=== PATIENT | male | born 1985 | race Caucasian/White ===

== ENCOUNTER 2020-02-27 20:14 | Inpatient (IN) | payer MEDICAID, SELFPAY ==
--- NOTE | 2020-02-27 20:30 | ED_ITS ---
HPI - Psych General Chief Complaint: Psychiatric Symptoms Stated Complaint: crisis Time Seen by Provider: 02/27/20 20:29 Source: patient Mode of arrival: ambulatory History of Present Illness HPI Narrative: 34-year-old male states he has been sleeping for the past several days so today felt like he wanted to kill himself. States he had a plan to overdose on medications. However he did not take any. States he had these thoughts before and has been here for the same period denies recent illness, denies fevers chills nausea vomiting abdominal pain or chest pain MD complaint: suicidal ideation Onset (ago): day(s) ( 1 day) Related Data Allergies Allergy/AdvReac Type Severity Reaction Status Date / Time haloperidol [From HALDOL] Allergy Intermediate N/V/D Unverified 02/10/20 19:34 acetaminophen [From TYLENOL] Allergy Mild GI UPSET Unverified 02/10/20 19:34 SEAFOOD Allergy Severe ANAPHYLAXIS Uncoded 02/10/20 19:34 Review of Systems Review of Systems: Constitutional : No Weight loss, No Fever, No Chills, No Night Sweats, No Fatigue, No Malaise ENT/Mouth : No Hearing loss, No Ear Pain, No Nasal Congestion, No Sinus Pain, No Hoarseness, No sore throat, No Rhinorrhea, No Swallowing Difficulty Eyes: No Eye Pain, No Swelling, No Redness, No Foreign Body, No Discharge, No Vision Changes Cardiovascular : No Chest Pain, No SOB, No Dyspnea on Exertion, No Orthopnea, No Edema, No Palpitations Respiratory : No Cough, No Sputum, No Wheezing, No Smoke Exposure, No Dyspnea Gastrointestinal : No Nausea, No Vomiting, No Diarrhea, No Constipation, No abdominal Pain, No Hematochezia, No Melena Genitourinary : no irregular bleeding, No Dysuria, No Urinary Frequency, No Hematuria, No Urinary Incontinence, No Urgency, No Flank Pain, No Urinary Flow Changes, No Hesitancy Musculoskeletal : No joint pain, No Myalgias, No Joint Swelling Skin : No Skin Lesions, No rash Neuro : No Weakness, No Numbness, No Paresthesias, No Loss of Consciousness, No Dizziness, No Headache Psych : No Anxiety/Panic, No Depression, No SI/HI/AH/VH, No Social Issues, Heme/Lymph: No Bruising, No Bleeding,No Lymphadenopathy Endocrine : No Polyuria, No Polydipsia, No Temperature Intolerance [facility] Past Medical History Medical History (Updated 02/27/20 @ 20:33 by Endy Medel DO) Patient denies medical problems Family History Family History (Updated 02/27/20 @ 20:33 by Endy Medel DO) Other Patient denies medical problems Social History Social History (Updated 02/27/20 @ 20:33 by Endy Medel DO) Household Members: Friend(s) Physical Exam Const: Other: Appearance: Alert. Oriented X3. No acute distress. Eyes: Pupils equal, round and reactive to light. ENT: Pharynx normal. Neck: Normal inspection. Neck supple. CVS: Normal heart rate and rhythm. Pulses normal. Respiratory: No respiratory distress. Breath sounds normal. Abdomen: Soft and nontender. Skin: Skin warm and dry. Normal skin color. Normal skin turgor. Extremities: No lower extremity edema. No lower extremity edema. Neuro: Oriented X 3. No motor deficit. No sensory deficit. Course Reevaluation(s) Reevaluation #1: security bedside Time: 20:34 MDM - Psych Restraints Face to Face Assessment: Face to Face Assessment: Current Situation: After assessment of the patient, a review of the pertinent medical record and a discussion with nursing staff, I feel the patient requires a restrain intervention. Reaction To: [] Medical Condition: [] Behavioral State: [] Continued Need: []
[2020-02-27 20:33] VITALS: BP 113/76; PULSE 87; RESP 18; TEMP 36.8; O2SAT 97; BMI 25.9
--- NOTE | 2020-02-27 21:57 | PC.NURSE ---
faxed and called [facility]. yves confirmed fax. aleksey 1;1 at this time. sleeping airway patent. patient reports plan to od on heroin. patient reports having a lot of mental health problems and feeling overwhelmed . Pt denies other complaints at this time.
[2020-02-27 22:01] VITALS: RESP 18
--- NOTE | 2020-02-27 22:41 | PC.NURSE ---
Addendum entered by Gloria Valverde 02/27/20 23:31: pt continues to refuse labs/ua at time of orginal note. Original Note: pt now on section 12. books from backpack brought to bedside. full charge bookkeeper aware
--- NOTE | 2020-02-27 23:32 | PC.NURSE ---
UA collected and sent. patient refuses lab work. brought to 4. bedside report given to heber rowland.
[2020-02-27 23:56] LABS: Basophils Percent Auto 0.6 % (0-2); Eosinophils Absolute Auto 0.2 X10*3/uL (0.0-0.4); Eosinophils Percent Auto 2.5 % (0-4); Hematocrit 41.2 % (42-52); Hemoglobin 13.6 g/dl (14.0-18.0); Imm Gran Abs Auto 0.01 X10*3/uL (0.00-0.03); Imm Gran Pct Auto 0.1 % (0.0-0.4); Lymphocytes Absolute Auto 2.9 X10*3/uL (1.2-4.9); MANUAL DIFF FLAG SCAN; Mean Corpuscular Hemoglobin 29.1 pg (27.0-33.0); Mean Corpuscular Volume 88.2 fL (80-98); Mean Platelet Volume 8.3 fL (9.4-12.4); Monocytes Absolute Auto 0.8 X10*3/uL (0.1-1.2); Monocytes Percent Auto 11.7 % (2-11); Neutrophils Absolute Auto 2.8 X10*3/uL (2.0-8.3); Neutrophils Percent Auto 42.1 % (45-73); Platelet Count 194 X10*3/uL (160-400); Red Blood Count 4.67 X10*6/uL (4.60-5.80); Red Cell Distribution Width 14.1 % (11.0-16.0); SCAN SMEAR FLAG 1; White Blood Count 6.7 X10*3/uL (4.8-10.8)
[2020-02-27 23:56] LABS: Amphetamine Screen Urine Not Detected (Not Detect); Barbiturates, Urine Not Detected (Not Detect); Benzodiazepines Screen Urine Not Detected (Not Detect); Cannabinoid Screen Urine Not Detected (Not Detect); Cocaine Screen Urine POSITIVE (Not Detect); Opiate Screen Urine POSITIVE (Not Detect); Phencyclidine Screen Urine Not Detected (Not Detect)
--- NOTE | 2020-02-27 23:56 | PC.NURSE ---
PATIENT'S PAPERWORK FAXED TO [facility] AND PER [facility] THEY WILL BE IN PER THEIR REPORT IN THE MORNING FOR EVALUATION. PATIENT WAS REFUSING BLOOD DRAW AND URINALYSIS. AWAITING RESULTS. PATIENT CALM AND COOPERATIVE. CURRENTLY EATING.
[2020-02-28] VITALS (12 sets, daily range): BP systolic 95–114; BP diastolic 57–71; PULSE 62–68; RESP 15–20; TEMP 36.7–37; O2SAT 95–99
--- NOTE | 2020-02-28 | MR_ITS ---
EXAMINATION: MR ABDOMEN WITHOUT CONTRAST CLINICAL INFORMATION: 34-year-old with history elevated LFTs. Ultrasound shows mild enlargement CBD. No visible gallstone or choledocholithiasis. COMPARISON: Ultrasound abdomen 02/28/2020 TECHNIQUE: MR abdomen is performed without gadolinium contrast. Coronal and axial imaging is performed. Additional MRCP sequence also included. FINDINGS: LUNG BASES: The visualized lung bases are unremarkable. LIVER, GALLBLADDER, AND BILIARY TREE: The liver is within normal size and smooth in contour. The parenchyma areas homogeneous. There is no focal hepatic parenchymal lesion or intrahepatic ductal dilatation. The gallbladder appears contracted. There is no visible gallstone. The common duct ranges from 5 to 7 mm in caliber with no visible intraductal filling defect or wall thickening. No extrinsic compression or displacement or stricture. PANCREAS: Unremarkable. SPLEEN: Unremarkable. ADRENAL GLANDS: Unremarkable. KIDNEYS AND URETERS: The kidneys are normal in size and shape. No hydronephrosis. No perinephric stranding. GASTROINTESTINAL TRACT: No bowel obstruction. No ascites or fluid collection. ABDOMINAL WALL: No significant hernia is appreciated. LYMPH NODES: No lymphadenopathy. VASCULAR: Unremarkable. OSSEOUS STRUCTURES: Marrow signal normal. IMPRESSION: 1. Gallbladder appears contracted. No visible gallstone. 2. No intrahepatic ductal dilatation. Common duct 5 days 7 mm. No visible ductal calculus or stricture. 3. Pancreatic duct normal.
--- NOTE | 2020-02-28 | US_ITS ---
EXAMINATION: ABDOMINAL ULTRASOUND LIMITED CLINICAL INFORMATION: Elevated LFTs. COMPARISON: None. TECHNIQUE: Real-time imaging of the right upper quadrant abdominal viscera. FINDINGS: PANCREAS: The visualized pancreatic head and body are normal in appearance. The remainder of the pancreas is obscured from visualization by the overlying bowel gas. LIVER: The liver is of normal size and echogenicity without focal lesions nor intrahepatic biliary ductal dilation. GALLBLADDER: Normal. The gallbladder is physiologically distended without evidence of stones, sludge, polyps, wall thickening or pericholecystic fluid. COMMON BILE DUCT: The common duct is slightly enlarged measuring 7 mm without demonstrable choledocholithiasis. RIGHT KIDNEY: Normal. No hydronephrosis. No renal calculi or focal parenchymal lesions. The kidney measures 11.3 cm in maximum dimension. FREE FLUID: None. IMPRESSION: Mild enlargement to the common duct without demonstrable choledocholithiasis. No cholelithiasis.
[2020-02-28 00:27] LABS: SLIDE REVIEW VERIFIED
[2020-02-28 00:32] LABS: Ethanol < 10 mg/dL
[2020-02-28 00:38] LABS: Alanine Aminotransferase 1112 U/L (0-40); Albumin Level 4.1 g/dL (3.5-5.0); Alkaline Phosphatase 178 U/L (39-117); Anion Gap 11 (12-20); Aspartate Amino Transferase 873 U/L (5-37); Bilirubin Total 4.5 mg/dL (0.0-1.0); Blood Urea Nitrogen 14 mg/dL (9-16); Calcium 9.2 mg/dL (8.4-10.2); Carbon Dioxide 30 mmol/L (22-29); Chloride 102 mmol/L (96-108); Creatinine Clr Calc Pharmacy 81.6; Estimated Glomerular Filt Rate > 60; Glucose Random 102 mg/dL (60-115); Potassium 4.4 mmol/l (3.3-5.1); Sodium 139 mmol/L (135-145); Total Protein 6.9 g/dL (6.5-8.0)
--- NOTE | 2020-02-28 00:51 | PC.NURSE ---
PATIENT CURRENTLY RESTING IN HIS ROOM AFTER EATING CRACKERS AND BEING GIVEN WARM BLANKETS. PATIENT HAS BEEN CALM AND COOPERATIVE.
--- NOTE | 2020-02-28 01:21 | PC.NURSE ---
PATIENT'S LIVER ENZYMES ARE ELEVATED AND MD MADE AWARE. MD BACK TO SPEAK WITH PATIENT. PER PATIENT'S REPORT HE WAS RECENTLY DIAGNOSED WITH HEPATITIS THIS SUMMER AND PER HIS REPORT HE HAS NOT HAD TREATMENT FOR IT. MD ADDED LABRATORY TEST AND LAB CALLED. MD WAS GOING TO ORDER AN ULTRASOUND. PLAN IS TO SEND PATIENT WITH STAFF/SECURITY OFF UNIT FOR ULTRASOUND
[2020-02-28 01:23] LABS: Acetaminophen LAB < 1 mcg/mL (<30)
[2020-02-28 01:48] LABS: Salicylate < 5.0 mg/dL (15-30)
--- NOTE | 2020-02-28 01:58 | PC.NURSE ---
PATIENT NEEDS TO BE MEDICALLY CLEARED AGAIN PER N AND THEN THIS DIRECTOR OF GRADUATE ADMISSIONS NEEDS TO CALL [facility] AND LET THEM KNOW THAT PATIENT IS CLEARED SO THAT THEY CAN COME BACK AND ASSESS PATIENT. PATIENT OFF UNIT TO GO TO ULTRASOUND WITH SITTER/GLAZIER STRUCTURAL GLASS.
[2020-02-28 02:06] LABS: INTERNATIONAL NORM RATIO 1.4 (0.9-1.1); Prothrombin Time 16.1 SEC (10.8-13.0)
[2020-02-28 02:07] LABS: Lipase 13 U/L (8-78)
[2020-02-28 02:08] LABS: Partial Thromboplastin Time 36.6 SEC (24.1-38.0)
--- NOTE | 2020-02-28 03:12 | PC.NURSE ---
ONCE PATIENT IS MEDICALLY CLEARED THEN PATIENT WILL BE SEEN BY [facility] IN THE MORNING
--- NOTE | 2020-02-28 03:22 | PC.NURSE ---
AT BEDSIDE FOR EVALUATION. PLAN IS FOR ADMISSION TO MEDICAL FLOOR WITH CONSULT TOMORROW WITH DR. COLLADO GASTRO
--- NOTE | 2020-02-28 03:48 | PC.NURSE ---
HOSPITALIST AT BEDSIDE FOR EVALUATION OF PATIENT. AWAITING RESULTS OF LAB TESTS.
--- NOTE | 2020-02-28 04:04 | PM.IMHP ---
History of Present Illness Date of Service: 02/28/20 Chief Complaint: Abdominal pain 34 y/o male who presented from home due to suicidal ideation. Patient has a significant hx of IVDA. Reports that has been using heroin and cocaine on and off. Has a hx of Hep C which was never treated in the past. Now presents because for the past several days has been having ideas of commiting suicide. Patient denies having any plan at present or any attempt. Does reports that for the past week has been having a diffuse abdominal pain which has been sharp in nature but denies any nausea, vomiting, diarrhea or constipation. On presentation to the ED patient was initially placed for admission under [facility] but given an incidental finding of elevated liver function test GI was consulted for further management. AST 873, ALT of 1112, alk phosh 178, INR of 1.4. Utox positive for opiates and cocaine. US abdomen shows mild enlargement to the common duct without demonstrable cholelithiasis or choledocholithiasis. Per ED, findings were discussed with GI Dr Hines who recommends for patient to be admitted at present under medicine for LFT's trending and possible MRCP in the am if recommended. Patient seen and evaluated at the bedside, ROS positive for abdominal pain. Physical exam unable to be obtained at present as patient is upset and wants to be left alone . PMHx: Hep C, IV drug abuse PSx: unknown Toxic habits: Cocaine abuse, Heroin abuse, no hx of alcohol abuse or smoking Review of Systems Gastrointestinal: Gastrointestinal: Reports abdominal pain Psychiatric: Psychiatric: Reports homicidal ideation [facility] Medical History Patient denies medical problems Functional capacity: independent ambulation Family History Other Patient denies medical problems Family history: reviewed and not pertinent Social History Household Members: Friend(s) Alcohol intake: current Alcohol intake frequency: 0-2 drinks per day Alcohol type: hard liquor Smoking Status: Current every day smoker Smoked in Last 30 Days: Yes Use of substances other than those prescribed or required for medical reasons: Yes Substance Use Type: Heroin and Marijuana Substance Use Frequency: Daily Last Used Substance: Unknown Any prior treatment program specific to substance use: No Advance Directives: No Meds Allergies Allergy/AdvReac Type Severity Reaction Status Date / Time haloperidol [From HALDOL] Allergy Intermediate N/V/D Verified 02/28/20 03:46 acetaminophen [From TYLENOL] Allergy Mild GI UPSET Verified 02/28/20 03:46 SEAFOOD Allergy Severe ANAPHYLAXIS Uncoded 02/10/20 19:34 Home Medications Medication Instructions Recorded Confirmed Type No Known Home Meds 02/27/20 02/27/20 History Physical Exam Vital Signs and Narrative: Vital Signs: Last Vital Signs Temp 98.2 F 02/27/20 20:33 Pulse 87 02/27/20 20:33 Resp 18 02/28/20 04:00 BP 113/76 02/27/20 20:33 Pulse Ox 97 02/27/20 20:33 Body Mass Index 25.9 Const: General: comfortable, no acute distress and other (rest of the physical exam unable to be performed ) Results Labs Labs: Laboratory Tests 02/27/20 02/27/20 02/27/20 23:25 23:49 23:49 WBC 6.7 RBC 4.67 Hgb 13.6 L Hct 41.2 L MCV 88.2 MCH 29.1 MCHC 33.0 RDW 14.1 Plt Count 194 MPV 8.3 L Immature Gran % (Auto) 0.1 Neut % (Auto) 42.1 L Lymph % (Auto) 43.0 H [place] % (Auto) 11.7 H Eos % (Auto) 2.5 Baso % (Auto) 0.6 Neut # (Auto) 2.8 Lymph # (Auto) 2.9 [place] # (Auto) 0.8 Eos # (Auto) 0.2 Baso # (Auto) 0.0 Abs Immat Gran (auto) 0.01 Absolute Nucleated RBC 0.000 Nucleated RBC % (auto) 0.0 Smear Tech's Comments VERIFIED PT INR APTT Sodium 139 Potassium 4.4 Chloride 102 Carbon Dioxide 30 H Anion Gap 11 L BUN 14 Creatinine 1.14 Estim Creat Clear Calc 81.6 Estimated GFR > 60 Random Glucose 102 Calcium 9.2 Total Bilirubin 4.5 H AST 873 H ALT 1112 H Alkaline Phosphatase 178 H Total Protein 6.9 Albumin 4.1 Lipase 13 Salicylates < 5.0 L Urine Opiates Screen POSITIVE H Acetaminophen < 1 Ur Barbiturates Screen Not Detected Ur Phencyclidine Scrn Not Detected Ur Amphetamines Screen Not Detected U Benzodiazepines Scrn Not Detected Urine Cocaine Screen POSITIVE H U Marijuana (THC) Screen Not Detected Ethyl Alcohol 02/27/20 02/28/20 23:49 01:45 WBC RBC Hgb Hct MCV MCH MCHC RDW Plt Count MPV Immature Gran % (Auto) Neut % (Auto) Lymph % (Auto) [place] % (Auto) Eos % (Auto) Baso % (Auto) Neut # (Auto) Lymph # (Auto) [place] # (Auto) Eos # (Auto) Baso # (Auto) Abs Immat Gran (auto) Absolute Nucleated RBC Nucleated RBC % (auto) Smear Tech's Comments PT 16.1 H INR 1.4 H APTT 36.6 Sodium Potassium Chloride Carbon Dioxide Anion Gap BUN Creatinine Estim Creat Clear Calc Estimated GFR Random Glucose Calcium Total Bilirubin AST ALT Alkaline Phosphatase Total Protein Albumin Lipase Salicylates Urine Opiates Screen Acetaminophen Ur Barbiturates Screen Ur Phencyclidine Scrn Ur Amphetamines Screen U Benzodiazepines Scrn Urine Cocaine Screen U Marijuana (THC) Screen Ethyl Alcohol < 10 Assessment and Plan (1) Suicidal ideation: Status: Acute 1:1 for safety / elopement risk [facility] aware and will follow up in am When medically cleared follow up with psych for psych admission (2) Acute hepatitis: Status: Acute Elevated LFT's and alk phosph. INR of 1.4 Follow up repeat CMP in the am and trend LFT's as of now per recommendations from GI Possible MRCP if GI agreeable
--- NOTE | 2020-02-28 04:58 | PC.NURSE ---
CALL TO FLOOR TO GIVE REPORT. RN UNABLE TO TAKE REPORT AT THE MOMENT BUT WILL CALL SOON POSSIBLE
[2020-02-28 06:19] LABS: Basophils Absolute Auto 0.1 X10*3/uL (0.0-0.2); Basophils Percent Auto 0.7 % (0-2); Eosinophils Absolute Auto 0.2 X10*3/uL (0.0-0.4); Eosinophils Percent Auto 2.3 % (0-4); Hematocrit 38.9 % (42-52); Hemoglobin 13.2 g/dl (14.0-18.0); Imm Gran Abs Auto 0.02 X10*3/uL (0.00-0.03); Imm Gran Pct Auto 0.3 % (0.0-0.4); Lymphocytes Absolute Auto 3.1 X10*3/uL (1.2-4.9); Lymphocytes Percent Auto 44.4 % (20-40); MANUAL DIFF FLAG SCAN; Mean Corpuscular HGB Conc 33.9 g/dl (31.0-36.0); Mean Corpuscular Hemoglobin 29.5 pg (27.0-33.0); Mean Platelet Volume 8.8 fL (9.4-12.4); Monocytes Absolute Auto 0.9 X10*3/uL (0.1-1.2); Monocytes Percent Auto 13.3 % (2-11); Neutrophils Absolute Auto 2.7 X10*3/uL (2.0-8.3); Platelet Count 189 X10*3/uL (160-400); Red Blood Count 4.47 X10*6/uL (4.60-5.80); Red Cell Distribution Width 13.9 % (11.0-16.0); SCAN SMEAR FLAG 1
[2020-02-28 06:50] LABS: Alanine Aminotransferase 987 U/L (0-40); Albumin Level 3.7 g/dL (3.5-5.0); Alkaline Phosphatase 168 U/L (39-117); Anion Gap 11 (12-20); Aspartate Amino Transferase 748 U/L (5-37); Bilirubin Total 4.6 mg/dL (0.0-1.0); Blood Urea Nitrogen 13 mg/dL (9-16); Calcium 8.8 mg/dL (8.4-10.2); Carbon Dioxide 28 mmol/L (22-29); Chloride 103 mmol/L (96-108); Creatinine Clr Calc Pharmacy 101.1; Estimated Glomerular Filt Rate > 60; Glucose Random 84 mg/dL (60-115); Potassium 4.1 mmol/l (3.3-5.1); Sodium 138 mmol/L (135-145); Total Protein 6.3 g/dL (6.5-8.0)
[2020-02-28 08:10] LABS: HBS Num1 76.38 mIU/mL (0-7.99); ~HepC Num1 12.94 S/CO (0.00-0.79); ~Hepatitis B Surface Antibody REACTIVE (Nonreactive); ~Hepatitis C Antibody Reactive (Nonreactive)
[2020-02-28 08:12] LABS: Hepatitis B Core Antibody Nonreactive (Nonreactive); Hepatitis B Surface Antigen Negative (Negative)
[2020-02-28] MEDS: 0.9 % Sodium Chloride Flush 3 ML SYRINGE 2 ML IVFLUSH ×3 (09:11→23:53)
--- NOTE | 2020-02-28 09:16 | P.CNGI_ITS ---
History of Present Illness Data of Consult Service Date: 02/28/20 Requesting physician: Terrie Oreilly Primary Care Provider: None Physician HPI Reason for consult: Elevated LFTs 34 year old male with polysubstance dependence patient's drug of choice is alcohol benzodiazepines and heroin. Patient has a long history of substance use and comorbid depression and seen at [facility] last night with suicidal ideation. Labs showed elevated LFTs (of note LFTs were normal a month ago). Abdominal US showed a mildly dilated CBD of 7 mm without CBD or gallstones. Patient is a poor historian and answers I do not know to multiple questions. He complains of diffuse abdominal sharp and stabbing abdominal pain since last Friday. He denies any nausea, vomiting, or a change in bowel habits. Patient reports being diagnosed with hepatitis-C at [facility] this summer. Patient has not been treated since additional testing was advised and patient did not follow through. Patient has a significant hx of IVDA. Reports that has been using heroin and cocaine almost daily - last used yesterday. He denies sharing needles or recent exposure to someone with known Hepatitis C infection. On presentation to the ED patient was initially placed for admission under [facility]. Since he had elevated LFTS (TB of 4.5, AST 873, ALT of 1112, alk phos 178, INR of 1.4) patient was admitted to the Medical Service. Utox positive for opiates and cocaine. US abdomen shows mild enlargement to the common duct without demonstrable cholelithiasis or choledocholithiasis. Repeat LFTs today show a decrease in AST, ALT and AP and stable TB. Review of Systems Constitutional: Constitutional: Denies fever(s) and Reports poor appetite Eyes: Eyes: Denies eye discharge and Denies irritation Cardiovascular: Cardiovascular: Denies chest pain, Denies diaphoresis and Denies dyspnea Respiratory: Respiratory: Denies cough, Denies dyspnea and Denies wheezing Gastrointestinal: Gastrointestinal: Reports abdominal pain and Denies change in bowel habits Genitourinary: Genitourinary: Denies hematuria and Denies difficulty urinating Musculoskeletal: Musculoskeletal: Denies arthralgias and Denies joint swelling Psychiatric: Psychiatric: Reports anxiety, Reports change in appetite, Reports depression and Reports suicidal ideation Hematologic/Lymphatic: Hematologic/Lymphatic: Denies easy bleeding and Denies easy bruising Allergic/Immunologic: Allergic/Immunologic: Denies wheezing PMFSH Past Medical History Medical History Elevated LFTs Hepatitis C infection Intravenous drug abuse, continuous Patient denies medical problems Scoliosis Functional capacity: independent ambulation Family History Family History Other Patient denies medical problems Family history: reviewed and not pertinent Social History Social History Household Members: Unknown / Unable to assess Housing: Unknown / Unable to assess Alcohol intake: current Alcohol intake frequency: 0-2 drinks per day Alcohol type: hard liquor Smoking Status: Current every day smoker Substance Use Type: Heroin and Marijuana service: No Current occupational status: unemployed Meds Allergies Allergy/AdvReac Type Severity Reaction Status Date / Time haloperidol [From HALDOL] Allergy Intermediate N/V/D Verified 03/02/20 14:13 acetaminophen [From TYLENOL] Allergy Mild GI UPSET Verified 03/02/20 14:13 SEAFOOD Allergy Severe ANAPHYLAXIS Uncoded 02/10/20 19:34 Physical Exam Vital Signs and I&O and Narrative: Vital Signs and I&O: Vital Signs Temp 98.6 F 02/28/20 07:44 Pulse 68 02/28/20 07:44 Resp 16 02/28/20 07:44 BP 113/65 02/28/20 07:44 Pulse Ox 95 02/28/20 07:44 Intake & Output 02/27/20 02/28/20 02/28/20 18:59 06:59 18:59 Intake Total 0 / 0 Balance 0 / 0 Weight 160 lb 11.834 oz Intake: Intake, Oral [place] unt 0 / 0 Body Mass Index 25.9 Const: General: anxious and tired appearing Nutritional Appearance: average body habitus Orientation/consciousness: patient oriented x3 Limitations: no limitations HENMT: Head: Yes normal to inspection Ears: hearing grossly normal bilaterally Eyes: General: appearance normal, both eyes and all related structures Neck: Neck: Yes normal visual inspection Chest: Chest palpation & inspection: normal inspection of the chest Resp: Effort & Inspection: normal respiratory effort Auscultation: clear to auscultation bilaterally Cardio: Palpation: normal PMI Rate: regular rate Rhythm: regular rhythm Heart sounds: S1 normal heart sound present, S2 normal heart sound present and no murmurs GI: Inspection: Yes normal to inspection Palpation (GI): Tenderness to palpation present (GI) in the epigastrum and in the RUQ Auscultation: normal bowel sounds Rectal Exam - Male: Yes deferred Skin: General skin exam: no rashes or lesions noted Neuro: General: patient oriented x3 Extrem: General: Yes no clubbing, cyanosis or edema Psych: Attitude: Avoids eye contact (attititude/behavior) and Refuses to answer (attititude/behavior) (answers I dont know to multiple questions) Results Labs CBC & Chem 7: 03/02/20 09:48 03/02/20 09:48 Labs: Short CBC 02/27/20 02/28/20 Range/Units 23:49 05:41 WBC 6.7 7.0 (4.8-10.8) X10*3/uL Hgb 13.6 L 13.2 L (14.0-18.0) g/dl Hct 41.2 L 38.9 L (42-52) % Plt Count 194 189 (160-400) X10*3/uL BMP 02/27/20 02/28/20 23:49 05:41 Sodium 139 138 Potassium 4.4 4.1 Chloride 102 103 Carbon Dioxide 30 H 28 BUN 14 13 Creatinine 1.14 0.92 Calcium 9.2 8.8 Liver Function 02/27/20 02/28/20 Range/Units 23:49 05:41 Total Bilirubin 4.5 H 4.6 H (0.0-1.0) mg/dL AST 873 H 748 H (5-37) U/L ALT 1112 H 987 H (0-40) U/L Alkaline Phosphatase 178 H 168 H (39-117) U/L Albumin 4.1 3.7 (3.5-5.0) g/dL Assessment and Plan (1) Elevated LFTs: (2) Hepatitis C infection: (3) Intravenous drug abuse, continuous: Status: Resolved 34 year old male with polysubstance dependence (patient's drug of choice is alcohol, benzodiazepines and heroin). Patient has a long history of substance use and comorbid depression and presented to [facility] last night with suicidal ideation. Labs showed elevated LFTs (of note LFTs were normal a month ago). Abdominal US showed a mildly dilated CBD of 7 mm without CBD or gallstones. Hepatitis serologies showed positive hepatitis C antibody and positive hepatitis B surface antibody. Pt reports being diagnosed with Hepatitis C at this summer and denies being treated. Elevated LFTs are likely due to acute viral hepatitis (Hep A ab Ig M is still pending), biliary obstruction or liver toxicity related to IV Cocaine use. There is increased risk of cocaine liver toxicity in patients with concomitant ETOH abuse. RECOMMENDATIONS: 1. Agree with the obtaining an MRCP today to rule out biliary obstruction. 2. Hepatitis C viral load (I have requested past labs/records from ) 3. Follow LFTs and INR daily. He can be transferred to Psyche unit if LFTs show continued improvement. 4. He will need to FU in GI clinic after treatment of his Psyche issues. Hepatitis C treatment can be initiated once he stops using drugs and enrolls in a treatment program. EFFECTS OF COCAINE ON GI SYSTEM AND LIVER (From [place]): Gastrointestinal system ? Cocaine use by any route of administration reduces salivary secretions (xerostomia)and causes bruxism. Cocaine reduces gastric motility and delays gastric emptying. Cocaine-induced vasoconstriction and ischemia may result in gastrointestinal ulceration, infarction, perforation, and ischemic colitis. Cocaine-associated ulcers are distributed primarily in the greater curvature and prepyloric region of the stomach, pyloric canal, but, sim ilar to peptic ulcers, also occur in the first portion of the duodenum. Liver ? Cocaine users may have mild, transient elevation in transaminases, but there is no direct evidence that cocaine is hepatotoxic in humans. As an example, a prospective cohort study of 573 patients coinfected with HIV and hepatitis C virus, who were followed from 2002 to 2013 and lacked significant baseline liver fibrosis, found no association between progression to significant fibrosis and lifetime cocaine use (hazard ratio 0.96, 95% CI 0.58-1.57) or immzd-hyt-vehbi cocaine use (hazard ratio 0.88, 95% CI 0.63-1.25), after adjustment for age, sex, duration of hepatitis C infection, and alcohol and other drug use. Cocaine does cause liver damage in rodents; however, the responsible hepatotoxins are oxidative metabolites such as norcocaine, which are very minor metabolites in humans. Liver abnormalities in cocaine users can almost always be accounted for by viral hepatitis from injection drug use, alcoholic liver disease, concurrent rhabdomyolysis, use of other hepatotoxic drugs (such as MDMA [?ecstasy?]), or other consequences of a drug-using lifestyle. Concurrent alcohol intake may sensitize hepatocytes to damage by cocaine, as well as generating the hepatotoxic metabolite cocaethylene.
--- NOTE | 2020-02-28 12:19 | PM.GICN ---
History of Present Illness Data of Consult Primary Care Provider: None Physician [facility] Past Medical History Medical History Patient denies medical problems Functional capacity: independent ambulation Family History Family History Other Patient denies medical problems Family history: reviewed and not pertinent Social History Social History Household Members: Unknown / Unable to assess Housing: Unknown / Unable to assess Alcohol intake: current Alcohol intake frequency: 0-2 drinks per day Alcohol type: hard liquor Smoking Status: Current every day smoker Smoked in Last 30 Days: Yes Use of substances other than those prescribed or required for medical reasons: Refusing to respond Substance Use Type: Heroin and Marijuana Substance Use Frequency: Daily Last Used Substance: Unknown Any prior treatment program specific to substance use: No Advance Directives: No Recently lost weight without trying: Unsure Meds Allergies Allergy/AdvReac Type Severity Reaction Status Date / Time haloperidol [From HALDOL] Allergy Intermediate N/V/D Verified 02/28/20 03:46 acetaminophen [From TYLENOL] Allergy Mild GI UPSET Verified 02/28/20 03:46 SEAFOOD Allergy Severe ANAPHYLAXIS Uncoded 02/10/20 19:34 Home Medications Medication Instructions Recorded Confirmed Type No Known Home Meds 02/27/20 02/27/20 History Physical Exam Vital Signs and I&O and Narrative: Vital Signs and I&O: Vital Signs Temp 98.2 F 02/28/20 11:05 Pulse 62 02/28/20 11:05 Resp 18 02/28/20 11:05 BP 113/71 02/28/20 11:05 Pulse Ox 99 02/28/20 11:05 Intake & Output 02/27/20 02/28/20 02/28/20 18:59 06:59 18:59 Intake Total 0 / 0 480 / 480 Balance 0 / 0 480 / 480 Weight 160 lb 11.834 oz Intake: Intake, Oral Torey unt 0 / 0 480 / 480 Other: Breakfast % Eate n 100% Body Mass Index 25.9 Const: Other: Appearance: Alert. Oriented X3. No acute distress. Eyes: Pupils equal, round and reactive to light. ENT: Pharynx normal. Neck: Normal inspection. Neck supple. CVS: Normal heart rate and rhythm. Pulses normal. Respiratory: No respiratory distress. Breath sounds normal. Abdomen: Soft and nontender. Skin: Skin warm and dry. Normal skin color. Normal skin turgor. Extremities: No lower extremity edema. No lower extremity edema. Neuro: Oriented X 3. No motor deficit. No sensory deficit. General: comfortable, no acute distress and other (rest of the physical exam unable to be performed ) Results Labs CBC & Chem 7: 02/28/20 05:41 02/28/20 05:41 Labs: Short CBC 02/27/20 02/28/20 Range/Units 23:49 05:41 WBC 6.7 7.0 (4.8-10.8) X10*3/uL Hgb 13.6 L 13.2 L (14.0-18.0) g/dl Hct 41.2 L 38.9 L (42-52) % Plt Count 194 189 (160-400) X10*3/uL BMP 02/27/20 02/28/20 23:49 05:41 Sodium 139 138 Potassium 4.4 4.1 Chloride 102 103 Carbon Dioxide 30 H 28 BUN 14 13 Creatinine 1.14 0.92 Calcium 9.2 8.8 Liver Function 02/27/20 02/28/20 Range/Units 23:49 05:41 Total Bilirubin 4.5 H 4.6 H (0.0-1.0) mg/dL AST 873 H 748 H (5-37) U/L ALT 1112 H 987 H (0-40) U/L Alkaline Phosphatase 178 H 168 H (39-117) U/L Albumin 4.1 3.7 (3.5-5.0) g/dL Assessment and Plan (1) Acute hepatitis: Status: Acute Elevated LFT's and alk phosph. INR of 1.4 Follow up repeat CMP in the am and trend LFT's as of now per recommendations from GI Possible MRCP if GI agreeable (2) Suicidal ideation: Status: Acute 1:1 for safety / elopement risk BHN aware and will follow up in am When medically cleared follow up with psych for psych admission
[2020-02-28] MEDS: Morphine Sulfate 2 MG/ML CARTRIDGE IVPUSH ×3 (14:44→23:48)
--- NOTE | 2020-02-28 15:55 | MHC.CM.PN ---
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 Pt does not use DME and has no services. Pt does not have a HCP and declines to complete one. Pt reports he does not have a PCP but knows that based on his insurance company's protocol, he must contact them first to list a new PCP before he can make an appointment. DC plan TBD pending SOURAV morgan .
[2020-02-28] MEDS: LORazepam 2 MG/ML VIAL 0.25 MG IVPUSH (21:19)
[2020-02-29] VITALS (12 sets, daily range): BP systolic 106–122; BP diastolic 58–76; PULSE 68–80; RESP 16–20; TEMP 36.6–37; O2SAT 95–99
[2020-02-29] MEDS: Morphine Sulfate 2 MG/ML CARTRIDGE IVPUSH ×2 (05:46→10:07)
[2020-02-29 06:54] LABS: Basophils Percent Auto 0.6 % (0-2); Eosinophils Absolute Auto 0.2 X10*3/uL (0.0-0.4); Eosinophils Percent Auto 2.7 % (0-4); Hemoglobin 14.1 g/dl (14.0-18.0); Imm Gran Abs Auto 0.01 X10*3/uL (0.00-0.03); Imm Gran Pct Auto 0.2 % (0.0-0.4); Lymphocytes Absolute Auto 3.2 X10*3/uL (1.2-4.9); Lymphocytes Percent Auto 49.7 % (20-40); MANUAL DIFF FLAG SCAN; Mean Corpuscular HGB Conc 34.4 g/dl (31.0-36.0); Mean Corpuscular Hemoglobin 30.3 pg (27.0-33.0); Monocytes Absolute Auto 0.8 X10*3/uL (0.1-1.2); Neutrophils Absolute Auto 2.2 X10*3/uL (2.0-8.3); Neutrophils Percent Auto 34.8 % (45-73); Platelet Count 220 X10*3/uL (160-400); Red Blood Count 4.66 X10*6/uL (4.60-5.80); Red Cell Distribution Width 14.2 % (11.0-16.0); SCAN SMEAR FLAG 1; White Blood Count 6.3 X10*3/uL (4.8-10.8)
[2020-02-29 07:24] LABS: SLIDE REVIEW VERIFIED
[2020-02-29 07:38] LABS: Alanine Aminotransferase 915 U/L (0-40); Albumin Level 3.6 g/dL (3.5-5.0); Alkaline Phosphatase 162 U/L (39-117); Anion Gap 11 (12-20); Aspartate Amino Transferase 606 U/L (5-37); Bilirubin Direct 4.5 mg/dL (0.0-0.5); Bilirubin Total 5.2 mg/dL (0.0-1.0); Blood Urea Nitrogen 11 mg/dL (9-16); Calcium 8.7 mg/dL (8.4-10.2); Carbon Dioxide 26 mmol/L (22-29); Chloride 106 mmol/L (96-108); Creatinine Clr Calc Pharmacy 106.9; Estimated Glomerular Filt Rate > 60; Glucose Fasting 88 mg/dL (60-99); Sodium 139 mmol/L (135-145); Total Protein 6.5 g/dL (6.5-8.0)
[2020-02-29] MEDS: 0.9 % Sodium Chloride Flush 3 ML SYRINGE 2 ML IVFLUSH ×3 (09:02→23:17)
--- NOTE | 2020-02-29 16:15 | MHC.CARE ---
CARE team met with this patient in [facility] [place] 482[place]1 at staff request. Per [facility] staff, patient has been medically cleared. Patient had previously been agitated and was asking to leave. CARE team met with patient who appears very physically uncomfortable and in pain. Is aware that medications have been ordered and will be administered shortly. Patient asked to speak later on (rather than now) as he is not feeling well. Was apologetic but visibly agitated. Patient reports he lives with a friend and housing is stable. Patient verbally denies SI/HI however appears to have high frustration and low tolerance for physical discomfort. Due to circumstances of patient's arrival at [facility], patient is still considered at-risk and a sitter will remain with patient until [facility] eval. CARE team contacted [facility] to confirm that they plan to see patient today. Though patient is wanting to leave, he verbalizes understanding of plan for assessment to determine whether he is able to safely discharge. Patient is encouraged to rest/read until [facility] eval.
[2020-02-29] MEDS: hydrOXYzine HCL 25 MG TABLET PO (16:18)
[2020-02-29] MEDS: Morphine Sulfate 2 MG/ML CARTRIDGE 4 MG IVPUSH ×2 (16:24→23:17)
[2020-02-29] MEDS: cloNIDine HCL 0.1 MG TABLET PO (16:57)
[2020-02-29] MEDS: PHENobarbitaL sodium 130 MG/ML VIAL 384 MG IM (16:57)
--- NOTE | 2020-02-29 17:52 | HO.PM.IMPN ---
Subjective Subjective Date of Service: 02/29/20 Interval History: seen and evaluated this morning and in the afternoon Anxious, stressed out, security was called in for behavior Denies any fever or chills but reported abdominal pain and sweating No other overnight events Review of Systems Review of Systems: Yes all other systems are reviewed and are negative Constitutional Constitutional: Reports fatigue and Reports lethargy Gastrointestinal Gastrointestinal: Reports abdominal pain and Reports nausea Musculoskeletal Musculoskeletal: Reports muscle cramps Endocrine Endocrine: Reports fatigue Physical Exam Vital Signs and I&O and Narrative: Vital Signs and I&O: Vital Signs Temp 98.4 F 02/29/20 16:00 Pulse 68 02/29/20 16:57 Resp 20 02/29/20 16:00 BP 118/73 02/29/20 16:57 Pulse Ox 97 02/29/20 12:00 Intake & Output 02/28/20 02/29/20 02/29/20 18:59 06:59 18:59 Intake Total 480 / 540 60 / 540 340 / 340 Output Total 700 / 1300 600 / 1300 Balance -220 / -760 -540 / -760 340 / 340 Urine Output (Aver age ml/kg/hr) 0.80 0.69 0.69 Intake: Intake, Oral Torey unt 480 / 540 60 / 540 340 / 340 Output: Output, Urine Am ount 700 / 1300 600 / 1300 Other: Meal Refused Yes: Refused lunch Breakfast % Eate n 100% Lunch % Eaten 0% Urine Urinal Urine Color Concentrated Body Mass Index 25.9 Const: General: cooperative and anxious Orientation/consciousness: oriented to person and oriented to place Neck: Neck: Yes normal visual inspection and Yes full ROM Resp: Effort & Inspection: normal respiratory effort Auscultation: clear to auscultation bilaterally Cardio: Jugular venous distension: no JVD Heart sounds: S1 normal heart sound present and S2 normal heart sound present GI: Inspection: Yes normal to inspection Palpation (GI): Soft to palpation Percussion: Yes normal to percussion Auscultation: normal bowel sounds Neuro: General: oriented to person and oriented to place Objective Data Current Medications Generic Name Dose Route Start Last Admin Trade Name Freq PRN Reason Stop Dose Admin Clonidine HCl 0.1 mg 02/29/20 16:04 02/29/20 16:57 Clonidine Hcl 0.1 Mg Tablet PO 0.1 mg TID PRN Administration Withdrawal Protocol Enoxaparin Sodium 40 mg 02/28/20 08:00 02/29/20 09:03 Enoxaparin Sodium 40 Mg/0.4 Ml Syringe SUBCUT Not Given Q24H [facility] Hydroxyzine HCl 25 mg 02/29/20 16:04 02/29/20 16:18 Hydroxyzine Hcl 25 Mg Tablet PO 25 mg Q6H PRN Administration restlessness Medication 1 each 03/01/20 09:00 No Benzodiazepines MISCELLANE DAILY [facility] Morphine Sulfate 4 mg 02/29/20 16:06 02/29/20 16:24 Morphine Sulfate 2 Mg/Ml Cartridge IVPUSH 4 mg Q3H PRN Administration pain Pharmacy Consult 1 each 02/29/20 16:15 Consult Rx Etoh Phenob Dosing MISCELLANE ONCE [facility] Protocol Phenobarbital 45 mg 03/01/20 09:00 Phenobarbital 15 Mg Tablet PO 03/02/20 21:01 BID [facility] Phenobarbital 30 mg 03/03/20 09:00 Phenobarbital 30 Mg Tablet PO 03/04/20 21:01 BID [facility] Phenobarbital 15 mg 03/05/20 09:00 Phenobarbital 15 Mg Tablet PO 03/06/20 09:01 DAILY [facility] Phenobarbital Sodium 288 mg 02/29/20 20:00 Phenobarbital Sodium 130 Mg/Ml Vial IM 02/29/20 23:01 2000,2300 [facility] Sodium Chloride 2 ml 02/28/20 08:00 02/29/20 16:58 0.9 % Sodium Chloride Flush 3 Ml Syringe IVFLUSH 2 ml QSHIFT [facility] Administration Labs CBC & Chem 7: 02/29/20 05:32 02/29/20 05:32 Labs: Laboratory Results - last 24 hr 02/29/20 02/29/20 05:32 05:32 MCV 88.0 MCH 30.3 MCHC 34.4 RDW 14.2 Plt Count 220 MPV 9.0 L Immature Gran % (Auto) 0.2 Neut % (Auto) 34.8 L Lymph % (Auto) 49.7 H [place] % (Auto) 12.0 H Eos % (Auto) 2.7 Baso % (Auto) 0.6 Neut # (Auto) 2.2 Lymph # (Auto) 3.2 [place] # (Auto) 0.8 Eos # (Auto) 0.2 Baso # (Auto) 0.0 Abs Immat Gran (auto) 0.01 Absolute Nucleated RBC 0.000 Nucleated RBC % (auto) 0.0 Smear Tech's Comments VERIFIED Anion Gap 11 L Estim Creat Clear Calc 106.9 Estimated GFR > 60 Fasting Glucose 88 Calcium 8.7 Total Bilirubin 5.2 H Direct Bilirubin 4.5 H AST 606 H ALT 915 H Alkaline Phosphatase 162 H Total Protein 6.5 Albumin 3.6 Assessment and Plan (1) Intravenous drug abuse, continuous: Status: Acute (2) Suicidal ideation: Status: Acute (3) Acute hepatitis: Status: Acute (4) Alcohol withdrawal: Status: Acute (5) Opioid withdrawal: Status: Acute (6) Elevated LFTs: Status: Acute (7) Hepatitis C infection: Status: Acute Assessment and Plan: A 34 years old male with PMH of cocaine, heroin and alcohol abuse who presents to the hospital with suicidal ideation. Found to acute liver injury Alcohol withdrawal Reports 2 pints of whiskey daily Start protocolOf phenobarbital Avoid benzos Acute liver injury Transaminitis likely a result of alcohol and opioid abuse Improving next Lyme continue to monitor GI input appreciated Opioid withdrawal Opioid abuse Started Atarax and clonidine as needed Advised to quit To be followed by behavioral health Could be interested on methadone Suicidal ideation Behavioral health network following the patient To be admitted to the psych unit DVT PPx Lovenox
--- NOTE | 2020-02-29 18:27 | PC.NURSE ---
Around 16:30 patient started exhibiting escalating behaviors, pacing in room, threatening to leave AMA, trowing a water pitcher and was verbally abusive toward this RN. Patient stating that we have not been doing anything for his stomach pain. Patient has been requesting and receiving 2 mg IV morphine q3-4h. During pain assessments patient has been sleeping and appeared comfortable. Patient has been educated several times regarding the plan of care including waiting for BHN consult d/t being medically cleared as of today and medication management throughout today. Code assist was called for escalating and aggressive behavior. notified and at bedside to evaluate patient. Patient has history of IVDA and ETOH abuse. Orders placed and administered: 4 mg iv morphine, 0.1 mg po clonidine, 25 mg po hydroxyzine, and patient was started on phenobarbital protocol. Patient now sleeping and appears to be relaxed and comfortable. BHN at bedside for evaluation but unable to complete due to patients sleepiness. BHN to re-evalulate tomorrow. Safety measures remain in place including, 1:1 sitter, telesitter camera and bed alarm. Patient re-educated on the new plan of care and medications. Call rubi within reach. Will cont to monitor for.
[2020-02-29] MEDS: PHENobarbitaL sodium 130 MG/ML VIAL 288 MG IM (23:16)
[2020-03-01] VITALS (8 sets, daily range): BP systolic 98–123; BP diastolic 59–81; PULSE 61–72; RESP 16–18; TEMP 36.5–37.3; O2SAT 98–100
[2020-03-01 06:37] LABS: MANUAL DIFF FLAG NO
[2020-03-01 06:53] LABS: Basophils Percent Auto 0.5 % (0-2); Eosinophils Absolute Auto 0.1 X10*3/uL (0.0-0.4); Eosinophils Percent Auto 1.9 % (0-4); Hematocrit 41.3 % (42-52); Hemoglobin 13.9 g/dl (14.0-18.0); Imm Gran Abs Auto 0.01 X10*3/uL (0.00-0.03); Imm Gran Pct Auto 0.1 % (0.0-0.4); Lymphocytes Absolute Auto 3.4 X10*3/uL (1.2-4.9); Mean Corpuscular HGB Conc 33.7 g/dl (31.0-36.0); Mean Corpuscular Hemoglobin 29.4 pg (27.0-33.0); Mean Corpuscular Volume 87.3 fL (80-98); Mean Platelet Volume 9.3 fL (9.4-12.4); Monocytes Absolute Auto 0.8 X10*3/uL (0.1-1.2); Monocytes Percent Auto 10.9 % (2-11); Neutrophils Percent Auto 40.6 % (45-73); Platelet Count 243 X10*3/uL (160-400); Red Blood Count 4.73 X10*6/uL (4.60-5.80); Red Cell Distribution Width 14.3 % (11.0-16.0); White Blood Count 7.4 X10*3/uL (4.8-10.8)
[2020-03-01 07:21] LABS: Alanine Aminotransferase 737 U/L (0-40); Albumin Level 3.5 g/dL (3.5-5.0); Alkaline Phosphatase 153 U/L (39-117); Anion Gap 11 (12-20); Aspartate Amino Transferase 360 U/L (5-37); Bilirubin Direct 3.8 mg/dL (0.0-0.5); Bilirubin Total 4.4 mg/dL (0.0-1.0); Blood Urea Nitrogen 12 mg/dL (9-16); Calcium 8.5 mg/dL (8.4-10.2); Carbon Dioxide 25 mmol/L (22-29); Chloride 107 mmol/L (96-108); Creatinine Clr Calc Pharmacy 101.1; Estimated Glomerular Filt Rate > 60; Glucose Random 100 mg/dL (60-115); Potassium 3.9 mmol/l (3.3-5.1); Sodium 139 mmol/L (135-145); Total Protein 6.4 g/dL (6.5-8.0)
[2020-03-01] MEDS: Enoxaparin Sodium 40 MG/0.4 ML SYRINGE SUBCUT (08:52)
[2020-03-01] MEDS: PHENobarbitaL 15 MG TABLET 45 MG PO ×2 (08:52→21:01)
[2020-03-01 08:53] LABS: HBc Num1 0.13 S/CO (0.00-0.79); HBsAGNum1 0.19 S/CO (0.00-0.99); Hepatitis A Antibody IgM 0.24 Index (0-0.79); ~Hepatitis A Antibody IgM Nonreactive (Nonreactive)
[2020-03-01] MEDS: 0.9 % Sodium Chloride Flush 3 ML SYRINGE 2 ML IVFLUSH ×3 (08:53→23:53)
[2020-03-01] MEDS: Morphine Sulfate 2 MG/ML CARTRIDGE 4 MG IVPUSH ×3 (08:58→21:00)
--- NOTE | 2020-03-01 11:50 | MHC.CM.PN ---
Patient's is waiting for N eval to talk about possible psych placement. CM will continue to follow for discharge needs.
--- NOTE | 2020-03-01 14:21 | HO.PM.IMPN ---
Subjective Subjective Date of Service: 03/01/20 Interval History: Seen and evaluated in the morning Feels much more comfortable, pain under better control Denies fevers, chills but still reporting abdominal pain Agitation and restlessness under control No other overnight events Review of Systems Review of Systems: Yes all other systems are reviewed and are negative Respiratory Respiratory: Reports no additional respiratory complaints Gastrointestinal Gastrointestinal: Reports no additional gastrointestinal complaints Physical Exam Vital Signs and I&O and Narrative: Vital Signs and I&O: Vital Signs Temp 97.7 F 03/01/20 12:46 Pulse 66 03/01/20 12:46 Resp 18 03/01/20 12:46 BP 100/59 L 03/01/20 12:46 Pulse Ox 99 03/01/20 12:46 Intake & Output 02/29/20 03/01/20 03/01/20 18:59 06:59 18:59 Intake Total 340 / 580 240 / 580 680 / 680 Balance 340 / 580 240 / 580 680 / 680 Intake: Intake, Oral Torey unt 340 / 580 240 / 580 680 / 680 Other: Meal Refused No Breakfast % Eate n 75% Body Mass Index 25.9 Const: General: cooperative and comfortable Orientation/consciousness: oriented to person and oriented to place Neck: Neck: Yes normal visual inspection and Yes full ROM Resp: Effort & Inspection: normal respiratory effort Auscultation: clear to auscultation bilaterally Cardio: Jugular venous distension: no JVD Heart sounds: S1 normal heart sound present and S2 normal heart sound present GI: Inspection: Yes normal to inspection Percussion: Yes normal to percussion Skin: Lesions: no lesions Rashes: no rashes Neuro: General: oriented to person and oriented to place Extrem: General: Yes normal to inspection and Yes full ROM Objective Data Current Medications Generic Name Dose Route Start Last Admin Trade Name Freq PRN Reason Stop Dose Admin Clonidine HCl 0.1 mg 02/29/20 16:04 02/29/20 16:57 Clonidine Hcl 0.1 Mg Tablet PO 0.1 mg TID PRN Administration Withdrawal Protocol Enoxaparin Sodium 40 mg 02/28/20 08:00 03/01/20 08:52 Enoxaparin Sodium 40 Mg/0.4 Ml Syringe SUBCUT 40 mg Q24H [facility] Administration Hydroxyzine HCl 25 mg 02/29/20 16:04 02/29/20 16:18 Hydroxyzine Hcl 25 Mg Tablet PO 25 mg Q6H PRN Administration restlessness Medication 1 each 03/01/20 09:00 No Benzodiazepines MISCELLANE DAILY [facility] Morphine Sulfate 4 mg 02/29/20 16:06 03/01/20 08:58 Morphine Sulfate 2 Mg/Ml Cartridge IVPUSH 4 mg Q3H PRN Administration pain Pharmacy Consult 1 each 02/29/20 16:15 Consult Rx Etoh Phenob Dosing MISCELLANE ONCE [facility] Protocol Phenobarbital 45 mg 03/01/20 09:00 03/01/20 08:52 Phenobarbital 15 Mg Tablet PO 03/02/20 21:01 45 mg BID [facility] Administration Phenobarbital 30 mg 03/03/20 09:00 Phenobarbital 30 Mg Tablet PO 03/04/20 21:01 BID [facility] Phenobarbital 15 mg 03/05/20 09:00 Phenobarbital 15 Mg Tablet PO 03/06/20 09:01 DAILY [facility] Sodium Chloride 2 ml 02/28/20 08:00 03/01/20 08:53 0.9 % Sodium Chloride Flush 3 Ml Syringe IVFLUSH 2 ml QSHIFT [facility] Administration Labs CBC & Chem 7: 03/01/20 05:32 03/01/20 05:32 Labs: Laboratory Results - last 24 hr 02/27/20 03/01/20 03/01/20 23:49 05:32 05:32 MCV 87.3 MCH 29.4 MCHC 33.7 RDW 14.3 Plt Count 243 MPV 9.3 L Immature Gran % (Auto) 0.1 Neut % (Auto) 40.6 L Lymph % (Auto) 46.0 H [place] % (Auto) 10.9 Eos % (Auto) 1.9 Baso % (Auto) 0.5 Neut # (Auto) 3.0 Lymph # (Auto) 3.4 [place] # (Auto) 0.8 Eos # (Auto) 0.1 Baso # (Auto) 0.0 Abs Immat Gran (auto) 0.01 Absolute Nucleated RBC 0.000 Nucleated RBC % (auto) 0.0 Anion Gap 11 L Estim Creat Clear Calc 101.1 Estimated GFR > 60 Random Glucose 100 Calcium 8.5 Total Bilirubin 4.4 H Direct Bilirubin 3.8 H AST 360 H ALT 737 H Alkaline Phosphatase 153 H Total Protein 6.4 L Albumin 3.5 Hepatitis A IgM Ab Nonreactive Assessment and Plan (1) Opioid withdrawal: Status: Acute (2) Elevated LFTs: Status: Acute (3) Alcohol withdrawal: Status: Acute (4) Hepatitis C infection: Status: Acute (5) Intravenous drug abuse, continuous: Status: Acute (6) Suicidal ideation: Status: Acute (7) Acute hepatitis: Status: Acute Assessment and Plan: A 34 years old male with PMH of cocaine, heroin and alcohol abuse who presents to the hospital with suicidal ideation. Found to acute liver injury Alcohol withdrawal better controlled Reports 2 pints of whiskey daily Continue protocolOf phenobarbital Avoid benzos Acute liver injury Transaminitis Improving likely a result of alcohol and opioid abuse continue to monitor GI input appreciated Opioid withdrawal Opioid abuse Continue Atarax and clonidine as needed Advised to quit To be followed by behavioral health Could be interested on methadone Suicidal ideation Patient denies suicidal intentions Behavioral health network following the patient To be evaluated later today or tomorrow DVT PPx Lovenox
[2020-03-01] MEDS: cloNIDine HCL 0.1 MG TABLET PO (19:46)
[2020-03-02 03:34] VITALS: BP 105/64; PULSE 53; RESP 16; TEMP 36.5; O2SAT 99
[2020-03-02] MEDS: Morphine Sulfate 2 MG/ML CARTRIDGE 4 MG IVPUSH ×3 (05:15→09:38)
--- NOTE | 2020-03-02 06:05 | PC.NURSE ---
PT REFUSED MORNING LABS STATING HE HAS BEEN MEDICALLY CLEARED
[2020-03-02 07:10] VITALS: BP 121/74; PULSE 54; RESP 20; TEMP 36.8; O2SAT 98
[2020-03-02] MEDS: 0.9 % Sodium Chloride Flush 3 ML SYRINGE 2 ML IVFLUSH (07:53)
[2020-03-02] MEDS: PHENobarbitaL 15 MG TABLET 45 MG PO (09:37)
[2020-03-02 10:06] LABS: MANUAL DIFF FLAG NO
[2020-03-02 10:13] LABS: Basophils Absolute Auto 0.1 X10*3/uL (0.0-0.2); Eosinophils Absolute Auto 0.1 X10*3/uL (0.0-0.4); Eosinophils Percent Auto 1.3 % (0-4); Hematocrit 40.9 % (42-52); Hemoglobin 13.9 g/dl (14.0-18.0); Imm Gran Abs Auto 0.02 X10*3/uL (0.00-0.03); Imm Gran Pct Auto 0.3 % (0.0-0.4); Lymphocytes Absolute Auto 2.7 X10*3/uL (1.2-4.9); Lymphocytes Percent Auto 44.4 % (20-40); Mean Corpuscular Hemoglobin 29.8 pg (27.0-33.0); Mean Corpuscular Volume 87.8 fL (80-98); Mean Platelet Volume 8.8 fL (9.4-12.4); Monocytes Absolute Auto 0.4 X10*3/uL (0.1-1.2); Monocytes Percent Auto 7.3 % (2-11); Neutrophils Absolute Auto 2.8 X10*3/uL (2.0-8.3); Neutrophils Percent Auto 45.7 % (45-73); Platelet Count 263 X10*3/uL (160-400); Red Blood Count 4.66 X10*6/uL (4.60-5.80); Red Cell Distribution Width 14.5 % (11.0-16.0)
[2020-03-02 10:58] LABS: Alanine Aminotransferase 537 U/L (0-40); Albumin Level 3.7 g/dL (3.5-5.0); Alkaline Phosphatase 146 U/L (39-117); Anion Gap 13 (12-20); Aspartate Amino Transferase 186 U/L (5-37); Bilirubin Direct 2.1 mg/dL (0.0-0.5); Bilirubin Total 2.8 mg/dL (0.0-1.0); Blood Urea Nitrogen 10 mg/dL (9-16); Calcium 8.9 mg/dL (8.4-10.2); Carbon Dioxide 26 mmol/L (22-29); Chloride 108 mmol/L (96-108); Creatinine Clr Calc Pharmacy 89.4; Estimated Glomerular Filt Rate > 60; Glucose Random 104 mg/dL (60-115); Potassium 3.7 mmol/l (3.3-5.1); Sodium 143 mmol/L (135-145); Total Protein 6.7 g/dL (6.5-8.0)
[2020-03-02 11:01] VITALS: BP 132/70; PULSE 65; RESP 18; TEMP 36.8; O2SAT 98
--- NOTE | 2020-03-02 11:23 | P.EN_ITS ---
Event Note Event Note: Addiction consult placed for this patient. Patient seen by [facility] RN to determine patient's desire for MAT Pt reportedly agreed to Buprenorphine and will be presenting to the [facility] immediately following discharge to be seen by this fiction and nonfiction writer prose for intake, evaluation and treatment. No follow up needed at this time. Will enter take home narcan order
--- NOTE | 2020-03-02 11:43 | MHC.CM.PN ---
Patient is being discharged home today no services. Friend will provide transportation.
[2020-03-02] MEDS: Naloxone HCl Nasal TAKE HOME 4 MG SPRAY NOSTRILALT (13:18)
--- NOTE | 2020-03-02 16:46 | PM.DS ---
DS: Providers Provider Date of admission: 02/28/20 04:02 Primary care physician: None Physician Consults: 02/27/20 20:29 Consult to Crisis Stat Reason for consultation: SI Has provider been notified: No 02/28/20 05:18 Consult to Physician Routine Consulting Provider: [facility] Reason for consultation: elevated LFT's Has provider been notified: Yes 02/29/20 12:52 Consult to Crisis Routine Reason for consultation: [facility] for evaluatio and recommendations. Medically clear. Has provider been notified: No 03/01/20 17:17 Consult to Psychiatry Routine Consulting Provider: Kourtney Sifuentes Reason for consultation: Opioid use disorder interested in Methadone DS: Diagnosis Discharge Diagnosis (1) Opioid withdrawal: Status: Acute (2) Elevated LFTs: Status: Acute (3) Alcohol withdrawal: Status: Acute (4) Hepatitis C infection: Status: Acute (5) Intravenous drug abuse, continuous: Status: Acute (6) Suicidal ideation: Status: Acute (7) Acute hepatitis: Status: Acute DS: Summary Time Spent with Patient Time attestation: Admission note HPI 34 y/o male who presented from home due to suicidal ideation. Patient has a significant hx of IVDA. Reports that has been using heroin and cocaine on and off. Has a hx of Hep C which was never treated in the past. Now presents because for the past several days has been having ideas of commiting suicide. Patient denies having any plan at present or any attempt. Does reports that for the past week has been having a diffuse abdominal pain which has been sharp in nature but denies any nausea, vomiting, diarrhea or constipation. On presentation to the ED patient was initially placed for admission under [facility] but given an incidental finding of elevated liver function test GI was consulted for further management. AST 873, ALT of 1112, alk phosh 178, INR of 1.4. Utox positive for opiates and cocaine. US abdomen shows mild enlargement to the common duct without demonstrable cholelithiasis or choledocholithiasis. Per ED, findings were discussed with GI Dr Hinse who recommends for patient to be admitted at present under medicine for LFT's trending and possible MRCP in the am if recommended. Patient seen and evaluated at the bedside, ROS positive for abdominal pain. Physical exam unable to be obtained at present as patient is upset and wants to be left alone . ------ Hospital stay Patient was admitted to the hospital with suicidal ideation. Found to acute liver injury. Evaluation of hepatitis profile showed active hepatitis C infection and possible new hepatitis B infection. Rest of blood work still pending and to be followed by Dr. Wylie in the office. The patient and office visit in place. his liver enzymes trended down during his hospital stay. Likely result alcohol intake, possible cocaine abuse hepatitis B infection which is still investigation. He was treated for alcohol withdrawal with phenobarbital protocol with good response. He was treated for opioid withdrawal with Atarax, clonidine and using of morphine IV. He was evaluated by behavioral health network Who cleared him to be discharged home as he has no more suicidal ideation. He was also followed by the Suboxone clinic with the 1st prescription sent out today. He will follow-up with Kourtney Sifuentes in the office. Physical Exam Vital Signs and I&O and Narrative: Vital Signs and I&O: Vital Signs Temp 98.2 F 03/02/20 11:01 Pulse 65 03/02/20 11:01 Resp 18 03/02/20 11:01 BP 132/70 03/02/20 11:01 Pulse Ox 98 03/02/20 11:01 Intake & Output 03/01/20 03/02/20 03/02/20 18:59 06:59 18:59 Intake Total 680 / 1400 720 / 1400 Output Total 600 / 600 Balance 680 / 1400 720 / 1400 -600 / -600 Urine Output (Aver age ml/kg/hr) 0.69 Intake: Intake, Oral Mccormick unt 680 / 1400 720 / 1400 Output: Output, Urine Am ount 600 / 600 Other: Meal Refused No Breakfast % Eate n 75% 100% Lunch % Eaten 100% Number of Unmeas ured Voids 2 Number of Bowel Movements 1 Urine Bathroom Body Mass Index 25.9 Constitutional : Alert, oriented, not in distress Neck : Normal inspection, Supple Cardiovascular : RRR, S1 S2, no lower extremity edema Respiratory : Good bilateral air entry, no crackles, wheezes or rhonchi Gastrointestinal: soft, lax, Normal bowel sounds, Non tender Skin : Warm/Dry, No rash Neurological : Alert & oriented x3, No focal deficit DS: Data Data Completed and Pending Labs on day of discharge: Labs from last 24 hours 03/02/20 03/02/20 02/28/20 09:48 09:48 12:03 WBC 6.0 RBC 4.66 Hgb 13.9 L Hct 40.9 L MCV 87.8 MCH 29.8 MCHC 34.0 RDW 14.5 Plt Count 263 MPV 8.8 L Immature Gran % (Auto) 0.3 Neut % (Auto) 45.7 Lymph % (Auto) 44.4 H [place] % (Auto) 7.3 Eos % (Auto) 1.3 Baso % (Auto) 1.0 Lymph # (Auto) 2.7 [place] # (Auto) 0.4 Eos # (Auto) 0.1 Baso # (Auto) 0.1 Abs Immat Gran (auto) 0.02 Absolute Neuts (auto) 2.8 Absolute Nucleated RBC 0.000 Nucleated RBC % (auto) 0.0 Sodium 143 Potassium 3.7 Chloride 108 Carbon Dioxide 26 Anion Gap 13 BUN 10 Creatinine 1.04 Estim Creat Clear Calc 89.4 Estimated GFR > 60 Random Glucose 104 Calcium 8.9 Total Bilirubin 2.8 H Direct Bilirubin 2.1 H AST 186 H ALT 537 H Alkaline Phosphatase 146 H Total Protein 6.7 Albumin 3.7 Hep B Viral Load Log 5.85 H Hep C Viral Load 359380 H Discharge Plan Discharge Patient Disposition: Home, Self-Care Referrals: Physician,None [Primary Care Provider] - Discharge Medications: New hydroxyzine HCl 25 mg Tablet 25 mg PO Q3-4H PRN (Reason: restlessness) Qty: 20 RF: 0 No Action buprenorphine-naloxone [Suboxone] 8-2 mg film 1 film sublingual BID Qty: 15 RF: 0 Discharge Orders: Discharge Order (Routine); Ordered 03/02/20 Ordered By: Delano Coronado Diet: advance to your usual diet Activity on Discharge: As tolerated Discharge Date/Time: 03/02/20 13:40 Visit Report Forms: Patient Portal Discharge page Care Plan Goals: read below Health Concerns: read below Plan of Treatment: read below you were admitted to the hospital suicidal ideation and elevated liver enzymes. You were treated for alcohol and opioid withdrawal fair response. you were evaluated by automatic grinding machine operator for positive result of hepatitis C and possible hepatitis-B infection. You were evaluated by behavioral team. Plan to start you on Suboxone after discharge from the hospital. Use Atarax as needed for withdrawal symptoms To follow-up with Kourtney Sifuentes from behavioral health after discharge for Suboxone To follow-up with Dr. Wylie from GI for further evaluation treatment hepatitis-C We advise you to quit alcohol avoid using any IV drugs
== END 2020-03-02 13:40 | disposition home or self-care (01) ==
LOC: HO.ED 02-28 03:48 → HO.IMC 02-28 04:41
PROVIDERS: Internal Medicine; Internal Medicine Gastroenterology; Student in an Organized Health Care Education/Training Program; Admitting Provider Internal Medicine; Emergency Provider Emergency Medicine; Visit Provider Student in an Organized Health Care Education/Training Program
DX: B17.10 Acute hepatitis C without hepatic coma (principal); R45.851 Suicidal ideations; F13.20 Sedative, hypnotic or anxiolytic dependence, uncomplicated; B19.10 Unspecified viral hepatitis B without hepatic coma; F10.239 Alcohol dependence with withdrawal, unspecified; F11.23 Opioid dependence with withdrawal; Z88.6 Allergy status to analgesic agent
CPT/HCPCS: 36415; 74181; 76705; 80048; 80053; 80076; 80307; 80320; 82040; 82247; 83690; 84075; 84155; 84450; 84460; 85025; 85610; 85730; 86704; 86706; 86709; 86803; 87340; 87522; 99284; 99285; G0480; J1650; J2270; J2560

== ENCOUNTER → 2020-03-02 13:57 | Outpatient (BNVA) | payer MEDICAID, SELFPAY | PROVIDERS: Visit Provider Nurse Practitioner Psychiatric/Mental Health | DX: F10.20 Alcohol dependence, uncomplicated (principal); F11.20 Opioid dependence, uncomplicated | CPT/HCPCS: 99202; 99204 ==

== ENCOUNTER 2020-03-09 12:54 | Outpatient (REF) | payer MEDICAID, SELFPAY ==
[2020-03-09 15:24] LABS: Alanine Aminotransferase 80 U/L (0-40); Albumin Level 4.2 g/dL (3.5-5.0); Alkaline Phosphatase 99 U/L (39-117); Aspartate Amino Transferase 20 U/L (5-37); Bilirubin Direct 0.8 mg/dL (0.0-0.5); Total Protein 7.4 g/dL (6.5-8.0)
== END 2020-03-09 12:55 | disposition home or self-care (01) ==
LOC: HO.LAB 12:54
PROVIDERS: Visit Provider Nurse Practitioner Psychiatric/Mental Health
DX: F11.99 Opioid use, unspecified with unspecified opioid-induced disorder (principal); F10.20 Alcohol dependence, uncomplicated; R79.89 Other specified abnormal findings of blood chemistry
CPT/HCPCS: 80076; 99214

== ENCOUNTER 2020-03-13 00:38 | Emergency (ER) | payer MEDICAID, SELFPAY ==
[2020-03-13 00:47] VITALS: BP 119/75; PULSE 97; RESP 16; TEMP 36.2; O2SAT 98; BMI 25.8
--- NOTE | 2020-03-13 01:04 | ED_ITS ---
HPI - Abdominal Pain General Chief Complaint: Abdominal Pain Stated Complaint: Abd pain Time Seen by Provider: 03/13/20 01:04 History of Present Illness HPI narrative: This is a 34-year-old male who presents with worsening abdominal discomfort and states he was seen here 2 weeks ago and at that time diagnosed with hepatitis-B/C and has had some difficulty and obtaining access to follow-up appointments with gastroenterology. He states that his last bowel movement was yesterday and denies any associated fevers, chills, nausea, vomiting with his abdominal discomfort. in addition, he denies any urinary pain/burning / frequency. He has an IVDA and last used this morning, 2 bags. Related Data Previous Rx's Medication Instructions Recorded hydroxyzine HCl 25 mg PO Q3-4H PRN #20 tab 03/02/20 buprenorphine 8 mg-naloxone 2 mg 1 film SUBLINGUAL BID #15 ea 03/09/20 sublingual film Allergies Allergy/AdvReac Type Severity Reaction Status Date / Time haloperidol [From HALDOL] Allergy Intermediate N/V/D Verified 03/02/20 14:13 acetaminophen [From TYLENOL] Allergy Mild GI UPSET Verified 03/02/20 14:13 SEAFOOD Allergy Severe ANAPHYLAXIS Uncoded 02/10/20 19:34 Review of Systems Review of Systems Pertinent positives and negatives as stated in HPI 10 point review systems otherwise negative. Physical Exam Vital Signs: Vital Signs: Vital Signs Temp Pulse Resp BP Pulse Ox 03/13/20 00:47 97.1 F 97 16 119/75 98 Body Mass Index 25.8 VITAL SIGNS: Reviewed. GENERAL: Well developed, well nourished, in no acute distress. HEAD: Normocephalic/atraumatic, EYES: PERRLA, EOMI intact without pain, no nystagmus/pallor/icterus noted EARS: Ext canals without abnormality, TMs non-bulging and non-erythematous NOSE: Nares patent bilateral OROPHARYNX: no oral lesions noted, posterior pharynx clear and non-erythematous without noted tonsillar enlargement/erythema/exudates NECK: Supple, no adenopathy LUNGS: Normal breath sounds. No adventitious sounds or accessory muscle use. SpO2<98%> CARDIOVASCULAR: Regular rate and rhythm without noted murmurs, no JVD or lower extremity edema. ABDOMEN: Soft, Diffuse discomfort without rebound, non-distended with bowel sounds. No rigidity. No guarding. No palpable masses or hernias noted MUSCULOSKELETAL: No tenderness, deformities, or effusions noted on gross inspection. EXTREMITIES: No cyanosis, clubbing or edema. SKIN: Inspection of the skin reveals no rashes, ulcerations, jaundice, pallor, or petechiae. NEUROLOGIC: Alert and oriented x 4. Strength and sensation to light touch were grossly intact x 4. Course Course Course Narrative: This is a 34-year-old male with history and clinical presentation most suggestive of possible UTI but doubt any acute emergent findings due to the relaxed demeanor of the patient on initial examination. He does appear calm and was reading a book and then fell asleep. On review of all laboratory investigations there are no acute findings when compared to previous. Patient is declining to provide a urine sample and additionally on review of CT scan it is negative for any intra-abdominal abnormalities. All results and findings were discussed with the patient at bedside and he was discharged home in stable condition. MDM - Abdominal Pain Lab Data Result diagrams: 03/13/20 Unknown 03/13/20 Unknown Labs: Lab Results 03/13/20 03/13/20 03/13/20 Range/Units Unknown Unknown Unknown WBC 8.8 (4.8-10.8) X10*3/uL RBC 4.12 L (4.60-5.80) X10*6/uL Hgb 12.5 L (14.0-18.0) g/dl Hct 36.6 L (42-52) % MCV 88.8 (80-98) fL MCH 30.3 (27.0-33.0) pg MCHC 34.2 (31.0-36.0) g/dl RDW 13.1 (11.0-16.0) % Plt Count 273 (160-400) X10*3/uL MPV 8.0 L (9.4-12.4) fL Immature Gran % (Auto) 0.2 (0.0-0.4) % Neut % (Auto) 54.1 (45-73) % Lymph % (Auto) 33.9 (20-40) % [place] % (Auto) 8.6 (2-11) % Eos % (Auto) 2.5 (0-4) % Baso % (Auto) 0.7 (0-2) % Lymph # (Auto) 3.0 (1.2-4.9) X10*3/uL [place] # (Auto) 0.8 (0.1-1.2) X10*3/uL Eos # (Auto) 0.2 (0.0-0.4) X10*3/uL Baso # (Auto) 0.1 (0.0-0.2) X10*3/uL Abs Immat Gran (auto) 0.02 (0.00-0.03) X10*3/uL Absolute Neuts (auto) 4.8 (2.0-8.3) X10*3/uL Absolute Nucleated RBC 0.000 (0.0-0.012) X10*3/uL Nucleated RBC % (auto) 0.0 (0.0-0.2) /100WBC Sodium 140 (135-145) mmol/L Potassium 4.2 (3.3-5.1) mmol/l Chloride 104 (96-108) mmol/L Carbon Dioxide 27 (22-29) mmol/L Anion Gap 13 (12-20) BUN 13 (9-16) mg/dL Creatinine 0.92 (0.5-1.4) mg/dL Estim Creat Clear Calc 112.0 Estimated GFR > 60 Random Glucose 88 (60-115) mg/dL Calcium 9.1 (8.4-10.2) mg/dL Total Bilirubin 0.7 (0.0-1.0) mg/dL AST 19 (5-37) U/L ALT 33 (0-40) U/L Alkaline Phosphatase 85 (39-117) U/L Total Protein 6.7 (6.5-8.0) g/dL Albumin 3.8 (3.5-5.0) g/dL Lipase 13 (8-78) U/L Ethyl Alcohol < 10 mg/dL Discharge Plan Discharge Clinical Impression: Abdominal pain in male Patient Disposition: Home, Self-Care Instructions: Abdominal Pain (ED) Additional Instructions: Please resume all home medications as prescribed. Please keep all scheduled appointments. The patient and/or family acknowledge understanding of results (as applicable), diagnosis, treatment plan, need for follow up, and symptoms that should prompt a return to the emergency room. Prescriptions: No Action hydroxyzine HCl 25 mg Tablet 25 mg PO Q3-4H PRN (Reason: restlessness) Qty: 20 RF: 0 buprenorphine-naloxone [Suboxone] 8-2 mg film 1 film sublingual BID Qty: 15 RF: 0 Referrals: Physician,None [Primary Care Provider] - 2 days (Further evaluation of abdominal pain) PMFSH Past Medical History Source: nursing notes reviewed Medical History Elevated LFTs Hepatitis C infection Intravenous drug abuse, continuous Patient denies medical problems Scoliosis Family History Family History Other Patient denies medical problems Social History Social History Household Members: Unknown / Unable to assess Housing: Unknown / Unable to assess Alcohol intake: current Alcohol intake frequency: 0-2 drinks per day Alcohol type: hard liquor Smoking Status: Current every day smoker Substance Use Type: Heroin and Marijuana Advance Directives: No service: No Current occupational status: unemployed
--- NOTE | 2020-03-13 01:06 | PC.NURSE ---
Pt found ambulating from the waiting room into room 8. Pt is CAOx4, speaking full sentences, ambulating with a loja/steady gait. Pt reporting abdominal pain, states a recent diagnosis of Hep B and C due to SA. Pt states he is still using at this time. Pt denies N/V/D, states LBM yesterday. Pt reports a decreased appetite, states he has been unable to eat. When discharged two weeks ago, pt was referred to an outpatient MD but states he missed the appt, wasn't aware it was a telephone call and showed up at the office. MD at bedside, pt aware of plan of care to obtain labwork. Continue to monitor.
--- NOTE | 2020-03-13 01:39 | PC.NURSE ---
Pt states he is unable to provide a urine sample at this time. 3 attempts at IV access unsuccessful, a different RN to attempt IV access.
--- NOTE | 2020-03-13 01:59 | PC.NURSE ---
Kirstal URIAS UTO IV access, aware.
[2020-03-13 03:14] LABS: MANUAL DIFF FLAG NO
[2020-03-13 03:19] LABS: Basophils Absolute Auto 0.1 X10*3/uL (0.0-0.2); Basophils Percent Auto 0.7 % (0-2); Eosinophils Absolute Auto 0.2 X10*3/uL (0.0-0.4); Eosinophils Percent Auto 2.5 % (0-4); Hematocrit 36.6 % (42-52); Hemoglobin 12.5 g/dl (14.0-18.0); Imm Gran Abs Auto 0.02 X10*3/uL (0.00-0.03); Imm Gran Pct Auto 0.2 % (0.0-0.4); Lymphocytes Percent Auto 33.9 % (20-40); Mean Corpuscular HGB Conc 34.2 g/dl (31.0-36.0); Mean Corpuscular Hemoglobin 30.3 pg (27.0-33.0); Mean Corpuscular Volume 88.8 fL (80-98); Monocytes Absolute Auto 0.8 X10*3/uL (0.1-1.2); Monocytes Percent Auto 8.6 % (2-11); Neutrophils Absolute Auto 4.8 X10*3/uL (2.0-8.3); Neutrophils Percent Auto 54.1 % (45-73); Platelet Count 273 X10*3/uL (160-400); Red Blood Count 4.12 X10*6/uL (4.60-5.80); Red Cell Distribution Width 13.1 % (11.0-16.0); White Blood Count 8.8 X10*3/uL (4.8-10.8)
[2020-03-13 03:42] LABS: Ethanol < 10 mg/dL
[2020-03-13 03:45] LABS: Alanine Aminotransferase 33 U/L (0-40); Albumin Level 3.8 g/dL (3.5-5.0); Alkaline Phosphatase 85 U/L (39-117); Anion Gap 13 (12-20); Aspartate Amino Transferase 19 U/L (5-37); Bilirubin Total 0.7 mg/dL (0.0-1.0); Blood Urea Nitrogen 13 mg/dL (9-16); Calcium 9.1 mg/dL (8.4-10.2); Carbon Dioxide 27 mmol/L (22-29); Chloride 104 mmol/L (96-108); Estimated Glomerular Filt Rate > 60; Glucose Random 88 mg/dL (60-115); Lipase 13 U/L (8-78); Potassium 4.2 mmol/l (3.3-5.1); Sodium 140 mmol/L (135-145); Total Protein 6.7 g/dL (6.5-8.0)
--- NOTE | 2020-03-13 03:52 | CT_ITS ---
EXAMINATION: CT ABDOMEN AND PELVIS WITHOUT CONTRAST CLINICAL INFORMATION: Abdominal pain COMPARISON: 02/28/2020 TECHNIQUE: Multidetector volumetric imaging was performed from the superior aspect of the liver through the pubic symphysis. Sagittal and coronal reformatted images were obtained on the technologist's workstation. This CT examination was performed using dose optimization techniques as appropriate, variously including the following: *Automated exposure control *Adjustment of mA and/or kV according to patient size (this includes techniques or standardized protocols for targeted exams where dose is matched to indication/reason for exam; i.e. extremities or head) *Use of iterative reconstruction technique DLP: 496 mGy-cm FINDINGS: LUNG BASES: Dependent bibasilar atelectasis. LIVER, GALLBLADDER, AND BILIARY TREE: The liver is normal in size, shape, and attenuation. No focal hepatic lesion or biliary ductal dilatation is present. The gallbladder is unremarkable with no evidence of radiopaque gallstones, gallbladder wall thickening, or obvious pericholecystic inflammatory changes. PANCREAS: Unremarkable. SPLEEN: Unremarkable. ADRENAL GLANDS: Unremarkable. KIDNEYS AND URETERS: The kidneys are normal in size, shape, and attenuation. No hydronephrosis, hydroureter, or calculi seen. No perinephric stranding. BLADDER: Unremarkable. GASTROINTESTINAL TRACT: The small and large bowel are unremarkable. The appendix is unremarkable. No free fluid or free air is seen. ABDOMINAL WALL: No significant hernia is appreciated. LYMPH NODES: No lymphadenopathy is seen, though assessment is limited in the absence of intravenous contrast. VASCULAR: Unremarkable. PELVIC VISCERA: Unremarkable. OSSEOUS STRUCTURES: Unremarkable. IMPRESSION: No acute findings identified in the abdomen/pelvis.
== END 2020-03-13 06:09 | disposition home or self-care (01) ==
PROVIDERS: Emergency Provider Student in an Organized Health Care Education/Training Program
DX: R10.9 Unspecified abdominal pain (principal); Z79.899 Other long term (current) drug therapy; F17.200 Nicotine dependence, unspecified, uncomplicated; Z71.6 Tobacco abuse counseling
CPT/HCPCS: 36415; 74176; 80053; 80320; 83690; 85025; 96360; 99283; 99284

== ENCOUNTER 2020-03-29 15:16 | Inpatient (IN) | payer MEDICAID, OTHER, SELFPAY ==
[2020-03-29 15:22] VITALS: BP 119/76; PULSE 88; RESP 16; TEMP 37; O2SAT 98; BMI 26.6
[2020-03-29] MEDS: Ibuprofen 600 MG TABLET PO (16:08)
--- NOTE | 2020-03-29 16:11 | PC.NURSE ---
Pt cooperative with change agent. Reports SI with intent to OD on heroine. PT reports using 1 1/2 bundles daily for the past several months, along with several nips and beers daily. Last drank yesterday around 2330.
[2020-03-29 16:15] VITALS: PULSE 88
--- NOTE | 2020-03-29 16:41 | ED_ITS ---
HPI - Psych General Chief Complaint: Psychiatric Symptoms Stated Complaint: Crisis Time Seen by Provider: 03/29/20 16:34 Source: patient Mode of arrival: ambulatory Limitations: no limitations History of Present Illness HPI Narrative: 34-year-old male with a past medical history of IV drug abuse, scoliosis, hepatitis-C, elevated LFTS, alcohol abuse here with suicidal thoughts, plan to overdose on heroin. No HI. No hallucinations. He tells me he uses 1.5 bundles of IV heroin daily. His last use was 13:00 today. He also drinks several nips of alcohol every day and his last use was today. No physical complaints. MD complaint: suicidal ideation, feels depressed and substance abuse Onset (ago): day(s) Duration: constant History of same: Yes Relieving factors: none Exacerbating factors: none Context: recent alcohol abuse and recent drug abuse Associated psychiatric symptoms: depression and suicidal ideation Associated symptoms: denies other symptoms Treatments prior to arrival: none If self harm: admits thoughts of self harm and has plan Related Data Previous Rx's Medication Instructions Recorded hydroxyzine HCl 25 mg PO Q3-4H PRN #20 tab 03/02/20 buprenorphine 8 mg-naloxone 2 mg 1 film SUBLINGUAL BID #15 ea 03/09/20 sublingual film Allergies Allergy/AdvReac Type Severity Reaction Status Date / Time haloperidol [From HALDOL] Allergy Intermediate N/V/D Verified 03/02/20 14:13 acetaminophen [From TYLENOL] Allergy Mild GI UPSET Verified 03/02/20 14:13 SEAFOOD Allergy Severe ANAPHYLAXIS Uncoded 02/10/20 19:34 Review of Systems Review of Systems: Yes all other systems are reviewed and are negative Constitutional: Constitutional: Reports no additional constitutional complaints, Denies body ache(s), Denies chills, Denies fever(s), Denies heada jennifer(s) and Denies weakness Eyes: Eyes: Reports no additional eye complaints and Denies change in vision ENT: Reports system reviewed and no additional complaints, except as documented, Denies dizziness, Denies headache(s), Denies nasal congestion, Denies nasal discharge and Denies neck pain Cardiovascular: Cardiovascular: Reports no additional cardiovascular complaints, Denies chest pain, Denies leg edema and Denies dyspnea Respiratory: Respiratory: Reports no additional respiratory complaints, Denies cough and Denies dyspnea Gastrointestinal: Gastrointestinal: Reports no additional gastrointestinal complaints, Denies abdominal pain, Denies diarrhea, Denies nausea and Denies vomiting Genitourinary: Genitourinary: Denies urinary incontinence Musculoskeletal: Musculoskeletal: Reports no additional musculoskeletal complaints, Denies back pain, Denies arthralgias, Denies joint swelling, Denies neck pain, Denies numbness and Denies tingling Integumentary/Breasts: Skin/Breast: Reports system reviewed and no additional complaints, except as docu and Denies rash Neurologic: Reports system reviewed and no additional complaints, except as documented, Denies Abnormal speech present, Denies dizziness, Denies headac he(s), Denies numbness, Denies tingling and Denies weakness Psychiatric: Psychiatric: Reports anxiety, Reports depression, Denies visual hallucinations, Denies hallucinations, Denies tactile hallucinations, Denies homicidal ideation and Reports suicidal ideation PMF Past Medical History Attestation statement: The following information was validated with the patient. Source: old records reviewed, obtained from family and nursing notes reviewed Medical History Elevated LFTs Hepatitis C infection Intravenous drug abuse, continuous Patient denies medical problems Scoliosis Family History Family History Other Patient denies medical problems Social History Social History Household Members: Unknown / Unable to assess Housing: Unknown / Unable to assess Alcohol intake: current Alcohol intake frequency: 3 or more drinks per day Alcohol type: beer and hard liquor Smoking Status: Unknown if ever smoked Use of substances other than those prescribed or required for medical reasons: Yes Substance Use Type: Heroin Substance Use Frequency: Daily Last Used Substance: Hours (ago) Any prior treatment program specific to substance use: Yes Advance Directives: No Advance Directives Information Provided: Yes service: No Current occupational status: unemployed Physical Exam Vital Signs: Vital Signs: Vital Signs Temp Pulse Resp BP Pulse Ox 03/29/20 19:06 98 F 97 20 128/94 H 99 03/29/20 17:08 18 03/29/20 15:22 98.6 F 88 16 119/76 98 Body Mass Index 26.6 Const: General: cooperative, healthy appearing, comfortable and no acute distress Orientation/consciousness: patient oriented x3 Limitations: no limitations HENMT: Head: Yes normal to inspection Ears: hearing grossly normal bilaterally General nose exam: Normal external nose present Face and sinus: Yes normal facial exam Mouth: Normal oral and palatal mucosa present Throat: Yes posterior oropharynx normal Eyes: General: appearance normal, both eyes and all related structures Pupils: Equal, round and reactive pupils present Neck: Neck: Yes normal visual inspection Chest: Chest palpation & inspection: normal inspection of the chest Resp: Effort & Inspection: normal respiratory effort Auscultation: clear to auscultation bilaterally Cardio: Rate: regular rate Rhythm: regular rhythm Peripheral pulses: Peripheral pulses 2+ throughout GI: Inspection: Yes normal to inspection Palpation (GI): Soft to palpation and nontender Auscultation: normal bowel sounds Back/Spine/Pelvis: Thoracic/Lumbar Spine: thoracic and lumbar spine normal to inspection Skin: General skin exam: no rashes or lesions noted Neuro: General: patient oriented x3, no focal motor deficits and normal sensation to monofilament Cranial nerves: Yes Equal, round and reactive pupils present Cognition (Neuro): normal cognition Speech: No Abnormal speech present Gait exam (Neuro): Normal gait present Motor exam (neuro): 5/5 motor strength present throughout Extrem: General: Yes normal to inspection Course Course Course Narrative: Patient here with SI, polysubstance abuse. Will need labs, drug screen, BHN evaluation. No physical complaints. No concern for acute ingestion or trauma. MDM - Psych Restraints Face to Face Assessment: Face to Face Assessment: Current Situation: After assessment of the patient, a review of the pertinent medical record and a discussion with nursing staff, I feel the patient requires a restrain intervention. Reaction To: [] Medical Condition: [] Behavioral State: [] Continued Need: [] Medical Records Attestation: I reviewed the patient's medical records. Lab Data Result diagrams: 03/29/20 19:27 03/29/20 19:27 Labs: Lab Results 03/29/20 03/29/20 03/29/20 Range/Units 19:27 19:27 19:27 WBC 8.1 (4.8-10.8) X10*3/uL RBC 4.68 (4.60-5.80) X10*6/uL Hgb 14.1 (14.0-18.0) g/dl Hct 41.6 L (42-52) % MCV 88.9 (80-98) fL MCH 30.1 (27.0-33.0) pg MCHC 33.9 (31.0-36.0) g/dl RDW 13.2 (11.0-16.0) % Plt Count 206 (160-400) X10*3/uL MPV 8.2 L (9.4-12.4) fL Immature Gran % (Auto) 0.1 (0.0-0.4) % Neut % (Auto) 26.7 L (45-73) % Lymph % (Auto) 61.0 H (20-40) % [place] % (Auto) 7.4 (2-11) % Eos % (Auto) 4.2 H (0-4) % Baso % (Auto) 0.6 (0-2) % Lymph # (Auto) 4.9 (1.2-4.9) X10*3/uL [place] # (Auto) 0.6 (0.1-1.2) X10*3/uL Eos # (Auto) 0.3 (0.0-0.4) X10*3/uL Baso # (Auto) 0.1 (0.0-0.2) X10*3/uL Abs Immat Gran (auto) 0.01 (0.00-0.03) X10*3/uL Absolute Neuts (auto) 2.1 (2.0-8.3) X10*3/uL Absolute Nucleated RBC 0.000 (0.0-0.012) X10*3/uL Nucleated RBC % (auto) 0.0 (0.0-0.2) /100WBC Sodium 140 (135-145) mmol/L Potassium 4.4 (3.3-5.1) mmol/l Chloride 105 (96-108) mmol/L Carbon Dioxide 26 (22-29) mmol/L Anion Gap 13 (12-20) BUN 14 (9-16) mg/dL Creatinine 0.99 (0.5-1.4) mg/dL Estim Creat Clear Calc 104.1 Estimated GFR > 60 Random Glucose 60 (60-115) mg/dL Calcium 9.1 (8.4-10.2) mg/dL Total Bilirubin 0.7 (0.0-1.0) mg/dL Direct Bilirubin 0.3 (0.0-0.5) mg/dL AST 36 D (5-37) U/L ALT 165 H (0-40) U/L Alkaline Phosphatase 114 D (39-117) U/L Total Protein 7.1 (6.5-8.0) g/dL Albumin 4.1 (3.5-5.0) g/dL Salicylates < 5.0 L (15-30) mg/dL Urine Opiates Screen (Not Detect) Acetaminophen < 1 (<30) mcg/mL Ur Barbiturates Screen (Not Detect) Ur Phencyclidine Scrn (Not Detect) Ur Amphetamines Screen (Not Detect) U Benzodiazepines Scrn (Not Detect) Urine Cocaine Screen (Not Detect) U Marijuana (THC) Screen (Not Detect) Ethyl Alcohol < 10 mg/dL 03/29/20 Range/Units 19:30 WBC (4.8-10.8) X10*3/uL RBC (4.60-5.80) X10*6/uL Hgb (14.0-18.0) g/dl Hct (42-52) % MCV (80-98) fL MCH (27.0-33.0) pg MCHC (31.0-36.0) g/dl RDW (11.0-16.0) % Plt Count (160-400) X10*3/uL MPV (9.4-12.4) fL Immature Gran % (Auto) (0.0-0.4) % Neut % (Auto) (45-73) % Lymph % (Auto) (20-40) % [place] % (Auto) (2-11) % Eos % (Auto) (0-4) % Baso % (Auto) (0-2) % Lymph # (Auto) (1.2-4.9) X10*3/uL [place] # (Auto) (0.1-1.2) X10*3/uL Eos # (Auto) (0.0-0.4) X10*3/uL Baso # (Auto) (0.0-0.2) X10*3/uL Abs Immat Gran (auto) (0.00-0.03) X10*3/uL Absolute Neuts (auto) (2.0-8.3) X10*3/uL Absolute Nucleated RBC (0.0-0.012) X10*3/uL Nucleated RBC % (auto) (0.0-0.2) /100WBC Sodium (135-145) mmol/L Potassium (3.3-5.1) mmol/l Chloride (96-108) mmol/L Carbon Dioxide (22-29) mmol/L Anion Gap (12-20) BUN (9-16) mg/dL Creatinine (0.5-1.4) mg/dL Estim Creat Clear Calc Estimated GFR Random Glucose (60-115) mg/dL Calcium (8.4-10.2) mg/dL Total Bilirubin (0.0-1.0) mg/dL Direct Bilirubin (0.0-0.5) mg/dL AST (5-37) U/L ALT (0-40) U/L Alkaline Phosphatase (39-117) U/L Total Protein (6.5-8.0) g/dL Albumin (3.5-5.0) g/dL Salicylates (15-30) mg/dL Urine Opiates Screen POSITIVE H (Not Detect) Acetaminophen (<30) mcg/mL Ur Barbiturates Screen POSITIVE H (Not Detect) Ur Phencyclidine Scrn Not Detected (Not Detect) Ur Amphetamines Screen Not Detected (Not Detect) U Benzodiazepines Scrn Not Detected (Not Detect) Urine Cocaine Screen POSITIVE H (Not Detect) U Marijuana (THC) Screen Not Detected (Not Detect) Ethyl Alcohol mg/dL Discharge Plan Discharge Clinical Impression: Suicidal ideation, Polysubstance (including opioids) dependence, daily use Prescriptions: No Action hydroxyzine HCl 25 mg Tablet 25 mg PO Q3-4H PRN (Reason: restlessness) Qty: 20 RF: 0 buprenorphine-naloxone [Suboxone] 8-2 mg film 1 film sublingual BID Qty: 15 RF: 0
--- NOTE | 2020-03-29 17:07 | PC.NURSE ---
declining blood work at this time, has poor IV access, requested to have labs drawn after he eats dinner and hydrates. still unable to provide a urine sample.
[2020-03-29 17:08] VITALS: RESP 18
[2020-03-29 19:06] VITALS: BP 128/94; PULSE 97; RESP 20; TEMP 36.6; O2SAT 99
--- NOTE | 2020-03-29 19:08 | PC.NURSE ---
Report received. PT is in his room, complaining about excessive sweating at this time. Vitals were all in normal range. Labs being drawn by A. Waiting to be seen by N.
[2020-03-29 19:34] LABS: Imm Gran Abs Auto 0.01 X10*3/uL (0.00-0.03); Imm Gran Pct Auto 0.1 % (0.0-0.4); Mean Corpuscular Hemoglobin 30.1 pg (27.0-33.0); Red Cell Distribution Width 13.2 % (11.0-16.0); SCAN SMEAR FLAG 1
[2020-03-29 19:35] LABS: MANUAL DIFF FLAG NO
[2020-03-29 19:42] LABS: Basophils Absolute Auto 0.1 X10*3/uL (0.0-0.2); Basophils Percent Auto 0.6 % (0-2); Eosinophils Absolute Auto 0.3 X10*3/uL (0.0-0.4); Eosinophils Percent Auto 4.2 % (0-4); Hematocrit 41.6 % (42-52); Hemoglobin 14.1 g/dl (14.0-18.0); Lymphocytes Absolute Auto 4.9 X10*3/uL (1.2-4.9); Mean Corpuscular HGB Conc 33.9 g/dl (31.0-36.0); Mean Corpuscular Volume 88.9 fL (80-98); Mean Platelet Volume 8.2 fL (9.4-12.4); Monocytes Absolute Auto 0.6 X10*3/uL (0.1-1.2); Monocytes Percent Auto 7.4 % (2-11); Neutrophils Absolute Auto 2.1 X10*3/uL (2.0-8.3); Neutrophils Percent Auto 26.7 % (45-73); Platelet Count 206 X10*3/uL (160-400); Red Blood Count 4.68 X10*6/uL (4.60-5.80); White Blood Count 8.1 X10*3/uL (4.8-10.8)
[2020-03-29 19:49] LABS: Ethanol < 10 mg/dL
[2020-03-29 20:01] LABS: Amphetamine Screen Urine Not Detected (Not Detect); Barbiturates, Urine POSITIVE (Not Detect); Benzodiazepines Screen Urine Not Detected (Not Detect); Cannabinoid Screen Urine Not Detected (Not Detect); Cocaine Screen Urine POSITIVE (Not Detect); Opiate Screen Urine POSITIVE (Not Detect); Phencyclidine Screen Urine Not Detected (Not Detect)
[2020-03-29 20:07] LABS: Acetaminophen LAB < 1 mcg/mL (<30); Alanine Aminotransferase 165 U/L (0-40); Albumin Level 4.1 g/dL (3.5-5.0); Alkaline Phosphatase 114 U/L (39-117); Anion Gap 13 (12-20); Aspartate Amino Transferase 36 U/L (5-37); Bilirubin Direct 0.3 mg/dL (0.0-0.5); Bilirubin Total 0.7 mg/dL (0.0-1.0); Blood Urea Nitrogen 14 mg/dL (9-16); Calcium 9.1 mg/dL (8.4-10.2); Carbon Dioxide 26 mmol/L (22-29); Chloride 105 mmol/L (96-108); Creatinine Clr Calc Pharmacy 104.1; Estimated Glomerular Filt Rate > 60; Glucose Random 60 mg/dL (60-115); Potassium 4.4 mmol/l (3.3-5.1); Salicylate < 5.0 mg/dL (15-30); Sodium 140 mmol/L (135-145); Total Protein 7.1 g/dL (6.5-8.0)
--- NOTE | 2020-03-29 20:17 | PC.NURSE ---
Called N to confirm they have received fax on PT. N stated they were not sure if someone would be out tonight for consult.
--- NOTE | 2020-03-29 22:10 | PC.NURSE ---
Care Team at PT bed side.
[2020-03-29 22:12] VITALS: RESP 16; TEMP 37.1
--- NOTE | 2020-03-29 22:37 | ECG_ITS ---
Test Reason : SUICIDAL, SUBSTANCE ABUSE Blood Pressure : / mmHG Vent. Rate : 072 BPM Atrial Rate : 072 BPM P-R Int : 166 ms QRS Dur : 088 ms QT Int : 446 ms P-R-T Axes : 060 044 033 degrees QTc Int : 488 ms Normal sinus rhythm RSR' or QR pattern in V1 suggests right ventricular conduction delay Nonspecific ST and T wave abnormality Prolonged QT Abnormal ECG When compared with ECG of 10-JUN-2019 10:31, No significant change was found Referred By: Kathrin Padilla Electronically Signed By:SHADY HUDSON MD
[2020-03-29] MEDS: LORazepam 1 MG TABLET 2 MG PO (22:50)
--- NOTE | 2020-03-29 23:16 | PC.NURSE ---
PT refusing EKG at this time. PT stated that he does not feel good right now and just wants to get some rest. PT exhibiting profuse sweating, tremors, and chills.
[2020-03-29 23:53] VITALS: RESP 18
[2020-03-30 02:19] LABS: SARS COV2 PCR INHOUSE NEGATIVE (Negative)
[2020-03-30 03:00] VITALS: BP 132/86; PULSE 93; RESP 16; TEMP 36.6
--- NOTE | 2020-03-30 05:00 | PC.ADMIT ---
Addendum entered by Srinath Barnhart 03/30/20 05:29: Pt denied current SI/plan; denied AH/VH/HI. Reports will seek staff if experiencing thoughts or feelings associated with HI/SI. Original Note: Patient arrived on M5 at approximately 02:50, presenting with diagnoses of MDD, AUD, OUD. Pt self-presented to ED after reporting suicide attempt via intentional OD with heroin. Pt reports previous [facility] for psych and last substance abuse treatment at [facility] one week ago. Per CARE team assessment pt has family hx of suicide. Pharmacy could not confirm reported Suboxone use. Pt reports relapsing on heroin for one week. He refused to participate in assessment due to withdrawal and presents as an inaccurate historian. Per assessment pt is hopeless, depressed, and anxious. Per medical record PMH of scoliosis, elevated LFT's, and hepatitis C. Pt placed on 15 minute safety checks and orders received from on-call provider.
[2020-03-30 08:00] VITALS: BP 113/65; PULSE 73; TEMP 36.8
--- NOTE | 2020-03-30 09:24 | P.HPPS_ITS ---
HPI Chief Complaint: Crisis/SUICIDAL IDEATION Sources of Information: patient interviewed, chart reviewed and crisis/core team assessment reviewed HPI Narrative: 34 year old man who was referred for admission by the CARE team after he presented with SI and having OD on iv heroin. This is his first admission to this unit. Sam was not willing to talk to this typewriter assembler so much of the history is from records. Individual has been increasingly depressed and hopeless. He was asked to leave his GF house and he has been homeless. He has had escalating substance abuse and on arrival was in acute WD. Past Psychiatric History: Last on M5 in May 2019 Multiple EATS and IP programs Medical Evaluation Reviewed: Yes Medically cleared in ER. No acute issues [facility] Medical History Elevated LFTs Hepatitis C infection Intravenous drug abuse, continuous Patient denies medical problems Scoliosis Family History: Depression Social History: Homeless Substance History: 1.5 bundles heroin daily. Also drinks several nips daily Trauma History: Unknown Diagnostics Vital Signs (24Hr): Vital Signs - 24 hr 03/29/20 15:22 03/29/20 17:08 03/29/20 19:06 Temperature 98.6 F 98 F Pulse Rate 88 97 Respiratory Rate 16 18 20 Blood Pressure 119/76 128/94 H Pulse Oximetry 98 99 03/29/20 22:12 03/29/20 23:53 03/30/20 03:00 Temperature 98.7 F 97.8 F Pulse Rate 93 Respiratory Rate 16 18 16 Blood Pressure 132/86 Pulse Oximetry 03/30/20 08:00 Temperature 98.3 F Pulse Rate 73 Respiratory Rate Blood Pressure 113/65 Pulse Oximetry Body Mass Index 26.6 Labs Results: 03/29/20 19:27 03/29/20 19:27 Labs: Laboratory Results - last 48 hr 03/29/20 03/29/20 03/29/20 19:27 19:27 19:27 WBC 8.1 RBC 4.68 Hgb 14.1 Hct 41.6 L MCV 88.9 MCH 30.1 MCHC 33.9 RDW 13.2 Plt Count 206 MPV 8.2 L Immature Gran % (Auto) 0.1 Neut % (Auto) 26.7 L Lymph % (Auto) 61.0 H Hooker % (Auto) 7.4 Eos % (Auto) 4.2 H Baso % (Auto) 0.6 Lymph # (Auto) 4.9 Hooker # (Auto) 0.6 Eos # (Auto) 0.3 Baso # (Auto) 0.1 Abs Immat Gran (auto) 0.01 Absolute Neuts (auto) 2.1 Absolute Nucleated RBC 0.000 Nucleated RBC % (auto) 0.0 Sodium 140 Potassium 4.4 Chloride 105 Carbon Dioxide 26 Anion Gap 13 BUN 14 Creatinine 0.99 Estim Creat Clear Calc 104.1 Estimated GFR > 60 Random Glucose 60 Calcium 9.1 Total Bilirubin 0.7 Direct Bilirubin 0.3 AST 36 D ALT 165 H Alkaline Phosphatase 114 D Total Protein 7.1 Albumin 4.1 Salicylates < 5.0 L Urine Opiates Screen Acetaminophen < 1 Ur Barbiturates Screen Ur Phencyclidine Scrn Ur Amphetamines Screen U Benzodiazepines Scrn Urine Cocaine Screen U Marijuana (THC) Screen Ethyl Alcohol < 10 Coronavirus (PCR) 03/29/20 03/30/20 19:30 01:16 WBC RBC Hgb Hct MCV MCH MCHC RDW Plt Count MPV Immature Gran % (Auto) Neut % (Auto) Lymph % (Auto) Hooker % (Auto) Eos % (Auto) Baso % (Auto) Lymph # (Auto) Hooker # (Auto) Eos # (Auto) Baso # (Auto) Abs Immat Gran (auto) Absolute Neuts (auto) Absolute Nucleated RBC Nucleated RBC % (auto) Sodium Potassium Chloride Carbon Dioxide Anion Gap BUN Creatinine Estim Creat Clear Calc Estimated GFR Random Glucose Calcium Total Bilirubin Direct Bilirubin AST ALT Alkaline Phosphatase Total Protein Albumin Salicylates Urine Opiates Screen POSITIVE H Acetaminophen Ur Barbiturates Screen POSITIVE H Ur Phencyclidine Scrn Not Detected Ur Amphetamines Screen Not Detected U Benzodiazepines Scrn Not Detected Urine Cocaine Screen POSITIVE H U Marijuana (THC) Screen Not Detected Ethyl Alcohol Coronavirus (PCR) NEGATIVE Meds/Allergies Meds Home Medications Medication Instructions Recorded Confirmed Type No Known Home Meds 03/30/20 03/30/20 History Allergies Allergies Allergy/AdvReac Type Severity Reaction Status Date / Time haloperidol [From HALDOL] Allergy Intermediate N/V/D Verified 03/02/20 14:13 acetaminophen [From TYLENOL] Allergy Mild GI UPSET Verified 03/02/20 14:13 SEAFOOD Allergy Severe ANAPHYLAXIS Uncoded 02/10/20 19:34 Mental Status Exam Mental Status Exam Patient Appearance: Fatigued and Disheveled Patient Orientation: Person, Place and Time Level of Consciousness: Awake Patient Behavior: Guarded, Restless and Poor Eye Contact Behavior Comments: Uncooperative with assessment and focused on not having clothes Mood Description: Hostile and Angry Affect Description: Hostile and Angry Patient Cognition Impaired: No Ability to Follow Directions: Good Speech Pattern: Clear Memory Description: Intact Hallucinations: None Delusions: Not Present Thought Content: positive for Intact, positive for Circumstantial and positive for Slowed Thinking Depressive Symptoms: Increased Anxiety, Insomnia, Increased Irritability, Feelings of Worthlessness, Feelings of Guilt, Unhappiness and Thoughts of Zahraa th/Suicide Judgement: Poor Assessment & Plan Assessment & Plan (1) Opioid use disorder: Status: Acute Code(s): F11.99 - Opioid use, unspecified with unspecified opioid-induced disorder (2) Alcohol use disorder, severe, dependence: Status: Acute Code(s): F10.20 - Alcohol dependence, uncomplicated (3) Suicidal ideation: Status: Acute Code(s): R45.851 - Suicidal ideations Assessment and Plan: Suboxone for WD COllect more history Consider CSS Patient educated on: diagnosis and medication risk/benefits Reason for continued inpatient stay Substantial Risk for: harm to self, inability to function and rapid decompensation
[2020-03-30] MEDS: Buprenorphine/Naloxone 4/1 mg FILM 1 FILM SUBLINGUAL ×2 (14:02→15:30)
[2020-03-30 19:04] VITALS: BP 125/69; PULSE 77; TEMP 37
[2020-03-31] MEDS: Buprenorphine/Naloxone 8/2 mg TAB.SUBL 1 TAB SUBLINGUAL ×2 (08:17→16:31)
--- NOTE | 2020-03-31 09:18 | HO.PSYCHPN ---
Subjective Subjective Date of Service: 03/31/20 Reason For Visit: Crisis/SUICIDAL IDEATION Subjective Notes: Conditional Voluntary Interim History: Sam was substantially more engaged. He reports feeling better since he was started back on suboxone. He has no alcohol WD. His main concern is to get to a [facility] and then transition to a [facility]. He does not feel depressed or anxious when he is sober. Medication Compliance: Yes Side effects from medications: No Attending Groups: Intermittent Review of Systems Acute medical concerns: No LFTs are normalizing after a recent bout with hepatitis Medical Review of Systems: unchanged Review of Systems Constitutional: Denies headache(s) and Denies weakness Denies dizziness and Denies headache(s) Musculoskeletal: Denies numbness and Denies tingling Reports system reviewed and no additional complaints, except as documented, Denies Abnormal speech present, Denies dizziness, Denies headache(s), Denies numbness, Denies tingling and Denies weakness Mental Status Exam Mental Status Exam Patient Appearance: Fatigued Patient Orientation: Person, Place and Time Level of Consciousness: Awake Patient Behavior: Appropriate and Good Eye Contact Behavior Comments: Uncooperative with assessment and focused on not having clothes Mood Description: Calm and Appropriate Affect Description: Calm Patient Cognition Impaired: No Ability to Follow Directions: Good Speech Pattern: Clear Memory Description: Intact Hallucinations: None Delusions: Not Present Thought Content: positive for Intact, negative for Suicidal Ideation and negative for Homicidal Ideation Depressive Symptoms: Increased Anxiety Judgement: Poor Diagnostics Vital Signs (24Hr): Vital Signs - 24 hr 03/30/20 19:04 Temperature 98.6 F Pulse Rate 77 Blood Pressure 125/69 Body Mass Index 26.6 Labs Results: 03/29/20 19:27 03/29/20 19:27 Labs: Laboratory Results - last 48 hr 03/29/20 03/29/20 03/29/20 19:27 19:27 19:27 WBC 8.1 RBC 4.68 Hgb 14.1 Hct 41.6 L MCV 88.9 MCH 30.1 MCHC 33.9 RDW 13.2 Plt Count 206 MPV 8.2 L Immature Gran % (Auto) 0.1 Neut % (Auto) 26.7 L Lymph % (Auto) 61.0 H Merrick % (Auto) 7.4 Eos % (Auto) 4.2 H Baso % (Auto) 0.6 Lymph # (Auto) 4.9 Merrick # (Auto) 0.6 Eos # (Auto) 0.3 Baso # (Auto) 0.1 Abs Immat Gran (auto) 0.01 Absolute Neuts (auto) 2.1 Absolute Nucleated RBC 0.000 Nucleated RBC % (auto) 0.0 Sodium 140 Potassium 4.4 Chloride 105 Carbon Dioxide 26 Anion Gap 13 BUN 14 Creatinine 0.99 Estim Creat Clear Calc 104.1 Estimated GFR > 60 Random Glucose 60 Calcium 9.1 Total Bilirubin 0.7 Direct Bilirubin 0.3 AST 36 D ALT 165 H Alkaline Phosphatase 114 D Total Protein 7.1 Albumin 4.1 Salicylates < 5.0 L Urine Opiates Screen Acetaminophen < 1 Ur Barbiturates Screen Ur Phencyclidine Scrn Ur Amphetamines Screen U Benzodiazepines Scrn Urine Cocaine Screen U Marijuana (THC) Screen Ethyl Alcohol < 10 Coronavirus (PCR) 03/29/20 03/30/20 19:30 01:16 WBC RBC Hgb Hct MCV MCH MCHC RDW Plt Count MPV Immature Gran % (Auto) Neut % (Auto) Lymph % (Auto) Merrick % (Auto) Eos % (Auto) Baso % (Auto) Lymph # (Auto) Merrick # (Auto) Eos # (Auto) Baso # (Auto) Abs Immat Gran (auto) Absolute Neuts (auto) Absolute Nucleated RBC Nucleated RBC % (auto) Sodium Potassium Chloride Carbon Dioxide Anion Gap BUN Creatinine Estim Creat Clear Calc Estimated GFR Random Glucose Calcium Total Bilirubin Direct Bilirubin AST ALT Alkaline Phosphatase Total Protein Albumin Salicylates Urine Opiates Screen POSITIVE H Acetaminophen Ur Barbiturates Screen POSITIVE H Ur Phencyclidine Scrn Not Detected Ur Amphetamines Screen Not Detected U Benzodiazepines Scrn Not Detected Urine Cocaine Screen POSITIVE H U Marijuana (THC) Screen Not Detected Ethyl Alcohol Coronavirus (PCR) NEGATIVE Medications Medications Current Medications Generic Name Dose Route Start Last Admin Trade Name Freq PRN Reason Stop Dose Admin Acetaminophen 650 mg 03/30/20 04:41 Acetaminophen 325 Mg Tablet PO Q6H PRN Headache/Pain Mild Scale (1-3) Al Hydroxide/Mg Hydroxide 30 ml 03/30/20 04:41 Magnesium Hydrox/Alum Hydrox 30 Ml Oral.Susp PO Q6H PRN Heartburn/Nausea Buprenorphine/Naloxone 1 tab 03/31/20 07:00 03/31/20 08:17 Buprenorphine/Naloxone 8/2 Mg Tab.Subl SUBLINGUAL 1 tab DAILY DARNELL Administration Hydroxyzine HCl 25 mg 03/30/20 04:41 Hydroxyzine Hcl 25 Mg Tablet PO BEDTIME PRN Anxiety Lorazepam 1 mg 03/30/20 03:35 Lorazepam 1 Mg Tablet PO 04/03/20 03:34 Q4H PRN Breakthrough alcohol withdrawa Magnesium Hydroxide 30 ml 03/30/20 04:41 Milk Of Magnesia 30 Ml Oral.Susp PO DAILY PRN Constipation Trazodone HCl 50 mg 03/30/20 04:41 Trazodone Hcl 50 Mg Tablet PO BEDTIME PRN Insomnia Allergies Allergies Allergy/AdvReac Type Severity Reaction Status Date / Time haloperidol [From HALDOL] Allergy Intermediate N/V/D Verified 03/02/20 14:13 acetaminophen [From TYLENOL] Allergy Mild GI UPSET Verified 03/02/20 14:13 SEAFOOD Allergy Severe ANAPHYLAXIS Uncoded 02/10/20 19:34 Assessment & Plan Assessment & Plan (1) Opioid use disorder: Status: Acute Code(s): F11.99 - Opioid use, unspecified with unspecified opioid-induced disorder (2) Alcohol use disorder, severe, dependence: Status: Acute Code(s): F10.20 - Alcohol dependence, uncomplicated Assessment and Plan: CT suboxone Refer to CSS Greater than 50% of the session was spent on counseling and/or coordination of care Patient educated on: diagnosis, medication risk/benefits and substance abuse Informed Consent: further education needed Reason for contiued inpatient stay Substantial Risk for: rapid decompensation
[2020-03-31 20:00] VITALS: BP 126/67; PULSE 67; TEMP 36.8
[2020-03-31] MEDS: hydrOXYzine HCL 25 MG TABLET PO (20:50)
[2020-03-31] MEDS: traZODone HCL 50 MG TABLET PO (20:50)
[2020-04-01] MEDS: Buprenorphine/Naloxone 8/2 mg TAB.SUBL 1 TAB SUBLINGUAL ×2 (09:25→16:42)
[2020-04-01 11:05] VITALS: BP 139/78; PULSE 72; TEMP 37.1; O2SAT 99
[2020-04-01 14:00] VITALS: BP 121/75; PULSE 68
[2020-04-01 16:00] VITALS: BP 122/77; PULSE 79; TEMP 36.7
--- NOTE | 2020-04-01 20:55 | P.PNPSI_ITS ---
Subjective Subjective Date of Service: 04/01/20 Reason For Visit: Crisis/SUICIDAL IDEATION Subjective Notes: Conditional Voluntary Interim History: Sam was substantially more engaged. He reports feeling better since he was started back on suboxone. He has no alcohol WD. His main concern is to get to a [facility] and then transition to a [facility]. He has no immediate concerns for today. He has been keeping to himself since the unit is quite chaotic He does not feel depressed or anxious when he is sober. Medication Compliance: Yes Side effects from medications: No Attending Groups: Intermittent Review of Systems Acute medical concerns: No LFTs are normalizing after a recent bout with hepatitis Medical Review of Systems: unchanged Review of Systems Constitutional: Denies headache(s) and Denies weakness Denies dizziness and Denies headache(s) Musculoskeletal: Denies numbness and Denies tingling Reports system reviewed and no additional complaints, except as documented, Denies Abnormal speech present, Denies dizziness, Denies headache(s), Denies numbness, Denies tingling and Denies weakness Mental Status Exam Mental Status Exam Patient Appearance: Fatigued Patient Orientation: Person, Place and Time Level of Consciousness: Awake Patient Behavior: Appropriate and Good Eye Contact Behavior Comments: Uncooperative with assessment and focused on not having clothes Mood Description: Calm and Appropriate Affect Description: Calm Patient Cognition Impaired: No Ability to Follow Directions: Good Speech Pattern: Clear Memory Description: Intact Hallucinations: None Delusions: Not Present Thought Content: positive for Intact, negative for Suicidal Ideation and negative for Homicidal Ideation Depressive Symptoms: Increased Anxiety Judgement: Poor Diagnostics Vital Signs (24Hr): Vital Signs - 24 hr 04/01/20 11:05 04/01/20 14:00 04/01/20 16:00 Temperature 98.7 F 98.1 F Pulse Rate 72 68 79 Blood Pressure 139/78 121/75 122/77 Pulse Oximetry 99 Body Mass Index 26.6 Labs Results: 03/29/20 19:27 03/29/20 19:27 Medications Medications Current Medications Generic Name Dose Route Start Last Admin Trade Name Freq PRN Reason Stop Dose Admin Acetaminophen 650 mg 03/30/20 04:41 Acetaminophen 325 Mg Tablet PO Q6H PRN Headache/Pain Mild Scale (1-3) Al Hydroxide/Mg Hydroxide 30 ml 03/30/20 04:41 Magnesium Hydrox/Alum Hydrox 30 Ml Oral.Susp PO Q6H PRN Heartburn/Nausea Buprenorphine/Naloxone 1 tab 03/31/20 17:30 04/01/20 16:42 Buprenorphine/Naloxone 8/2 Mg Tab.Subl SUBLINGUAL 1 tab BIDPC DARNELL Administration Hydroxyzine HCl 25 mg 03/30/20 04:41 03/31/20 20:50 Hydroxyzine Hcl 25 Mg Tablet PO 25 mg BEDTIME PRN Administration Anxiety Lorazepam 1 mg 03/30/20 03:35 Lorazepam 1 Mg Tablet PO 04/03/20 03:34 Q4H PRN Breakthrough alcohol withdrawa Magnesium Hydroxide 30 ml 03/30/20 04:41 Milk Of Magnesia 30 Ml Oral.Susp PO DAILY PRN Constipation Trazodone HCl 50 mg 03/30/20 04:41 03/31/20 20:50 Trazodone Hcl 50 Mg Tablet PO 50 mg BEDTIME PRN Administration Insomnia Allergies Allergies Allergy/AdvReac Type Severity Reaction Status Date / Time haloperidol [From HALDOL] Allergy Intermediate N/V/D Verified 03/02/20 14:13 acetaminophen [From TYLENOL] Allergy Mild GI UPSET Verified 03/02/20 14:13 SEAFOOD Allergy Severe ANAPHYLAXIS Uncoded 02/10/20 19:34 Assessment & Plan Assessment & Plan (1) Opioid use disorder: Status: Acute Code(s): F11.99 - Opioid use, unspecified with unspecified opioid-induced disorder Assessment and Plan: CT suboxone CT treatment plan Greater than 50% of the session was spent on counseling and/or coordination of care Patient educated on: diagnosis, medication risk/benefits and substance abuse Informed Consent: further education needed Reason for contiued inpatient stay Substantial Risk for: rapid decompensation
[2020-04-01] MEDS: traZODone HCL 50 MG TABLET PO (21:00)
[2020-04-01] MEDS: hydrOXYzine HCL 25 MG TABLET PO (21:01)
[2020-04-01] MEDS: LORazepam 1 MG TABLET PO (21:01)
[2020-04-02 08:00] VITALS: BP 111/59; PULSE 71; RESP 16; TEMP 36.5; O2SAT 99
[2020-04-02] MEDS: LORazepam 1 MG TABLET PO ×3 (09:35→14:37)
[2020-04-02] MEDS: Buprenorphine/Naloxone 8/2 mg TAB.SUBL 1 TAB SUBLINGUAL (09:36)
[2020-04-02 12:19] VITALS: BP 117/67; PULSE 74
--- NOTE | 2020-04-02 12:31 | P.PNPSI_ITS ---
Subjective Subjective Date of Service: 04/02/20 Reason For Visit: Crisis/SUICIDAL IDEATION Subjective Notes: Conditional Voluntary Interim History: Sam was substantially more engaged. He did have an episode of anxiety which was triggered by yelling on the unit. This responded to ativan. He reports feeling better since he was started back on suboxone. He has no alcohol WD. His main concern is to get to a [facility] and then transition to a [facility]. He has no immediate concerns for today. He has been keeping to himself since the unit is quite chaotic He does not feel depressed or anxious when he is sober. Medication Compliance: Yes Side effects from medications: No Attending Groups: Yes Review of Systems Acute medical concerns: No Medical Review of Systems: unchanged Review of Systems Constitutional: Denies headache(s) and Denies weakness Denies dizziness and Denies headache(s) Musculoskeletal: Denies numbness and Denies tingling Reports system reviewed and no additional complaints, except as documented, Denies Abnormal speech present, Denies dizziness, Denies headache(s), Denies numbness, Denies tingling and Denies weakness Mental Status Exam Mental Status Exam Patient Appearance: Well Grooomed and Fatigued Patient Orientation: Person, Place and Time Level of Consciousness: Awake Patient Behavior: Appropriate and Good Eye Contact Mood Description: Calm and Appropriate Affect Description: Calm Patient Cognition Impaired: No Ability to Follow Directions: Good Speech Pattern: Clear Memory Description: Intact Hallucinations: None Delusions: Not Present Thought Process: Intact Thought Content: negative for Suicidal Ideation and negative for Homicidal Ideation Depressive Symptoms: Increased Anxiety and Low Self Esteem Judgement: Fair Diagnostics Vital Signs (24Hr): Vital Signs - 24 hr 04/01/20 14:00 04/01/20 16:00 04/02/20 08:00 Temperature 98.1 F 97.7 F Pulse Rate 68 79 71 Respiratory Rate 16 Blood Pressure 121/75 122/77 111/59 L Pulse Oximetry 99 04/02/20 12:19 Temperature Pulse Rate 74 Respiratory Rate Blood Pressure 117/67 Pulse Oximetry Body Mass Index 26.6 Labs Results: 03/29/20 19:27 03/29/20 19:27 Medications Medications Current Medications Generic Name Dose Route Start Last Admin Trade Name Freq PRN Reason Stop Dose Admin Acetaminophen 650 mg 03/30/20 04:41 Acetaminophen 325 Mg Tablet PO Q6H PRN Headache/Pain Mild Scale (1-3) Al Hydroxide/Mg Hydroxide 30 ml 03/30/20 04:41 Magnesium Hydrox/Alum Hydrox 30 Ml Oral.Susp PO Q6H PRN Heartburn/Nausea Buprenorphine/Naloxone 1 tab 03/31/20 17:30 04/02/20 09:36 Buprenorphine/Naloxone 8/2 Mg Tab.Subl SUBLINGUAL 1 tab BIDPC DARNELL Administration Hydroxyzine HCl 25 mg 03/30/20 04:41 04/01/20 21:01 Hydroxyzine Hcl 25 Mg Tablet PO 25 mg BEDTIME PRN Administration Anxiety Lorazepam 1 mg 03/30/20 03:35 04/02/20 09:35 Lorazepam 1 Mg Tablet PO 04/03/20 03:34 1 mg Q4H PRN Administration Breakthrough alcohol withdrawa Magnesium Hydroxide 30 ml 03/30/20 04:41 Milk Of Magnesia 30 Ml Oral.Susp PO DAILY PRN Constipation Trazodone HCl 50 mg 03/30/20 04:41 04/01/20 21:00 Trazodone Hcl 50 Mg Tablet PO 50 mg BEDTIME PRN Administration Insomnia Allergies Allergies Allergy/AdvReac Type Severity Reaction Status Date / Time haloperidol [From HALDOL] Allergy Intermediate N/V/D Verified 03/02/20 14:13 acetaminophen [From TYLENOL] Allergy Mild GI UPSET Verified 03/02/20 14:13 SEAFOOD Allergy Severe ANAPHYLAXIS Uncoded 02/10/20 19:34 Assessment & Plan Assessment & Plan (1) Opioid use disorder: Status: Acute Code(s): F11.99 - Opioid use, unspecified with unspecified opioid-induced disorder Assessment and Plan: CT suboxone CT treatment plan Greater than 50% of the session was spent on counseling and/or coordination of care Patient educated on: diagnosis, medication risk/benefits and substance abuse Informed Consent: further education needed Reason for contiued inpatient stay Substantial Risk for: rapid decompensation
--- NOTE | 2020-04-02 15:01 | PM.PSYDC ---
DS: Providers Provider Date of admission: 03/30/20 03:30 Date of discharge: 04/02/20 Primary care physician: Unknown Physician Attending physician on admission: Josselin Cedillo Attending physician on discharge: Josselin Cedillo DS: Diagnosis Discharge Diagnosis (1) Opioid use disorder: Status: Acute Discharge Plan Discharge Patient Disposition: Home, Self-Care Referrals: Physician,Unknown [Primary Care Provider] - Discharge Medications: New buprenorphine-naloxone 8-2 mg Tablet, Sublingual 1 tab sublingual BIDPC Qty: 14 RF: 0 No Action No Known Home Meds RF: 0 Discharge Orders: Discharge Order (Routine); Ordered 04/02/20 Ordered By: Josselin Cedillo Diet: advance to your usual diet Activity on Discharge: As tolerated Visit Report Forms: Patient Portal Discharge page Care Plan Goals: Stay sober Health Concerns: Opioid abuse Plan of Treatment: You are being DC to your father's home Continue to call CSS Come to in am for suboxone Rx and/or appointment at [facility] Mental Status Exam Mental Status Exam Patient Appearance: Well Grooomed and Fatigued Patient Orientation: Person, Place and Time Level of Consciousness: Awake Patient Behavior: Appropriate and Good Eye Contact Mood Description: Calm and Appropriate Affect Description: Calm Patient Cognition Impaired: No Ability to Follow Directions: Good Speech Pattern: Clear Memory Description: Intact Hallucinations: None Delusions: Not Present Thought Process: Intact Thought Content: negative for Suicidal Ideation and negative for Homicidal Ideation Depressive Symptoms: Increased Anxiety and Low Self Esteem Judgement: Fair Data Data Completed and Pending Completed studies during hospitalization [Text1]: 03/29/20 03/29/20 03/29/20 19:27 19:27 19:27 WBC 8.1 RBC 4.68 Hgb 14.1 Hct 41.6 L MCV 88.9 MCH 30.1 MCHC 33.9 RDW 13.2 Plt Count 206 MPV 8.2 L Immature Gran % (Auto) 0.1 Neut % (Auto) 26.7 L Lymph % (Auto) 61.0 H [place] % (Auto) 7.4 Eos % (Auto) 4.2 H Baso % (Auto) 0.6 Lymph # (Auto) 4.9 [place] # (Auto) 0.6 Eos # (Auto) 0.3 Baso # (Auto) 0.1 Abs Immat Gran (auto) 0.01 Absolute Neuts (auto) 2.1 Absolute Nucleated RBC 0.000 Nucleated RBC % (auto) 0.0 Sodium 140 Potassium 4.4 Chloride 105 Carbon Dioxide 26 Anion Gap 13 BUN 14 Creatinine 0.99 Estim Creat Clear Calc 104.1 Estimated GFR > 60 Random Glucose 60 Calcium 9.1 Total Bilirubin 0.7 Direct Bilirubin 0.3 AST 36 D ALT 165 H Alkaline Phosphatase 114 D Total Protein 7.1 Albumin 4.1 Salicylates < 5.0 L Urine Opiates Screen Acetaminophen < 1 Ur Barbiturates Screen Ur Phencyclidine Scrn Ur Amphetamines Screen U Benzodiazepines Scrn Urine Cocaine Screen U Marijuana (THC) Screen Ethyl Alcohol < 10 Coronavirus (PCR) 03/29/20 03/30/20 19:30 01:16 WBC RBC Hgb Hct MCV MCH MCHC RDW Plt Count MPV Immature Gran % (Auto) Neut % (Auto) Lymph % (Auto) [place] % (Auto) Eos % (Auto) Baso % (Auto) Lymph # (Auto) [place] # (Auto) Eos # (Auto) Baso # (Auto) Abs Immat Gran (auto) Absolute Neuts (auto) Absolute Nucleated RBC Nucleated RBC % (auto) Sodium Potassium Chloride Carbon Dioxide Anion Gap BUN Creatinine Estim Creat Clear Calc Estimated GFR Random Glucose Calcium Total Bilirubin Direct Bilirubin AST ALT Alkaline Phosphatase Total Protein Albumin Salicylates Urine Opiates Screen POSITIVE H Acetaminophen Ur Barbiturates Screen POSITIVE H Ur Phencyclidine Scrn Not Detected Ur Amphetamines Screen Not Detected U Benzodiazepines Scrn Not Detected Urine Cocaine Screen POSITIVE H U Marijuana (THC) Screen Not Detected Ethyl Alcohol Coronavirus (PCR) NEGATIVE DS: Summary Hospital Course Hospital Course: 34 year old man who was referred for admission by the CARE team after he presented with SI and having OD on iv heroin. This is his first admission to this unit. Sam was not willing to talk to this machine sign writer so much of the history is from records. Individual has been increasingly depressed and hopeless. He was asked to leave his GF house and he has been homeless. He has had escalating substance abuse and on arrival was in acute WD. Past Psychiatric History: Last on M5 in May 2019 Multiple EATS and IP programs Hospital Course The patient was admitted. He signed a CV. He was stabilized on suboxone which he has been on in the past. He was pleasant and cooperative throughout his stay. He was interested in a CSS and referrals were made. On the day of DC another patient who is quite psychotic started to target him. He was accusing the patient of doing things that he was not. The unit was very active with a number of very ill patients and a lot of noise. Sam reported that he did not feel safe on the unit. He asked to leave. He denied SI. He was not agitated. He stated that he wanted to leave. He would call for CSS from his father's home. It was his father who suggested that he should leave and come and stay with him pending CSS. Sam's family is suupertive. He agreed to return to the hospital tomorrow morning to geet a suboxone Rx and/or an appointment at [facility] [place]. Status at Discharge Functional status at discharge: independent ambulation Overall status at discharge: patient is progressing back to baseline Time Spent with Patient Time attestation: Total time spent providing and/or coordinating discharge services:
[2020-04-02] MEDS: Naloxone HCl Nasal TAKE HOME 4 MG SPRAY NOSTRILALT (15:18)
--- NOTE | 2020-04-02 16:03 | PC.NURSE ---
PT ANXIOUS THIS AM DUE TO AGITATION LEVEL OF A FEMALE PT IN [facility]. RECEIVED PRN ATIVAN 1 MG PO AT 0935, AN ADDITIONAL ONE TIME DOSE OF ATIVAN 1 MG PO AT 1209. UP TO NURSES STATION AT 1435 TO RECEIVE PRN ATIVAN 1 MG WHEN AN AGITATED FEMALE PT APPROACHED SAME AREA. STAFF ATTEMPTED TO REDIRECT FEMALE PT AND THIS PT WAS ASKED TO COME TO MED ROOM DOOR. FEMALE PT FOLLOWED, DEMANDING ATTENTION. THIS DELI BAKERY CLERK ASKED TO HAVE HIS SPACE RESPECTED STERNLY. FEMALE PT'S AGITATION ESCALATED REQUIRING STAFF INTERVENTION. FEMALE PT STATED THIS DELI BAKERY CLERK TOUCHED HER, WHICH HAD NOT OCCURRED AND ANOTHER MALE PT CAME TO HER DEFENSE. OTHER MALE PT STARTED MAKING GUN MOTIONS TOWARDS THIS PT. PT APPROACHED THIS DELI BAKERY CLERK AND STATED HE DID NOT FEEL SAFE HERE OTHER PTS WERE STATING THAT HE TOUCHED FEMALE PT AND MALE PT WAS MAKING SHOOTING MOTIONS AT HIM. DR DINH NOTIFIED AND DISCHARGE PLAN MADE WITH PT.
== END 2020-04-02 16:12 | disposition home or self-care (01) | DRG 773 ==
LOC: HO.ED 03-30 03:03 → HO.PM5 03-30 03:53
PROVIDERS: Nurse Practitioner Family; Admitting Provider Psychiatry & Neurology Psychiatry; Emergency Provider Emergency Medicine; Visit Provider Psychiatry & Neurology Psychiatry
DX: F11.23 Opioid dependence with withdrawal (principal); R45.851 Suicidal ideations; F10.20 Alcohol dependence, uncomplicated; Z20.828 Contact with and (suspected) exposure to other viral communicable diseases; Z88.6 Allergy status to analgesic agent; Z59.0 Homelessness
CPT/HCPCS: 36415; 80048; 80076; 80307; 80320; 85025; 93005; 99285; G0480; J0573; J0574; U0003

== ENCOUNTER → 2020-04-03 10:51 | Outpatient (BNVA) | payer OTHER, SELFPAY | PROVIDERS: Visit Provider Nurse Practitioner Psychiatric/Mental Health | DX: F11.99 Opioid use, unspecified with unspecified opioid-induced disorder (principal) | CPT/HCPCS: 99211 ==

== ENCOUNTER 2020-04-17 09:46 | Emergency (ER) | payer MEDICAID, SELFPAY ==
--- NOTE | 2020-04-17 10:16 | ED.PSYCH ---
HPI - Psych General Chief Complaint: Psychiatric Symptoms Stated Complaint: Crisis Time Seen by Provider: 04/17/20 10:05 Source: patient Mode of arrival: ambulatory Limitations: no limitations History of Present Illness HPI Narrative: 34-year-old male with a past medical history of hepatitis-C, IV drug abuse, alcohol abuse, scoliosis here with suicidal thoughts. patient tells me that he plans to overdose on heroin that he has at home. The patient tells me that was here March 29 for suicidal thoughts and substance abuse related issues. He was admitted and was discharged with Suboxone. He told me he took this for few weeks but then stop taking and has been using 2-3 bundles daily of IV heroin. His last use was this morning around 07:00. He denies cocaine use or additional substance use. He does drink daily and his last drink was 2 days ago. He drinks a sleeve of minutes and 224 oz beers daily. He is also complaining of some generalized abdominal pain and tells me he has history of hepatitis C. He knows his liver enzymes have been elevated. He was referred to Dr Wylie for initiation of treatment but did not follow through. No vomiting or diarrhea. No fevers or chills or cough or shortness of breath. MD complaint: suicidal ideation, feels depressed and substance abuse Related Data Previous Rx's Medication Instructions Recorded buprenorphine-naloxone 1 tab SUBLINGUAL BIDPC #14 tab 04/02/20 buprenorphine 8 mg-naloxone 2 mg 2 film SUBLINGUAL DAILY #22 ea 04/03/20 sublingual film Allergies Allergy/AdvReac Type Severity Reaction Status Date / Time haloperidol [From HALDOL] Allergy Intermediate N/V/D Verified 03/02/20 14:13 acetaminophen [From TYLENOL] Allergy Mild GI UPSET Verified 03/02/20 14:13 SEAFOOD Allergy Severe ANAPHYLAXIS Uncoded 02/10/20 19:34 Review of Systems Review of Systems: Yes all other systems are reviewed and are negative Constitutional: Constitutional: Reports no additional constitutional complaints, Denies body ache(s), Denies chills, Denies fever(s), Denies headache(s) and Denies weakness Eyes: Eyes: Reports no additional eye complaints and Denies change in vision ENT: Reports system reviewed and no additional complaints, except as documented, Denies dizziness, Denies headache(s), Denies nasal congestion, Denies nasal discharge and Denies neck pain Cardiovascular: Cardiovascular: Reports no additional cardiovascular complaints, Denies chest pain, Denies leg edema and Denies dyspnea Respiratory: Respiratory: Reports no additional respiratory complaints, Denies cough and Denies dyspnea Gastrointestinal: Gastrointestinal: Reports no additional gastrointestinal complaints, Reports abdominal pain, Denies diarrhea, Denies nausea and Denies vomiting Genitourinary: Genitourinary: Denies urinary incontinence Musculoskeletal: Musculoskeletal: Reports no additional musculoskeletal complaints, Denies back pain, Denies arthralgias, Denies joint swelling, Denies neck pain, Denies numbness and Denies tingling Integumentary/Breasts: Skin/Breast: Reports system reviewed and no additional complaints, except as docu and Denies rash Neurologic: Reports system reviewed and no additional complaints, except as documented, Denies Abnormal speech present, Denies dizziness, Denies headache(s), Denies numbness, Denies tingling and Denies weakness Psychiatric: Psychiatric: Denies anxiety, Reports depression and Reports suicidal ideation PMFSH Past Medical History Attestation statement: The following information was validated with the patient. Source: obtained from family and nursing notes reviewed Medical History Elevated LFTs Hepatitis C infection Intravenous drug abuse, continuous Scoliosis Family History Family History Other Patient denies medical problems Social History Social History Household Members: None Housing: Homeless Alcohol intake: current Alcohol intake frequency: 3 or more drinks per day Alcohol type: beer and hard liquor Smoking Status: Unknown if ever smoked Smoked in Last 30 Days: Yes Second Hand Smoke Exposure: No Use of substances other than those prescribed or required for medical reasons: Yes Substance Use Type: Former Substance User, IV Drugs and Opiates Advance Directives: No Advance Directives Information Provided: No service: No Current occupational status: unemployed Sexual orientation: Straight/Heterosexual Physical Exam Vital Signs: Vital Signs: Last Vital Signs Temp 97.5 F 04/17/20 12:27 Pulse 82 04/17/20 14:11 Resp 18 04/17/20 16:14 BP 116/74 04/17/20 14:11 Pulse Ox 97 04/17/20 14:11 Body Mass Index 25.8 Const: General: cooperative, healthy appearing, comfortable and no acute distress Orientation/consciousness: patient oriented x3 Limitations: no limitations HENMT: Head: Yes normal to inspection Ears: hearing grossly normal bilaterally General nose exam: Normal external nose present Face and sinus: Yes normal facial exam Mouth: Normal oral and palatal mucosa present Throat: Yes posterior oropharynx normal Eyes: General: appearance normal, both eyes and all related structures Pupils: Equal, round and reactive pupils present Neck: Neck: Yes normal visual inspection Chest: Chest palpation & inspection: normal inspection of the chest Resp: Effort & Inspection: normal respiratory effort Auscultation: clear to auscultation bilaterally Cardio: Rate: regular rate Rhythm: regular rhythm Peripheral pulses: Peripheral pulses 2+ throughout GI: Other: mild diffuse tenderness. No focal tenderness or rebound or guarding Inspection: Yes normal to inspection Palpation (GI): Soft to palpation and Tenderness to palpation present (GI) Auscultation: normal bowel sounds Back/Spine/Pelvis: Thoracic/Lumbar Spine: thoracic and lumbar spine normal to inspection Skin: General skin exam: no rashes or lesions noted Neuro: General: patient oriented x3, no focal motor deficits and normal sensation to monofilament Cranial nerves: Yes Equal, round and reactive pupils present Cognition (Neuro): normal cognition Speech: No Abnormal speech present Gait exam (Neuro): Normal gait present Motor exam (neuro): 5/5 motor strength present throughout Extrem: General: Yes normal to inspection Course Course Course Narrative: 34-year-old male here with depression, suicidal thoughts with plan to overdose on home heroin. Also complaining of some generalized abdominal pain with no other symptoms. Patient will need labs, drug screen, UA, COVID test, crisis evaluation once medically cleared. No concern for acute ingestion or trauma. 1445- labs unremarkable. LFTs are actually much improved from baseline. 1600-Unfortunately the patient became hostile and physically aggressive with staff. Attempted verbal de-escalation with success. MDM - Psych Restraints Face to Face Assessment: Face to Face Assessment: Current Situation: After assessment of the patient, a review of the pertinent medical record and a discussion with nursing staff, I feel the patient requires a restrain intervention. Reaction To: [] Medical Condition: [] Behavioral State: [] Continued Need: [] Medical Records Attestation: I reviewed the patient's medical records. Lab Data Attestation: I reviewed the patient's lab results. Result diagrams: 04/17/20 10:41 04/17/20 10:41 Labs: Lab Results 04/17/20 04/17/20 04/17/20 Range/Units 10:41 10:41 10:41 WBC 8.2 (4.8-10.8) X10*3/uL RBC 4.45 L (4.60-5.80) X10*6/uL Hgb 13.2 L (14.0-18.0) g/dl Hct 38.7 L (42-52) % MCV 87.0 (80-98) fL MCH 29.7 (27.0-33.0) pg MCHC 34.1 (31.0-36.0) g/dl RDW 12.6 (11.0-16.0) % Plt Count 228 (160-400) X10*3/uL MPV 8.0 L (9.4-12.4) fL Immature Gran % (Auto) 0.2 (0.0-0.4) % Neut % (Auto) 61.6 (45-73) % Lymph % (Auto) 27.6 (20-40) % [place] % (Auto) 6.0 (2-11) % Eos % (Auto) 4.0 (0-4) % Baso % (Auto) 0.6 (0-2) % Lymph # (Auto) 2.3 (1.2-4.9) X10*3/uL [place] # (Auto) 0.5 (0.1-1.2) X10*3/uL Eos # (Auto) 0.3 (0.0-0.4) X10*3/uL Baso # (Auto) 0.1 (0.0-0.2) X10*3/uL Abs Immat Gran (auto) 0.02 (0.00-0.03) X10*3/uL Absolute Neuts (auto) 5.0 (2.0-8.3) X10*3/uL Absolute Nucleated RBC 0.000 (0.0-0.012) X10*3/uL Nucleated RBC % (auto) 0.0 (0.0-0.2) /100WBC PT 11.7 D (10.8-13.0) SEC INR 1.0 (0.9-1.1) Sodium 138 (135-145) mmol/L Potassium 3.9 (3.3-5.1) mmol/l Chloride 101 (96-108) mmol/L Carbon Dioxide 29 (22-29) mmol/L Anion Gap 12 (12-20) BUN 14 (9-16) mg/dL Creatinine 0.94 (0.5-1.4) mg/dL Estim Creat Clear Calc 109.6 Estimated GFR > 60 Random Glucose 124 H D (60-115) mg/dL Calcium 9.3 (8.4-10.2) mg/dL Magnesium 1.9 (1.6-2.6) mg/dL Total Bilirubin 0.5 (0.0-1.0) mg/dL Direct Bilirubin 0.3 (0.0-0.5) mg/dL AST 23 (5-37) U/L ALT 18 (0-40) U/L Alkaline Phosphatase 75 D (39-117) U/L Total Protein 6.8 (6.5-8.0) g/dL Albumin 4.2 (3.5-5.0) g/dL Lipase 18 (8-78) U/L Salicylates < 5.0 L (15-30) mg/dL Acetaminophen < 1 (<30) mcg/mL Ethyl Alcohol mg/dL COVID-19 (JACQUELIN) (Negative) COVID-19 Clin Com 04/17/20 04/17/20 Range/Units 10:41 10:41 WBC (4.8-10.8) X10*3/uL RBC (4.60-5.80) X10*6/uL Hgb (14.0-18.0) g/dl Hct (42-52) % MCV (80-98) fL MCH (27.0-33.0) pg MCHC (31.0-36.0) g/dl RDW (11.0-16.0) % Plt Count (160-400) X10*3/uL MPV (9.4-12.4) fL Immature Gran % (Auto) (0.0-0.4) % Neut % (Auto) (45-73) % Lymph % (Auto) (20-40) % [place] % (Auto) (2-11) % Eos % (Auto) (0-4) % Baso % (Auto) (0-2) % Lymph # (Auto) (1.2-4.9) X10*3/uL [place] # (Auto) (0.1-1.2) X10*3/uL Eos # (Auto) (0.0-0.4) X10*3/uL Baso # (Auto) (0.0-0.2) X10*3/uL Abs Immat Gran (auto) (0.00-0.03) X10*3/uL Absolute Neuts (auto) (2.0-8.3) X10*3/uL Absolute Nucleated RBC (0.0-0.012) X10*3/uL Nucleated RBC % (auto) (0.0-0.2) /100WBC PT (10.8-13.0) SEC INR (0.9-1.1) Sodium (135-145) mmol/L Potassium (3.3-5.1) mmol/l Chloride (96-108) mmol/L Carbon Dioxide (22-29) mmol/L Anion Gap (12-20) BUN (9-16) mg/dL Creatinine (0.5-1.4) mg/dL Estim Creat Clear Calc Estimated GFR Random Glucose (60-115) mg/dL Calcium (8.4-10.2) mg/dL Magnesium (1.6-2.6) mg/dL Total Bilirubin (0.0-1.0) mg/dL Direct Bilirubin (0.0-0.5) mg/dL AST (5-37) U/L ALT (0-40) U/L Alkaline Phosphatase (39-117) U/L Total Protein (6.5-8.0) g/dL Albumin (3.5-5.0) g/dL Lipase (8-78) U/L Salicylates (15-30) mg/dL Acetaminophen (<30) mcg/mL Ethyl Alcohol < 10 mg/dL COVID-19 (JACQUELIN) Negative (Negative) COVID-19 Clin Com See Note Discharge Plan Discharge Clinical Impression: Alcohol use disorder, severe, dependence, Opioid use disorder, Suicidal ideation Prescriptions: No Action buprenorphine-naloxone [Suboxone] 8-2 mg film 2 film sublingual DAILY Qty: 22 RF: 0 buprenorphine-naloxone 8-2 mg Tablet, Sublingual 1 tab sublingual BIDPC Qty: 14 RF: 0
[2020-04-17 10:25] VITALS: PULSE 88; RESP 20; TEMP 36.5; O2SAT 96; BMI 25.8
[2020-04-17] MEDS: LORazepam 1 MG TABLET 2 MG PO ×2 (10:31→20:34)
[2020-04-17 10:54] LABS: MANUAL DIFF FLAG NO
[2020-04-17 11:02] LABS: Basophils Absolute Auto 0.1 X10*3/uL (0.0-0.2); Basophils Percent Auto 0.6 % (0-2); Eosinophils Absolute Auto 0.3 X10*3/uL (0.0-0.4); Hematocrit 38.7 % (42-52); Hemoglobin 13.2 g/dl (14.0-18.0); Imm Gran Abs Auto 0.02 X10*3/uL (0.00-0.03); Imm Gran Pct Auto 0.2 % (0.0-0.4); Lymphocytes Absolute Auto 2.3 X10*3/uL (1.2-4.9); Lymphocytes Percent Auto 27.6 % (20-40); Mean Corpuscular HGB Conc 34.1 g/dl (31.0-36.0); Mean Corpuscular Hemoglobin 29.7 pg (27.0-33.0); Monocytes Absolute Auto 0.5 X10*3/uL (0.1-1.2); Neutrophils Percent Auto 61.6 % (45-73); Platelet Count 228 X10*3/uL (160-400); Red Blood Count 4.45 X10*6/uL (4.60-5.80); Red Cell Distribution Width 12.6 % (11.0-16.0); White Blood Count 8.2 X10*3/uL (4.8-10.8)
[2020-04-17 11:03] LABS: Prothrombin Time 11.7 SEC (10.8-13.0)
[2020-04-17 11:16] LABS: COVID-19 Test Negative (Negative)
[2020-04-17 11:21] LABS: Ethanol < 10 mg/dL
[2020-04-17 11:28] LABS: Alanine Aminotransferase 18 U/L (0-40); Albumin Level 4.2 g/dL (3.5-5.0); Alkaline Phosphatase 75 U/L (39-117); Anion Gap 12 (12-20); Aspartate Amino Transferase 23 U/L (5-37); Bilirubin Direct 0.3 mg/dL (0.0-0.5); Bilirubin Total 0.5 mg/dL (0.0-1.0); Blood Urea Nitrogen 14 mg/dL (9-16); Calcium 9.3 mg/dL (8.4-10.2); Carbon Dioxide 29 mmol/L (22-29); Chloride 101 mmol/L (96-108); Creatinine Clr Calc Pharmacy 109.6; Estimated Glomerular Filt Rate > 60; Glucose Random 124 mg/dL (60-115); Lipase 18 U/L (8-78); Magnesium 1.9 mg/dL (1.6-2.6); Potassium 3.9 mmol/l (3.3-5.1); Salicylate < 5.0 mg/dL (15-30); Sodium 138 mmol/L (135-145); Total Protein 6.8 g/dL (6.5-8.0)
[2020-04-17 11:30] LABS: Acetaminophen LAB < 1 mcg/mL (<30)
[2020-04-17 12:27] VITALS: BP 111/70; PULSE 76; RESP 16; TEMP 36.4
--- NOTE | 2020-04-17 12:51 | PC.NURSE ---
Pt changed into hospital attire upon recipient of pt, belongings secured in [facility]
--- NOTE | 2020-04-17 13:12 | PC.NURSE ---
faxed and called to n. Pt resting, sleeping on and off, calm and cooperative.
[2020-04-17 14:11] VITALS: BP 116/74; PULSE 82; RESP 16; O2SAT 97
--- NOTE | 2020-04-17 14:13 | PC.NURSE ---
Pt awoke for lunch, ate 100%, pt nodding off while eating, easily arousable.
--- NOTE | 2020-04-17 15:15 | PC.NURSE ---
Pt transferred over from the main ED, accompanied by security. Changed over. Became agitated when he found out he would not have a bed, and would have to sit in one of the recliners while waiting for N to speak with him. Yelling, pacing. blueprint developer spoke with patient. Pt currently standing at counter by RN station, head down, quiet.
--- NOTE | 2020-04-17 16:01 | PC.NURSE ---
Refusing to get out of rolling chair. Security called to assist
[2020-04-17 16:14] VITALS: RESP 18
--- NOTE | 2020-04-17 17:08 | PC.NURSE ---
Pt was assisted out of chair by security. Became combative. Calmed once he was moved into [facility]. CARE team attempted to meet with pt, c/o RAIN. Provider notified, jose offered. Pt asleep at this time, no signs of distress, respirations even and non-labored.
--- NOTE | 2020-04-17 17:52 | MHC.CARE ---
CARE Team attempts to meet with patient two times so far this evening. Pt is laying with his eyes closed. He wakes when prompted, but is not able to keep his eyes open. Pt reports that he is seeking help and plans to overdose intentionally in order to end his life if he is discharged. Currently, pt is an inpatient bedsearch with plan for follow up when pt is more alert and able to engage. Full assessment to follow.
--- NOTE | 2020-04-17 19:08 | PC.NURSE ---
Report received. PT is sleeping in bed. Breathing is even and unlabored. PT needs to see CARE team when he wakes up.
--- NOTE | 2020-04-17 19:49 | PC.NURSE ---
Addendum entered by Srinath Banda 04/17/20 19:54: PT woke up and requested Ativan to help with withdrawal symptoms. PT is displaying slight tremors and complains of chills. Provider notified and plan of care was discussed. Nurse to give 2 mg of Ativan and perform CIWA Q4h. PT also provided urine sample when he woke up. Original Note: PT woke up and requested Ativan to help with withdrawal symptoms. PT is displaying slight tremors and complains of chills. Provider notified and plan of care was discussed. Nurse to give 2 mg of Ativan and perform CIWA Q2h. PT also provided urine sample when he woke up.
[2020-04-17 19:53] LABS: Glucose Urine UA NEG (NEG); Leukocyte Esterase Urine 1+ (NEG); Nitrite Urine NEG (NEG); Specific Gravity - Urine 1.025 (1.005-1.025); Urine Blood NEG (NEG); Urine Ketones NEG (NEG); Urine Protein NEG (NEG-TRACE)
[2020-04-17 19:54] LABS: Appearance Urine HAZY; Color Urine YELLOW
[2020-04-17 20:00] LABS: Bacteria Urine TRACE /LPF; Mucus Urine 1+ /LPF; Squamous Epithelial Cell Urine TRACE /LPF
[2020-04-17 20:15] LABS: Amphetamine Screen Urine Not Detected (Not Detect); Barbiturates, Urine Not Detected (Not Detect); Benzodiazepines Screen Urine Not Detected (Not Detect); Cannabinoid Screen Urine Not Detected (Not Detect); Cocaine Screen Urine POSITIVE (Not Detect); Opiate Screen Urine POSITIVE (Not Detect); Phencyclidine Screen Urine Not Detected (Not Detect)
[2020-04-17 20:20] VITALS: BP 127/77; PULSE 90; RESP 20; TEMP 37.1; O2SAT 96
--- NOTE | 2020-04-17 22:26 | MHC.CARE ---
CARE Team conducts dual diagnosis bedsearch. Pt has been accepted to [facility] in [place] for 10 AM admission. Address is [address] [place] [address]. No nurse to nurse required.
--- NOTE | 2020-04-17 23:44 | MHC.CARE ---
[facility] Prior Authorization for IPLOC: Provided by: Krzysztof Ryder 04/18/20- 04/27/20 10 days Auth #: [id number] CARE Team reaches out to [facility] and provides this authorization. CARE Team informs pt of plan to go to [facility] in the morning. Pt agreeable with plan. Dr. Varghese is the admitting provider.
--- NOTE | 2020-04-18 07:00 | PC.NURSE ---
Report recieved, pt currently sleeping, respirations even and unlabored, in no apparent distress. Pt to be transferred to [facility] this morning.
[2020-04-18 07:03] VITALS: BP 118/64; PULSE 83; RESP 18; TEMP 37; O2SAT 97
== END 2020-04-18 07:56 ==
PROVIDERS: Nurse Practitioner Family; Emergency Provider Emergency Medicine Emergency Medical Services
DX: F33.1 Major depressive disorder, recurrent, moderate (principal); R45.851 Suicidal ideations; F11.10 Opioid abuse, uncomplicated; Z20.828 Contact with and (suspected) exposure to other viral communicable diseases
CPT/HCPCS: 36415; 80048; 80076; 80307; 80320; 81001; 83690; 83735; 85025; 85610; 87086; 87635; 99285; G0480

== ENCOUNTER → 2020-04-27 11:03 | Outpatient (BNVA) | payer MEDICAID, SELFPAY | PROVIDERS: Visit Provider Nurse Practitioner Psychiatric/Mental Health | DX: F11.99 Opioid use, unspecified with unspecified opioid-induced disorder (principal) | CPT/HCPCS: 80305; 99212 ==

== ENCOUNTER → 2020-05-04 10:08 | Outpatient (BNVA) | payer MEDICAID, SELFPAY | PROVIDERS: Visit Provider Nurse Practitioner Psychiatric/Mental Health | DX: F10.20 Alcohol dependence, uncomplicated (principal); F11.99 Opioid use, unspecified with unspecified opioid-induced disorder | CPT/HCPCS: 80305; 99212 ==

== ENCOUNTER 2020-05-06 05:43 | Emergency (ER) | payer MEDICAID, SELFPAY ==
[2020-05-06 05:46] VITALS: BP 145/86; PULSE 76; RESP 16; TEMP 36.5; O2SAT 96; BMI 25.1
--- NOTE | 2020-05-06 06:05 | PC.NURSE ---
at bedside for evaluation. Patient admits to using heroine today and also has reported using cocaine and benzos in past 3 days. Patient also reports drinking approximately 5 days agol
--- NOTE | 2020-05-06 06:16 | ED.ABDPAIN ---
HPI - Abdominal Pain General Chief Complaint: Abdominal Pain Stated Complaint: insomnia Time Seen by Provider: 05/06/20 05:57 Source: patient Mode of arrival: ambulatory Limitations: no limitations History of Present Illness HPI narrative: This is a 35-year-old male with significant past medical history of polysubstance abuse, hepatitis-C and states that he used both alcohol and cocaine approximately 4-5 days ago and since that time has been having difficulties with lower mid abdominal discomfort that is sharp and nonradiating in nature and not associated with fevers, chills, nausea, vomiting. In addition, patient states that he is not having urinary pain/burning/frequency and has been having regular bowel movements. Patient endorses that he used heroin prior to arrival. Related Data Previous Rx's Medication Instructions Recorded buprenorphine 8 mg-naloxone 2 mg 2 film SUBLINGUAL DAILY #20 ea 05/04/20 sublingual film Allergies Allergy/AdvReac Type Severity Reaction Status Date / Time haloperidol [From HALDOL] Allergy Intermediate N/V/D Verified 03/02/20 14:13 acetaminophen [From TYLENOL] Allergy Mild GI UPSET Verified 03/02/20 14:13 SEAFOOD Allergy Severe ANAPHYLAXIS Uncoded 02/10/20 19:34 Review of Systems Review of Systems Pertinent positives and negatives as stated in HPI 10 point review of systems otherwise negative. Physical Exam Vital Signs: Vital Signs: Last Vital Signs Temp 97.7 F 05/06/20 05:46 Pulse 76 05/06/20 05:46 Resp 16 05/06/20 05:46 BP 145/86 H 05/06/20 05:46 Pulse Ox 96 05/06/20 05:46 Body Mass Index 25.1 VITAL SIGNS: Reviewed. GENERAL: Well developed, well nourished, in no acute distress. HEAD: Normocephalic/atraumatic, EYES: PERRLA, EOMI intact without pain, no nystagmus/pallor/icterus noted EARS: Ext canals without abnormality, TMs non-bulging and non-erythematous NOSE: Nares patent bilateral OROPHARYNX: no oral lesions noted, posterior pharynx clear and non-erythematous without noted tonsillar enlargement/erythema/exudates NECK: Supple, no adenopathy LUNGS: Normal breath sounds. No adventitious sounds or accessory muscle use. SpO2<96> CARDIOVASCULAR: Regular rate and rhythm without noted murmurs, no JVD or lower extremity edema. ABDOMEN: Soft, mid lower abdominal discomfort without rebound, non-distended with bowel sounds. No rigidity. No guarding. No palpable masses or hernias noted MUSCULOSKELETAL: No tenderness, deformities, or effusions noted on gross inspection. EXTREMITIES: No cyanosis, clubbing or edema. SKIN: Inspection of the skin reveals +rashe to lower abd appears contact dermatitis, ulcerations, jaundice, pallor, or petechiae. NEUROLOGIC: Alert and oriented x 4. Strength and sensation to light touch were grossly intact x 4. Course Course Course Narrative: This is a 35-year-old male with history and clinical presentation consistent with possible pancreatitis, diverticulitis, constipation, UTI, but less likely renal colic or gastritis. Labs, 1 L IV fluids. Patient signed out to Dr Devine: f/u UA and CT scan. MDM - Abdominal Pain Lab Data Result diagrams: 05/06/20 06:15 05/06/20 06:15 Labs: Lab Results 05/06/20 05/06/20 05/06/20 Range/Units 06:15 06:15 06:15 WBC 9.3 (4.8-10.8) X10*3/uL RBC 4.64 (4.60-5.80) X10*6/uL Hgb 13.8 L (14.0-18.0) g/dl Hct 40.8 L (42-52) % MCV 87.9 (80-98) fL MCH 29.7 (27.0-33.0) pg MCHC 33.8 (31.0-36.0) g/dl RDW 12.6 (11.0-16.0) % Plt Count 246 (160-400) X10*3/uL MPV 8.1 L (9.4-12.4) fL Immature Gran % (Auto) 0.3 (0.0-0.4) % Neut % (Auto) 35.8 L (45-73) % Lymph % (Auto) 51.5 H (20-40) % [place] % (Auto) 8.2 (2-11) % Eos % (Auto) 3.2 (0-4) % Baso % (Auto) 1.0 (0-2) % Lymph # (Auto) 4.8 (1.2-4.9) X10*3/uL [place] # (Auto) 0.8 (0.1-1.2) X10*3/uL Eos # (Auto) 0.3 (0.0-0.4) X10*3/uL Baso # (Auto) 0.1 (0.0-0.2) X10*3/uL Abs Immat Gran (auto) 0.03 (0.00-0.03) X10*3/uL Absolute Neuts (auto) 3.3 (2.0-8.3) X10*3/uL Absolute Nucleated RBC 0.000 (0.0-0.012) X10*3/uL Nucleated RBC % (auto) 0.0 (0.0-0.2) /100WBC Sodium 140 (135-145) mmol/L Potassium 4.3 (3.3-5.1) mmol/l Chloride 100 (96-108) mmol/L Carbon Dioxide 32 H (22-29) mmol/L Anion Gap 12 (12-20) BUN 17 H (9-16) mg/dL Creatinine 1.10 (0.5-1.4) mg/dL Estim Creat Clear Calc 92.8 Estimated GFR > 60 Random Glucose 91 (60-115) mg/dL Calcium 9.5 (8.4-10.2) mg/dL Total Bilirubin 0.6 (0.0-1.0) mg/dL AST 23 (5-37) U/L ALT 23 (0-40) U/L Alkaline Phosphatase 82 (39-117) U/L Total Protein 7.6 (6.5-8.0) g/dL Albumin 4.5 (3.5-5.0) g/dL Lipase 10 (8-78) U/L Ethyl Alcohol < 10 mg/dL Discharge Plan Discharge Prescriptions: No Action buprenorphine-naloxone [Suboxone] 8-2 mg film 2 film sublingual DAILY Qty: 20 RF: 0 PMFSH Past Medical History Source: nursing notes reviewed Medical History Elevated LFTs Hepatitis C infection Intravenous drug abuse, continuous Scoliosis Family History Family History Other Patient denies medical problems Social History Social History Household Members: None Housing: Homeless Alcohol intake: current Alcohol intake frequency: 3 or more drinks per day Alcohol type: beer and hard liquor Smoking Status: Current some day smoker Second Hand Smoke Exposure: No Use of substances other than those prescribed or required for medical reasons: Yes Substance Use Type: Crack/Cocaine and Opiates Substance Use Frequency: Chronic Longstanding Last Used Substance: Days (ago) Any prior treatment program specific to substance use: No Advance Directives: No Advance Directives Information Provided: No service: No Current occupational status: unemployed Sexual orientation: Straight/Heterosexual
[2020-05-06 06:20] LABS: MANUAL DIFF FLAG NO
[2020-05-06 06:22] LABS: Basophils Absolute Auto 0.1 X10*3/uL (0.0-0.2); Eosinophils Absolute Auto 0.3 X10*3/uL (0.0-0.4); Eosinophils Percent Auto 3.2 % (0-4); Hematocrit 40.8 % (42-52); Hemoglobin 13.8 g/dl (14.0-18.0); Imm Gran Abs Auto 0.03 X10*3/uL (0.00-0.03); Imm Gran Pct Auto 0.3 % (0.0-0.4); Lymphocytes Absolute Auto 4.8 X10*3/uL (1.2-4.9); Lymphocytes Percent Auto 51.5 % (20-40); Mean Corpuscular HGB Conc 33.8 g/dl (31.0-36.0); Mean Corpuscular Hemoglobin 29.7 pg (27.0-33.0); Mean Corpuscular Volume 87.9 fL (80-98); Mean Platelet Volume 8.1 fL (9.4-12.4); Monocytes Absolute Auto 0.8 X10*3/uL (0.1-1.2); Monocytes Percent Auto 8.2 % (2-11); Neutrophils Absolute Auto 3.3 X10*3/uL (2.0-8.3); Neutrophils Percent Auto 35.8 % (45-73); Platelet Count 246 X10*3/uL (160-400); Red Blood Count 4.64 X10*6/uL (4.60-5.80); Red Cell Distribution Width 12.6 % (11.0-16.0); White Blood Count 9.3 X10*3/uL (4.8-10.8)
[2020-05-06] MEDS: 0.9 % Sodium Chloride 1,000 ML 999 ML IV (06:33)
[2020-05-06 06:44] LABS: Ethanol < 10 mg/dL
[2020-05-06 06:49] LABS: Alanine Aminotransferase 23 U/L (0-40); Albumin Level 4.5 g/dL (3.5-5.0); Alkaline Phosphatase 82 U/L (39-117); Anion Gap 12 (12-20); Aspartate Amino Transferase 23 U/L (5-37); Bilirubin Total 0.6 mg/dL (0.0-1.0); Blood Urea Nitrogen 17 mg/dL (9-16); Calcium 9.5 mg/dL (8.4-10.2); Carbon Dioxide 32 mmol/L (22-29); Chloride 100 mmol/L (96-108); Creatinine Clr Calc Pharmacy 92.8; Estimated Glomerular Filt Rate > 60; Glucose Random 91 mg/dL (60-115); Lipase 10 U/L (8-78); Potassium 4.3 mmol/l (3.3-5.1); Sodium 140 mmol/L (135-145); Total Protein 7.6 g/dL (6.5-8.0)
--- NOTE | 2020-05-06 06:59 | CT_ITS ---
EXAMINATION: CT ABDOMEN AND PELVIS WITH CONTRAST CLINICAL INFORMATION: Lower abdominal pain. COMPARISON: CT abdomen and pelvis 03/13/2020. MRCP 02/28/2020. US abdomen 02/28/2020. TECHNIQUE: Multidetector volumetric images were obtained from the superior aspect of the liver through the pubic symphysis following administration 85 mL of Omnipaque 350 intravenous contrast. Sagittal and coronal reformatted images were obtained on the technologist's workstation. Oral contrast: No This CT examination was performed using dose optimization techniques as appropriate, variously including the following: *Automated exposure control *Adjustment of mA and/or kV according to patient size (this includes techniques or standardized protocols for targeted exams where dose is matched to indication/reason for exam; i.e. extremities or head) *Use of iterative reconstruction technique DLP: 522 mGy-cm FINDINGS: LUNG BASES: The visualized lung bases are unremarkable. LIVER, GALLBLADDER, AND BILIARY TREE: The liver is normal in size, shape, and attenuation. There are no focal hepatic lesions. There is mild prominence of the intrahepatic bile ducts. Alternatively, this could be related to mild periportal edema. The common bile duct measures approximately 7 mm which is borderline to mildly enlarged, as noted on the previous MRI and ultrasound. The gallbladder is contracted. PANCREAS: Unremarkable. SPLEEN: Unremarkable. ADRENAL GLANDS: Unremarkable. KIDNEYS AND URETERS: The kidneys are normal in size, shape, and attenuation. No hydronephrosis, hydroureter, or calculi seen. No perinephric stranding. BLADDER: Unremarkable. GASTROINTESTINAL TRACT: The small and large bowel are unremarkable. The appendix is unremarkable. ABDOMINAL WALL: No significant hernia is appreciated. LYMPH NODES: Normal. VASCULAR: An incidental retroaortic left renal vein is again noted. Otherwise unremarkable. PELVIC VISCERA: Unremarkable. OSSEOUS STRUCTURES: Unremarkable. CT/CT abdomen pelvis w con IMPRESSION: 1. Mild prominence of the biliary tree is again noted but unchanged when compared to the prior MRI and ultrasound from 02/28/2020. This may represent normal variation. Correlate clinically and with liver function tests. 2. Otherwise, no acute abnormalities in the abdomen or pelvis.
[2020-05-06 08:21] VITALS: BP 117/76; PULSE 66; RESP 17; TEMP 36.6; O2SAT 98
[2020-05-06] MEDS: iohexoL 350 MG/ML 100 ML INFUS..BTL IV (08:29)
[2020-05-06 09:33] LABS: Glucose Urine UA NEG (NEG); Leukocyte Esterase Urine NEG (NEG); Nitrite Urine NEG (NEG); Urine Blood NEG (NEG); Urine Ketones NEG (NEG); Urine Protein NEG (NEG-TRACE)
[2020-05-06 09:35] LABS: Appearance Urine CLEAR; Color Urine YELLOW
[2020-05-06 10:12] VITALS: BP 108/63; PULSE 89; RESP 17; O2SAT 99
== END 2020-05-06 10:28 | disposition home or self-care (01) ==
PROVIDERS: Emergency Provider Student in an Organized Health Care Education/Training Program
DX: R10.30 Lower abdominal pain, unspecified (principal); F11.10 Opioid abuse, uncomplicated; F10.20 Alcohol dependence, uncomplicated
CPT/HCPCS: 36415; 74177; 80053; 80320; 81003; 83690; 85025; 96360; 99284; Q9967

== ENCOUNTER 2020-05-30 01:13 | Inpatient (IN) | payer OTHER, SELFPAY ==
--- NOTE | 2020-05-30 | ECG_ITS ---
Test Reason : TRANSFER TO Blood Pressure : / mmHG Vent. Rate : 078 BPM Atrial Rate : 078 BPM P-R Int : 162 ms QRS Dur : 094 ms QT Int : 420 ms P-R-T Axes : 061 042 032 degrees QTc Int : 478 ms Normal sinus rhythm Early repolarization Normal ECG When compared with ECG of 30-MAR-2020 01:02, No significant change was found Referred By: Whit Dumont Electronically Signed By:Edenilson Robbins
[2020-05-30 02:21] VITALS: BP 144/95; PULSE 93; RESP 20; TEMP 36.8; O2SAT 98
--- NOTE | 2020-05-30 03:14 | ED.PSYCH ---
HPI - Psych General Chief Complaint: Psychiatric Symptoms Stated Complaint: Crisis Time Seen by Provider: 05/30/20 03:14 Source: patient Mode of arrival: ambulatory History of Present Illness HPI Narrative: Is a 35-year-old male who is known to this emergency department presents with suicidal ideation due to his girlfriend dying secondary to an overdose. Patient states that his plan was to overdose on pills, however denies taking any medications at all. Otherwise, he denies any auditory or visual hallucinations. He states he is on a benzo taper that he was placed on at [facility] and has not taken his Suboxone in 2 weeks. Related Data Previous Rx's Medication Instructions Recorded buprenorphine 8 mg-naloxone 2 mg 2 film SUBLINGUAL DAILY #20 ea 05/04/20 sublingual film Allergies Allergy/AdvReac Type Severity Reaction Status Date / Time haloperidol [From HALDOL] Allergy Intermediate N/V/D Verified 03/02/20 14:13 acetaminophen [From TYLENOL] Allergy Mild GI UPSET Verified 03/02/20 14:13 SEAFOOD Allergy Severe ANAPHYLAXIS Uncoded 02/10/20 19:34 Review of Systems Review of Systems: Pertinent positives and negatives as stated in HPI 10 point review of systems otherwise negative. PMFSH Past Medical History Source: nursing notes reviewed Medical History Elevated LFTs Hepatitis C infection Intravenous drug abuse, continuous Scoliosis Family History Family History Other Patient denies medical problems Social History Social History Household Members: None Housing: Homeless Alcohol intake: former Smoking Status: Current every day smoker Smoked in Last 30 Days: Yes Second Hand Smoke Exposure: No Use of substances other than those prescribed or required for medical reasons: Yes Substance Use Type: Heroin and Prescription Drugs Substance Use Type Other:: Xanax Substance Use Frequency: Monthly Last Used Substance: Just Prior to Admission Any prior treatment program specific to substance use: Yes Advance Directives: No service: No Current occupational status: unemployed Sexual orientation: Straight/Heterosexual Physical Exam Vital Signs: Vital Signs: Last Vital Signs Temp 97.7 F 05/30/20 06:00 Pulse 74 05/30/20 06:00 Resp 18 05/30/20 06:00 BP 122/65 05/30/20 06:00 Pulse Ox 96 05/30/20 06:00 Body Mass Index 25.8 VITAL SIGNS: Reviewed. GENERAL: Well developed, well nourished, in no acute distress. LUNGS: Normal breath sounds. No adventitious sounds or accessory muscle use. SpO2<96> CARDIOVASCULAR: Regular rate and rhythm without noted murmurs ABDOMEN: Soft, non-tender, non-distended with bowel sounds. No rigidity. No guarding. No palpable masses or hernias noted NEUROLOGIC: Alert and oriented x 4. PSYCH: Normal affect, calm, logical thought process Course Course Course Narrative: This is a 35-year-old male with history and clinical presentation consistent depression and suicidal ideation likely secondary to situational events with girlfriend having secondary to overdose. On review of all investigations patient is otherwise medically cleared for further evaluation by the behavioral team. Signed out to NANNETTE Sorto [facility] - Psych Restraints Face to Face Assessment: Face to Face Assessment: Current Situation: After assessment of the patient, a review of the pertinent medical record and a discussion with nursing staff, I feel the patient requires a restrain intervention. Reaction To: [] Medical Condition: [] Behavioral State: [] Continued Need: [] Lab Data Result diagrams: 05/30/20 04:49 05/30/20 04:49 Labs: Lab Results 05/30/20 05/30/20 05/30/20 Range/Units 03:20 04:49 04:49 WBC 9.8 (4.8-10.8) X10*3/uL RBC 4.23 L (4.60-5.80) X10*6/uL Hgb 12.6 L (14.0-18.0) g/dl Hct 36.3 L (42-52) % MCV 85.8 (80-98) fL MCH 29.8 (27.0-33.0) pg MCHC 34.7 (31.0-36.0) g/dl RDW 12.4 (11.0-16.0) % Plt Count 208 (160-400) X10*3/uL MPV 7.9 L (9.4-12.4) fL Immature Gran % (Auto) 0.2 (0.0-0.4) % Neut % (Auto) 38.6 L (45-73) % Lymph % (Auto) 48.9 H (20-40) % [place] % (Auto) 8.3 (2-11) % Eos % (Auto) 3.4 (0-4) % Baso % (Auto) 0.6 (0-2) % Lymph # (Auto) 4.8 (1.2-4.9) X10*3/uL [place] # (Auto) 0.8 (0.1-1.2) X10*3/uL Eos # (Auto) 0.3 (0.0-0.4) X10*3/uL Baso # (Auto) 0.1 (0.0-0.2) X10*3/uL Abs Immat Gran (auto) 0.02 (0.00-0.03) X10*3/uL Absolute Neuts (auto) 3.8 (2.0-8.3) X10*3/uL Absolute Nucleated RBC 0.000 (0.0-0.012) X10*3/uL Nucleated RBC % (auto) 0.0 (0.0-0.2) /100WBC Sodium 143 (135-145) mmol/L Potassium 3.3 D (3.3-5.1) mmol/l Chloride 103 (96-108) mmol/L Carbon Dioxide 32 H (22-29) mmol/L Anion Gap 11 L (12-20) BUN 15 (9-16) mg/dL Creatinine 1.10 (0.5-1.4) mg/dL Estim Creat Clear Calc 92.8 Estimated GFR > 60 Random Glucose 65 (60-115) mg/dL Calcium 8.9 D (8.4-10.2) mg/dL Salicylates < 5.0 L (15-30) mg/dL Urine Opiates Screen POSITIVE H (Not Detect) Acetaminophen < 1 (<30) mcg/mL Ur Barbiturates Screen Not Detected (Not Detect) Ur Phencyclidine Scrn Not Detected (Not Detect) Ur Amphetamines Screen Not Detected (Not Detect) U Benzodiazepines Scrn Not Detected (Not Detect) Urine Cocaine Screen POSITIVE H (Not Detect) U Marijuana (THC) Screen Not Detected (Not Detect) Ethyl Alcohol mg/dL 05/30/20 Range/Units 04:49 WBC (4.8-10.8) X10*3/uL RBC (4.60-5.80) X10*6/uL Hgb (14.0-18.0) g/dl Hct (42-52) % MCV (80-98) fL MCH (27.0-33.0) pg MCHC (31.0-36.0) g/dl RDW (11.0-16.0) % Plt Count (160-400) X10*3/uL MPV (9.4-12.4) fL Immature Gran % (Auto) (0.0-0.4) % Neut % (Auto) (45-73) % Lymph % (Auto) (20-40) % [place] % (Auto) (2-11) % Eos % (Auto) (0-4) % Baso % (Auto) (0-2) % Lymph # (Auto) (1.2-4.9) X10*3/uL [place] # (Auto) (0.1-1.2) X10*3/uL Eos # (Auto) (0.0-0.4) X10*3/uL Baso # (Auto) (0.0-0.2) X10*3/uL Abs Immat Gran (auto) (0.00-0.03) X10*3/uL Absolute Neuts (auto) (2.0-8.3) X10*3/uL Absolute Nucleated RBC (0.0-0.012) X10*3/uL Nucleated RBC % (auto) (0.0-0.2) /100WBC Sodium (135-145) mmol/L Potassium (3.3-5.1) mmol/l Chloride (96-108) mmol/L Carbon Dioxide (22-29) mmol/L Anion Gap (12-20) BUN (9-16) mg/dL Creatinine (0.5-1.4) mg/dL Estim Creat Clear Calc Estimated GFR Random Glucose (60-115) mg/dL Calcium (8.4-10.2) mg/dL Salicylates (15-30) mg/dL Urine Opiates Screen (Not Detect) Acetaminophen (<30) mcg/mL Ur Barbiturates Screen (Not Detect) Ur Phencyclidine Scrn (Not Detect) Ur Amphetamines Screen (Not Detect) U Benzodiazepines Scrn (Not Detect) Urine Cocaine Screen (Not Detect) U Marijuana (THC) Screen (Not Detect) Ethyl Alcohol < 10 mg/dL Discharge Plan Discharge Prescriptions: No Action buprenorphine-naloxone [Suboxone] 8-2 mg film 2 film sublingual DAILY Qty: 20 RF: 0
[2020-05-30 03:18] VITALS: BMI 25.8
[2020-05-30 03:42] LABS: Amphetamine Screen Urine Not Detected (Not Detect); Barbiturates, Urine Not Detected (Not Detect); Benzodiazepines Screen Urine Not Detected (Not Detect); Cannabinoid Screen Urine Not Detected (Not Detect); Cocaine Screen Urine POSITIVE (Not Detect); Opiate Screen Urine POSITIVE (Not Detect); Phencyclidine Screen Urine Not Detected (Not Detect)
--- NOTE | 2020-05-30 04:33 | PC.NURSE ---
This nurse and an audiovisual aids technician tried to draw labs from the PT unsuccessfully. PT refused to have anymore attempts made at this time.
[2020-05-30 04:58] LABS: Basophils Absolute Auto 0.1 X10*3/uL (0.0-0.2); Basophils Percent Auto 0.6 % (0-2); Eosinophils Absolute Auto 0.3 X10*3/uL (0.0-0.4); Eosinophils Percent Auto 3.4 % (0-4); Hematocrit 36.3 % (42-52); Hemoglobin 12.6 g/dl (14.0-18.0); Imm Gran Abs Auto 0.02 X10*3/uL (0.00-0.03); Imm Gran Pct Auto 0.2 % (0.0-0.4); Lymphocytes Absolute Auto 4.8 X10*3/uL (1.2-4.9); Lymphocytes Percent Auto 48.9 % (20-40); MANUAL DIFF FLAG NO; Mean Corpuscular HGB Conc 34.7 g/dl (31.0-36.0); Mean Corpuscular Hemoglobin 29.8 pg (27.0-33.0); Mean Corpuscular Volume 85.8 fL (80-98); Mean Platelet Volume 7.9 fL (9.4-12.4); Monocytes Absolute Auto 0.8 X10*3/uL (0.1-1.2); Monocytes Percent Auto 8.3 % (2-11); Neutrophils Absolute Auto 3.8 X10*3/uL (2.0-8.3); Neutrophils Percent Auto 38.6 % (45-73); Platelet Count 208 X10*3/uL (160-400); Red Blood Count 4.23 X10*6/uL (4.60-5.80); Red Cell Distribution Width 12.4 % (11.0-16.0); White Blood Count 9.8 X10*3/uL (4.8-10.8)
[2020-05-30 05:31] LABS: Ethanol < 10 mg/dL
[2020-05-30 05:32] LABS: Anion Gap 11 (12-20); Blood Urea Nitrogen 15 mg/dL (9-16); Calcium 8.9 mg/dL (8.4-10.2); Carbon Dioxide 32 mmol/L (22-29); Chloride 103 mmol/L (96-108); Creatinine Clr Calc Pharmacy 92.8; Estimated Glomerular Filt Rate > 60; Glucose Random 65 mg/dL (60-115); Potassium 3.3 mmol/l (3.3-5.1); Sodium 143 mmol/L (135-145)
--- NOTE | 2020-05-30 05:32 | PC.NURSE ---
[facility] faxed and called.
[2020-05-30 06:00] VITALS: BP 122/65; PULSE 74; RESP 18; TEMP 36.5; O2SAT 96
[2020-05-30 07:03] LABS: Acetaminophen LAB < 1 mcg/mL (<30)
[2020-05-30 07:06] LABS: Salicylate < 5.0 mg/dL (15-30)
--- NOTE | 2020-05-30 07:11 | PC.NURSE ---
Report received. Pt currently resting, denies complaints at this time. PT waiting to be seen by N.
[2020-05-30 09:08] VITALS: BP 132/62; PULSE 80; RESP 16; TEMP 37.1; O2SAT 98
--- NOTE | 2020-05-30 12:53 | PC.NURSE ---
BHN at bedside for eval.
[2020-05-30 17:12] VITALS: BP 130/81; PULSE 74; RESP 18; TEMP 36.7; O2SAT 99
--- NOTE | 2020-05-30 17:44 | PC.NURSE ---
DINNER TRAY GIVEN.
[2020-05-30] MEDS: LORazepam 1 MG TABLET PO (17:49)
--- NOTE | 2020-05-30 19:29 | PC.NURSE ---
PT is sleeping in his room. Breathing is even and unlabored. PT is inpatient bed search.
[2020-05-30 23:00] VITALS: BP 132/79; PULSE 80; RESP 18; TEMP 36.7; O2SAT 97
[2020-05-31 01:18] LABS: COVID-19 Test Negative (Negative)
--- NOTE | 2020-05-31 03:13 | PC.NURSE ---
PT stated that he takes 8 mg suboxone BID, which he gets from [facility] in [place].
[2020-05-31 06:39] VITALS: BP 130/86; PULSE 74; RESP 17; TEMP 36.4; O2SAT 97
[2020-05-31 09:18] VITALS: BP 137/66; PULSE 75; RESP 16; TEMP 37.1; O2SAT 99
[2020-05-31] MEDS: LORazepam 1 MG TABLET PO (10:12)
--- NOTE | 2020-05-31 10:19 | PC.NURSE ---
Patient reported increased anxiety, medicated w/ativan as ordered. report given to RN on [facility] for admission
[2020-05-31 13:49] VITALS: BP 136/75; PULSE 82; RESP 16; TEMP 37.1; O2SAT 98
--- NOTE | 2020-05-31 14:40 | PC.ADMIT ---
35 year old male admitted to [facility] on a CV. Admitted from ED with complaints of depression and recent loss of a ex-girlfriend/roomate via drug overdose. Pt recently left a detox in [facility]. Had recently been on Suboxone prescribed by Kourtney Sifuentes NP.Previously admitted to [facility] in 2019.Pt was found by a friend in the bathroom with a open pill bottle. Pt reports poor sleep and appetite.Pts tox screen was positive for Cocaine,Opiates ,he reports daily use of benzos.and alcohol. Upon admit pt is quiet,soft spoken and declined to answer all interview questions. Denied suicidial ideations and contracted for safety. Cows assessment ordered and completed. VSS No S/S distress at this time.Call Emergency [employer] system reviewed and T/W enc pt to seek out staff
[2020-05-31 15:58] VITALS: BP 120/70; PULSE 103; TEMP 36.5
[2020-05-31] MEDS: Buprenorphine/Naloxone 2/0.5mg FILM 1 FILM SUBLINGUAL (17:35)
[2020-05-31] MEDS: clonazePAM 1 MG TABLET PO ×2 (18:43→20:51)
[2020-05-31 20:00] VITALS: BP 111/70; PULSE 74; TEMP 37.1
[2020-06-01 07:00] VITALS: BP 132/99; PULSE 86; TEMP 36.4; O2SAT 98; BMI 25.7
--- NOTE | 2020-06-01 07:11 | PC.NURSE ---
refused bp multiple times this evening. on rising wanted suboxone, allowed for vs, then walked away when clonidine offered.
[2020-06-01 08:33] LABS: Basophils Absolute Auto 0.1 X10*3/uL (0.0-0.2); Basophils Percent Auto 0.8 % (0-2); Eosinophils Absolute Auto 0.1 X10*3/uL (0.0-0.4); Eosinophils Percent Auto 2.1 % (0-4); Hematocrit 41.7 % (42-52); Hemoglobin 14.4 g/dl (14.0-18.0); Imm Gran Abs Auto 0.02 X10*3/uL (0.00-0.03); Imm Gran Pct Auto 0.3 % (0.0-0.4); Lymphocytes Absolute Auto 2.6 X10*3/uL (1.2-4.9); Lymphocytes Percent Auto 42.4 % (20-40); MANUAL DIFF FLAG NO; Mean Corpuscular HGB Conc 34.5 g/dl (31.0-36.0); Mean Corpuscular Hemoglobin 29.6 pg (27.0-33.0); Mean Corpuscular Volume 85.8 fL (80-98); Mean Platelet Volume 8.1 fL (9.4-12.4); Monocytes Absolute Auto 0.5 X10*3/uL (0.1-1.2); Monocytes Percent Auto 8.3 % (2-11); Neutrophils Absolute Auto 2.9 X10*3/uL (2.0-8.3); Neutrophils Percent Auto 46.1 % (45-73); Platelet Count 267 X10*3/uL (160-400); Red Blood Count 4.86 X10*6/uL (4.60-5.80); Red Cell Distribution Width 12.1 % (11.0-16.0); White Blood Count 6.2 X10*3/uL (4.8-10.8)
[2020-06-01] MEDS: clonazePAM 1 MG TABLET PO ×3 (08:33→20:01)
[2020-06-01 09:18] LABS: Alanine Aminotransferase 14 U/L (0-40); Albumin Level 4.4 g/dL (3.5-5.0); Alkaline Phosphatase 78 U/L (39-117); Aspartate Amino Transferase 17 U/L (5-37); Bilirubin Total 0.6 mg/dL (0.0-1.0); Blood Urea Nitrogen 13 mg/dL (9-16); Cholesterol 178 mg/dL; Creatinine Clr Calc Pharmacy 90.3; Estimated Glomerular Filt Rate > 60; Glucose Fasting 102 mg/dL (60-99); HDL Cholesterol 56 mg/dL; LDL Cholesterol Calculated 106 mg/dl; Magnesium 2.3 mg/dL (1.6-2.6); Total Protein 7.5 g/dL (6.5-8.0); Triglycerides 83 mg/dL
[2020-06-01 09:35] LABS: Anion Gap 14 (12-20); Calcium 9.6 mg/dL (8.4-10.2); Carbon Dioxide 28 mmol/L (22-29); Chloride 106 mmol/L (96-108); Potassium 5.1 mmol/l (3.3-5.1); Sodium 143 mmol/L (135-145)
[2020-06-01 10:09] LABS: Folate 16.2 ng/mL (> or = 4.0); Vitamin B12 913 pg/mL (200-900)
[2020-06-01 10:41] LABS: Reflex LDLD? No
[2020-06-01 12:59] VITALS: PULSE 82
[2020-06-01] MEDS: Buprenorphine/Naloxone 4/1 mg FILM 1 FILM SUBLINGUAL ×2 (13:02→21:35)
--- NOTE | 2020-06-01 13:10 | P.HPPS_ITS ---
HPI Chief Complaint: Major Depressive D/O Recurrent Alcohol Use Sources of Information: patient interviewed, chart reviewed and crisis/core team assessment reviewed HPI Narrative: she patient is referred by the crisis team in emergency room after the patient was brought to the ER after he had been talking with a friend about overdosing on prescription medication. Patient has a history of depression history of opiate dependence. Patient was recently had a detox for substance abuse discharged himself against medical advice on May 28 after hearing that his girlfriend had overdosed. He relapsed on heroin and cocaine he had been on Suboxone up until May 14. He has been on methadone in the past. Patient states he had also been using Xanax up to 8 mg a day he has previously been treated with Abilify and Wellbutrin and sertraline in in the past. In the crisis of adhesive be ready get back on medication during interview patient stated he does not think that medication and this really helped him he has not had ongoing outpatient psychiatric treatment. Past Psychiatric History: Last on M5 in May 2019 refused psychiatric care Multiple EATS and IP programs hx past suicide attempt Medical Evaluation Reviewed: Yes [facility] Medical History Elevated LFTs Hepatitis C infection Intravenous drug abuse, continuous Scoliosis Social History: Homeless may have reconnected to parents unemployed Trauma History: Unknown Diagnostics Vital Signs (24Hr): Vital Signs - 24 hr 05/31/20 13:49 05/31/20 15:58 05/31/20 20:00 Temperature 98.8 F 97.7 F 98.7 F Pulse Rate 82 103 H 74 Respiratory Rate 16 Blood Pressure 136/75 120/70 111/70 Pulse Oximetry 98 06/01/20 07:00 Temperature 97.5 F Pulse Rate 86 Respiratory Rate Blood Pressure 132/99 H Pulse Oximetry 98 Body Mass Index 25.8 Labs Results: 06/01/20 19:00 06/01/20 19:00 Labs: Laboratory Results - last 48 hr 05/31/20 06/01/20 06/01/20 00:23 07:57 07:57 WBC 6.2 RBC 4.86 Hgb 14.4 Hct 41.7 L MCV 85.8 MCH 29.6 MCHC 34.5 RDW 12.1 Plt Count 267 D MPV 8.1 L Immature Gran % (Auto) 0.3 Neut % (Auto) 46.1 Lymph % (Auto) 42.4 H [place] % (Auto) 8.3 Eos % (Auto) 2.1 Baso % (Auto) 0.8 Lymph # (Auto) 2.6 [place] # (Auto) 0.5 Eos # (Auto) 0.1 Baso # (Auto) 0.1 Abs Immat Gran (auto) 0.02 Absolute Neuts (auto) 2.9 Absolute Nucleated RBC 0.000 Nucleated RBC % (auto) 0.0 Sodium 143 Potassium 5.1 D Chloride 106 Carbon Dioxide 28 Anion Gap 14 BUN 13 Creatinine 1.13 Estim Creat Clear Calc 90.3 Estimated GFR > 60 Fasting Glucose 102 H Calcium 9.6 D Magnesium 2.3 Total Bilirubin 0.6 AST 17 ALT 14 Alkaline Phosphatase 78 Total Protein 7.5 Albumin 4.4 Triglycerides 83 Cholesterol 178 LDL Cholesterol, Calc 106 HDL Cholesterol 56 Vitamin B12 Folate COVID-19 (JACQUELIN) Negative COVID-19 Clin Com See Note 06/01/20 07:57 WBC RBC Hgb Hct MCV MCH MCHC RDW Plt Count MPV Immature Gran % (Auto) Neut % (Auto) Lymph % (Auto) [place] % (Auto) Eos % (Auto) Baso % (Auto) Lymph # (Auto) [place] # (Auto) Eos # (Auto) Baso # (Auto) Abs Immat Gran (auto) Absolute Neuts (auto) Absolute Nucleated RBC Nucleated RBC % (auto) Sodium Potassium Chloride Carbon Dioxide Anion Gap BUN Creatinine Estim Creat Clear Calc Estimated GFR Fasting Glucose Calcium Magnesium Total Bilirubin AST ALT Alkaline Phosphatase Total Protein Albumin Triglycerides Cholesterol LDL Cholesterol, Calc HDL Cholesterol Vitamin B12 913 H Folate 16.2 COVID-19 (JACQUELIN) COVID-19 Clin Com Meds/Allergies Meds Home Medications Al Hydroxide/Mg Hydroxide (Magnesium Hydrox/Alum Hydrox 30 Ml Oral.Susp) 30 ml PO Q6H PRN PRN Reason: Heartburn/Nausea Buprenorphine/Naloxone (Buprenorphine/Naloxone 8/2 Mg Film) 1 film SUBLINGUAL DAILY DARNELL Clonazepam (Clonazepam 0.5 Mg Tablet) 0.5 mg PO TID DARNELL Last Admin: 06/01/20 21:10 Dose: 0.5 mg Documented by: Clonidine HCl (Clonidine Hcl 0.1 Mg Tablet) 0.1 mg PO Q4H PRN; Protocol PRN Reason: Opiate Withdrawal Dicyclomine HCl (Dicyclomine Hcl 10 Mg Capsule) 10 mg PO TIDAC PRN PRN Reason: stomach cramps Hydroxyzine HCl (Hydroxyzine Hcl 25 Mg Tablet) 25 mg PO BEDTIME PRN PRN Reason: Anxiety Last Admin: 06/01/20 21:11 Dose: 25 mg Documented by: Magnesium Hydroxide (Milk Of Magnesia 30 Ml Oral.Susp) 30 ml PO DAILY PRN PRN Reason: Constipation Pharmacy Consult (Consult Rx Perform Med Rec) 1 each MISCELLANE ONCE PRN PRN Reason: Consult order Trazodone HCl (Trazodone Hcl 50 Mg Tablet) 50 mg PO BEDTIME PRN PRN Reason: Insomnia Last Admin: 06/01/20 21:10 Dose: 50 mg Documented by: Allergies Allergies Allergy/AdvReac Type Severity Reaction Status Date / Time haloperidol [From HALDOL] Allergy Intermediate N/V/D Verified 03/02/20 14:13 acetaminophen [From TYLENOL] Allergy Mild GI UPSET Verified 03/02/20 14:13 SEAFOOD Allergy Severe ANAPHYLAXIS Uncoded 02/10/20 19:34 Mental Status Exam Mental Status Exam Patient Appearance: Well Grooomed and Fatigued Patient Orientation: Person, Place, Time and Situation Level of Consciousness: Awake Patient Behavior: Appropriate, Guarded and Anxious Mood Description: Calm, Depressed, Angry, Sad and Apprehensive Affect Description: Constricted, Depressed, Labile and Angry Patient Cognition Impaired: No Ability to Follow Directions: Good Speech Pattern: Clear and Monotone Memory Description: Intact Hallucinations: None Delusions: Not Present Thought Process: Intact and Rumination Thought Content: positive for Preoccupation, positive for Suicidal Ideation (passive ) and negative for Homicidal Ideation Depressive Symptoms: Increased Anxiety, Diff. Making Decisions, Hopelessness and Low Self Esteem Judgement: Fair Judgement and Insight: limited insight guarded Assessment & Plan Assessment & Plan (1) Opioid use disorder: Status: Acute Code(s): F11.99 - Opioid use, unspecified with unspecified opioid-induced disorder (2) Depression: Status: Acute Code(s): F32.9 - Major depressive disorder, single episode, unspecified (3) Major depression, recurrent: Status: Acute Code(s): F33.9 - Major depressive disorder, recurrent, unspecified Assessment and Plan: start suboxone wishes MAT monitor mood si encourage tx klonapin for benzo withdrawl Patient educated on: diagnosis, medication risk/benefits, substance abuse and therapeutic strategies Reason for continued inpatient stay Substantial Risk for: harm to self and rapid decompensation
[2020-06-01 14:37] VITALS: PULSE 79
[2020-06-01 15:08] VITALS: BP 125/74; PULSE 79; RESP 16; TEMP 37; O2SAT 97
[2020-06-01 19:15] LABS: Basophils Absolute Auto 0.1 X10*3/uL (0.0-0.2); Basophils Percent Auto 0.5 % (0-2); Eosinophils Absolute Auto 0.2 X10*3/uL (0.0-0.4); Eosinophils Percent Auto 1.7 % (0-4); Hemoglobin 14.4 g/dl (14.0-18.0); Imm Gran Abs Auto 0.02 X10*3/uL (0.00-0.03); Imm Gran Pct Auto 0.2 % (0.0-0.4); Lymphocytes Percent Auto 42.3 % (20-40); MANUAL DIFF FLAG NO; Mean Corpuscular HGB Conc 35.1 g/dl (31.0-36.0); Mean Corpuscular Hemoglobin 29.8 pg (27.0-33.0); Mean Corpuscular Volume 84.7 fL (80-98); Mean Platelet Volume 8.1 fL (9.4-12.4); Monocytes Absolute Auto 0.6 X10*3/uL (0.1-1.2); Monocytes Percent Auto 6.5 % (2-11); Neutrophils Absolute Auto 4.6 X10*3/uL (2.0-8.3); Neutrophils Percent Auto 48.8 % (45-73); Platelet Count 286 X10*3/uL (160-400); Red Blood Count 4.84 X10*6/uL (4.60-5.80); Red Cell Distribution Width 12.1 % (11.0-16.0); White Blood Count 9.5 X10*3/uL (4.8-10.8)
[2020-06-01 19:45] LABS: Alanine Aminotransferase 13 U/L (0-40); Albumin Level 4.3 g/dL (3.5-5.0); Alkaline Phosphatase 76 U/L (39-117); Anion Gap 14 (12-20); Aspartate Amino Transferase 13 U/L (5-37); Bilirubin Total 0.3 mg/dL (0.0-1.0); Blood Urea Nitrogen 12 mg/dL (9-16); Calcium 9.1 mg/dL (8.4-10.2); Carbon Dioxide 26 mmol/L (22-29); Chloride 107 mmol/L (96-108); Creatinine Clr Calc Pharmacy 105.2; Estimated Glomerular Filt Rate > 60; Glucose Random 109 mg/dL (60-115); Potassium 3.7 mmol/l (3.3-5.1); Sodium 143 mmol/L (135-145); Total Protein 7.3 g/dL (6.5-8.0)
[2020-06-01 19:57] VITALS: BP 114/56; PULSE 83; TEMP 36.9
[2020-06-01] MEDS: clonazePAM 0.5 MG TABLET PO (21:10)
[2020-06-01] MEDS: traZODone HCL 50 MG TABLET PO (21:10)
[2020-06-01] MEDS: hydrOXYzine HCL 25 MG TABLET PO (21:11)
[2020-06-01] MEDS: Buprenorphine/Naloxone 2/0.5mg FILM 1 FILM SUBLINGUAL (21:34)
[2020-06-02] MEDS: Buprenorphine/Naloxone 8/2 mg FILM 1 FILM SUBLINGUAL (08:30)
[2020-06-02] MEDS: clonazePAM 0.5 MG TABLET PO (08:31)
[2020-06-02 09:21] VITALS: BP 126/82; PULSE 95; RESP 16; O2SAT 98
--- NOTE | 2020-06-02 12:47 | PM.IMCN ---
History of Present Illness Data of Consult Service Date: 06/02/20 Requesting physician: Shan Brennan Primary Care Provider: None Physician HPI Reason for consult: hemoptysis, abdominal pain This is a 35-year-old male admitted to for management of depression with suicidal ideation. The hospitalists were asked to see him in consultation due to concern over hemoptysis and abdominal pain. Patient denies any hemoptysis or hematemesis. He does report intermittent abdominal pain which is chronic but is not currently experiencing any abdominal pain. He denies any nausea, vomiting, diarrhea. He is able to tolerate a regular diet. He thinks his abdominal pain may be related in part to opiate withdrawal. Cbc and basic metabolic profile obtained on date of admission are unremarkable as well as LFTs. Review of Systems Review of Systems: Yes all other systems are reviewed and are negative Constitutional: Constitutional: Denies chills and Denies fever(s) Cardiovascular: Cardiovascular: Denies chest pain Respiratory: Respiratory: Denies cough Gastrointestinal: Gastrointestinal: Denies abdominal pain [facility] Medical History Elevated LFTs Hepatitis C infection Intravenous drug abuse, continuous Scoliosis Family History Other Patient denies medical problems Social History Household Members: Friend(s) Housing: Apartment Do you presently have visiting nurse or other home services: No Alcohol intake: former Smoking Status: Current every day smoker Tobacco Type: Cigarette Packs Per Day: 0.5 Cigarettes Per Day: 10.0 Years Smoked: unknown Smoked in Last 30 Days: Yes Patient Interested in Nicotine Replacement: No Patient Given Instructions on How to Stop Smoking: Yes Date Education Initiated: 05/31/20 Second Hand Smoke Exposure: Yes Use of substances other than those prescribed or required for medical reasons: Yes Substance Use Type: Crack/Cocaine, Opiates and Tranquilizers Substance Use Type Other:: Xanax Substance Use Frequency: Chronic Longstanding Last Used Substance: Days (ago) Currently Displaying Signs/Symptoms of Drug Intoxication Withdrawal: No Any prior treatment program specific to substance use: Yes (Was on a suboxone clinic.) Advance Directives: No Advance Directives on File: No Do you have thoughts of harming others: None Do you have a plan to hurt others: No Plan Recently lost weight without trying: Unsure service: No Current occupational status: unemployed Sexual orientation: Straight/Heterosexual Meds Allergies Allergy/AdvReac Type Severity Reaction Status Date / Time haloperidol [From HALDOL] Allergy Intermediate N/V/D Verified 03/02/20 14:13 acetaminophen [From TYLENOL] Allergy Mild GI UPSET Verified 03/02/20 14:13 SEAFOOD Allergy Severe ANAPHYLAXIS Uncoded 02/10/20 19:34 Physical Exam Vital Signs and Narrative: Vital Signs: Last Vital Signs Temp 98.5 F 06/01/20 19:57 Pulse 95 06/02/20 09:21 Resp 16 06/02/20 09:21 BP 126/82 06/02/20 09:21 Pulse Ox 98 06/02/20 09:21 Body Mass Index 25.7 Const: General: well developed, alert and awake Nutritional Appearance: well nourished HENMT: Head: Yes normocephalic and Yes atraumatic Eyes: Sclerae: sclerae normal Chest: Chest palpation & inspection: normal inspection of the chest Resp: Effort & Inspection: normal respiratory effort and no respiratory distress Auscultation: clear to auscultation bilaterally Cardio: Rate: regular rate Rhythm: regular rhythm GI: Palpation (GI): Soft to palpation and nontender Skin: General skin exam: no rashes or lesions noted Neuro: Cranial nerves: Yes CN's II-XII intact bilaterally and Yes Bilaterally intact EOM present Extrem: General: Yes normal to inspection Results Labs CBC and Chem 7: 06/01/20 19:00 06/01/20 19:00 Labs: Laboratory Results - last 24 hr 06/01/20 06/01/20 19:00 19:00 MCV 84.7 MCH 29.8 MCHC 35.1 RDW 12.1 Plt Count 286 MPV 8.1 L Immature Gran % (Auto) 0.2 Neut % (Auto) 48.8 Lymph % (Auto) 42.3 H [place] % (Auto) 6.5 Eos % (Auto) 1.7 Baso % (Auto) 0.5 Lymph # (Auto) 4.0 [place] # (Auto) 0.6 Eos # (Auto) 0.2 Baso # (Auto) 0.1 Abs Immat Gran (auto) 0.02 Absolute Neuts (auto) 4.6 Absolute Nucleated RBC 0.000 Nucleated RBC % (auto) 0.0 Anion Gap 14 Estim Creat Clear Calc 105.2 Estimated GFR > 60 Random Glucose 109 D Calcium 9.1 Total Bilirubin 0.3 AST 13 ALT 13 Alkaline Phosphatase 76 Total Protein 7.3 Albumin 4.3 Assessment and Plan (1) Major depression, recurrent: Status: Acute (2) Opioid use disorder: Status: Acute This is a 35-year-old male with a history of depression, polysubstance abuse admitted M5 for management of depression with suicidal ideation Hemoptysis-patient denies & no witnessed hemoptysis or hematemesis. H/H stable Abdominal pain-chronic and not present at this time. BMP, LFTs wnl. There are no acute medical conditions at this time Thank you for allowing us to participate in the care of this patient. This case was discussed with Dr. Montana
[2020-06-02] MEDS: clonazePAM 1 MG TABLET PO (16:54)
[2020-06-02 18:00] VITALS: BP 135/77; PULSE 81; TEMP 36.8
--- NOTE | 2020-06-02 21:10 | HO.PSYCHPN ---
Subjective Subjective Date of Service: 06/02/20 Reason For Visit: Major Depressive D/O Recurrent Alcohol Use Subjective Notes: Conditional Voluntary and 3 Day Interim History: FOR THE PATIENT WAS QUITE INSISTENT UPON DISCHARGE. HE STATED THERE WAS A SERVICE IN THE [facility] FOR HIS GIRLFRIEND WHO HAD RECENTLY MOST LIKELY FROM DRUG OVERDOSE AND WANTED TO JOIN THIS. AFTER CAREFUL CONSIDERATION AND DISCUSSING WITH THE TEAM INCLUDING HIS SUBOXONE PROVIDER GIVEN HIS RECENT INSTABILITY LACK OF CONSISTENCY IT SEEM LIKE TO HIGH RISK A SITUATION FOR THE PATIENT TO BE DISCHARGED TO. PATIENT WAS QUITE ANGRY UPSET. HE HAD PREVIOUSLY BEEN SOMEWHAT CONTEMPTUOUS WITH STAFF AROUSABLE IF HIS NEEDS WERE NOT IMMEDIATELY MET. SUBOXONE HAD BEEN INCREASED TO 8 MG DAILY. PATIENT DID PUT A 3 DAY NOTICE LATER IN THE DAY [place] WARNING GIVEN STRONGLY URGED THE PATIENT RECONSIDER TREATMENT WITH ANTIDEPRESSANTS HE HAD PREVIOUSLY BEEN ON WELLBUTRIN AND RENÉ HAD ALSO BEEN ON SERTRALINE. ARTICLE REVIEWED WITH PATIENT REGARDING THE CO OCCURRING TREATMENT OF DEPRESSION WITH OPIATE DEPENDENCE Medication Compliance: Yes Side effects from medications: No Mental Status Exam Mental Status Exam Patient Appearance: Well Grooomed and Fatigued Patient Orientation: Person, Place, Time and Situation Level of Consciousness: Awake Patient Behavior: Guarded, Posturing, Belligerent and Anxious Mood Description: Constricted, Depressed, Angry, Sad and Apprehensive Affect Description: Constricted, Depressed, Labile and Angry Patient Cognition Impaired: No Ability to Follow Directions: Good Speech Pattern: Clear, Monotone and Excited Memory Description: Intact Hallucinations: None Delusions: Not Present Thought Process: Intact and Rumination Thought Content: positive for Preoccupation, positive for Suicidal Ideation (passive ) and negative for Homicidal Ideation Depressive Symptoms: Increased Anxiety, Diff. Making Decisions, Hopelessness and Low Self Esteem Judgement: Fair Judgement and Insight: limited insight guarded DENIED ACUTE THOUGHTS OF SELF-HARM HAD JUST BEEN ON SUBOXONE AND WAS ASKING TO LEAVE TO A FRIEND'S HOUSE. HE HAD PREVIOUSLY BEEN TALKING ABOUT TRANSITIONING TO [facility]TING OR LIVING WITH HIS FATHER. THE PATIENT WAS ANGRY AND UPSET WHEN HE WAS NOT RELEASED AFTER CONCERN EXPRESSED THAT HE JUST BEEN ACTIVELY SUICIDAL IN THE CONTEXT OF HIS FEELINGS REGARDING HIS GIRLFRIEND'S . HE DID STATE HE WOULD BE WITH OTHERS DURING THE CEREMONY BUT COULD NOT SEE HOW IT WOULD BE A HIGH RISK SITUATION AFTER. Diagnostics Vital Signs (24Hr): Vital Signs - 24 hr 06/02/20 09:21 06/02/20 18:00 Temperature 98.3 F Pulse Rate 95 81 Respiratory Rate 16 Blood Pressure 126/82 135/77 Pulse Oximetry 98 Body Mass Index 25.7 Labs Results: 06/01/20 19:00 06/01/20 19:00 Labs: Laboratory Results - last 48 hr 06/01/20 06/01/20 06/01/20 07:57 07:57 07:57 WBC 6.2 RBC 4.86 Hgb 14.4 Hct 41.7 L MCV 85.8 MCH 29.6 MCHC 34.5 RDW 12.1 Plt Count 267 D MPV 8.1 L Immature Gran % (Auto) 0.3 Neut % (Auto) 46.1 Lymph % (Auto) 42.4 H [place] % (Auto) 8.3 Eos % (Auto) 2.1 Baso % (Auto) 0.8 Lymph # (Auto) 2.6 [place] # (Auto) 0.5 Eos # (Auto) 0.1 Baso # (Auto) 0.1 Abs Immat Gran (auto) 0.02 Absolute Neuts (auto) 2.9 Absolute Nucleated RBC 0.000 Nucleated RBC % (auto) 0.0 Sodium 143 Potassium 5.1 D Chloride 106 Carbon Dioxide 28 Anion Gap 14 BUN 13 Creatinine 1.13 Estim Creat Clear Calc 90.3 Estimated GFR > 60 Random Glucose Fasting Glucose 102 H Calcium 9.6 D Magnesium 2.3 Total Bilirubin 0.6 AST 17 ALT 14 Alkaline Phosphatase 78 Total Protein 7.5 Albumin 4.4 Triglycerides 83 Cholesterol 178 LDL Cholesterol, Calc 106 HDL Cholesterol 56 Vitamin B12 913 H Folate 16.2 06/01/20 06/01/20 19:00 19:00 WBC 9.5 RBC 4.84 Hgb 14.4 Hct 41.0 L MCV 84.7 MCH 29.8 MCHC 35.1 RDW 12.1 Plt Count 286 MPV 8.1 L Immature Gran % (Auto) 0.2 Neut % (Auto) 48.8 Lymph % (Auto) 42.3 H [place] % (Auto) 6.5 Eos % (Auto) 1.7 Baso % (Auto) 0.5 Lymph # (Auto) 4.0 [place] # (Auto) 0.6 Eos # (Auto) 0.2 Baso # (Auto) 0.1 Abs Immat Gran (auto) 0.02 Absolute Neuts (auto) 4.6 Absolute Nucleated RBC 0.000 Nucleated RBC % (auto) 0.0 Sodium 143 Potassium 3.7 D Chloride 107 Carbon Dioxide 26 Anion Gap 14 BUN 12 Creatinine 0.97 Estim Creat Clear Calc 105.2 Estimated GFR > 60 Random Glucose 109 D Fasting Glucose Calcium 9.1 Magnesium Total Bilirubin 0.3 AST 13 ALT 13 Alkaline Phosphatase 76 Total Protein 7.3 Albumin 4.3 Triglycerides Cholesterol LDL Cholesterol, Calc HDL Cholesterol Vitamin B12 Folate Medications Medications Current Medications Generic Name Dose Route Start Last Admin Trade Name Freq PRN Reason Stop Dose Admin Al Hydroxide/Mg Hydroxide 30 ml 05/31/20 11:27 Magnesium Hydrox/Alum Hydrox 30 Ml Oral.Susp PO Q6H PRN Heartburn/Nausea Buprenorphine/Naloxone 1 film 06/02/20 09:00 06/02/20 08:30 Buprenorphine/Naloxone 8/2 Mg Film SUBLINGUAL 1 film DAILY DARNELL Administration Clonazepam 0.5 mg 06/01/20 21:29 06/02/20 08:31 Clonazepam 0.5 Mg Tablet PO 0.5 mg TID PRN Administration anxiety/restlessness Clonidine HCl 0.1 mg 05/31/20 16:16 Clonidine Hcl 0.1 Mg Tablet PO Q4H PRN Opiate Withdrawal Protocol Dicyclomine HCl 10 mg 06/01/20 21:00 Dicyclomine Hcl 10 Mg Capsule PO TIDAC PRN stomach cramps Hydroxyzine HCl 25 mg 05/31/20 11:27 06/01/20 21:11 Hydroxyzine Hcl 25 Mg Tablet PO 25 mg BEDTIME PRN Administration Anxiety Magnesium Hydroxide 30 ml 05/31/20 11:27 Milk Of Magnesia 30 Ml Oral.Susp PO DAILY PRN Constipation Pharmacy Consult 1 each 05/30/20 07:40 Consult Rx Perform Med Rec MISCELLANE ONCE PRN Consult order Trazodone HCl 50 mg 05/31/20 11:27 06/01/20 21:10 Trazodone Hcl 50 Mg Tablet PO 50 mg BEDTIME PRN Administration Insomnia Allergies Allergies Allergy/AdvReac Type Severity Reaction Status Date / Time haloperidol [From HALDOL] Allergy Intermediate N/V/D Verified 03/02/20 14:13 acetaminophen [From TYLENOL] Allergy Mild GI UPSET Verified 03/02/20 14:13 SEAFOOD Allergy Severe ANAPHYLAXIS Uncoded 02/10/20 19:34 Assessment & Plan Assessment & Plan (1) Major depression, recurrent: Status: Acute Code(s): F33.9 - Major depressive disorder, recurrent, unspecified Assessment and Plan: ENCOURAGE CONSIDERATION OF RESTARTING ANTIDEPRESSANT TRIAL PATIENT NOT AMENABLE TO CONSIDER AT THIS TIME THIS APPEARS TO BE A REPEAT OF HIS LAST HOSPITALIZATION WHEN HE WOULD NOT CONSIDER CO OCCURRING TREATMENT (2) Opioid use disorder: Status: Acute Code(s): F11.99 - Opioid use, unspecified with unspecified opioid-induced disorder Assessment and Plan: PATIENT HAS BEEN RESTARTED ON SUBOXONE ENCOURAGE CSS STEP-DOWN Greater than 50% of the session was spent on counseling and/or coordination of care
[2020-06-03] MEDS: clonazePAM 0.5 MG TABLET PO ×2 (08:30→18:19)
[2020-06-03 09:00] VITALS: BP 129/86; PULSE 97; RESP 16; TEMP 36.6; O2SAT 97
[2020-06-03] MEDS: Buprenorphine/Naloxone 8/2 mg FILM 1 FILM SUBLINGUAL (09:19)
--- NOTE | 2020-06-03 12:30 | HO.PSYCHPN ---
Subjective Subjective Date of Service: 06/04/20 Reason For Visit: Major Depressive D/O Recurrent Alcohol Use Interim History: Pt upset at not being discharged; says not suicidal and that he [facility]. Pt says being here is not therapeutic for him at all and he'd rather be in prison since he'd at least be able to make bail and go [facility]. Pt reports that despite past suicide attempts, at least half of them were due to malingering since he was homeless; the other half he says he did not really want to but needed to give out a call for help since others were not recognizing emotional struggles he was having. Concrete Bo[employer] Pump Operator asked why he was not in outpt treatment and pt said his friends are better help than therapist. Concrete Bo[employer] Pump Operator broached topic that this cycle has been repeating itself for a while and that perhaps he should consider outpt treatment. Pt did not respond. Pt upset that he has to sit here feeling anxious. Concrete Bo[employer] Pump Operator added Thorazine for anxiety since pt said if he does not get discharged we're going to see him get very dysregulated. He also says clonazepam was tappered to quickly and could he have more. Concrete Boom Pump Operator gave him one time 1mg dose. Pt denies any SI; Medication Compliance: Intermittent Mental Status Exam Mental Status Exam Patient Appearance: Appropriate Patient Orientation: Person, Place, Time and Situation Level of Consciousness: Awake and Appropriate Patient Behavior: Anxious, Resistive to Care and Good Eye Contact Mood Description: Anxious Affect Description: Anxious and Angry Ability to Follow Directions: Fair Speech Pattern: Clear and Appropriate Hallucinations: None Delusions: Not Present Thought Process: Intact, Goal Oriented and Linear Thought Content: positive for Intact Judgement: Poor Diagnostics Vital Signs (24Hr): Vital Signs - 24 hr 06/02/20 18:00 Temperature 98.3 F Pulse Rate 81 Blood Pressure 135/77 Body Mass Index 25.7 Labs Results: 06/01/20 19:00 06/01/20 19:00 Labs: Laboratory Results - last 48 hr 06/01/20 06/01/20 19:00 19:00 WBC 9.5 RBC 4.84 Hgb 14.4 Hct 41.0 L MCV 84.7 MCH 29.8 MCHC 35.1 RDW 12.1 Plt Count 286 MPV 8.1 L Immature Gran % (Auto) 0.2 Neut % (Auto) 48.8 Lymph % (Auto) 42.3 H [place] % (Auto) 6.5 Eos % (Auto) 1.7 Baso % (Auto) 0.5 Lymph # (Auto) 4.0 [place] # (Auto) 0.6 Eos # (Auto) 0.2 Baso # (Auto) 0.1 Abs Immat Gran (auto) 0.02 Absolute Neuts (auto) 4.6 Absolute Nucleated RBC 0.000 Nucleated RBC % (auto) 0.0 Sodium 143 Potassium 3.7 D Chloride 107 Carbon Dioxide 26 Anion Gap 14 BUN 12 Creatinine 0.97 Estim Creat Clear Calc 105.2 Estimated GFR > 60 Random Glucose 109 D Calcium 9.1 Total Bilirubin 0.3 AST 13 ALT 13 Alkaline Phosphatase 76 Total Protein 7.3 Albumin 4.3 Medications Medications Current Medications Generic Name Dose Route Start Last Admin Trade Name Freq PRN Reason Stop Dose Admin Al Hydroxide/Mg Hydroxide 30 ml 05/31/20 11:27 Magnesium Hydrox/Alum Hydrox 30 Ml Oral.Susp PO Q6H PRN Heartburn/Nausea Buprenorphine/Naloxone 1 film 06/02/20 09:00 06/03/20 09:19 Buprenorphine/Naloxone 8/2 Mg Film SUBLINGUAL 1 film DAILY DARNELL Administration Clonazepam 0.5 mg 06/01/20 21:29 06/03/20 08:30 Clonazepam 0.5 Mg Tablet PO 0.5 mg TID PRN Administration anxiety/restlessness Clonidine HCl 0.1 mg 05/31/20 16:16 Clonidine Hcl 0.1 Mg Tablet PO Q4H PRN Opiate Withdrawal Protocol Dicyclomine HCl 10 mg 06/01/20 21:00 Dicyclomine Hcl 10 Mg Capsule PO TIDAC PRN stomach cramps Hydroxyzine HCl 25 mg 05/31/20 11:27 06/01/20 21:11 Hydroxyzine Hcl 25 Mg Tablet PO 25 mg BEDTIME PRN Administration Anxiety Magnesium Hydroxide 30 ml 05/31/20 11:27 Milk Of Magnesia 30 Ml Oral.Susp PO DAILY PRN Constipation Pharmacy Consult 1 each 05/30/20 07:40 Consult Rx Perform Med Rec MISCELLANE ONCE PRN Consult order Trazodone HCl 50 mg 05/31/20 11:27 06/01/20 21:10 Trazodone Hcl 50 Mg Tablet PO 50 mg BEDTIME PRN Administration Insomnia Allergies Allergies Allergy/AdvReac Type Severity Reaction Status Date / Time haloperidol [From HALDOL] Allergy Intermediate N/V/D Verified 03/02/20 14:13 acetaminophen [From TYLENOL] Allergy Mild GI UPSET Verified 03/02/20 14:13 SEAFOOD Allergy Severe ANAPHYLAXIS Uncoded 02/10/20 19:34 Assessment & Plan Impression: hx of mood lability, substance abuse 'pt upset he's not being discharged; he says SI fully resolved days ago. Struggles in accepting he'll have to wait until primary team returns next week dx: adjustment disorder, with disturbance of mood and conduct hx of malingering by pt self report plan: continue with current plan 3 day submitted Greater than 50% of the session was spent on counseling and/or coordination of care
[2020-06-03] MEDS: chlorproMAZINE HCl 25 MG TABLET 50 MG PO ×2 (13:23→18:20)
[2020-06-03] MEDS: clonazePAM 1 MG TABLET PO (13:23)
[2020-06-03 18:00] VITALS: BP 117/77; PULSE 107; TEMP 36.9
[2020-06-03] MEDS: traZODone HCL 50 MG TABLET PO (23:42)
[2020-06-04 05:40] VITALS: BP 106/77; PULSE 109; RESP 17; TEMP 36.7
[2020-06-04] MEDS: clonazePAM 0.5 MG TABLET PO ×3 (05:40→21:13)
[2020-06-04] MEDS: Buprenorphine/Naloxone 8/2 mg FILM 1 FILM SUBLINGUAL (08:54)
[2020-06-04] MEDS: chlorproMAZINE HCl 25 MG TABLET 50 MG PO ×2 (15:54→21:13)
[2020-06-04 16:45] VITALS: BP 124/81; PULSE 76; TEMP 36.7
[2020-06-04] MEDS: traZODone HCL 50 MG TABLET PO (21:13)
--- NOTE | 2020-06-04 22:33 | HO.PSYCHPN ---
Subjective Subjective Date of Service: 06/04/20 Reason For Visit: Major Depressive D/O Recurrent Alcohol Use Interim History: pt says that yesterdays past, he missed the [facility] and so there's nothing to do about it now; thus he now feels more calm. Pt says he still hopes to [place] as soon as possible to help get his affairs in order Pt says awilda parents are going to be packing up the apartment and he would like to be there, to help, to collect his things and to say goodbye to roomates kids whom he's fond of. Pt denies any SI at all; he says that is fully resolved. He also says that current dose of Suboxone is adequate for now; he plans to talk to outpt provider about possibly getting on Sublicade. Mental Status Exam Mental Status Exam Patient Appearance: Appropriate Patient Orientation: Person, Place, Time and Situation Level of Consciousness: Awake and Appropriate Patient Behavior: Appropriate and Good Eye Contact Mood Description: Calm, Appropriate and Relaxed Affect Description: Calm Ability to Follow Directions: Fair Speech Pattern: Clear and Appropriate Hallucinations: None Delusions: Not Present Thought Content: positive for Intact and positive for Logical Judgement: Fair Diagnostics Vital Signs (24Hr): Vital Signs - 24 hr 06/04/20 05:40 06/04/20 16:45 Temperature 98.1 F 98.1 F Pulse Rate 109 H 76 Respiratory Rate 17 Blood Pressure 106/77 124/81 Body Mass Index 25.7 Labs Results: 06/01/20 19:00 06/01/20 19:00 Medications Medications Current Medications Generic Name Dose Route Start Last Admin Trade Name Freq PRN Reason Stop Dose Admin Al Hydroxide/Mg Hydroxide 30 ml 05/31/20 11:27 Magnesium Hydrox/Alum Hydrox 30 Ml Oral.Susp PO Q6H PRN Heartburn/Nausea Buprenorphine/Naloxone 1 film 06/02/20 09:00 06/04/20 08:54 Buprenorphine/Naloxone 8/2 Mg Film SUBLINGUAL 1 film DAILY DARNELL Administration Chlorpromazine HCl 50 mg 06/03/20 12:35 06/04/20 21:13 Chlorpromazine Hcl 25 Mg Tablet PO 50 mg TID PRN Administration agitation Clonazepam 0.5 mg 06/01/20 21:29 06/04/20 21:13 Clonazepam 0.5 Mg Tablet PO 0.5 mg TID PRN Administration anxiety/restlessness Clonidine HCl 0.1 mg 05/31/20 16:16 Clonidine Hcl 0.1 Mg Tablet PO Q4H PRN Opiate Withdrawal Protocol Dicyclomine HCl 10 mg 06/01/20 21:00 Dicyclomine Hcl 10 Mg Capsule PO TIDAC PRN stomach cramps Hydroxyzine HCl 25 mg 05/31/20 11:27 06/01/20 21:11 Hydroxyzine Hcl 25 Mg Tablet PO 25 mg BEDTIME PRN Administration Anxiety Magnesium Hydroxide 30 ml 05/31/20 11:27 Milk Of Magnesia 30 Ml Oral.Susp PO DAILY PRN Constipation Pharmacy Consult 1 each 05/30/20 07:40 Consult Rx Perform Med Rec MISCELLANE ONCE PRN Consult order Trazodone HCl 50 mg 05/31/20 11:27 06/04/20 21:13 Trazodone Hcl 50 Mg Tablet PO 50 mg BEDTIME PRN Administration Insomnia Allergies Allergies Allergy/AdvReac Type Severity Reaction Status Date / Time haloperidol [From HALDOL] Allergy Intermediate N/V/D Verified 03/02/20 14:13 acetaminophen [From TYLENOL] Allergy Mild GI UPSET Verified 03/02/20 14:13 SEAFOOD Allergy Severe ANAPHYLAXIS Uncoded 02/10/20 19:34 Assessment & Plan Impression: hx of mood lability, substance abuse 'pt calm, stable; reports SI fully resolved dx: adjustment disorder, with disturbance of mood and conduct plan: continue with current plan 3 day submitted Greater than 50% of the session was spent on counseling and/or coordination of care
[2020-06-05 05:40] VITALS: BP 127/69; PULSE 108; RESP 18; TEMP 36.7; O2SAT 100
[2020-06-05] MEDS: Buprenorphine/Naloxone 8/2 mg FILM 1 FILM SUBLINGUAL (09:20)
--- NOTE | 2020-06-05 10:19 | HO.PSYCHPN ---
Subjective Subjective Date of Service: 06/05/20 Reason For Visit: Major Depressive D/O Recurrent Alcohol Use Diagnostics Vital Signs (24Hr): Vital Signs - 24 hr 06/04/20 16:45 06/05/20 05:40 Temperature 98.1 F 98.1 F Pulse Rate 76 108 H Respiratory Rate 18 Blood Pressure 124/81 127/69 Pulse Oximetry 100 Body Mass Index 25.7 Labs Results: 06/01/20 19:00 06/01/20 19:00 Medications Medications Current Medications Generic Name Dose Route Start Last Admin Trade Name Freq PRN Reason Stop Dose Admin Al Hydroxide/Mg Hydroxide 30 ml 05/31/20 11:27 Magnesium Hydrox/Alum Hydrox 30 Ml Oral.Susp PO Q6H PRN Heartburn/Nausea Buprenorphine/Naloxone 1 film 06/02/20 09:00 06/05/20 09:20 Buprenorphine/Naloxone 8/2 Mg Film SUBLINGUAL 1 film DAILY DARNELL Administration Chlorpromazine HCl 50 mg 06/03/20 12:35 06/04/20 21:13 Chlorpromazine Hcl 25 Mg Tablet PO 50 mg TID PRN Administration agitation Clonazepam 0.5 mg 06/01/20 21:29 06/04/20 21:13 Clonazepam 0.5 Mg Tablet PO 0.5 mg TID PRN Administration anxiety/restlessness Clonidine HCl 0.1 mg 05/31/20 16:16 Clonidine Hcl 0.1 Mg Tablet PO Q4H PRN Opiate Withdrawal Protocol Dicyclomine HCl 10 mg 06/01/20 21:00 Dicyclomine Hcl 10 Mg Capsule PO TIDAC PRN stomach cramps Hydroxyzine HCl 25 mg 05/31/20 11:27 06/01/20 21:11 Hydroxyzine Hcl 25 Mg Tablet PO 25 mg BEDTIME PRN Administration Anxiety Magnesium Hydroxide 30 ml 05/31/20 11:27 Milk Of Magnesia 30 Ml Oral.Susp PO DAILY PRN Constipation Pharmacy Consult 1 each 05/30/20 07:40 Consult Rx Perform Med Rec MISCELLANE ONCE PRN Consult order Trazodone HCl 50 mg 05/31/20 11:27 06/04/20 21:13 Trazodone Hcl 50 Mg Tablet PO 50 mg BEDTIME PRN Administration Insomnia Allergies Allergies Allergy/AdvReac Type Severity Reaction Status Date / Time haloperidol [From HALDOL] Allergy Intermediate N/V/D Verified 03/02/20 14:13 acetaminophen [From TYLENOL] Allergy Mild GI UPSET Verified 03/02/20 14:13 SEAFOOD Allergy Severe ANAPHYLAXIS Uncoded 02/10/20 19:34 Assessment & Plan Greater than 50% of the session was spent on counseling and/or coordination of care
--- NOTE | 2020-06-05 14:15 | P.DS_ITS ---
DS: Providers Provider Date of Service: 06/05/20 Date of admission: 05/31/20 11:25 Primary care physician: None Physician Consults: 06/01/20 17:10 Consult to Hospitalist Routine Consulting Provider: Hospitalist Reason for consultation: c/o hemoptysis abdominal pain ? historian agitated 06/05/20 09:35 Addiction Medicine Routine Consulting Provider: Hugh Sifuentes Reason for consultation: on suboxone needs encouragement for tx ? CSS Has provider been notified: No DS: Diagnosis Discharge Diagnosis (1) Major depression, recurrent: Status: Resolved (2) Opioid use disorder: Status: Acute DS: Medications Discharge Medications Home Medications: Previous Rx's Medication Instructions Recorded buprenorphine-naloxone [Suboxone] 1 film SUBLINGUAL DAILY #3 ea 06/05/20 Discharge Plan Discharge Patient Disposition: Home, Self-Care Referrals: [facility], call to set up therapist intake [Other] Hugh Sifuentes, [employer]ARER [Nurse Practitioner] - 06/08/20 9:30 am Physician,None [Primary Care Provider] - ([facility] [address] [address] [phone] OFFICE TO CALL PT WITH APPOINTMENT DATE/TIME) Discharge Medications: Discontinued buprenorphine-naloxone [Suboxone] 8-2 mg film 2 film sublingual DAILY Qty: 20 RF: 0 No Action buprenorphine-naloxone [Suboxone] 8-2 mg film 2 film sublingual DAILY Qty: 8 RF: 0 Sublocade 300 mg/1.5 mL solution, extended rel syringe 300 mg subcut ONCE Qty: 1.5 RF: 1 Discharge Orders: Discharge Order (Routine); Ordered 06/05/20 Ordered By: Shan Brennan Diet: advance to usual diet Activity on Discharge: As tolerated Stand Alone Forms: Community Support Visit Report Forms: Patient Portal Discharge page Care Plan Goals: stable mood no self harm sobriety Health Concerns: opiate use disorder adjustment disorder with mixed emotions history of ? clinical depression with past antidepressant tx Plan of Treatment: therapy na/aa suboxone treatment with hugh sifuentes aprn you are hoping for half way house Discharge Date/Time: 06/05/20 14:35 Mental Status Exam Mental Status Exam Patient Appearance: Well Grooomed and Appropriate Level of Consciousness: Restless Patient Behavior: Appropriate and Restless Mood Description: Anxious Affect Description: Anxious and Apprehensive Hallucinations: None Delusions: Not Present Thought Content: negative for Suicidal Ideation and negative for Homicidal Ideation Depressive Symptoms: Increased Anxiety and Difficulty Sleeping Data Data Completed and Pending Completed studies during hospitalization [Text1]: 05/30/20 05/30/20 05/30/20 03:20 04:49 04:49 WBC 9.8 RBC 4.23 L Hgb 12.6 L Hct 36.3 L MCV 85.8 MCH 29.8 MCHC 34.7 RDW 12.4 Plt Count 208 MPV 7.9 L Immature Gran % (Auto) 0.2 Neut % (Auto) 38.6 L Lymph % (Auto) 48.9 H Cataño % (Auto) 8.3 Eos % (Auto) 3.4 Baso % (Auto) 0.6 Lymph # (Auto) 4.8 Cataño # (Auto) 0.8 Eos # (Auto) 0.3 Baso # (Auto) 0.1 Abs Immat Gran (auto) 0.02 Absolute Neuts (auto) 3.8 Absolute Nucleated RBC 0.000 Nucleated RBC % (auto) 0.0 Sodium 143 Potassium 3.3 D Chloride 103 Carbon Dioxide 32 H Anion Gap 11 L BUN 15 Creatinine 1.10 Estim Creat Clear Calc 92.8 Estimated GFR > 60 Random Glucose 65 Fasting Glucose Calcium 8.9 D Ionized Calcium Magnesium Total Bilirubin AST ALT Alkaline Phosphatase Total Protein Albumin Triglycerides Cholesterol LDL Cholesterol, Calc HDL Cholesterol Vitamin B12 Folate Salicylates < 5.0 L Urine Opiates Screen POSITIVE H Acetaminophen < 1 Ur Barbiturates Screen Not Detected Ur Phencyclidine Scrn Not Detected Ur Amphetamines Screen Not Detected U Benzodiazepines Scrn Not Detected Urine Cocaine Screen POSITIVE H U Marijuana (THC) Screen Not Detected Ethyl Alcohol COVID-19 (JACQUELIN) COVID-19 Clin Com 05/30/20 05/31/20 06/01/20 04:49 00:23 07:57 WBC 6.2 RBC 4.86 Hgb 14.4 Hct 41.7 L MCV 85.8 MCH 29.6 MCHC 34.5 RDW 12.1 Plt Count 267 D MPV 8.1 L Immature Gran % (Auto) 0.3 Neut % (Auto) 46.1 Lymph % (Auto) 42.4 H Cataño % (Auto) 8.3 Eos % (Auto) 2.1 Baso % (Auto) 0.8 Lymph # (Auto) 2.6 Cataño # (Auto) 0.5 Eos # (Auto) 0.1 Baso # (Auto) 0.1 Abs Immat Gran (auto) 0.02 Absolute Neuts (auto) 2.9 Absolute Nucleated RBC 0.000 Nucleated RBC % (auto) 0.0 Sodium Potassium Chloride Carbon Dioxide Anion Gap BUN Creatinine Estim Creat Clear Calc Estimated GFR Random Glucose Fasting Glucose Calcium Ionized Calcium Magnesium Total Bilirubin AST ALT Alkaline Phosphatase Total Protein Albumin Triglycerides Cholesterol LDL Cholesterol, Calc HDL Cholesterol Vitamin B12 Folate Salicylates Urine Opiates Screen Acetaminophen Ur Barbiturates Screen Ur Phencyclidine Scrn Ur Amphetamines Screen U Benzodiazepines Scrn Urine Cocaine Screen U Marijuana (THC) Screen Ethyl Alcohol < 10 COVID-19 (JACQUELIN) Negative COVID-19 Clin Com See Note 06/01/20 06/01/20 06/01/20 07:57 07:57 19:00 WBC 9.5 RBC 4.84 Hgb 14.4 Hct 41.0 L MCV 84.7 MCH 29.8 MCHC 35.1 RDW 12.1 Plt Count 286 MPV 8.1 L Immature Gran % (Auto) 0.2 Neut % (Auto) 48.8 Lymph % (Auto) 42.3 H Cataño % (Auto) 6.5 Eos % (Auto) 1.7 Baso % (Auto) 0.5 Lymph # (Auto) 4.0 Cataño # (Auto) 0.6 Eos # (Auto) 0.2 Baso # (Auto) 0.1 Abs Immat Gran (auto) 0.02 Absolute Neuts (auto) 4.6 Absolute Nucleated RBC 0.000 Nucleated RBC % (auto) 0.0 Sodium 143 Potassium 5.1 D Chloride 106 Carbon Dioxide 28 Anion Gap 14 BUN 13 Creatinine 1.13 Estim Creat Clear Calc 90.3 Estimated GFR > 60 Random Glucose Fasting Glucose 102 H Calcium 9.6 D Ionized Calcium Magnesium 2.3 Total Bilirubin 0.6 AST 17 ALT 14 Alkaline Phosphatase 78 Total Protein 7.5 Albumin 4.4 Triglycerides 83 Cholesterol 178 LDL Cholesterol, Calc 106 HDL Cholesterol 56 Vitamin B12 913 H Folate 16.2 Salicylates Urine Opiates Screen Acetaminophen Ur Barbiturates Screen Ur Phencyclidine Scrn Ur Amphetamines Screen U Benzodiazepines Scrn Urine Cocaine Screen U Marijuana (THC) Screen Ethyl Alcohol COVID-19 (JACQUELIN) COVID-19 Advise Only Com 06/01/20 06/01/20 19:00 19:00 WBC RBC Hgb Hct MCV MCH MCHC RDW Plt Count MPV Immature Gran % (Auto) Neut % (Auto) Lymph % (Auto) Cataño % (Auto) Eos % (Auto) Baso % (Auto) Lymph # (Auto) Cataño # (Auto) Eos # (Auto) Baso # (Auto) Abs Immat Gran (auto) Absolute Neuts (auto) Absolute Nucleated RBC Nucleated RBC % (auto) Sodium 143 Potassium 3.7 D Chloride 107 Carbon Dioxide 26 Anion Gap 14 BUN 12 Creatinine 0.97 Estim Creat Clear Calc 105.2 Estimated GFR > 60 Random Glucose 109 D Fasting Glucose Calcium 9.1 Ionized Calcium Pending Magnesium Total Bilirubin 0.3 AST 13 ALT 13 Alkaline Phosphatase 76 Total Protein 7.3 Albumin 4.3 Triglycerides Cholesterol LDL Cholesterol, Calc HDL Cholesterol Vitamin B12 Folate Salicylates Urine Opiates Screen Acetaminophen Ur Barbiturates Screen Ur Phencyclidine Scrn Ur Amphetamines Screen U Benzodiazepines Scrn Urine Cocaine Screen U Marijuana (THC) Screen Ethyl Alcohol COVID-19 (JACQUELIN) COVID-19 Clin Com DS: Summary Hospital Course Hospital Course: [address] [address] Psychiatry Admission Note (In)Signed Patient: Sam Martinez RMR#: [id number]: 1985Acct:[id number]/Sex: 35 / MADM Date: 05/31/20Loc: [id number] of Service:05/31/20Attending Dr: Shan Brennan MD cc: ~ HPI Chief Complaint: Major Depressive D/O Recurrent Alcohol Use Sources of Information: patient interviewed, chart reviewed and crisis/core team assessment reviewed HPI Narrative: The patient is referred by the crisis team in emergency room after the patient was brought to the ER after he had been talking with a friend about overdosing on prescription medication. Patient has a history of depression history of opiate dependence. Patient was recently had a detox for substance abuse discharged himself against medical advice on May 28 after hearing that his girlfriend had overdosed. He relapsed on heroin and cocaine he had been on Suboxone up until May 14. He has been on methadone in the past. Patient states he had also been using Xanax up to 8 mg a day he has previously been treated with Abilify and Wellbutrin and sertraline in in the past. In the crisis of adhesive be ready get back on medication during interview patient stated he does not think that medication and this really helped him he has not had ongoing outpatient psychiatric treatment. Past Psychiatric History: Last on M5 in May 2019 refused psychiatric care Multiple EATS and IP programs hx past suicide attempt Medical Evaluation Reviewed: Yes [facility] Medical History Elevated LFTs Hepatitis C infection Intravenous drug abuse, continuous Scoliosis Social History: Homeless may have reconnected to parents unemployed Trauma History: Unknown HOSPITAL COURSE: [facility] BY DR. STEFF BEDOYA. patient was noted to have recently relapsed with alcohol cocaine and opiates had been added detox setting but signed himself out after he found out that his partner had from an overdose. Initially he states he felt somewhat guilty for not being there but when seen during the hospital stay he said it was because of her addiction there was nothing he could do about it and he no longer felt that he had any responsibility. He stated that people in recovery had helped him with this. Whether or not he was being sincere with this was difficult to determine patient was often guarded and other times intrusive and irritable if things did not go his way on the psychiatric unit. The patient did ask to be discharged to what was supposed to be some form of serum 0 knee deep in the peerz with other people where there would be no cellphone availability. Patient did put in a 3 day. Patient was adamant even though he had been on psychiatric medications in the past that he did not need them that generally when he was sober he felt fine. Patient had been started back on Suboxone but it did not seem like a safe decision to discharge the patient impulsively with unclear stability and supervision as he had had impulsive thoughts to overdose just prior to admission because of his feelings about his partner's overdose. Patient did have a hard time with this did eventually accepted and he was discharged on a three-day notice with referral for psychiatric [facility] to [facility]. He had initially wanted to go to a [facility] setting but stated he needed to be there to MD the apartment his girlfriend's parents were there he felt like he had enough support. patient was going to live with his aunt Emma and this was confirmed and patient's aunt felt no safety issues regarding his discharge. Patient was anxious at time of discharge did review with him lot of feelings might be coming up in next few days or few weeks as loss of his partner with whom he lives with and her children hit him over time. Patient although anxious adamantly denied any thoughts of self-harm. Was agreeable to seeing therapist at the [facility] and has an appointment to see Hugh Sifuentes [facility] with plans to start Subutex long- acting injectable. Some of patient's comments during the hospitalization question his motivation and willingness to aim for sobriety even with medically assisted treatment. Patient did not seem like an acute danger to himself or others and was discharged. He urged him to be open possibility with depressed mood insomnia patient stated he was safe did not wish any psychiatric medication he was on Suboxone time of discharge he was given Narcan to take home in case of opiate overdose he had been on clonazepam initially for question of benzodiazepine and alcohol withdrawal but this was able to be tapered and discontinued his vital signs were stable patient was urged to call the crisis team or return to the emergency room if he were to feel unstable or have self-harming thoughts after discharge patient did verbally agree to this but stated he thought he would be ok Time Spent with Patient Time attestation: Total time spent providing and/or coordinating discharge services:
[2020-06-05] MEDS: Naloxone HCl Nasal TAKE HOME 4 MG SPRAY NOSTRILALT (14:31)
[2020-06-05 16:47] LABS: Calcium, Ionized 5.1 mg/dL (4.8-5.6)
== END 2020-06-05 14:35 | disposition home or self-care (01) | DRG 751 ==
LOC: HO.ED 05-31 11:24 → HO.PM5 05-31 11:26
PROVIDERS: Admitting Provider Psychiatry & Neurology Psychiatry; Emergency Provider Student in an Organized Health Care Education/Training Program; Visit Provider Psychiatry & Neurology Psychiatry
DX: F33.9 Major depressive disorder, recurrent, unspecified (principal); R45.851 Suicidal ideations; F11.20 Opioid dependence, uncomplicated; Z20.828 Contact with and (suspected) exposure to other viral communicable diseases
CPT/HCPCS: 36415; 80048; 80053; 80061; 80307; 80320; 82330; 82607; 82746; 83735; 85025; 87635; 90792; 93005; 99231; 99232; 99285; G0480; J0572; J0573; J0574

== ENCOUNTER → 2020-06-08 09:13 | Outpatient (BNVA) | payer MEDICAID, SELFPAY | PROVIDERS: Visit Provider Nurse Practitioner Psychiatric/Mental Health | DX: F11.99 Opioid use, unspecified with unspecified opioid-induced disorder (principal) | CPT/HCPCS: 80305; 99212 ==

== ENCOUNTER → 2020-06-15 09:24 | Outpatient (BNVA) | payer MEDICAID, SELFPAY | PROVIDERS: Visit Provider Nurse Practitioner Psychiatric/Mental Health | DX: F11.99 Opioid use, unspecified with unspecified opioid-induced disorder (principal) | CPT/HCPCS: 99212 ==

== ENCOUNTER 2020-06-26 04:47 | Emergency (ER) | payer MEDICAID, SELFPAY ==
[2020-06-26 05:06] VITALS: BP 127/78; PULSE 98; RESP 18; TEMP 36.3; O2SAT 95; BMI 25.8
--- NOTE | 2020-06-26 05:46 | PC.NURSE ---
Patient compliant with knife changer process, belongings inventoried, unable to provide urine sample for GALEAS, [facility] faxed/called/spoke with Emilie/confirmed receipt of referral, will continue to monitor.
[2020-06-26 06:00] VITALS: BP 115/64; PULSE 82; RESP 18; TEMP 36.4; O2SAT 98
[2020-06-26 06:47] LABS: Amphetamine Screen Urine Not Detected (Not Detect); Barbiturates, Urine Not Detected (Not Detect); Benzodiazepines Screen Urine Not Detected (Not Detect); Cannabinoid Screen Urine Not Detected (Not Detect); Cocaine Screen Urine POSITIVE (Not Detect); Opiate Screen Urine POSITIVE (Not Detect); Phencyclidine Screen Urine Not Detected (Not Detect)
--- NOTE | 2020-06-26 07:42 | ED_ITS ---
HPI - Psych General Chief Complaint: Psychiatric Symptoms Stated Complaint: Crisis Time Seen by Provider: 06/26/20 06:51 Source: patient Mode of arrival: ambulatory History of Present Illness HPI Narrative: This is a 35-year-old male who presents of depression and suicidal ideation without a plan or intent. Patient states that he signed out AMA from his detox program that he was undergoing for heroin and benzos. He states he last used benzos a couple of days ago and heroin about 3 hours prior to presentation. He denies drinking alcohol recently and states that he has been off of his medications since signing out AMA from his detox program. Otherwise, he denies any fevers, chills, cough, sore throat, shortness of breath, chest pain/palpitations. He does have some complaints about a small raised area on his right AC which is associated with his injection site. Related Data Previous Rx's Medication Instructions Recorded buprenorphine 300 mg/1.5 mL 300 mg SUBCUT ONCE #1.5 ml 06/15/20 solution,exten.rel.subcutaneous syringe buprenorphine 8 mg-naloxone 2 mg 2 film SUBLINGUAL DAILY #14 ea 06/15/20 sublingual film Allergies Allergy/AdvReac Type Severity Reaction Status Date / Time haloperidol [From HALDOL] Allergy Intermediate N/V/D Verified 06/15/20 09:32 acetaminophen [From TYLENOL] Allergy Mild GI UPSET Verified 06/15/20 09:32 SEAFOOD Allergy Severe ANAPHYLAXIS Uncoded 06/15/20 09:32 Review of Systems Review of Systems: Pertinent positives and negatives as stated in HPI 10 point review of systems is otherwise negative. [facility], [facility] Past Medical History Source: nursing notes reviewed Medical History Elevated LFTs Hepatitis C infection Intravenous drug abuse, continuous Scoliosis Family History Family History Other Patient denies medical problems Social History Social History Household Members: Friend(s) Housing: Apartment Alcohol intake: former Smoking Status: Current every day smoker Tobacco Type: Cigarette Packs Per Day: 0.5 Cigarettes Per Day: 10.0 Years Smoked: unknown Second Hand Smoke Exposure: Yes Substance Use Type: Crack/Cocaine, Opiates and Tranquilizers Advance Directives: No Advance Directives Information Provided: No service: No Current occupational status: unemployed Sexual orientation: Straight/Heterosexual Physical Exam Vital Signs: Vital Signs: Last Vital Signs Temp 97.5 F 06/26/20 06:00 Pulse 82 06/26/20 06:00 Resp 18 06/26/20 06:00 BP 115/64 06/26/20 06:00 Pulse Ox 98 06/26/20 06:00 Body Mass Index 25.8 VITAL SIGNS: Reviewed. GENERAL: Well developed, well nourished, in no acute distress. OROPHARYNX: no oral lesions noted, posterior pharynx clear NECK: Supple, no adenopathy LUNGS: Normal breath sounds. SpO2<98> CARDIOVASCULAR: Regular rate and rhythm without noted murmurs, no JVD or lower extremity edema. ABDOMEN: Soft, non-tender, non-distended with bowel sounds. SKIN: Inspection of the skin reveals non erythematous raised area, 1.5 cm, over the right AC without fluctuance or induration. NEUROLOGIC: Alert and oriented x 4. PSYCH: Normal affect, logical thought process Course Course Course Narrative: This is a 35-year-old male with history and clinical presentation suggestive of some depression symptoms and suicidal ideation. Patient is otherwise cleared for further evaluation by the crisis team. MDM - Psych Restraints Face to Face Assessment: Face to Face Assessment: Current Situation: After assessment of the patient, a review of the pertinent medical record and a discussion with nursing staff, I feel the patient requires a restrain intervention. Reaction To: [] Medical Condition: [] Behavioral State: [] Continued Need: [] Lab Data Labs: Lab Results 06/26/20 Range/Units 06:25 Urine Opiates Screen POSITIVE H (Not Detect) Ur Barbiturates Screen Not Detected (Not Detect) Ur Phencyclidine Scrn Not Detected (Not Detect) Ur Amphetamines Screen Not Detected (Not Detect) U Benzodiazepines Scrn Not Detected (Not Detect) Urine Cocaine Screen POSITIVE H (Not Detect) U Marijuana (THC) Screen Not Detected (Not Detect) Discharge Plan Discharge Prescriptions: No Action Sublocade 300 mg/1.5 mL solution, extended rel syringe 300 mg subcut ONCE Qty: 1.5 RF: 1 buprenorphine-naloxone [Suboxone] 8-2 mg film 2 film sublingual DAILY Qty: 14 RF: 0
[2020-06-26 08:46] VITALS: BP 105/61; PULSE 69; RESP 14; TEMP 35.7; O2SAT 98
[2020-06-26] MEDS: LORazepam 1 MG TABLET PO (09:23)
[2020-06-26 11:49] LABS: COVID-19 Test Negative (Negative)
[2020-06-26 12:00] VITALS: RESP 16
--- NOTE | 2020-06-26 12:12 | PC.NURSE ---
[facility] at bedside.
== END 2020-06-26 15:32 | disposition home or self-care (01) ==
PROVIDERS: Physician Assistant; Emergency Provider Student in an Organized Health Care Education/Training Program
DX: F32.9 Major depressive disorder, single episode, unspecified (principal); R45.851 Suicidal ideations; Z20.822 Contact with and (suspected) exposure to COVID-19; F11.20 Opioid dependence, uncomplicated; F10.20 Alcohol dependence, uncomplicated; F17.210 Nicotine dependence, cigarettes, uncomplicated
CPT/HCPCS: 36415; 80307; 87635; 99284

== ENCOUNTER → 2020-06-29 09:47 | Outpatient (BNVA) | payer MEDICAID, SELFPAY | PROVIDERS: Visit Provider Nurse Practitioner Psychiatric/Mental Health | DX: F11.20 Opioid dependence, uncomplicated (principal) | CPT/HCPCS: 99212 ==

== ENCOUNTER 2020-07-03 09:25 | Outpatient (REF) | payer MEDICAID, SELFPAY ==
[2020-07-03 12:46] LABS: Amphetamine Screen Urine Not Detected (Not Detect); Barbiturates, Urine Not Detected (Not Detect); Benzodiazepines Screen Urine Not Detected (Not Detect); Cannabinoid Screen Urine Not Detected (Not Detect); Cocaine Screen Urine POSITIVE (Not Detect); Opiate Screen Urine Not Detected (Not Detect); Phencyclidine Screen Urine Not Detected (Not Detect)
[2020-07-07 10:32] LABS: Buprenorphine 110 ng/mL; Norbuprenorphine 400 ng/mL
== END 2020-07-03 09:26 | disposition home or self-care (01) ==
LOC: CF 09:25
PROVIDERS: Visit Provider Nurse Practitioner Psychiatric/Mental Health
DX: F11.99 Opioid use, unspecified with unspecified opioid-induced disorder (principal)
CPT/HCPCS: 80307; 80348; 99211

== ENCOUNTER → 2020-07-06 09:48 | Outpatient (BNVA) | payer MEDICAID, SELFPAY | PROVIDERS: Visit Provider Nurse Practitioner Psychiatric/Mental Health | DX: F11.99 Opioid use, unspecified with unspecified opioid-induced disorder (principal) | CPT/HCPCS: 80305; 99212 ==

== ENCOUNTER → 2020-07-13 09:17 | Outpatient (BNVA) | payer MEDICAID, SELFPAY | PROVIDERS: Visit Provider Nurse Practitioner Psychiatric/Mental Health | DX: F11.99 Opioid use, unspecified with unspecified opioid-induced disorder (principal) | CPT/HCPCS: 80305; 99212 ==

== ENCOUNTER → 2020-07-17 10:17 | Outpatient (BNVA) | payer MEDICAID, SELFPAY | PROVIDERS: Visit Provider Nurse Practitioner Psychiatric/Mental Health | DX: Z51.81 Encounter for therapeutic drug level monitoring (principal) | CPT/HCPCS: 80305; 99211 ==

== ENCOUNTER 2020-07-20 22:28 | Emergency (ER) | payer MEDICAID, SELFPAY ==
[2020-07-20 22:30] VITALS: BP 155/90; PULSE 104; RESP 20; TEMP 36.9; O2SAT 96; BMI 25.8
--- NOTE | 2020-07-20 23:05 | PC.NURSE ---
PATIENT REFUSING TO COME OF OF THE BATHROOM, STATING HE WANTS HIS PHONE, REFUSING TO STAY. DENIES SI OR HI AT THIS TIME. PROVIDER IN BATHROOM WITH PATIENT, PATIENT DENIES SI. CARE RACE RELATIONS ADVISER CJ TALKED TOO ABOUT PATIENT. STATING PATIENT IS FREQUENTLY SEEN IN ER. PROVIDER DISCHARGING PATIENT AND PHONE RETURNED TO HIM.
--- NOTE | 2020-07-20 23:08 | ED.PSYCH ---
HPI - Psych General Chief Complaint: Psychiatric Symptoms Stated Complaint: Crisis Time Seen by Provider: 07/20/20 23:05 Source: patient Mode of arrival: ambulatory Limitations: no limitations History of Present Illness HPI Narrative: Patient history of substance abuse depression been to different psychiatric facilities multiple times after using drugs and sing is depressed and suicidal without any plan comes here for the same thing with no plan after arrival patient refused to come out from the toilet unless we give him his phone. Patient took heroin couple of hours ago and Xanax yesterday complaint: suicidal ideation and feels depressed Duration: intermittent History of same: Yes Relieving factors: none Exacerbating factors: none Context: recent drug abuse Associated psychiatric symptoms: depression Associated symptoms: denies other symptoms Related Data Previous Rx's Medication Instructions Recorded buprenorphine 300 mg/1.5 mL 300 mg SUBCUT ONCE #1.5 ml 06/15/20 solution,exten.rel.subcutaneous syringe buprenorphine 8 mg-naloxone 2 mg 2 film SUBLINGUAL DAILY #7 ea 07/17/20 sublingual film Allergies Allergy/AdvReac Type Severity Reaction Status Date / Time haloperidol [From HALDOL] Allergy Intermediate N/V/D Verified 07/17/20 12:09 acetaminophen [From TYLENOL] Allergy Mild GI UPSET Verified 07/17/20 12:09 SEAFOOD Allergy Severe ANAPHYLAXIS Uncoded 06/15/20 09:32 Review of Systems Review of Systems: Constitutional : No Fever, No Chills ENT/Mouth : No Ear Pain, No Nasal Congestion, No sore throat Eyes: No Eye Pain, No Swelling, No Redness Cardiovascular : No Chest Pain, No SOB Respiratory : No Cough, No Sputum, No Dyspnea Gastrointestinal : No Nausea, No Vomiting, No Diarrhea, No Hematochezia, No Melena Genitourinary : No Dysuria, No Urinary Frequency, No Hematuria Musculoskeletal : No Myalgias Skin : No Skin Lesions, No rash Neuro : No Weakness, No Numbness, No Paresthesias, No Dizziness, No Headache Psych : positive Anxiety, positive Depression, positive SI neg HI Heme/Lymph: No Lymphadenopathy Endocrine : No Polyuria, No Polydipsia PMFSH Past Medical History Medical History Elevated LFTs Hepatitis C infection Intravenous drug abuse, continuous Scoliosis Family History Family History Other Patient denies medical problems Social History Social History Household Members: Friend(s) Housing: Apartment Alcohol intake: unknown Smoking Status: Unknown if ever smoked Tobacco Type: Cigarette Packs Per Day: 0.5 Cigarettes Per Day: 10.0 Years Smoked: unknown Second Hand Smoke Exposure: Yes Substance Use Type: Crack/Cocaine, Opiates and Tranquilizers Advance Directives: No service: No Current occupational status: unemployed Sexual orientation: Straight/Heterosexual Physical Exam Vital Signs: Vital Signs: Last Vital Signs Temp 98.4 F 07/20/20 22:30 Pulse 104 H 07/20/20 22:30 Resp 20 07/20/20 22:30 BP 155/90 H 07/20/20 22:30 Pulse Ox 96 07/20/20 22:30 Body Mass Index 25.8 Appearance: Alert. Oriented X3. No acute distress. Anxious Eyes: Pupils equal, round and reactive to light. ENT: Pharynx normal. Neck: Normal inspection. Neck supple. CVS: Normal heart rate and rhythm. Pulses normal. Respiratory: No respiratory distress. Breath sounds normal. Abdomen: Soft and nontender. Bowel sounds are present, no mass palpable, no CVA tenderness Skin: Skin warm and dry. Normal skin color. Normal skin turgor. Extremities: No lower extremity edema. psych; anxious denies any current suicidal ideation no hallucination or delusion Neuro: Oriented X 3. No motor deficit. No sensory deficit. MDM - Psych MDM Narrative Medical decision making narrative: Per patient's records been using IV heroin Xanax multiple substance abuse and he does not have anything he goes to hospital saying that his suicidal has he has previously said in different hospitals, at this time he does not have any plan refusing for any help will discharge him home Discharge Plan Discharge Clinical Impression: Opioid use disorder Depression Qualifiers: Depression Type: major depressive disorder Major depression recurrence: recurrent Active/Remission status: currently active Major depression episode severity: mild Qualified Code(s): F33.0 - Major depressive disorder, recurrent, mild Patient Disposition: Home, Self-Care Instructions: Depression (ED), Opioid Use Disorder (ED) Additional Instructions: Follow-up with your therapist Prescriptions: No Action buprenorphine-naloxone [Suboxone] 8-2 mg film 2 film sublingual DAILY Qty: 7 RF: 0 Sublocade 300 mg/1.5 mL solution, extended rel syringe 300 mg subcut ONCE Qty: 1.5 RF: 1 Discharge Date/Time: 07/20/20 23:11
== END 2020-07-20 23:11 | disposition home or self-care (01) ==
PROVIDERS: Emergency Provider Internal Medicine
DX: F33.0 Major depressive disorder, recurrent, mild (principal); F11.20 Opioid dependence, uncomplicated; F13.10 Sedative, hypnotic or anxiolytic abuse, uncomplicated; R45.851 Suicidal ideations; F17.210 Nicotine dependence, cigarettes, uncomplicated; Z86.19 Personal history of other infectious and parasitic diseases; Z79.899 Other long term (current) drug therapy
CPT/HCPCS: 99282; 99283

== ENCOUNTER → 2020-07-21 09:54 | Outpatient (BNVA) | payer MEDICAID, SELFPAY | PROVIDERS: Visit Provider Nurse Practitioner Psychiatric/Mental Health | DX: Z51.81 Encounter for therapeutic drug level monitoring (principal) | CPT/HCPCS: 80305; 99211 ==

== ENCOUNTER → 2020-09-12 11:19 | Outpatient (BNVA) | payer MEDICAID, SELFPAY | PROVIDERS: Visit Provider Internal Medicine | DX: Z51.81 Encounter for therapeutic drug level monitoring (principal); F11.20 Opioid dependence, uncomplicated | CPT/HCPCS: 80305; 99211 ==

== ENCOUNTER 2020-09-20 13:12 | Outpatient (REF) | payer MEDICAID, SELFPAY ==
[2020-09-24 09:06] LABS: Buprenorphine >1000 ng/mL; Norbuprenorphine 24 ng/mL
== END 2020-09-20 13:13 | disposition home or self-care (01) ==
LOC: HO.LAB 13:12
PROVIDERS: Visit Provider Internal Medicine
DX: Z51.81 Encounter for therapeutic drug level monitoring (principal); Z79.899 Other long term (current) drug therapy
CPT/HCPCS: 80305; 80348; 99211

== ENCOUNTER → 2020-09-27 09:59 | Outpatient (BNVA) | payer MEDICAID, SELFPAY | PROVIDERS: Visit Provider Internal Medicine | DX: Z51.81 Encounter for therapeutic drug level monitoring (principal) | CPT/HCPCS: 80305; 99211 ==

== ENCOUNTER 2020-10-04 10:37 | Outpatient (REF) | payer MEDICAID, SELFPAY ==
[2020-10-10 10:46] LABS: Buprenorphine >1000 ng/mL; Norbuprenorphine 60 ng/mL
== END 2020-10-04 10:38 | disposition home or self-care (01) ==
LOC: HO.LNP 10:37
PROVIDERS: Visit Provider Internal Medicine
DX: F11.99 Opioid use, unspecified with unspecified opioid-induced disorder (principal)
CPT/HCPCS: 80305; 80348; 99211

== ENCOUNTER → 2020-10-18 14:25 | Outpatient (BNVA) | payer MEDICAID, SELFPAY | PROVIDERS: Visit Provider Internal Medicine | DX: F11.99 Opioid use, unspecified with unspecified opioid-induced disorder (principal) | CPT/HCPCS: 80305; 99212 ==

== ENCOUNTER 2020-10-30 08:30 | Inpatient (IN) | payer OTHER, MEDICAID, SELFPAY ==
[2020-10-30 08:47] VITALS: BP 137/81; PULSE 89; RESP 17; TEMP 36.5; O2SAT 95; BMI 25.1
--- NOTE | 2020-10-30 09:06 | ED.PSYCH ---
HPI - Psych General Chief Complaint: Psychiatric Symptoms Stated Complaint: CRISIS Time Seen by Provider: 10/30/20 09:02 Source: patient Mode of arrival: ambulatory Limitations: no limitations History of Present Illness HPI Narrative: 35 y/o male with history of polysubstance abuse including heroin, benzos and alcohol who presents to the ER with depression and suicidal ideation for a few weeks now. He has been seen here many times for the same. He admits to heroin use, last this morning. He is very depressed with pending court date in December for which he is probably going to go to senior living. Would not elaborate. He has had ongoing drug abuse and dependence issues for years and has not been able to stay clean. He feels like he does not matter. He has had suicidal thoughts for a couple weeks. Cut his arms last week to see how it would feel. Did not cut deep. He plans to cut himself or hang himself. MD complaint: suicidal ideation, feels depressed and substance abuse Onset (ago): week(s) Duration: constant History of same: Yes Relieving factors: none Exacerbating factors: drug use Context: recent drug abuse and not taking psychiatric medications Associated psychiatric symptoms: depression and suicidal ideation Associated symptoms: insomnia Treatments prior to arrival: none If self harm: admits thoughts of self harm and has plan Details of plan: hanging or cutting Related Data Previous Rx's Medication Instructions Recorded buprenorphine 8 mg-naloxone 2 mg 2 film SUBLINGUAL DAILY 7 Days #14 10/18/20 sublingual film ea Allergies Allergy/AdvReac Type Severity Reaction Status Date / Time haloperidol [From HALDOL] Allergy Intermediate N/V/D Verified 10/04/20 11:06 acetaminophen [From TYLENOL] Allergy Mild GI UPSET Verified 10/04/20 11:06 SEAFOOD Allergy Severe ANAPHYLAXIS Uncoded 09/27/20 10:20 Review of Systems Review of Systems: Constitutional: No Fever, No Chills ENT/Mouth: No sore throat, No Rhinorrhea, No Swallowing Difficulty Eyes: No Eye Pain, No Swelling, No Redness Cardiovascular: No Chest Pain, No SOB, No Orthopnea, No Edema Respiratory: No Cough, No Sputum, No Wheezing, No dyspnea Gastrointestinal: No Nausea, No Vomiting, No Diarrhea, No abdominal Pain, No Hematochezia, No Melena Genitourinary: No Dysuria, No Urinary Frequency, No Hematuria Musculoskeletal: No joint pain, No Myalgias Skin: No Skin Lesions, No rash Neuro: No Weakness, No Numbness, No Dizziness, No Headache Psych: + Anxiety/Panic, + Depression, +SI, No HI, No AH/VH Heme/Lymph: No Bruising, No Lymphadenopathy Endocrine: No Polyuria, No Polydipsia PMFSH Past Medical History Medical History Elevated LFTs Hepatitis C infection Intravenous drug abuse, continuous Scoliosis Family History Family History Other Patient denies medical problems Social History Social History Household Members: Friend(s) Housing: Apartment Do you presently have visiting nurse or other home services: No Unable to assess alcohol history related to: Refusing to respond Alcohol intake: unknown Cigarette Packs Per Day: 0.5 Cigarettes Per Day: 10.0 Years Smoked: unknown Second Hand Smoke Exposure: Yes Substance Use Type: Crack/Cocaine, Opiates and Tranquilizers Advance Directives: No Advance Directives Information Provided: No service: No Current occupational status: unemployed Sexual orientation: Straight/Heterosexual Physical Exam Vital Signs: Vital Signs: Last Vital Signs Temp 97.7 F 10/30/20 08:47 Pulse 89 10/30/20 08:47 Resp 18 10/30/20 12:27 BP 137/81 10/30/20 08:47 Pulse Ox 95 10/30/20 08:47 Body Mass Index 25.1 Appearance: Alert. Oriented X3. No acute distress. Poor hygiene. Sleepy at times. Eyes: Pupils equal, round and reactive to light. ENT: Pharynx normal. Neck: Normal inspection. Neck supple. CVS: Normal heart rate and rhythm. Pulses normal. Respiratory: No respiratory distress. Breath sounds normal. Abdomen: Soft and nontender. +BS x4 Skin: Skin warm and dry. Normal skin color. Normal skin turgor. No rashes. Extremities: No lower extremity edema. No stigma of IV drug use. Neuro/Psych: Oriented X 3. No motor deficit. No sensory deficit. Depressed/flat affect. Poor insight. Course Course Course Narrative: 35 y/o male with polysubstance and depression presenting with worsening depression and suicidal thoughts. Has a plan and has recently cut his arm. Will get lab workup and N consult. Reevaluation(s) Reevaluation #1: Labs showing mild HECTOR with SCr 1.4. Ordered IV hydration but patient is refusing and IV and IVF. Given large jug of water and he is eating and drinking well. Will repeat chemistry later to ensure it is improving. Reevaluation #2: Seen by N who is recommending inpatient level of care. Physician observation started at 3pm. Patient placed in physician observation because patient is awaiting an inpatient psych admission. At the time observation was started patient's vital signs were stable. Patient is alert and oriented. Neuro exam is non-focal. CV: RRR and lungs are clear. Will continue to monitor. Consultations Consultation #1: [facility] - Psych Lab Data Result diagrams: 10/30/20 09:28 10/30/20 09:28 Labs: Lab Results 10/30/20 10/30/20 10/30/20 Range/Units 09:28 09:28 09:28 WBC 6.6 (4.8-10.8) X10*3/uL RBC 4.15 L (4.60-5.80) X10*6/uL Hgb 12.1 L (14.0-18.0) g/dl Hct 35.9 L (42-52) % MCV 86.5 (80-98) fL MCH 29.2 (27.0-33.0) pg MCHC 33.7 (31.0-36.0) g/dl RDW 12.9 (11.0-16.0) % Plt Count 223 (160-400) X10*3/uL MPV 8.1 L (9.4-12.4) fL Immature Gran % (Auto) 0.2 (0.0-0.4) % Neut % (Auto) 52.8 (45-73) % Lymph % (Auto) 37.3 (20-40) % [place] % (Auto) 8.0 (2-11) % Eos % (Auto) 1.1 (0-4) % Baso % (Auto) 0.6 (0-2) % Lymph # (Auto) 2.5 (1.2-4.9) X10*3/uL [place] # (Auto) 0.5 (0.1-1.2) X10*3/uL Eos # (Auto) 0.1 (0.0-0.4) X10*3/uL Baso # (Auto) 0.0 (0.0-0.2) X10*3/uL Abs Immat Gran (auto) 0.01 (0.00-0.03) X10*3/uL Absolute Neuts (auto) 3.5 (2.0-8.3) X10*3/uL Absolute Nucleated RBC 0.000 (0.0-0.012) X10*3/uL Nucleated RBC % (auto) 0.0 (0.0-0.2) /100WBC Sodium 142 (135-145) mmol/L Potassium 4.0 (3.3-5.1) mmol/L Chloride 106 (96-108) mmol/L Carbon Dioxide 29 (22-29) mmol/L Anion Gap 11 L (12-20) BUN 13 (9-16) mg/dL Creatinine 1.42 H (0.5-1.4) mg/dL Estim Creat Clear Calc 71.9 Estimated GFR 56 Random Glucose 126 H (60-115) mg/dL Calcium 9.9 D (8.4-10.2) mg/dL Total Bilirubin 0.8 (0.0-1.0) mg/dL Direct Bilirubin 0.3 (0.0-0.5) mg/dL AST 23 D (5-37) U/L ALT 49 H (0-40) U/L Alkaline Phosphatase 86 (39-117) U/L Total Protein 7.3 (6.5-8.0) g/dL Albumin 4.5 (3.5-5.0) g/dL Urine Opiates Screen (Not Detect) Ur Barbiturates Screen (Not Detect) Ur Phencyclidine Scrn (Not Detect) Ur Amphetamines Screen (Not Detect) U Benzodiazepines Scrn (Not Detect) Urine Cocaine Screen (Not Detect) U Marijuana (THC) Screen (Not Detect) Ethyl Alcohol < 10 mg/dL 10/30/20 Range/Units 09:28 WBC (4.8-10.8) X10*3/uL RBC (4.60-5.80) X10*6/uL Hgb (14.0-18.0) g/dl Hct (42-52) % MCV (80-98) fL MCH (27.0-33.0) pg MCHC (31.0-36.0) g/dl RDW (11.0-16.0) % Plt Count (160-400) X10*3/uL MPV (9.4-12.4) fL Immature Gran % (Auto) (0.0-0.4) % Neut % (Auto) (45-73) % Lymph % (Auto) (20-40) % [place] % (Auto) (2-11) % Eos % (Auto) (0-4) % Baso % (Auto) (0-2) % Lymph # (Auto) (1.2-4.9) X10*3/uL [place] # (Auto) (0.1-1.2) X10*3/uL Eos # (Auto) (0.0-0.4) X10*3/uL Baso # (Auto) (0.0-0.2) X10*3/uL Abs Immat Gran (auto) (0.00-0.03) X10*3/uL Absolute Neuts (auto) (2.0-8.3) X10*3/uL Absolute Nucleated RBC (0.0-0.012) X10*3/uL Nucleated RBC % (auto) (0.0-0.2) /100WBC Sodium (135-145) mmol/L Potassium (3.3-5.1) mmol/L Chloride (96-108) mmol/L Carbon Dioxide (22-29) mmol/L Anion Gap (12-20) BUN (9-16) mg/dL Creatinine (0.5-1.4) mg/dL Estim Creat Clear Calc Estimated GFR Random Glucose (60-115) mg/dL Calcium (8.4-10.2) mg/dL Total Bilirubin (0.0-1.0) mg/dL Direct Bilirubin (0.0-0.5) mg/dL AST (5-37) U/L ALT (0-40) U/L Alkaline Phosphatase (39-117) U/L Total Protein (6.5-8.0) g/dL Albumin (3.5-5.0) g/dL Urine Opiates Screen POSITIVE H (Not Detect) Ur Barbiturates Screen Not Detected (Not Detect) Ur Phencyclidine Scrn Not Detected (Not Detect) Ur Amphetamines Screen Not Detected (Not Detect) U Benzodiazepines Scrn Not Detected (Not Detect) Urine Cocaine Screen POSITIVE H (Not Detect) U Marijuana (THC) Screen Not Detected (Not Detect) Ethyl Alcohol mg/dL Discharge Plan Discharge Prescriptions: No Action buprenorphine-naloxone [Suboxone] 8-2 mg film 2 film sublingual DAILY 7 Days Qty: 14 RF: 0 Hold Instructions: Doctor's Order
[2020-10-30 09:40] LABS: MANUAL DIFF FLAG NO
[2020-10-30 09:43] LABS: Basophils Percent Auto 0.6 % (0-2); Eosinophils Absolute Auto 0.1 X10*3/uL (0.0-0.4); Eosinophils Percent Auto 1.1 % (0-4); Hematocrit 35.9 % (42-52); Hemoglobin 12.1 g/dl (14.0-18.0); Imm Gran Abs Auto 0.01 X10*3/uL (0.00-0.03); Imm Gran Pct Auto 0.2 % (0.0-0.4); Lymphocytes Absolute Auto 2.5 X10*3/uL (1.2-4.9); Lymphocytes Percent Auto 37.3 % (20-40); Mean Corpuscular HGB Conc 33.7 g/dl (31.0-36.0); Mean Corpuscular Hemoglobin 29.2 pg (27.0-33.0); Mean Corpuscular Volume 86.5 fL (80-98); Mean Platelet Volume 8.1 fL (9.4-12.4); Monocytes Absolute Auto 0.5 X10*3/uL (0.1-1.2); Neutrophils Absolute Auto 3.5 X10*3/uL (2.0-8.3); Neutrophils Percent Auto 52.8 % (45-73); Platelet Count 223 X10*3/uL (160-400); Red Blood Count 4.15 X10*6/uL (4.60-5.80); Red Cell Distribution Width 12.9 % (11.0-16.0); White Blood Count 6.6 X10*3/uL (4.8-10.8)
[2020-10-30] MEDS: LORazepam 1 MG TABLET PO (09:50)
[2020-10-30 10:11] LABS: Ethanol < 10 mg/dL
[2020-10-30 10:16] LABS: Alanine Aminotransferase 49 U/L (0-40); Albumin Level 4.5 g/dL (3.5-5.0); Alkaline Phosphatase 86 U/L (39-117); Anion Gap 11 (12-20); Aspartate Amino Transferase 23 U/L (5-37); Bilirubin Direct 0.3 mg/dL (0.0-0.5); Bilirubin Total 0.8 mg/dL (0.0-1.0); Blood Urea Nitrogen 13 mg/dL (9-16); Calcium 9.9 mg/dL (8.4-10.2); Carbon Dioxide 29 mmol/L (22-29); Chloride 106 mmol/L (96-108); Creatinine Clr Calc Pharmacy 71.9; Estimated Glomerular Filt Rate 56; Glucose Random 126 mg/dL (60-115); Sodium 142 mmol/L (135-145); Total Protein 7.3 g/dL (6.5-8.0)
[2020-10-30 10:17] LABS: Amphetamine Screen Urine Not Detected (Not Detect); Barbiturates, Urine Not Detected (Not Detect); Benzodiazepines Screen Urine Not Detected (Not Detect); Cannabinoid Screen Urine Not Detected (Not Detect); Cocaine Screen Urine POSITIVE (Not Detect); Opiate Screen Urine POSITIVE (Not Detect); Phencyclidine Screen Urine Not Detected (Not Detect)
[2020-10-30 12:27] VITALS: RESP 18
--- NOTE | 2020-10-30 15:22 | PC.NURSE ---
pt report taken from sonny rowland pt ambulated w this rn over to [facility] pod w steady gait. given snack per request. resting in [place] at this time. speaking w ha from recovery team att.
--- NOTE | 2020-10-30 16:02 | MHC.RECOVSUP ---
Recovery Support note: Patient is a 35 year old Surinamese speaking male who presented to [facility] reporting SI and substance use. Patient was evaluated by [facility] and is currently awaiting an inpatient psychiatric bed placement. This bond underwriter checked in with patient to offer support. Patient is frustrated at this time due to the commotion in the pod. Reassured patient that he would get a private room as soon as one is available. Patient reports he used heroin this morning. Patient has found Suboxone helpful in the past and is interested in restarting it when appropriate. Patient is familiar with Suboxone initiation and will reach out to staff when he begins to feel withdrawal symptoms. Discussed case with patient's RN.
--- NOTE | 2020-10-30 17:22 | PC.NURSE ---
pt given water d/t increased renal function on labs. pt has been requiring frequent encouragement to drink water, intermittently dozing off while watching tv in [facility], offers no new complaints att.
[2020-10-30 23:45] VITALS: BP 105/66; PULSE 71; RESP 16; TEMP 36.3; O2SAT 95
--- NOTE | 2020-10-31 | ECG_ITS ---
Test Reason : MED CLEARANCE Blood Pressure : / mmHG Vent. Rate : 067 BPM Atrial Rate : 067 BPM P-R Int : 174 ms QRS Dur : 092 ms QT Int : 452 ms P-R-T Axes : 040 028 036 degrees QTc Int : 477 ms Normal sinus rhythm ST elevation, consider early repolarization Borderline ECG When compared with ECG of 30-MAY-2020 23:47, No significant change was found Referred By: Aniyah Gan Electronically Signed By:MERRY PEREIRA MD
[2020-10-31 07:08] VITALS: BP 116/69; PULSE 73; RESP 15; TEMP 36.2; O2SAT 97
[2020-10-31 07:27] VITALS: RESP 16
--- NOTE | 2020-10-31 07:45 | PC.NURSE ---
PT Ate 100% of Breakfast
--- NOTE | 2020-10-31 08:23 | PHA.MEDREC ---
Pharmacy Consult ? Medication Reconciliation Pharmacy has completed the medication reconciliation there were no significant medication issues requiring provider attention. Aniyah Kinsey, PharmD [phone]
[2020-10-31 08:35] VITALS: BP 110/62; PULSE 74; TEMP 36.8; O2SAT 95
[2020-10-31 10:26] VITALS: BP 127/85; PULSE 67; RESP 16; O2SAT 96
--- NOTE | 2020-10-31 10:28 | PC.NURSE ---
pt a/o x 3 no sob/josh noted skin pink warm dry speaks in full sentences. pt states +si at this time. pt aware of plan of care.
[2020-10-31 11:45] LABS: Anion Gap 7 (12-20); Blood Urea Nitrogen 12 mg/dL (9-16); Calcium 9.3 mg/dL (8.4-10.2); Carbon Dioxide 33 mmol/L (22-29); Chloride 105 mmol/L (96-108); Creatinine Clr Calc Pharmacy 106.3; Estimated Glomerular Filt Rate > 60; Glucose Random 92 mg/dL (60-115); Potassium 4.2 mmol/L (3.3-5.1); Sodium 141 mmol/L (135-145)
[2020-10-31] MEDS: LORazepam 1 MG TABLET PO (11:52)
--- NOTE | 2020-10-31 11:53 | PC.NURSE ---
pt c/o increase anxiety, med x 1 with ativan 1mg.
--- NOTE | 2020-10-31 13:12 | PC.NURSE ---
pt states that the ativan 1mg po given for increase anxiety was somewhat effective.
--- NOTE | 2020-10-31 13:32 | PC.NURSE ---
pt ate 100% of lunch.
[2020-10-31 14:27] VITALS: RESP 15
[2020-10-31 15:56] LABS: COVID-19 Test Negative (Negative); IDNOW Serial# 9DD0AD1C
[2020-10-31 21:15] VITALS: BP 115/63; PULSE 67; RESP 15; O2SAT 97
[2020-10-31] MEDS: QUEtiapine Fumarate 50 MG TABLET PO (22:53)
--- NOTE | 2020-11-01 00:48 | PC.ADMIT ---
Pt is a 35 year old male who came into [facility] with increased SI and depression. Tox screen was positive for opiates and cocaine. Reports recent use of heroin. Pt has a superficial cut on his L. wrist from wanting to know if it would hurt. Per eval from [facility] he reports that he has an upcoming court date in December that he may be facing [facility] time. Was frustrated on arrival to unit because he thought that he would be receiving his suboxone at bedtime. Requested that he have Seroquel for sleeop and provided limited responses for admission assessment. Although , he vocalized SI with a plan to hang or slit his wrist pt reports that he feels safe on the unit and would come to staff if feeling otherwise. Currently homeless. Suboxone through [facility] Kourtney Sifuentes noted. Placed on 15 minute checks.Medications ordered and obtained by converting technician doctor. CV signed. Vitals WNL.
[2020-11-01] MEDS: Buprenorphine/Naloxone 8/2 mg FILM 2 FILM SUBLINGUAL (08:29)
[2020-11-01] MEDS: hydrOXYzine HCL 25 MG TABLET 50 MG PO (10:03)
--- NOTE | 2020-11-01 12:51 | HO.PSYADMNOT ---
HPI Chief Complaint: Depression and SI and opiate withdrawal Sources of Information: patient interviewed, chart reviewed and crisis/core team assessment reviewed HPI Subjective Notes: Conditional Voluntary Healthcare Proxy: No Guardianship: No Medical Problems Affecting Mental Status: No Narrative: 35 yo male reports an increase in depression, SI with plan to hang himself, recent SIBS-cutting his arm superficially. Upcoming court date December 2020 which may result in pt being incarcerated.Pt telling crisis he feels he has lost everything-job secondary to schedule issues, housing, feeling insignificant waiting for eval in hospital. Tells team he is sick of it all and does not want to try anymore. Today, attempted to meet with pt times 3 however he refused to get out of bed or talk while in bed. Past Psychiatric History: Last on M5 in May 2019 refused psychiatric care, IP: 5 Multiple EATS and IP programs hx past suicide attempt Currently on Suboxone 12/25 bid Crisis Stabilization:4 admissions Several detox admissions. Medical Evaluation Reviewed: Yes [facility] Medical History Elevated LFTs Hepatitis C infection Intravenous drug abuse, continuous Scoliosis Family History: Depression, completed suicides, substance abuse Social History: Raised by biological parents. Two siblings High school graduate, some college completed Single, no children Currently unemployed, homeless, possibly facing incarceration when he goes to court in December 2020. Substance History: Alcohol, Benzodiazepines, Cocaine-IV hx, Crack, Heroin-began age 26,3-4 bundles daily- recent relapse. Hx of Suboxone with [facility] Diagnostics Vital Signs (24Hr): Vital Signs - 24 hr 10/31/20 14:27 10/31/20 21:15 Pulse Rate 67 Respiratory Rate 15 15 Blood Pressure 115/63 Pulse Oximetry 97 Body Mass Index 25.1 Labs Results: 10/30/20 09:28 10/31/20 10:52 Labs: Laboratory Results - last 48 hr 10/31/20 10/31/20 10:52 15:22 Sodium 141 Potassium 4.2 Chloride 105 Carbon Dioxide 33 H Anion Gap 7 L BUN 12 Creatinine 0.96 Estim Creat Clear Calc 106.3 Estimated GFR > 60 Random Glucose 92 Calcium 9.3 D COVID-19 (JACQUELIN) Negative COVID-19 Clin Com See Note Meds/Allergies Meds Home Medications Al Hydroxide/Mg Hydroxide (Magnesium Hydrox/Alum Hydrox 30 Ml Oral.Susp) 30 ml PO Q6H PRN PRN Reason: Heartburn/Nausea Buprenorphine/Naloxone (Buprenorphine/Naloxone 8/2 Mg Film) 2 film SUBLINGUAL DAILY DARNELL Last Admin: 11/01/20 08:29 Dose: 1 film Documented by: Hydroxyzine HCl (Hydroxyzine Hcl 25 Mg Tablet) 50 mg PO QID PRN PRN Reason: Anxiety Last Admin: 11/01/20 10:03 Dose: 50 mg Documented by: Ibuprofen (Ibuprofen 600 Mg Tablet) 600 mg PO QID PRN PRN Reason: pain Magnesium Hydroxide (Milk Of Magnesia 30 Ml Oral.Susp) 30 ml PO DAILY PRN PRN Reason: Constipation Quetiapine Fumarate (Quetiapine Fumarate 50 Mg Tablet) 50 mg PO QID PRN PRN Reason: agitation Last Admin: 10/31/20 22:53 Dose: 50 mg Documented by: Trazodone HCl (Trazodone Hcl 50 Mg Tablet) 50 mg PO BEDTIME PRN PRN Reason: Insomnia Allergies Allergies Allergy/AdvReac Type Severity Reaction Status Date / Time haloperidol [From HALDOL] Allergy Intermediate N/V/D Verified 10/04/20 11:06 acetaminophen [From TYLENOL] Allergy Mild GI UPSET Verified 10/04/20 11:06 SEAFOOD Allergy Severe ANAPHYLAXIS Uncoded 09/27/20 10:20 Mental Status Exam Mental Status Exam Patient Appearance: Fatigued and Disheveled Patient Orientation: Person and Place Level of Consciousness: Sedated Patient Behavior: Guarded, Avoidant, Fatigued, Distractible, Isolative, Uncooperative and Poor Eye Contact Mood Description: Flat Affect Description: Flat Ability to Follow Directions: Poor Speech Pattern: Spontaneous Speech, Poor Articulation and Long Pauses Thought Content: positive for Suicidal Ideation Depressive Symptoms: Sleeping More Than Usual Judgement: Poor Assessment & Plan Assessment & Plan (1) Alcohol use disorder, severe, dependence: Status: Acute Code(s): F10.20 - Alcohol dependence, uncomplicated (2) Opioid use disorder: Status: Acute Code(s): F11.99 - Opioid use, unspecified with unspecified opioid-induced disorder (3) Polysubstance (including opioids) dependence, daily use: Status: Acute Code(s): F11.20 - Opioid dependence, uncomplicated; F19.20 - Other psychoactive substance dependence, uncomplicated Assessment and Plan: 35 yo male presents with reports of increasing depression, SI, relapse of heroin and cocaine in the context of loss of job, homelessness, and pending court date in December 2020 with a possibility of incarceration. Pt refused to meet x 3 today. Will attempt to form alliance and gather collateral. Informed Consent: does not understand and further education needed Reason for continued inpatient stay Substantial Risk for: harm to self, harm to others, inability to function and rapid decompensation
[2020-11-01] MEDS: QUEtiapine Fumarate 50 MG TABLET PO (20:55)
[2020-11-01] MEDS: traZODone HCL 50 MG TABLET PO (20:56)
[2020-11-02 06:00] VITALS: BP 129/94; PULSE 66; RESP 16; TEMP 36.7; O2SAT 97
[2020-11-02 07:00] VITALS: BMI 26.2
[2020-11-02] MEDS: Buprenorphine/Naloxone 8/2 mg FILM 2 FILM SUBLINGUAL (08:31)
[2020-11-02] MEDS: OXcarbazepine 300 MG TABLET PO ×2 (12:57→20:54)
[2020-11-02] MEDS: LORazepam 1 MG TABLET PO ×2 (12:57→20:53)
[2020-11-02] MEDS: QUEtiapine Fumarate 50 MG TABLET PO (17:06)
--- NOTE | 2020-11-02 17:18 | P.PNPSI_ITS ---
Subjective Subjective Date of Service: 11/02/20 Reason For Visit: Depression and SI and opiate withdrawal Subjective Notes: Conditional Voluntary Healthcare Proxy: No Guardianship: No Medical Problems Affecting Mental Status: No Interim History: Minimal engagement. Poor historian. Reports anxiety being here. States hx of clonidine, hydroxyzine ineffective. Agreed to lorazepam and trial of Trileptal. Will consider and antidepressant. Not wanting to talk about current stressors precipitants. Expects to be incarcerated in December. Asks for assist being admitted to a [facility]. Medication Compliance: Yes Side effects from medications: No Attending Groups: No Review of Systems Reports behavioral changes Psychiatric: Reports abnormal sleep pattern, Reports anxiety, Reports behavioral changes, Reports depression, Reports difficulty concentrating, Reports hopelessness, Reports irritability, Reports mood swings, Reports paranoia, Reports hallucinations and Reports suicidal ideation Mental Status Exam Mental Status Exam Patient Appearance: Fatigued and Disheveled Patient Orientation: Person, Place, Time and Situation Level of Consciousness: Awake and Alert Patient Behavior: Guarded, Suspicious and Avoidant Mood Description: Constricted Affect Description: Constricted Ability to Follow Directions: Good Speech Pattern: Spontaneous Speech and Coherent Memory Description: Episodic Impaired Hallucinations: None Delusions: Paranoid Ideation Thought Process: Distracted and Rumination Thought Content: positive for [place] and positive for Circumstantial Depressive Symptoms: Increased Anxiety, Insomnia, Diff. Making Decisions, Increa sed Irritability, Difficulty Sleeping, Changes in Appetite, Loss of Int. in Activity, Feelings of Worthlessness, Hopelessness, Isolating-Friends/Family, Feelings of Guilt, Unhappiness, Increased Fatigue, Thoughts of /Suicide, Low Self Esteem, Loss of Energy and Difficulty Concentrating Judgement: Fair Diagnostics Vital Signs (24Hr): Vital Signs - 24 hr 11/02/20 06:00 Temperature 98.1 F Pulse Rate 66 Respiratory Rate 16 Blood Pressure 129/94 H Pulse Oximetry 97 Body Mass Index 25.1 Labs Results: 10/30/20 09:28 10/31/20 10:52 Medications Medications Current Medications Generic Name Dose Route Start Last Admin Trade Name Freq PRN Reason Stop Dose Admin Al Hydroxide/Mg Hydroxide 30 ml 10/31/20 21:10 Magnesium Hydrox/Alum Hydrox 30 Ml Oral.Susp PO Q6H PRN Heartburn/Nausea Buprenorphine/Naloxone 2 film 11/01/20 09:00 11/02/20 08:31 Buprenorphine/Naloxone 8/2 Mg Film SUBLINGUAL 2 film DAILY DARNELL Administration Hydroxyzine HCl 50 mg 10/31/20 21:10 11/01/20 10:03 Hydroxyzine Hcl 25 Mg Tablet PO 50 mg QID PRN Administration Anxiety Ibuprofen 600 mg 10/31/20 21:10 Ibuprofen 600 Mg Tablet PO QID PRN pain Lorazepam 1 mg 11/02/20 12:36 11/02/20 12:57 Lorazepam 1 Mg Tablet PO 1 mg Q4H PRN Administration Anxiety Magnesium Hydroxide 30 ml 10/31/20 21:10 Milk Of Magnesia 30 Ml Oral.Susp PO DAILY PRN Constipation Oxcarbazepine 300 mg 11/02/20 12:45 11/02/20 12:57 Oxcarbazepine 300 Mg Tablet PO 300 mg BID DARNELL Administration Quetiapine Fumarate 50 mg 10/31/20 21:10 11/02/20 17:06 Quetiapine Fumarate 50 Mg Tablet PO 50 mg QID PRN Administration agitation Trazodone HCl 50 mg 10/31/20 21:10 11/01/20 20:56 Trazodone Hcl 50 Mg Tablet PO 50 mg BEDTIME PRN Administration Insomnia Allergies Allergies Allergy/AdvReac Type Severity Reaction Status Date / Time haloperidol [From HALDOL] Allergy Intermediate N/V/D Verified 10/04/20 11:06 acetaminophen [From TYLENOL] Allergy Mild GI UPSET Verified 10/04/20 11:06 SEAFOOD Allergy Severe ANAPHYLAXIS Uncoded 09/27/20 10:20 Assessment & Plan Assessment & Plan (1) Alcohol use disorder, severe, dependence: Status: Acute Code(s): F10.20 - Alcohol dependence, uncomplicated (2) Opioid use disorder: Status: Acute Code(s): F11.99 - Opioid use, unspecified with unspecified opioid-induced disorder (3) Polysubstance (including opioids) dependence, daily use: Status: Acute Code(s): F11.20 - Opioid dependence, uncomplicated; F19.20 - Other psychoactive substance dependence, uncomplicated Assessment and Plan: 35 yo male presents with reports of increasing depression, SI, relapse of heroin and cocaine in the context of loss of job, homelessness, and pending court date in December 2020 with a possibility of incarceration. Pt refused to meet x 3 today. Will attempt to form alliance and gather collateral. 1. Trileptal 300 mg bid 2. Ativan prn Greater than 50% of the session was spent on counseling and/or coordination of care Reason for contiued inpatient stay Substantial Risk for: harm to self, inability to function and rapid decompensation
[2020-11-02 18:00] VITALS: BP 98/56; PULSE 77; TEMP 36.8
[2020-11-03 06:00] VITALS: BP 121/70; PULSE 72; RESP 16; TEMP 37.1; O2SAT 96
[2020-11-03] MEDS: Buprenorphine/Naloxone 8/2 mg FILM 2 FILM SUBLINGUAL (08:38)
[2020-11-03] MEDS: OXcarbazepine 300 MG TABLET PO (08:38)
[2020-11-03] MEDS: LORazepam 1 MG TABLET PO ×4 (08:41→23:38)
[2020-11-03] MEDS: QUEtiapine Fumarate 50 MG TABLET PO ×3 (09:46→22:42)
[2020-11-03 17:10] VITALS: BP 129/83; PULSE 94; TEMP 36.9
[2020-11-03] MEDS: LORazepam 0.5 MG TABLET 1 MG PO (17:31)
--- NOTE | 2020-11-03 18:35 | P.PNPSI_ITS ---
Subjective Subjective Date of Service: 11/03/20 Reason For Visit: Depression and SI and opiate withdrawal Subjective Notes: Conditional Voluntary Healthcare Proxy: No Guardianship: No Medical Problems Affecting Mental Status: No Interim History: Isolative, in bed, awake, alert, not wanting to communicate much. States anxiety is from hospitalization. When I am on the street I am not like this. Hoping to attend [facility]. Medication Compliance: Yes Side effects from medications: No Attending Groups: No Review of Systems Psychiatric: Reports abnormal sleep pattern, Reports anxiety, Reports behavioral changes, Reports change in appetite, Reports difficulty concentrating and Reports irritability Mental Status Exam Mental Status Exam Patient Appearance: Disheveled Patient Orientation: Person, Place, Time and Situation Level of Consciousness: Alert Patient Behavior: Guarded, Suspicious and Avoidant Mood Description: Suspicious and Withdrawn Affect Description: Flat Patient Cognition Impaired: No Ability to Follow Directions: Good Speech Pattern: Spontaneous Speech Memory Description: Episodic Impaired Thought Process: Distracted and Rumination Thought Content: positive for Bishop and positive for Circumstantial Depressive Symptoms: Increased Anxiety, Increased Irritability, Difficulty Sleeping and Changes in Appetite Judgement: Fair Diagnostics Vital Signs (24Hr): Vital Signs - 24 hr 11/03/20 06:00 11/03/20 17:10 Temperature 98.7 F 98.5 F Pulse Rate 72 94 Respiratory Rate 16 Blood Pressure 121/70 129/83 Pulse Oximetry 96 Body Mass Index 26.2 Labs Results: 10/30/20 09:28 10/31/20 10:52 Medications Medications Current Medications Generic Name Dose Route Start Last Admin Trade Name Freq PRN Reason Stop Dose Admin Al Hydroxide/Mg Hydroxide 30 ml 10/31/20 21:10 Magnesium Hydrox/Alum Hydrox 30 Ml Oral.Susp PO Q6H PRN Heartburn/Nausea Buprenorphine/Naloxone 2 film 11/01/20 09:00 11/03/20 08:38 Buprenorphine/Naloxone 8/2 Mg Film SUBLINGUAL 2 film DAILY DARNELL Administration Hydroxyzine HCl 50 mg 10/31/20 21:10 11/01/20 10:03 Hydroxyzine Hcl 25 Mg Tablet PO 50 mg QID PRN Administration Anxiety Ibuprofen 600 mg 10/31/20 21:10 Ibuprofen 600 Mg Tablet PO QID PRN pain Lorazepam 1 mg 11/02/20 12:36 11/03/20 14:27 Lorazepam 1 Mg Tablet PO 1 mg Q4H PRN Administration Anxiety Magnesium Hydroxide 30 ml 10/31/20 21:10 Milk Of Magnesia 30 Ml Oral.Susp PO DAILY PRN Constipation Oxcarbazepine 600 mg 11/03/20 21:00 Oxcarbazepine 300 Mg Tablet PO BID DARNELL Quetiapine Fumarate 50 mg 10/31/20 21:10 11/03/20 16:44 Quetiapine Fumarate 50 Mg Tablet PO 50 mg QID PRN Administration agitation Trazodone HCl 50 mg 10/31/20 21:10 11/01/20 20:56 Trazodone Hcl 50 Mg Tablet PO 50 mg BEDTIME PRN Administration Insomnia Allergies Allergies Allergy/AdvReac Type Severity Reaction Status Date / Time haloperidol [From HALDOL] Allergy Intermediate N/V/D Verified 10/04/20 11:06 acetaminophen [From TYLENOL] Allergy Mild GI UPSET Verified 10/04/20 11:06 SEAFOOD Allergy Severe ANAPHYLAXIS Uncoded 09/27/20 10:20 Assessment & Plan Assessment & Plan (1) Alcohol use disorder, severe, dependence: Status: Acute Code(s): F10.20 - Alcohol dependence, uncomplicated (2) Opioid use disorder: Status: Acute Code(s): F11.99 - Opioid use, unspecified with unspecified opioid-induced disorder (3) Polysubstance (including opioids) dependence, daily use: Status: Acute Code(s): F11.20 - Opioid dependence, uncomplicated; F19.20 - Other psychoactive substance dependence, uncomplicated Assessment and Plan: 35 yo male presents with reports of increasing depression, SI, relapse of heroin and cocaine in the context of loss of job, homelessness, and pending court date in December 2020 with a possibility of incarceration. Pt refused to meet x 3 today. Will attempt to form alliance and gather collateral. 1. Increase Trileptal 600 mg bid 2. Ativan prn (4) Substance induced mood disorder: Status: Acute Code(s): F19.94 - Other psychoactive substance use, unspecified with psychoactive substance-induced mood disorder Greater than 50% of the session was spent on counseling and/or coordination of care Reason for contiued inpatient stay Substantial Risk for: harm to self, inability to function, rapid decompensation and med/psych decompensation
[2020-11-03] MEDS: OXcarbazepine 300 MG TABLET 600 MG PO (19:51)
[2020-11-04] MEDS: hydrOXYzine HCL 25 MG TABLET 50 MG PO ×3 (01:33→18:55)
[2020-11-04] MEDS: QUEtiapine Fumarate 50 MG TABLET PO ×2 (05:06→10:20)
[2020-11-04] MEDS: LORazepam 1 MG TABLET PO ×3 (08:43→20:38)
--- NOTE | 2020-11-04 09:10 | HO.PSYCHPN ---
Subjective Subjective Date of Service: 11/05/20 Reason For Visit: Depression and SI and opiate withdrawal Interim History: pt reports he feels anxious and would like more ativan; he also reports depression though denies SI/HI. Pt says he does not want Trileptal as it kept him awake last night. Also does not want Trazodone. Pt reports he's taken numerous medications and none of them work. Medical Billing And Coding Specialist discusses risks/side-effects of benzo's and why this is not a sustainable option. fiction and nonfiction writer prose reviewed options and pt agrees to trial of Prozac. Medication Compliance: Intermittent (no longer wants trileptal) Mental Status Exam Mental Status Exam Narrative: Appearance: unkempt; scruffy Patient Orientation: Person, Place, Time and Situation Level of Consciousness: Alert Patient Behavior: tearful Mood Description: anxious/depressed Affect Description: congruent Patient Cognition Impaired: No Ability to Follow Directions: Good Speech Pattern: Spontaneous Speech Memory Description: Episodic Impaired Thought Process: logical; goal oriented Thought Content: treatment denies SI or HI Depressive Symptoms: Increased Anxiety, Increased Irritability, Difficulty Sleeping and Changes in Appetite Judgement: Fair Diagnostics Vital Signs (24Hr): Vital Signs - 24 hr 11/03/20 17:10 Temperature 98.5 F Pulse Rate 94 Blood Pressure 129/83 Body Mass Index 26.2 Labs Results: 10/30/20 09:28 10/31/20 10:52 Medications Medications Current Medications Generic Name Dose Route Start Last Admin Trade Name Freq PRN Reason Stop Dose Admin Al Hydroxide/Mg Hydroxide 30 ml 10/31/20 21:10 Magnesium Hydrox/Alum Hydrox 30 Ml Oral.Susp PO Q6H PRN Heartburn/Nausea Buprenorphine/Naloxone 2 film 11/01/20 09:00 11/03/20 08:38 Buprenorphine/Naloxone 8/2 Mg Film SUBLINGUAL 2 film DAILY DARNELL Administration Hydroxyzine HCl 50 mg 10/31/20 21:10 11/04/20 01:33 Hydroxyzine Hcl 25 Mg Tablet PO 50 mg QID PRN Administration Anxiety Ibuprofen 600 mg 10/31/20 21:10 Ibuprofen 600 Mg Tablet PO QID PRN pain Lorazepam 1 mg 11/02/20 12:36 11/04/20 08:43 Lorazepam 1 Mg Tablet PO 1 mg Q4H PRN Administration Anxiety Magnesium Hydroxide 30 ml 10/31/20 21:10 Milk Of Magnesia 30 Ml Oral.Susp PO DAILY PRN Constipation Oxcarbazepine 600 mg 11/03/20 21:00 11/04/20 08:44 Oxcarbazepine 300 Mg Tablet PO Not Given BID DARNELL Quetiapine Fumarate 50 mg 10/31/20 21:10 11/04/20 05:06 Quetiapine Fumarate 50 Mg Tablet PO 50 mg QID PRN Administration agitation Trazodone HCl 50 mg 10/31/20 21:10 11/01/20 20:56 Trazodone Hcl 50 Mg Tablet PO 50 mg BEDTIME PRN Administration Insomnia Allergies Allergies Allergy/AdvReac Type Severity Reaction Status Date / Time haloperidol [From HALDOL] Allergy Intermediate N/V/D Verified 10/04/20 11:06 acetaminophen [From TYLENOL] Allergy Mild GI UPSET Verified 10/04/20 11:06 SEAFOOD Allergy Severe ANAPHYLAXIS Uncoded 09/27/20 10:20 Assessment & Plan Assessment & Plan (1) Alcohol use disorder, severe, dependence: Status: Acute Code(s): F10.20 - Alcohol dependence, uncomplicated (2) Opioid use disorder: Status: Acute Code(s): F11.99 - Opioid use, unspecified with unspecified opioid-induced disorder (3) Polysubstance (including opioids) dependence, daily use: Status: Acute Code(s): F11.20 - Opioid dependence, uncomplicated; F19.20 - Other psychoactive substance dependence, uncomplicated Assessment and Plan: Weekend Coverage: pt reports depressed, anxious and wants more ativan; however he was willing to start Prozac 10mg instead and use seroquel prn; accepts will be tappering ativan DC'd Trileptal; pt did not like how it made him feel; kept him awake increased Seroqeul to 75mg prn DC'd Trazodone: pt did not want will taper down ativan further since not likely that pt will be discharged on it 35 yo male presents with reports of increasing depression, SI, relapse of heroin and cocaine in the context of loss of job, homelessness, and pending court date in December 2020 with a possibility of incarceration. Pt refused to meet x 3 today. Will attempt to form alliance and gather collateral. 1. Increase Trileptal 600 mg bid 2. Ativan prn (4) Substance induced mood disorder: Status: Acute Code(s): F19.94 - Other psychoactive substance use, unspecified with psychoactive substance-induced mood disorder Greater than 50% of the session was spent on counseling and/or coordination of care Reason for contiued inpatient stay Substantial Risk for: rapid decompensation
[2020-11-04] MEDS: Buprenorphine/Naloxone 8/2 mg FILM 2 FILM SUBLINGUAL (09:27)
[2020-11-04] MEDS: QUEtiapine Fumarate 25 MG TABLET 75 MG PO ×2 (11:24→20:38)
[2020-11-04] MEDS: FLUoxetine HCl 10 MG CAPSULE PO (11:24)
[2020-11-04] MEDS: Ibuprofen 600 MG TABLET PO (13:28)
[2020-11-04 13:30] VITALS: BP 128/89; PULSE 94; RESP 18
[2020-11-04 16:15] VITALS: BP 117/74; PULSE 94; TEMP 36.6
[2020-11-04 22:00] VITALS: RESP 16
[2020-11-05 05:30] VITALS: BP 120/80; PULSE 87; RESP 16; TEMP 36.3; O2SAT 95
[2020-11-05] MEDS: FLUoxetine HCl 10 MG CAPSULE PO (08:10)
[2020-11-05] MEDS: Buprenorphine/Naloxone 8/2 mg FILM 2 FILM SUBLINGUAL (08:10)
[2020-11-05] MEDS: QUEtiapine Fumarate 25 MG TABLET 75 MG PO ×3 (08:13→20:23)
[2020-11-05] MEDS: LORazepam 1 MG TABLET PO ×3 (08:13→20:23)
[2020-11-05] MEDS: Ibuprofen 600 MG TABLET PO (13:24)
[2020-11-05 14:00] VITALS: BP 115/75; RESP 16; O2SAT 97
[2020-11-05 16:35] VITALS: BP 142/91; PULSE 83; TEMP 36.4
--- NOTE | 2020-11-05 17:05 | HO.PSYCHPN ---
Subjective Subjective Date of Service: 11/05/20 Reason For Visit: Depression and SI and opiate withdrawal Interim History: pt reports that he's feeling much better. Pt says his depression is way down, anxiety is way down; he denies SI and says i like how i'm feeling. He denies any side-effects from Prozac. Says seroquel dose at 75mg is good for prn. Still some trouble sleeping. Medication Compliance: Yes Side effects from medications: No Mental Status Exam Mental Status Exam Narrative: Appearance: clean shaven Patient Orientation: Person, Place, Time and Situation Level of Consciousness: Alert Patient Behavior: calm Mood Description: i like how i'm feeling Affect Description: brighter Patient Cognition Impaired: No Ability to Follow Directions: Good Speech Pattern: Spontaneous Speech Memory Description: Episodic Impaired Thought Process: logical; goal oriented Thought Content: feeling better; denies SI or HI Depressive Symptoms: Increased Anxiety, Increased Irritability, Difficulty Sleeping and Changes in Appetite Judgement: Fair Diagnostics Vital Signs (24Hr): Vital Signs - 24 hr 11/04/20 22:00 11/05/20 05:30 11/05/20 14:00 Temperature 97.3 F Pulse Rate 87 Respiratory Rate 16 16 16 Blood Pressure 120/80 115/75 Pulse Oximetry 95 97 11/05/20 16:35 Temperature 97.6 F Pulse Rate 83 Respiratory Rate Blood Pressure 142/91 H Pulse Oximetry Body Mass Index 26.2 Labs Results: 10/30/20 09:28 10/31/20 10:52 Medications Medications Current Medications Generic Name Dose Route Start Last Admin Trade Name Freq PRN Reason Stop Dose Admin Al Hydroxide/Mg Hydroxide 30 ml 10/31/20 21:10 Magnesium Hydrox/Alum Hydrox 30 Ml Oral.Susp PO Q6H PRN Heartburn/Nausea Buprenorphine/Naloxone 2 film 11/01/20 09:00 11/05/20 08:10 Buprenorphine/Naloxone 8/2 Mg Film SUBLINGUAL 2 film DAILY DARNELL Administration Fluoxetine HCl 10 mg 11/04/20 11:15 11/05/20 08:10 Fluoxetine Hcl 10 Mg Capsule PO 10 mg DAILY DARNELL Administration Hydroxyzine HCl 50 mg 10/31/20 21:10 11/04/20 18:55 Hydroxyzine Hcl 25 Mg Tablet PO 50 mg QID PRN Administration Anxiety Ibuprofen 600 mg 10/31/20 21:10 11/05/20 13:24 Ibuprofen 600 Mg Tablet PO 600 mg QID PRN Administration pain Lorazepam 1 mg 11/04/20 09:13 11/05/20 14:20 Lorazepam 1 Mg Tablet PO 1 mg Q6H PRN Administration Anxiety Magnesium Hydroxide 30 ml 10/31/20 21:10 Milk Of Magnesia 30 Ml Oral.Susp PO DAILY PRN Constipation Quetiapine Fumarate 75 mg 11/04/20 11:19 11/05/20 13:26 Quetiapine Fumarate 25 Mg Tablet PO 75 mg QID PRN Administration agitation Allergies Allergies Allergy/AdvReac Type Severity Reaction Status Date / Time haloperidol [From HALDOL] Allergy Intermediate N/V/D Verified 10/04/20 11:06 acetaminophen [From TYLENOL] Allergy Mild GI UPSET Verified 10/04/20 11:06 SEAFOOD Allergy Severe ANAPHYLAXIS Uncoded 09/27/20 10:20 Assessment & Plan Assessment & Plan (1) Alcohol use disorder, severe, dependence: Status: Acute Code(s): F10.20 - Alcohol dependence, uncomplicated (2) Opioid use disorder: Status: Acute Code(s): F11.99 - Opioid use, unspecified with unspecified opioid-induced disorder (3) Polysubstance (including opioids) dependence, daily use: Status: Acute Code(s): F11.20 - Opioid dependence, uncomplicated; F19.20 - Other psychoactive substance dependence, uncomplicated Assessment and Plan: Weekend Coverage: started Prozac 10mg DC'd Trileptal; pt did not like how it made him feel; kept him awake increased Seroqeul to 75mg prn DC'd Trazodone: pt did not want will taper down ativan further since not likely that pt will be discharged on it 35 yo male presents with reports of increasing depression, SI, relapse of heroin and cocaine in the context of loss of job, homelessness, and pending court date in December 2020 with a possibility of incarceration. Pt refused to meet x 3 today. Will attempt to form alliance and gather collateral. 1. Increase Trileptal 600 mg bid 2. Ativan prn (4) Substance induced mood disorder: Status: Acute Code(s): F19.94 - Other psychoactive substance use, unspecified with psychoactive substance-induced mood disorder Greater than 50% of the session was spent on counseling and/or coordination of care Reason for contiued inpatient stay Substantial Risk for: med/psych decompensation
--- NOTE | 2020-11-05 19:09 | PC.NURSE ---
pt signed a 3-day notice on 11/05/20, up on Friday11/08/20
[2020-11-05 22:10] VITALS: BP 132/76; PULSE 83; TEMP 36.5
[2020-11-05 22:17] VITALS: BP 132/76; PULSE 83; TEMP 36.5
[2020-11-06] MEDS: hydrOXYzine HCL 25 MG TABLET 50 MG PO (00:16)
[2020-11-06] MEDS: Buprenorphine/Naloxone 8/2 mg FILM 2 FILM SUBLINGUAL (09:11)
[2020-11-06] MEDS: FLUoxetine HCl 10 MG CAPSULE PO (09:11)
[2020-11-06] MEDS: QUEtiapine Fumarate 25 MG TABLET 75 MG PO ×2 (10:43→16:20)
[2020-11-06] MEDS: LORazepam 1 MG TABLET PO ×2 (10:43→16:20)
--- NOTE | 2020-11-06 17:59 | HO.PSYCHPN ---
Subjective Subjective Date of Service: 11/06/20 Reason For Visit: Depression and SI and opiate withdrawal Subjective Notes: Conditional Voluntary Healthcare Proxy: No Guardianship: No Medical Problems Affecting Mental Status: No Interim History: Tolerating Fluoxetine. Three day notice active for 11/08/20. Reports he wants minimal interaction from milieu as it increases his anxiety. Medication Compliance: Yes Side effects from medications: No Attending Groups: No Review of Systems Psychiatric: Reports anxiety, Reports depression and Reports irritability Mental Status Exam Mental Status Exam Patient Appearance: Disheveled Patient Orientation: Person, Place, Time and Situation Level of Consciousness: Awake and Alert Patient Behavior: Avoidant and Isolative Mood Description: Withdrawn Affect Description: Withdrawn Patient Cognition Impaired: No Ability to Follow Directions: Fair Speech Pattern: Spontaneous Speech Memory Description: Intact Hallucinations: None Delusions: Not Present Thought Process: Intact Thought Content: positive for Intact Depressive Symptoms: Increased Anxiety and Increased Irritability Judgement: Fair Diagnostics Vital Signs (24Hr): Vital Signs - 24 hr 11/05/20 22:10 11/05/20 22:17 Temperature 97.7 F 97.7 F Pulse Rate 83 83 Blood Pressure 132/76 132/76 Body Mass Index 26.2 Labs Results: 10/30/20 09:28 10/31/20 10:52 Medications Medications Current Medications Generic Name Dose Route Start Last Admin Trade Name Freq PRN Reason Stop Dose Admin Al Hydroxide/Mg Hydroxide 30 ml 10/31/20 21:10 Magnesium Hydrox/Alum Hydrox 30 Ml Oral.Susp PO Q6H PRN Heartburn/Nausea Buprenorphine/Naloxone 2 film 11/01/20 09:00 11/06/20 09:11 Buprenorphine/Naloxone 8/2 Mg Film SUBLINGUAL 2 film DAILY DARNELL Administration Fluoxetine HCl 10 mg 11/04/20 11:15 11/06/20 09:11 Fluoxetine Hcl 10 Mg Capsule PO 10 mg DAILY DARNELL Administration Hydroxyzine HCl 50 mg 10/31/20 21:10 11/06/20 00:16 Hydroxyzine Hcl 25 Mg Tablet PO 50 mg QID PRN Administration Anxiety Ibuprofen 600 mg 10/31/20 21:10 11/05/20 13:24 Ibuprofen 600 Mg Tablet PO 600 mg QID PRN Administration pain Lorazepam 1 mg 11/05/20 22:10 11/06/20 10:43 Lorazepam 1 Mg Tablet PO 1 mg DAILY PRN Administration Anxiety Magnesium Hydroxide 30 ml 10/31/20 21:10 Milk Of Magnesia 30 Ml Oral.Susp PO DAILY PRN Constipation Quetiapine Fumarate 75 mg 11/04/20 11:19 11/06/20 16:20 Quetiapine Fumarate 25 Mg Tablet PO 75 mg QID PRN Administration agitation Allergies Allergies Allergy/AdvReac Type Severity Reaction Status Date / Time haloperidol [From HALDOL] Allergy Intermediate N/V/D Verified 10/04/20 11:06 acetaminophen [From TYLENOL] Allergy Mild GI UPSET Verified 10/04/20 11:06 SEAFOOD Allergy Severe ANAPHYLAXIS Uncoded 09/27/20 10:20 Assessment & Plan Assessment & Plan (1) Alcohol use disorder, severe, dependence: Status: Acute Code(s): F10.20 - Alcohol dependence, uncomplicated (2) Opioid use disorder: Status: Acute Code(s): F11.99 - Opioid use, unspecified with unspecified opioid-induced disorder (3) Polysubstance (including opioids) dependence, daily use: Status: Acute Code(s): F11.20 - Opioid dependence, uncomplicated; F19.20 - Other psychoactive substance dependence, uncomplicated Assessment and Plan: Continue current plan. Pt transferred administratively today. Asked for Ativan x 1 dose in addition to scheduled dosing for increased anxiety due to new unfamiliar environment. (4) Substance induced mood disorder: Status: Acute Code(s): F19.94 - Other psychoactive substance use, unspecified with psychoactive substance-induced mood disorder Greater than 50% of the session was spent on counseling and/or coordination of care Reason for contiued inpatient stay Substantial Risk for: inability to function and rapid decompensation
[2020-11-06 18:00] VITALS: BP 128/74; PULSE 82; TEMP 36.3; O2SAT 97
[2020-11-07 06:00] VITALS: BP 132/80; PULSE 72; RESP 14; TEMP 35.9; O2SAT 98
[2020-11-07] MEDS: Buprenorphine/Naloxone 8/2 mg FILM 2 FILM SUBLINGUAL (09:20)
[2020-11-07] MEDS: FLUoxetine HCl 10 MG CAPSULE PO (09:20)
[2020-11-07] MEDS: LORazepam 1 MG TABLET PO (11:46)
--- NOTE | 2020-11-07 16:52 | HO.PSYCHPN ---
Subjective Subjective Date of Service: 11/07/20 Reason For Visit: Depression and SI and opiate withdrawal Subjective Notes: 3 Day (11/08/20) Healthcare Proxy: No Guardianship: No Medical Problems Affecting Mental Status: No Interim History: TDN to 11/08/20. Pt to return to [facility]. Working with social science professor on IOP. Medication Compliance: Yes Side effects from medications: No Attending Groups: No Review of Systems Psychiatric: Reports anxiety, Reports depression and Reports suicidal ideation (denies) Mental Status Exam Mental Status Exam Patient Appearance: Appropriate Patient Orientation: Person, Place, Time and Situation Level of Consciousness: Alert Patient Behavior: Appropriate and Isolative Mood Description: Constricted and Anxious Affect Description: Constricted Patient Cognition Impaired: No Ability to Follow Directions: Good Speech Pattern: Spontaneous Speech Memory Description: Intact Hallucinations: None Delusions: Not Present Thought Process: Intact Thought Content: positive for Intact Depressive Symptoms: Increased Anxiety Judgement: Fair Diagnostics Vital Signs (24Hr): Vital Signs - 24 hr 11/06/20 18:00 11/07/20 06:00 Temperature 97.3 F 96.7 F L Pulse Rate 82 72 Respiratory Rate 14 Blood Pressure 128/74 132/80 Pulse Oximetry 97 98 Body Mass Index 26.2 Labs Results: 10/30/20 09:28 10/31/20 10:52 Medications Medications Current Medications Generic Name Dose Route Start Last Admin Trade Name Freq PRN Reason Stop Dose Admin Al Hydroxide/Mg Hydroxide 30 ml 10/31/20 21:10 Magnesium Hydrox/Alum Hydrox 30 Ml Oral.Susp PO Q6H PRN Heartburn/Nausea Al Hydroxide/Mg Hydroxide 30 ml 11/07/20 15:28 Magnesium Hydrox/Alum Hydrox 30 Ml Oral.Susp PO Q6H PRN Heartburn/Nausea Buprenorphine/Naloxone 2 film 11/01/20 09:00 11/07/20 09:20 Buprenorphine/Naloxone 8/2 Mg Film SUBLINGUAL 2 film DAILY DARNELL Administration Fluoxetine HCl 10 mg 11/04/20 11:15 11/07/20 09:20 Fluoxetine Hcl 10 Mg Capsule PO 10 mg DAILY DARNELL Administration Hydroxyzine HCl 50 mg 10/31/20 21:10 11/06/20 00:16 Hydroxyzine Hcl 25 Mg Tablet PO 50 mg QID PRN Administration Anxiety Ibuprofen 600 mg 10/31/20 21:10 11/05/20 13:24 Ibuprofen 600 Mg Tablet PO 600 mg QID PRN Administration pain Lorazepam 1 mg 11/05/20 22:10 11/07/20 11:46 Lorazepam 1 Mg Tablet PO 1 mg DAILY PRN Administration Anxiety Magnesium Hydroxide 30 ml 10/31/20 21:10 Milk Of Magnesia 30 Ml Oral.Susp PO DAILY PRN Constipation Quetiapine Fumarate 75 mg 11/04/20 11:19 11/06/20 16:20 Quetiapine Fumarate 25 Mg Tablet PO 75 mg QID PRN Administration agitation Trazodone HCl 50 mg 11/07/20 15:28 Trazodone Hcl 50 Mg Tablet PO BEDTIME PRN Insomnia Allergies Allergies Allergy/AdvReac Type Severity Reaction Status Date / Time haloperidol [From HALDOL] Allergy Intermediate N/V/D Verified 10/04/20 11:06 acetaminophen [From TYLENOL] Allergy Mild GI UPSET Verified 10/04/20 11:06 SEAFOOD Allergy Severe ANAPHYLAXIS Uncoded 09/27/20 10:20 Assessment & Plan Assessment & Plan (1) Alcohol use disorder, severe, dependence: Status: Acute Code(s): F10.20 - Alcohol dependence, uncomplicated (2) Opioid use disorder: Status: Acute Code(s): F11.99 - Opioid use, unspecified with unspecified opioid-induced disorder (3) Polysubstance (including opioids) dependence, daily use: Status: Acute Code(s): F11.20 - Opioid dependence, uncomplicated; F19.20 - Other psychoactive substance dependence, uncomplicated Assessment and Plan: Continue current plan. Discharge 11/08 from TDN. Plans to return to [facility] and [facility]. (4) Substance induced mood disorder: Status: Acute Code(s): F19.94 - Other psychoactive substance use, unspecified with psychoactive substance-induced mood disorder Greater than 50% of the session was spent on counseling and/or coordination of care Reason for contiued inpatient stay Substantial Risk for: harm to self, harm to others, inability to function and rapid decompensation
[2020-11-07 18:00] VITALS: BP 150/95; PULSE 98; TEMP 36.5
[2020-11-07] MEDS: QUEtiapine Fumarate 25 MG TABLET 75 MG PO (18:31)
--- NOTE | 2020-11-07 18:36 | HO.PSYCHPN ---
Subjective Subjective Date of Service: 11/07/20 Reason For Visit: Depression and SI and opiate withdrawal Diagnostics Vital Signs (24Hr): Vital Signs - 24 hr 11/07/20 06:00 Temperature 96.7 F L Pulse Rate 72 Respiratory Rate 14 Blood Pressure 132/80 Pulse Oximetry 98 Body Mass Index 26.2 Labs Results: 10/30/20 09:28 10/31/20 10:52 Medications Medications Current Medications Generic Name Dose Route Start Last Admin Trade Name Freq PRN Reason Stop Dose Admin Al Hydroxide/Mg Hydroxide 30 ml 10/31/20 21:10 Magnesium Hydrox/Alum Hydrox 30 Ml Oral.Susp PO Q6H PRN Heartburn/Nausea Al Hydroxide/Mg Hydroxide 30 ml 11/07/20 15:28 Magnesium Hydrox/Alum Hydrox 30 Ml Oral.Susp PO Q6H PRN Heartburn/Nausea Buprenorphine/Naloxone 2 film 11/01/20 09:00 11/07/20 09:20 Buprenorphine/Naloxone 8/2 Mg Film SUBLINGUAL 2 film DAILY DARNELL Administration Fluoxetine HCl 10 mg 11/04/20 11:15 11/07/20 09:20 Fluoxetine Hcl 10 Mg Capsule PO 10 mg DAILY DARNELL Administration Hydroxyzine HCl 50 mg 10/31/20 21:10 11/06/20 00:16 Hydroxyzine Hcl 25 Mg Tablet PO 50 mg QID PRN Administration Anxiety Ibuprofen 600 mg 10/31/20 21:10 11/05/20 13:24 Ibuprofen 600 Mg Tablet PO 600 mg QID PRN Administration pain Lorazepam 1 mg 11/05/20 22:10 11/07/20 11:46 Lorazepam 1 Mg Tablet PO 1 mg DAILY PRN Administration Anxiety Magnesium Hydroxide 30 ml 10/31/20 21:10 Milk Of Magnesia 30 Ml Oral.Susp PO DAILY PRN Constipation Quetiapine Fumarate 75 mg 11/04/20 11:19 11/07/20 18:31 Quetiapine Fumarate 25 Mg Tablet PO 75 mg QID PRN Administration agitation Trazodone HCl 50 mg 11/07/20 15:28 Trazodone Hcl 50 Mg Tablet PO BEDTIME PRN Insomnia Allergies Allergies Allergy/AdvReac Type Severity Reaction Status Date / Time haloperidol [From HALDOL] Allergy Intermediate N/V/D Verified 10/04/20 11:06 acetaminophen [From TYLENOL] Allergy Mild GI UPSET Verified 10/04/20 11:06 SEAFOOD Allergy Severe ANAPHYLAXIS Uncoded 09/27/20 10:20 Assessment & Plan Assessment & Plan (1) Alcohol use disorder, severe, dependence: Status: Acute Code(s): F10.20 - Alcohol dependence, uncomplicated (2) Opioid use disorder: Status: Acute Code(s): F11.99 - Opioid use, unspecified with unspecified opioid-induced disorder (3) Polysubstance (including opioids) dependence, daily use: Status: Acute Code(s): F11.20 - Opioid dependence, uncomplicated; F19.20 - Other psychoactive substance dependence, uncomplicated Assessment and Plan: Continue current plan. Pt transferred administratively today. Asked for Ativan x 1 dose in addition to scheduled dosing for increased anxiety due to new unfamiliar environment. (4) Substance induced mood disorder: Status: Acute Code(s): F19.94 - Other psychoactive substance use, unspecified with psychoactive substance-induced mood disorder Greater than 50% of the session was spent on counseling and/or coordination of care
[2020-11-08] MEDS: Buprenorphine/Naloxone 8/2 mg FILM 2 FILM SUBLINGUAL (09:32)
[2020-11-08] MEDS: FLUoxetine HCl 10 MG CAPSULE PO (09:32)
--- NOTE | 2020-11-08 16:57 | PM.PSYDC ---
DS: Providers Provider Date of Service: 11/08/20 Date of admission: 10/31/20 20:58 Date of discharge: 11/08/20 Primary care physician: Unknown Physician Admitting clinician: Isatu Chirinos Attending physician on admission: Shan Brennan Attending physician on discharge: Shan Brennan Discharging clinician: Isatu Chirinos DS: Diagnosis Discharge Diagnosis (1) Alcohol use disorder, severe, dependence: Status: Acute (2) Opioid use disorder: Status: Acute (3) Polysubstance (including opioids) dependence, daily use: Status: Acute (4) Substance induced mood disorder: Status: Acute Problem details: 35 yo male, reporting an increase in depression with SI plan and intent, along with relapse of alcohol and opiate use. Precipitants include loss of his job, homelessness, upcoming court date Dec 2020 where he believes he will face senior care incarceration. Pt reports I have lost everything. DS: Medications Discharge Medications Home Medications: Previous Rx's Medication Instructions Recorded buprenorphine 8 mg-naloxone 2 mg 2 film SUBLINGUAL DAILY 14 Days 11/08/20 sublingual film #28 ea fluoxetine 10 mg PO DAILY #30 cap 11/08/20 Discharge Plan Discharge Anticipated Discharge Date/Time: 11/08/20 13:00 Patient Disposition: Home, Self-Care Discharge Diagnosis: Opiate use Disorder, severe Alcohol Use Disorder, severe Substance Induced Mood Disorder [facility] 1:00 pm (The Intake appointment is via Telehealth and the program will be via Zoom. Please provide your email during the Intake Session. You have been placed on their stand-by waitlist for a sooner intake than the one scheduled) [facility] (Suboxone) [Other] - 11/08/20 1:45 pm (The Intake appointment is in-person following your discharge from the unit) Physician,Unknown [Primary Care Provider] - 1 Week Discharge Medications: New fluoxetine 10 mg Capsule 10 mg PO DAILY Qty: 30 RF: 0 No Action buprenorphine-naloxone [Suboxone] 8-2 mg film 2 film sublingual DAILY 14 Days Qty: 28 RF: 0 quetiapine 50 mg tablet 1 tab PO TID RF: 0 Discharge Orders: Discharge Order (Routine); Ordered 11/08/20 Ordered By: Isatu Chirinos Diet: advance to usual diet Activity on Discharge: As tolerated Stand Alone Forms: Patient Portal Discharge page, Community Support Care Plan Goals: Sobriety Mood Stabilization Health Concerns: Alcohol Use Opiate Use Mood Dysregulation, depressive and anxious sx. Plan of Treatment: Attend all appointments Take medications as directed Accept treatment recommendations from [facility] Assessment: Pt is leaving on a three day notice. Alert, non suicidal, non homicidal, non psychotic Patient Instructions: Fluoxetine (By mouth) Discharge Date/Time: 11/08/20 13:40 Mental Status Exam Mental Status Exam Patient Appearance: Appropriate Patient Orientation: Person, Place, Time and Situation Level of Consciousness: Alert Patient Behavior: Appropriate Mood Description: Constricted Affect Description: Constricted Patient Cognition Impaired: No Ability to Follow Directions: Good Speech Pattern: Spontaneous Speech Memory Description: Intact Hallucinations: None Delusions: Not Present Thought Process: Intact Thought Content: positive for Intact Judgement: Good DS: Summary Hospital Course Hospital Course: Pt admitted on a conditional voluntary status. He did sign a three day notice of intent prior to discharge. He was withdrawn for most of the admission, with not much milieu participation. Trileptal trial was started, however, pt did not find this helpful. Prozac trial was initiated, pt believes this was helpful so he continued this. Seroquel was added and pt found this to be helpful as well. Pt reported his suicidality was resolved. He accepted and was referred to [facility] for Suboxone treatment. He accepted and will begin [facility] on 11/21/20. Time spent discussing smoking cessation with patient: 3 to 10 minutes Status at Discharge Cognitive/behavioral status at discharge: Alert, non-suicidal, non-psychotic, mood constricted. Functional status at discharge: independent ambulation Overall status at discharge: patient is back to baseline Time Spent with Patient Time attestation: Total time spent providing and/or coordinating discharge services:25 Time spent: Less than 30 minutes
== END 2020-11-08 13:40 | disposition home or self-care (01) | DRG 753 ==
LOC: HO.ED 15:22 → HO.PM5 10-31 21:13 → HO.PADLT16 11-06 13:26 → HO.PM5 11-07 15:36
PROVIDERS: Physician Assistant; Admitting Provider Psychiatry & Neurology Psychiatry; Emergency Provider Emergency Medicine; Visit Provider Clinical Nurse Specialist Psychiatric/Mental Health, Adult
DX: F39 Unspecified mood [affective] disorder (principal); N17.9 Acute kidney failure, unspecified; R45.851 Suicidal ideations; F11.20 Opioid dependence, uncomplicated; F10.20 Alcohol dependence, uncomplicated; Z20.822 Contact with and (suspected) exposure to COVID-19; Z91.5 Personal history of self-harm; Z59.0 Homelessness; Z88.6 Allergy status to analgesic agent; Z79.899 Other long term (current) drug therapy
CPT/HCPCS: 36415; 80048; 80076; 80307; 82077; 85025; 87635; 93005; 99285

== ENCOUNTER → 2020-11-08 13:37 | Outpatient (BNVA) | payer MEDICAID, SELFPAY | PROVIDERS: Visit Provider Internal Medicine | DX: F11.90 Opioid use, unspecified, uncomplicated (principal); Z51.81 Encounter for therapeutic drug level monitoring | CPT/HCPCS: 80305; 99211 ==

== ENCOUNTER 2020-11-23 22:53 | Inpatient (IN) | payer OTHER, MEDICAID, SELFPAY ==
[2020-11-23 22:54] VITALS: BP 110/70; PULSE 91; RESP 16; TEMP 36.7; O2SAT 97; BMI 23.7
--- NOTE | 2020-11-23 23:39 | PC.NURSE ---
[facility] referral completed via smart-sheet, called and spoke with Jenna BENJAMIN overnight clinical application specialist, confirmed receipt of refewrral, no ETA at this time, patient calm and quiet, watching TV, will continue to monitor.
[2020-11-23 23:50] VITALS: BP 104/63; PULSE 78; RESP 18; TEMP 36.4; O2SAT 96
[2020-11-23 23:58] LABS: COVID-19 Test Negative (Negative); IDNOW Serial# 9DD0AD1C
--- NOTE | 2020-11-24 00:11 | ED_ITS ---
HPI - Psych General Chief Complaint: Psychiatric Symptoms Stated Complaint: SI Time Seen by Provider: 11/24/20 00:00 Source: patient Mode of arrival: ambulatory Limitations: no limitations History of Present Illness HPI Narrative: Patient is a 35-year-old male with past medical history of Hep C, polysubstance abuse including heroin and alcohol as well as a substance induced mood disorder presents with a suicide attempt. Patient states he tried to hang himself with EUS be cord in his bathroom but the cord broke and when he was on timing it from his neck, his girlfriend walked in got upset and kicked him out. He states he has had a rather difficult week and got into a big fight with his father. His father told him he does not have a son the patient states this caused him to relapse and use heroin which he last used approximately 3 hours ago, 2 bags. He denies using alcohol. He states he still does want to hurt himself but does not have a plan, he denies having access to a gun or any type of weapon. He denies any desire to harm anyone else. Patient is also complaining of a small rash on his right medial ankle and right wrist. He states it is somewhat itchy and he does not know how long it has been there. He is concerned it might be fleas or scabies. He says his roommates have dogs but they do not take good care of them. He has not tried any medications to make it better but he does deny any new detergents, lotions, clothing or soaps. Related Data Home Medications Medication Instructions Recorded Confirmed quetiapine 1 tab PO TID 11/23/20 11/23/20 Previous Rx's Medication Instructions Recorded buprenorphine 8 mg-naloxone 2 mg 2 film SUBLINGUAL DAILY 14 Days 11/08/20 sublingual film #28 ea fluoxetine 10 mg PO DAILY #30 cap 11/08/20 Allergies Allergy/AdvReac Type Severity Reaction Status Date / Time haloperidol [From HALDOL] Allergy Intermediate N/V/D Verified 10/04/20 11:06 acetaminophen [From TYLENOL] Allergy Mild GI UPSET Verified 10/04/20 11:06 SEAFOOD Allergy Severe ANAPHYLAXIS Uncoded 09/27/20 10:20 Review of Systems Review of Systems: Yes all other systems are reviewed and are negative PMFSH Past Medical History Medical History Elevated LFTs Hepatitis C infection Intravenous drug abuse, continuous Scoliosis Substance induced mood disorder Family History Family History Other Patient denies medical problems Social History Social History Household Members: None Housing: Homeless Do you presently have visiting nurse or other home services: No Unable to assess alcohol history related to: Refusing to respond Alcohol intake: unknown Patient Tobacco Use Status: Never used Tobacco Cigarette Packs Per Day: 0.5 Cigarettes Per Day: 10.0 Years Smoked: unknown Second Hand Smoke Exposure: No Substance Use Type: Crack/Cocaine, Heroin and Opiates Advance Directives: No service: No Current occupational status: unemployed Sexual orientation: Straight/Heterosexual Physical Exam Vital Signs: Vital Signs: Last Vital Signs Temp 97.5 F 11/23/20 23:50 Pulse 78 11/23/20 23:50 Resp 18 11/23/20 23:50 BP 104/63 11/23/20 23:50 Pulse Ox 96 11/23/20 23:50 Body Mass Index 23.7 Const: General: cooperative, healthy appearing, comfortable and no acute distress Nutritional Appearance: average body habitus Orientation/consciousness: patient oriented x3 HENMT: Head: Yes normal to inspection, Yes No palpable skull fracture present, Yes normocephalic and Yes atraumatic Eyes: General: appearance normal, both eyes and all related structures Neck: Neck: Yes normal visual inspection and Yes full ROM Resp: Effort & Inspection: normal respiratory effort and able to speak in complete sentences Skin: Other: small patch (6cm x 3cm) of Macular papular rash on right lower extremity, just above the medial malleolus, similar rash on the right volar wrist, about 2cm x 2cm area. 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 Patient also complaining of a new, somewhat itchy skin rash. Will give patient Benadryl for the itchy rash. Will give Ativan for his anxiety. N consult for suicide attempt and heroin relapse. Will get Utox as well. COVID negative MDM - Psych Lab Data Labs: Lab Results 11/23/20 Range/Units 23:34 COVID-19 (JACQUELIN) Negative (Negative) COVID-19 Clin Com See Note Discharge Plan Discharge Prescriptions: No Action buprenorphine-naloxone [Suboxone] 8-2 mg film 2 film sublingual DAILY 14 Days Qty: 28 RF: 0 fluoxetine 10 mg Capsule 10 mg PO DAILY Qty: 30 RF: 0 quetiapine 50 mg tablet 1 tab PO TID RF: 0
[2020-11-24] MEDS: LORazepam 1 MG TABLET PO (00:25)
[2020-11-24] MEDS: diphenhydrAMINE HCL 25 MG TABLET PO (00:25)
--- NOTE | 2020-11-24 02:50 | PC.NURSE ---
Patient was seen by N, patient was fully engaged during assessment, disposition section 12 inpatient bed search, patient and provider aware, awaiting urine sample, denied distress at this time, will continue to monitor.
[2020-11-24 04:04] LABS: Amphetamine Screen Urine Not Detected (Not Detect); Barbiturates, Urine Not Detected (Not Detect); Benzodiazepines Screen Urine Not Detected (Not Detect); Cannabinoid Screen Urine Not Detected (Not Detect); Cocaine Screen Urine POSITIVE (Not Detect); Opiate Screen Urine POSITIVE (Not Detect); Phencyclidine Screen Urine Not Detected (Not Detect)
--- NOTE | 2020-11-24 06:12 | PC.NURSE ---
Patient is up until 0500, in and out of room for various needs, currently in bed appears sleeping, patient disposition is section 12 inpatient bed search, patient is in good behavioral control, will continue to monitor.
--- NOTE | 2020-11-24 07:14 | PC.NURSE ---
patient appears in no distress this am, resting with even unlabored breaths
[2020-11-24 07:44] VITALS: BP 105/69; PULSE 65; RESP 18; TEMP 36.7
--- NOTE | 2020-11-24 10:01 | ECG_ITS ---
Test Reason : MEDICAL CLERANCE Blood Pressure : / mmHG Vent. Rate : 057 BPM Atrial Rate : 057 BPM P-R Int : 182 ms QRS Dur : 094 ms QT Int : 536 ms P-R-T Axes : 042 032 020 degrees QTc Int : 521 ms Poor data quality, interpretation may be adversely affected Sinus bradycardia Prolonged QT Early Repolarization Abnormal ECG When compared with ECG of 31-OCT-2020 11:12, QT has lengthened Referred By: Brittany Vega Electronically Signed By:MERRY PEREIRA MD
[2020-11-24] MEDS: FLUoxetine HCl 10 MG CAPSULE PO (12:13)
[2020-11-24] MEDS: QUEtiapine Fumarate 50 MG TABLET PO ×3 (12:13→20:05)
[2020-11-24 15:51] VITALS: RESP 18
--- NOTE | 2020-11-24 18:22 | PC.ADMIT ---
Pt admitted toM5 at [address] [facility]. Pt irritable, did not want to sign consents or do much of admission process. Pt just wants to sleep. Pt denies any medical problems. Pt presented as a walk-in to [facility] for reported SI with attempt to hang himself with USB cable and his Girlfriend kicked him out . Pt reported to ER staff active SI. Pt denies SI/HI. Pt is homeless. Pt signed a CV. Pt Positive for Cocaine, Heroin.Pt was covid -. Pt denies any current withdrawal symptoms. Pt is familiar with unit and staff. Pt contracts for safety.
[2020-11-25 06:00] VITALS: BP 130/83; PULSE 73; RESP 16; TEMP 36.6; O2SAT 96
[2020-11-25] MEDS: FLUoxetine HCl 10 MG CAPSULE PO (08:16)
[2020-11-25] MEDS: QUEtiapine Fumarate 50 MG TABLET PO ×3 (08:16→21:29)
--- NOTE | 2020-11-25 09:00 | ECG_ITS ---
Test Reason : MEDICAL CLEARANCE Blood Pressure : / mmHG Vent. Rate : 054 BPM Atrial Rate : 054 BPM P-R Int : 178 ms QRS Dur : 102 ms QT Int : 612 ms P-R-T Axes : 036 030 018 degrees QTc Int : 580 ms Sinus bradycardia Prolonged QT Abnormal ECG When compared with ECG of 24-NOV-2020 11:14, QT has lengthened Referred By: Jovanny Sargent Electronically Signed By:MERRY PEREIRA MD
--- NOTE | 2020-11-25 13:35 | P.HPPS_ITS ---
HPI Chief Complaint: SI Sources of Information: patient interviewed, chart reviewed and crisis/core team assessment reviewed HPI Subjective Notes: Conditional Voluntary Narrative: Pt presented as a walk-in to [facility] for reported SI with attempt to hang himself with USB cable and his Girlfriend kicked him out . Pt reported to ER staff active SI in context of relapse and homelessness. Pt denies SI/HI currently. Pt is homeless. Pt signed a CV. Pt Positive for Cocaine, Heroin.Pt was covid -. Pt denies any current withdrawal symptoms. Past Psychiatric History: Last on M5 in March and May 2019. discharge with suboxone treatment and pt had been doing well until 11/24 when he relapsed on heroin IP: 5 Multiple EATS and IP programs hx past suicide attempt Currently on Suboxone 12/25 bid Crisis Stabilization:4 admissions Several detox admissions. Medical Evaluation Reviewed: Yes ED note : when patient attempted to hang himself there was no obvious signs of trauma to cervical spine or paracervical musculature. There are no step-offs or deformities. Patient is neuro intact bilaterally and distally on all 4 extremities. Reflexes intact bilateral and this can all 4 extremities. Airway is patent. Patient is not coughing denies any shortness of breath. Lungs clear to auscultation. Therefore C-collar was cleared by physical exam and there is no need for imaging at this time. Patient will be admitted to Psychiatric at this time. He understands agrees with this plan. Elevated LFTs Hepatitis C infection Intravenous drug abuse, continuous Scoliosis Substance induced mood disorder [facility] Medical History Elevated LFTs Hepatitis C infection Intravenous drug abuse, continuous Scoliosis Substance induced mood disorder Family History: Depression, completed suicides, substance abuse Social History: Raised by biological parents. Two siblings High school graduate, some college completed Single, no children Currently unemployed, homeless, possibly facing incarceration when he goes to court in December 2020. Diagnostics Vital Signs (24Hr): Vital Signs - 24 hr 11/24/20 15:51 11/25/20 06:00 Temperature 97.8 F Pulse Rate 73 Respiratory Rate 18 16 Blood Pressure 130/83 Pulse Oximetry 96 Body Mass Index 23.7 Labs Labs: Laboratory Results - last 48 hr 11/23/20 11/24/20 23:34 03:37 Urine Opiates Screen POSITIVE H Ur Barbiturates Screen Not Detected Ur Phencyclidine Scrn Not Detected Ur Amphetamines Screen Not Detected U Benzodiazepines Scrn Not Detected Urine Cocaine Screen POSITIVE H U Marijuana (THC) Screen Not Detected COVID-19 (JACQUELIN) Negative COVID-19 Clin Com See Note Meds/Allergies Meds Home Medications Al Hydroxide/Mg Hydroxide (Magnesium Hydrox/Alum Hydrox 30 Ml Oral.Susp) 30 ml PO Q6H PRN PRN Reason: Heartburn/Nausea Buprenorphine/Naloxone (Buprenorphine/Naloxone 4/1 Mg Film) 1 film SUBLINGUAL TID PRN PRN Reason: severe opioid withdrawal symptoms Clonidine HCl (Clonidine Hcl 0.1 Mg Tablet) 0.1 mg PO Q4H PRN; Protocol PRN Reason: opiod withdrawal Fluoxetine HCl (Fluoxetine Hcl 10 Mg Capsule) 10 mg PO DAILY [facility] Last Admin: 11/25/20 08:16 Dose: 10 mg Documented by: Loperamide HCl (Loperamide Hcl 2 Mg Capsule) 2 mg PO TID PRN PRN Reason: loose stool Magnesium Hydroxide (Milk Of Magnesia 30 Ml Oral.Susp) 30 ml PO DAILY PRN PRN Reason: Constipation Naloxone HCl (Naloxone Hcl Nasal Take Home 4 Mg [place]) 4 mg NOSTRILALT ONCE ONE Stop: 11/28/20 09:15 Nicotine (Nicotine 21 Mg Patch.Td24) 21 mg TRANSDERMA DAILY [facility] Last Admin: 11/25/20 08:21 Dose: Not Given Documented by: Nicotine Polacrilex (Nicotine Polacrilex 2 Mg Gum) 4 mg BUCCAL Q2H PRN PRN Reason: Nicotine Cravings Quetiapine Fumarate (Quetiapine Fumarate 50 Mg Tablet) 50 mg PO TID [facility] Last Admin: 11/25/20 08:16 Dose: 50 mg Documented by: Allergies Allergies Allergy/AdvReac Type Severity Reaction Status Date / Time haloperidol [From HALDOL] Allergy Intermediate N/V/D Verified 10/04/20 11:06 acetaminophen [From TYLENOL] Allergy Mild GI UPSET Verified 10/04/20 11:06 SEAFOOD Allergy Severe ANAPHYLAXIS Uncoded 09/27/20 10:20 Mental Status Exam Mental Status Exam Patient Appearance: Fatigued, Disheveled and Unkempt Patient Orientation: Person, Place and Situation Level of Consciousness: Drowsy Patient Behavior: Resistive to Care, Fatigued and Uncooperative Behavior Comments: withdrawn; pt declined full interview; states he needs to sleep; refsuing start of suboxone today due to risk precipitating withdrawal symptoms but states he will restart as soon as feels he needs it Mood Description: Withdrawn Affect Description: Withdrawn Ability to Follow Directions: Fair Speech Pattern: Impoverished Hallucinations: None Thought Content: positive for Poverty of Content Judgement: Fair Assessment & Plan Assessment & Plan (1) Suicidal ideation: Status: Acute Code(s): R45.851 - Suicidal ideations (2) Depression: Status: Acute Code(s): F32.9 - Major depressive disorder, single episode, unspecified (3) Substance induced mood disorder: Status: Acute Code(s): F19.94 - Other psychoactive substance use, unspecified with psychoactive substance-induced mood disorder (4) Opioid use disorder: Status: Acute Code(s): F11.99 - Opioid use, unspecified with unspecified opioid-induced disorder Assessment and Plan: start suboxone for withdrawal when pt exhibiting withdrawal symptoms assist pt with relapse prevention planning restart prozac and seroquel Patient educated on: diagnosis and medication risk/benefits Informed Consent: further education needed Reason for continued inpatient stay Substantial Risk for: harm to self, inability to function and rapid decompen sation
[2020-11-25] MEDS: Buprenorphine/Naloxone 4/1 mg FILM 1 FILM SUBLINGUAL (14:02)
[2020-11-25 16:36] VITALS: BP 126/82; PULSE 89; TEMP 36.4; O2SAT 98
[2020-11-25] MEDS: LORazepam 1 MG TABLET PO (16:40)
--- NOTE | 2020-11-26 | ECG_ITS ---
Test Reason : QTC prolonged/ abnormal EKG Blood Pressure : / mmHG Vent. Rate : 066 BPM Atrial Rate : 066 BPM P-R Int : 158 ms QRS Dur : 084 ms QT Int : 446 ms P-R-T Axes : 045 022 026 degrees QTc Int : 467 ms Normal sinus rhythm ST elevation, consider early repolarization Borderline ECG When compared with ECG of 24-NOV-2020 12:36, QT has shortened Referred By: Alesia Andrews Electronically Signed By:MERRY PEREIRA MD
[2020-11-26 06:00] VITALS: BP 112/67; PULSE 73; TEMP 36.7; O2SAT 97
[2020-11-26] MEDS: LORazepam 1 MG TABLET PO ×3 (08:33→20:22)
[2020-11-26] MEDS: FLUoxetine HCl 10 MG CAPSULE PO (08:33)
[2020-11-26] MEDS: QUEtiapine Fumarate 50 MG TABLET PO (08:33)
[2020-11-26] MEDS: Buprenorphine/Naloxone 4/1 mg FILM 1 FILM SUBLINGUAL (09:49)
--- NOTE | 2020-11-26 11:23 | HO.PSYCHPN ---
Subjective Subjective Date of Service: 11/26/20 Reason For Visit: SI Subjective Notes: Conditional Voluntary Interim History: pt started on suboxone with good effect. EKG shows prolonged QTC. pt denies chest pain. denies lightheaded. Vitals stable.no SOB or sign of distress; reports he is feeling better overall. eating and taking fluids. Medication Compliance: Yes Side effects from medications: Yes (? QTC prolonged due to meds or use of heroin) Review of Systems Review of Systems Yes all other systems are reviewed and are negative Mental Status Exam Mental Status Exam Patient Appearance: Fatigued, Disheveled and Unkempt Patient Orientation: Person, Place and Situation Level of Consciousness: Drowsy Patient Behavior: Resistive to Care, Fatigued and Uncooperative Behavior Comments: withdrawn; pt declined full interview; states he needs to sleep; refsuing start of suboxone today due to risk precipitating withdrawal symptoms but states he will restart as soon as feels he needs it Mood Description: Withdrawn Affect Description: Withdrawn Ability to Follow Directions: Fair Speech Pattern: Impoverished Diagnostics Vital Signs (24Hr): Vital Signs - 24 hr 11/25/20 16:36 11/26/20 06:00 Temperature 97.6 F 98.1 F Pulse Rate 89 73 Blood Pressure 126/82 112/67 Pulse Oximetry 98 97 Body Mass Index 23.7 Medications Medications Current Medications Generic Name Dose Route Start Last Admin Trade Name Freq PRN Reason Stop Dose Admin Al Hydroxide/Mg Hydroxide 30 ml 11/24/20 15:43 Magnesium Hydrox/Alum Hydrox 30 Ml Oral.Susp PO Q6H PRN Heartburn/Nausea Buprenorphine/Naloxone 1 film 11/24/20 14:20 11/26/20 09:49 Buprenorphine/Naloxone 4/1 Mg Film SUBLINGUAL 1 film TID PRN Administration severe opioid withdrawal symptoms Fluoxetine HCl 10 mg 11/24/20 10:00 11/26/20 08:33 Fluoxetine Hcl 10 Mg Capsule PO 10 mg DAILY DARNELL Administration Ibuprofen 600 mg 11/25/20 16:29 Ibuprofen 600 Mg Tablet PO Q8H PRN Pain, Moderate (Pain Scale 4-6 Lorazepam 1 mg 11/25/20 16:27 11/26/20 08:33 Lorazepam 1 Mg Tablet PO 1 mg Q6H PRN Administration anxiety/restlessness Magnesium Hydroxide 30 ml 11/24/20 15:43 Milk Of Magnesia 30 Ml Oral.Susp PO DAILY PRN Constipation Naloxone HCl 4 mg 11/28/20 09:14 Naloxone Hcl Nasal Take Home 4 Mg [place] NOSTRILALT 11/28/20 09:15 ONCE ONE Nicotine 21 mg 11/25/20 09:00 11/26/20 08:34 Nicotine 21 Mg Patch.Td24 TRANSDERMA Not Given DAILY DARNELL Nicotine Polacrilex 4 mg 11/24/20 15:43 Nicotine Polacrilex 2 Mg Gum BUCCAL Q2H PRN Nicotine Cravings Quetiapine Fumarate 12.5 mg 11/26/20 15:00 Quetiapine Fumarate 50 Mg Tablet PO TID DARNELL Allergies Allergies Allergy/AdvReac Type Severity Reaction Status Date / Time haloperidol [From HALDOL] Allergy Intermediate N/V/D Verified 10/04/20 11:06 acetaminophen [From TYLENOL] Allergy Mild GI UPSET Verified 10/04/20 11:06 SEAFOOD Allergy Severe ANAPHYLAXIS Uncoded 09/27/20 10:20 Assessment & Plan Assessment & Plan (1) Suicidal ideation: Status: Acute Code(s): R45.851 - Suicidal ideations (2) Depression: Status: Acute Code(s): F32.9 - Major depressive disorder, single episode, unspecified (3) Substance induced mood disorder: Status: Acute Code(s): F19.94 - Other psychoactive substance use, unspecified with psychoactive substance-induced mood disorder (4) Opioid use disorder: Status: Acute Code(s): F11.99 - Opioid use, unspecified with unspecified opioid-induced disorder Assessment and Plan: resume suboxone assist pt with relapse prevention planning restart prozac seroquel reduced to 12.5 mg TID due to QTC prolonged (greater than 500) ativan prn for agitation, anxiety Clonidine d/c duet o abnormal ekg and pt not taking repeat ekg Greater than 50% of the session was spent on counseling and/or coordination of care Reason for contiued inpatient stay Substantial Risk for: harm to self, rapid decompensation and med/psych decompensation
[2020-11-26] MEDS: Buprenorphine/Naloxone 8/2 mg FILM 1 FILM SUBLINGUAL (13:15)
[2020-11-26] MEDS: QUEtiapine Fumarate 50 MG TABLET 12.5 MG PO ×2 (14:47→21:09)
[2020-11-26 16:54] VITALS: BP 109/63; PULSE 71; TEMP 36.7; O2SAT 96
[2020-11-27 06:00] VITALS: BP 108/60; PULSE 81; TEMP 36.3; O2SAT 96
[2020-11-27] MEDS: QUEtiapine Fumarate 50 MG TABLET 12.5 MG PO ×3 (08:20→20:37)
[2020-11-27] MEDS: FLUoxetine HCl 10 MG CAPSULE PO (08:20)
[2020-11-27] MEDS: LORazepam 1 MG TABLET PO ×3 (08:36→18:18)
[2020-11-27] MEDS: Buprenorphine/Naloxone 8/2 mg FILM 1 FILM SUBLINGUAL ×2 (11:37→16:26)
--- NOTE | 2020-11-27 12:24 | HO.PSYCHPN ---
Subjective Subjective Date of Service: 11/27/20 Reason For Visit: SI Interim History: pt started on suboxone with good effect. EKG shows prolonged QTC greater than 500 on 11/25. Meds adjusted with reduced seroqule and d/c clonidine; start ativan prn . repeat EKG QTC = 467 with early repolarization. pt denies chest pain. denies lightheaded. Vitals stable. no SOB or sign of distress; reports he is feeling better overall. eating and taking fluids. mood improving Review of Systems Review of Systems Yes all other systems are reviewed and are negative Comments: qtc prolonged 11/25/20 repeat 11/26 shows QTC at 467 after meds adjusted Mental Status Exam Mental Status Exam Patient Appearance: Fatigued, Disheveled and Unkempt Patient Orientation: Person, Place and Situation Level of Consciousness: Awake and Appropriate Patient Behavior: Appropriate, Cooperative and Fatigued Mood Description: Withdrawn Affect Description: Withdrawn and Flat Ability to Follow Directions: Good Speech Pattern: Impoverished Thought Process: Intact and Linear Thought Content: positive for [place] Judgement: Fair Diagnostics Vital Signs (24Hr): Vital Signs - 24 hr 11/26/20 16:54 11/27/20 06:00 Temperature 98.1 F 97.4 F Pulse Rate 71 81 Blood Pressure 109/63 108/60 Pulse Oximetry 96 96 Body Mass Index 23.7 Medications Medications Current Medications Generic Name Dose Route Start Last Admin Trade Name Freq PRN Reason Stop Dose Admin Al Hydroxide/Mg Hydroxide 30 ml 11/24/20 15:43 Magnesium Hydrox/Alum Hydrox 30 Ml Oral.Susp PO Q6H PRN Heartburn/Nausea Buprenorphine/Naloxone 1 film 11/27/20 16:00 Buprenorphine/Naloxone 8/2 Mg Film SUBLINGUAL 11/27/20 16:01 ONCE ONE Buprenorphine/Naloxone 1 film 11/28/20 08:00 Buprenorphine/Naloxone 8/2 Mg Film SUBLINGUAL BID@0800,1500 DARNELL Fluoxetine HCl 10 mg 11/24/20 10:00 11/27/20 08:20 Fluoxetine Hcl 10 Mg Capsule PO 10 mg DAILY DARNELL Administration Ibuprofen 600 mg 11/25/20 16:29 Ibuprofen 600 Mg Tablet PO Q8H PRN Pain, Moderate (Pain Scale 4-6 Lorazepam 1 mg 11/26/20 12:11 11/27/20 08:36 Lorazepam 1 Mg Tablet PO 1 mg Q4H PRN Administration anxiety/restlessness Magnesium Hydroxide 30 ml 11/24/20 15:43 Milk Of Magnesia 30 Ml Oral.Susp PO DAILY PRN Constipation Naloxone HCl 4 mg 11/28/20 09:14 Naloxone Hcl Nasal Take Home 4 Mg [place] NOSTRILALT 11/28/20 09:15 ONCE ONE Nicotine 21 mg 11/25/20 09:00 11/27/20 08:37 Nicotine 21 Mg Patch.Td24 TRANSDERMA Not Given DAILY DARNELL Nicotine Polacrilex 4 mg 11/24/20 15:43 Nicotine Polacrilex 2 Mg Gum BUCCAL Q2H PRN Nicotine Cravings Quetiapine Fumarate 12.5 mg 11/26/20 15:00 11/27/20 08:20 Quetiapine Fumarate 50 Mg Tablet PO 12.5 mg TID DARNELL Administration Allergies Allergies Allergy/AdvReac Type Severity Reaction Status Date / Time haloperidol [From HALDOL] Allergy Intermediate N/V/D Verified 10/04/20 11:06 acetaminophen [From TYLENOL] Allergy Mild GI UPSET Verified 10/04/20 11:06 SEAFOOD Allergy Severe ANAPHYLAXIS Uncoded 09/27/20 10:20 Assessment & Plan Assessment & Plan (1) Suicidal ideation: Status: Acute Code(s): R45.851 - Suicidal ideations (2) Depression: Status: Acute Code(s): F32.9 - Major depressive disorder, single episode, unspecified (3) Substance induced mood disorder: Status: Acute Code(s): F19.94 - Other psychoactive substance use, unspecified with psychoactive substance-induced mood disorder (4) Opioid use disorder: Status: Acute Code(s): F11.99 - Opioid use, unspecified with unspecified opioid-induced disorder Assessment and Plan: resume suboxone assist pt with relapse prevention planning continue prozac seroquel reduced to 12.5 mg TID due to QTC prolonged (greater than 500) ativan prn for agitation, anxiety Clonidine d/c due to abnormal ekg and pt not taking Greater than 50% of the session was spent on counseling and/or coordination of care Reason for contiued inpatient stay Substantial Risk for: harm to self, rapid decompensation and med/psych decompensation
[2020-11-27 18:00] VITALS: BP 113/67; PULSE 75; TEMP 36.7
[2020-11-27 21:25] VITALS: BP 111/59; PULSE 95
[2020-11-28 06:00] VITALS: BP 120/77; PULSE 68; RESP 16; TEMP 36.5; O2SAT 97
[2020-11-28] MEDS: Buprenorphine/Naloxone 8/2 mg FILM 1 FILM SUBLINGUAL ×2 (07:58→15:07)
[2020-11-28] MEDS: QUEtiapine Fumarate 50 MG TABLET 12.5 MG PO (07:58)
[2020-11-28] MEDS: FLUoxetine HCl 10 MG CAPSULE PO (07:58)
[2020-11-28] MEDS: LORazepam 1 MG TABLET PO ×2 (07:58→20:17)
[2020-11-28] MEDS: Naloxone HCl Nasal TAKE HOME 4 MG SPRAY NOSTRILALT (08:46)
--- NOTE | 2020-11-28 13:15 | P.PNPSI_ITS ---
Subjective Subjective Date of Service: 11/29/20 Reason For Visit: SI Interim History: Pt reports that soon after discharged from this unit, he did not follow up with IOP and quickly relapsed on heroin and cocaine. He reports some alcohol use but not consistently. He does report that in past he had withdrawal seizures. As of today it's been more than 96 hrs after last drink. No Alcohol withdrawal symptoms. He was restarted on suboxone. He states he wants to get sublocade instead if possible before leaving hospital. He states he wants to go to [facility]. He reports anxiety during the day. We talk about trying other non control substances for anxiety while in unit that he can be prescribed on on discharge. He insisted only ativan, but informed this will not be the case. He was encouraged to attend groups as he stays mostly in his room. He denies SI/HI. No VH/AH. Review of Systems Review of Systems Yes all other systems are reviewed and are negative Mental Status Exam Mental Status Exam Narrative: Appearance: casually groomed, fair hygiene, in NAD Behavior: calm, cooperative Psychomotor: no agitation or retardation noted Speech: clear, normal rate/rhythm/volume, spontaneous TP: linear TC: no signs of psychosis, feeling anxious Mood: anxious Affect:brigther than reported mood SI:denies HI:denies AH/VH:none Delusions:none Insight/judgment:poor x 2. Memory/cog: alert, oriented x 3. grossly intact to conversational testing. Diagnostics Vital Signs (24Hr): Vital Signs - 24 hr 11/27/20 18:00 11/27/20 21:25 11/28/20 06:00 Temperature 98.0 F 97.7 F Pulse Rate 75 95 68 Respiratory Rate 16 Blood Pressure 113/67 111/59 L 120/77 Pulse Oximetry 97 Body Mass Index 23.7 Medications Medications Current Medications Generic Name Dose Route Start Last Admin Trade Name Freq PRN Reason Stop Dose Admin Al Hydroxide/Mg Hydroxide 30 ml 11/24/20 15:43 Magnesium Hydrox/Alum Hydrox 30 Ml Oral.Susp PO Q6H PRN Heartburn/Nausea Buprenorphine/Naloxone 1 film 11/28/20 08:00 11/28/20 07:58 Buprenorphine/Naloxone 8/2 Mg Film SUBLINGUAL 1 film BID@0800,1500 DARNELL Administration Fluoxetine HCl 10 mg 11/24/20 10:00 11/28/20 07:58 Fluoxetine Hcl 10 Mg Capsule PO 10 mg DAILY DARNELL Administration Hydroxyzine HCl 50 mg 11/28/20 13:11 Hydroxyzine Hcl 50 Mg Tablet PO Q6H PRN Anxiety Ibuprofen 600 mg 11/25/20 16:29 Ibuprofen 600 Mg Tablet PO Q8H PRN Pain, Moderate (Pain Scale 4-6 Magnesium Hydroxide 30 ml 11/24/20 15:43 Milk Of Magnesia 30 Ml Oral.Susp PO DAILY PRN Constipation Nicotine 21 mg 11/25/20 09:00 11/28/20 07:59 Nicotine 21 Mg Patch.Td24 TRANSDERMA Not Given DAILY DARNELL Nicotine Polacrilex 4 mg 11/24/20 15:43 Nicotine Polacrilex 2 Mg Gum BUCCAL Q2H PRN Nicotine Cravings Quetiapine Fumarate 12.5 mg 11/28/20 15:00 Quetiapine Fumarate 25 Mg Tablet PO TID DARNELL Allergies Allergies Allergy/AdvReac Type Severity Reaction Status Date / Time haloperidol [From HALDOL] Allergy Intermediate N/V/D Verified 10/04/20 11:06 acetaminophen [From TYLENOL] Allergy Mild GI UPSET Verified 10/04/20 11:06 SEAFOOD Allergy Severe ANAPHYLAXIS Uncoded 09/27/20 10:20 Assessment & Plan Assessment & Plan (1) Suicidal ideation: Status: Acute Code(s): R45.851 - Suicidal ideations (2) Depression: Status: Acute Code(s): F32.9 - Major depressive disorder, single episode, unspecified (3) Substance induced mood disorder: Status: Acute Code(s): F19.94 - Other psychoactive substance use, unspecified with psychoactive substance-induced mood disorder (4) Opioid use disorder: Status: Acute Code(s): F11.99 - Opioid use, unspecified with unspecified opioid-induced disorder Assessment and Plan: resume suboxone assist pt with relapse prevention planning continue prozac continue seroquel Greater than 50% of the session was spent on counseling and/or coordination of care Reason for contiued inpatient stay Substantial Risk for: harm to self
[2020-11-28] MEDS: QUEtiapine Fumarate 25 MG TABLET 12.5 MG PO ×2 (13:16→20:17)
[2020-11-28 15:45] VITALS: BP 104/59; PULSE 77; TEMP 36.7
[2020-11-28] MEDS: hydrOXYzine HCL 50 MG TABLET PO (19:08)
[2020-11-29 06:00] VITALS: BP 102/58; PULSE 69; RESP 16; TEMP 36.1; O2SAT 97
[2020-11-29] MEDS: Ibuprofen 600 MG TABLET PO (07:43)
[2020-11-29] MEDS: FLUoxetine HCl 10 MG CAPSULE PO (07:43)
[2020-11-29] MEDS: QUEtiapine Fumarate 25 MG TABLET 12.5 MG PO ×3 (07:44→21:09)
[2020-11-29] MEDS: LORazepam 1 MG TABLET PO ×4 (07:44→21:14)
[2020-11-29] MEDS: Buprenorphine/Naloxone 8/2 mg FILM 1 FILM SUBLINGUAL ×2 (07:45→14:23)
--- NOTE | 2020-11-29 14:46 | HO.PSYCHPN ---
Subjective Subjective Date of Service: 11/29/20 Reason For Visit: SI Interim History: Pt more engaging with treatment team. He continues to report that he wants to continue substance use tx in residential program. He denies SI/HI. He reports feeling anxious at times. He states he would like to start sublocade. He reports eating and sleeping better. He was encouraged to attend assigned groups. Review of Systems Review of Systems Yes all other systems are reviewed and are negative Mental Status Exam Mental Status Exam Narrative: Appearance: casually groomed, fair hygiene, in NAD Behavior: calm, cooperative Psychomotor: no agitation or retardation noted Speech: clear, normal rate/rhythm/volume, spontaneous TP: linear TC: no signs of psychosis, feeling anxious Mood: anxious Affect:brigther than reported mood SI:denies HI:denies AH/VH:none Delusions:none Insight/judgment:poor x 2. Memory/cog: alert, oriented x 3. grossly intact to conversational testing. Diagnostics Vital Signs (24Hr): Vital Signs - 24 hr 11/28/20 15:45 11/29/20 06:00 Temperature 98.1 F 97 F Pulse Rate 77 69 Respiratory Rate 16 Blood Pressure 104/59 L 102/58 L Pulse Oximetry 97 Body Mass Index 23.7 Medications Medications Current Medications Generic Name Dose Route Start Last Admin Trade Name Freq PRN Reason Stop Dose Admin Al Hydroxide/Mg Hydroxide 30 ml 11/24/20 15:43 Magnesium Hydrox/Alum Hydrox 30 Ml Oral.Susp PO Q6H PRN Heartburn/Nausea Buprenorphine/Naloxone 1 film 11/28/20 08:00 11/29/20 14:23 Buprenorphine/Naloxone 8/2 Mg Film SUBLINGUAL 1 film BID@0800,1500 DARNELL Administration Fluoxetine HCl 10 mg 11/24/20 10:00 11/29/20 07:43 Fluoxetine Hcl 10 Mg Capsule PO 10 mg DAILY DARNELL Administration Hydroxyzine HCl 50 mg 11/28/20 13:11 11/28/20 19:08 Hydroxyzine Hcl 50 Mg Tablet PO 50 mg Q6H PRN Administration Anxiety Ibuprofen 600 mg 11/25/20 16:29 11/29/20 07:43 Ibuprofen 600 Mg Tablet PO 600 mg Q8H PRN Administration Pain, Moderate (Pain Scale 4-6 Lorazepam 1 mg 11/28/20 20:07 11/29/20 12:31 Lorazepam 1 Mg Tablet PO 1 mg Q4H PRN Administration anxiety/restlessness Magnesium Hydroxide 30 ml 11/24/20 15:43 Milk Of Magnesia 30 Ml Oral.Susp PO DAILY PRN Constipation Nicotine 21 mg 11/25/20 09:00 11/29/20 07:50 Nicotine 21 Mg Patch.Td24 TRANSDERMA Not Given DAILY DARNELL Nicotine Polacrilex 4 mg 11/24/20 15:43 Nicotine Polacrilex 2 Mg Gum BUCCAL Q2H PRN Nicotine Cravings Quetiapine Fumarate 12.5 mg 11/28/20 15:00 11/29/20 14:23 Quetiapine Fumarate 25 Mg Tablet PO 12.5 mg TID DARNELL Administration Allergies Allergies Allergy/AdvReac Type Severity Reaction Status Date / Time haloperidol [From HALDOL] Allergy Intermediate N/V/D Verified 10/04/20 11:06 acetaminophen [From TYLENOL] Allergy Mild GI UPSET Verified 10/04/20 11:06 SEAFOOD Allergy Severe ANAPHYLAXIS Uncoded 09/27/20 10:20 Assessment & Plan Assessment & Plan (1) Depression: Status: Acute Code(s): F32.9 - Major depressive disorder, single episode, unspecified (2) Substance induced mood disorder: Status: Acute Code(s): F19.94 - Other psychoactive substance use, unspecified with psychoactive substance-induced mood disorder (3) Opioid use disorder: Status: Acute Code(s): F11.99 - Opioid use, unspecified with unspecified opioid-induced disorder (4) MDD (major depressive disorder), recurrent episode, moderate: Status: Acute Code(s): F33.1 - Major depressive disorder, recurrent, moderate Assessment and Plan: resume suboxone- plan to get Sublocade. assist pt with relapse prevention planning Increase prozac to 20mg po daily. continue seroquel Greater than 50% of the session was spent on counseling and/or coordination of care Reason for contiued inpatient stay Substantial Risk for: harm to self
[2020-11-29 18:00] VITALS: BP 130/87; PULSE 93; TEMP 36.5
[2020-11-29] MEDS: hydrOXYzine HCL 50 MG TABLET PO (18:18)
[2020-11-30] MEDS: hydrOXYzine HCL 50 MG TABLET PO ×2 (00:14→20:41)
[2020-11-30] MEDS: Buprenorphine/Naloxone 8/2 mg FILM 1 FILM SUBLINGUAL ×2 (08:39→14:55)
[2020-11-30] MEDS: QUEtiapine Fumarate 25 MG TABLET 12.5 MG PO ×3 (08:39→20:42)
[2020-11-30] MEDS: FLUoxetine HCl 20 MG CAPSULE PO (08:39)
[2020-11-30] MEDS: LORazepam 1 MG TABLET PO ×3 (08:47→20:42)
--- NOTE | 2020-11-30 14:07 | P.PNPSI_ITS ---
Subjective Subjective Date of Service: 11/30/20 Reason For Visit: SI Interim History: Pt reports having difficult conversation with father in that pt feels father and other family members think it is just a lack of will the fact that pt continues to relapse on substances. As of today, no secure bed for residential substance use treatment program has been found. He can start sublocade tomorrow here at [facility]. Pt somewhat negative about thinking he may relapse too quickly again this time. He reports sleeping and eating well. He denies SI/HI. He does endorse feeling down, saddened by his overall situation in life without much stability. Review of Systems Review of Systems Yes all other systems are reviewed and are negative Mental Status Exam Mental Status Exam Narrative: Appearance: casually groomed, fair hygiene, in NAD Behavior: calm, cooperative Psychomotor: no agitation or retardation noted Speech: clear, normal rate/rhythm/volume, spontaneous TP: linear TC: no signs of psychosis, feeling anxious Mood: anxious Affect:brigther than reported mood SI:denies HI:denies AH/VH:none Delusions:none Insight/judgment:poor x 2. Memory/cog: alert, oriented x 3. grossly intact to conversational testing. Mood Description: Withdrawn Affect Description: Withdrawn and Flat Ability to Follow Directions: Good Speech Pattern: Impoverished Diagnostics Vital Signs (24Hr): Vital Signs - 24 hr 11/29/20 18:00 Temperature 97.7 F Pulse Rate 93 Blood Pressure 130/87 Body Mass Index 23.7 Medications Medications Current Medications Generic Name Dose Route Start Last Admin Trade Name Freq PRN Reason Stop Dose Admin Al Hydroxide/Mg Hydroxide 30 ml 11/24/20 15:43 Magnesium Hydrox/Alum Hydrox 30 Ml Oral.Susp PO Q6H PRN Heartburn/Nausea Buprenorphine/Naloxone 1 film 11/28/20 08:00 11/30/20 08:39 Buprenorphine/Naloxone 8/2 Mg Film SUBLINGUAL 1 film BID@0800,1500 DARNELL Administration Fluoxetine HCl 20 mg 11/30/20 09:00 11/30/20 08:39 Fluoxetine Hcl 20 Mg Capsule PO 20 mg DAILY DARNELL Administration Hydroxyzine HCl 50 mg 11/28/20 13:11 11/30/20 00:14 Hydroxyzine Hcl 50 Mg Tablet PO 50 mg Q6H PRN Administration Anxiety Ibuprofen 600 mg 11/25/20 16:29 11/29/20 07:43 Ibuprofen 600 Mg Tablet PO 600 mg Q8H PRN Administration Pain, Moderate (Pain Scale 4-6 Lorazepam 1 mg 11/28/20 20:07 11/30/20 08:47 Lorazepam 1 Mg Tablet PO 1 mg Q4H PRN Administration anxiety/restlessness Magnesium Hydroxide 30 ml 11/24/20 15:43 Milk Of Magnesia 30 Ml Oral.Susp PO DAILY PRN Constipation Nicotine 21 mg 11/25/20 09:00 11/30/20 08:52 Nicotine 21 Mg Patch.Td24 TRANSDERMA Not Given DAILY DARNELL Nicotine Polacrilex 4 mg 11/24/20 15:43 Nicotine Polacrilex 2 Mg Gum BUCCAL Q2H PRN Nicotine Cravings Quetiapine Fumarate 12.5 mg 11/28/20 15:00 11/30/20 08:39 Quetiapine Fumarate 25 Mg Tablet PO 12.5 mg TID DARNELL Administration Allergies Allergies Allergy/AdvReac Type Severity Reaction Status Date / Time haloperidol [From HALDOL] Allergy Intermediate N/V/D Verified 10/04/20 11:06 acetaminophen [From TYLENOL] Allergy Mild GI UPSET Verified 10/04/20 11:06 SEAFOOD Allergy Severe ANAPHYLAXIS Uncoded 09/27/20 10:20 Assessment & Plan Assessment & Plan (1) Depression: Status: Acute Code(s): F32.9 - Major depressive disorder, single episode, unspecified (2) Substance induced mood disorder: Status: Acute Code(s): F19.94 - Other psychoactive substance use, unspecified with psychoactive substa nce-induced mood disorder (3) Opioid use disorder: Status: Acute Code(s): F11.99 - Opioid use, unspecified with unspecified opioid-induced disorder (4) MDD (major depressive disorder), recurrent episode, moderate: Status: Acute Code(s): F33.1 - Major depressive disorder, recurrent, moderate Assessment and Plan: resume suboxone- plan to get Sublocade. assist pt with relapse prevention planning Increase prozac to 20mg po daily. continue seroquel Greater than 50% of the session was spent on counseling and/or coordination of care Reason for contiued inpatient stay Substantial Risk for: harm to self
[2020-11-30 14:12] VITALS: BMI 26.7
[2020-11-30 18:00] VITALS: BP 122/70; PULSE 75; TEMP 36.8
[2020-12-01] MEDS: hydrOXYzine HCL 50 MG TABLET PO (02:06)
[2020-12-01] MEDS: QUEtiapine Fumarate 25 MG TABLET 12.5 MG PO (08:53)
[2020-12-01] MEDS: FLUoxetine HCl 20 MG CAPSULE PO (08:53)
[2020-12-01] MEDS: Buprenorphine/Naloxone 8/2 mg FILM 1 FILM SUBLINGUAL (08:54)
--- NOTE | 2020-12-01 09:01 | P.DS_ITS ---
DS: Providers Provider Date of Service: 12/01/20 Date of admission: 11/24/20 14:17 Primary care physician: None Physician DS: Diagnosis Discharge Diagnosis (1) Depression: Status: Deleted (2) Substance induced mood disorder: Status: Deleted (3) Opioid use disorder: Status: Acute (4) MDD (major depressive disorder), recurrent episode, moderate: Status: Acute DS: Medications Discharge Medications Home Medications: Previous Rx's Medication Instructions Recorded fluoxetine 20 mg PO DAILY #30 cap 12/01/20 quetiapine 25 mg PO TID #90 tab 12/01/20 Mental Status Exam Mental Status Exam Narrative: Appearance: casually groomed, fair hygiene, in NAD Behavior: calm, cooperative Psychomotor: no agitation or retardation noted Speech: clear, normal rate/rhythm/volume, spontaneous TP: linear TC: no signs of psychosis, feeling anxious Mood: anxious Affect:brigther than reported mood SI:denies HI:denies AH/VH:none Delusions:none Insight/judgment:poor x 2. Memory/cog: alert, oriented x 3. grossly intact to conversational testing. DS: Summary Hospital Course Hospital Course: [place] as a [place] [facility] [place] for reported SI with attempt to hang himself with USB cable and his Girlfriend kicked him out . Pt reported to ER staff active SI in context of relapse and homelessness. Pt denies SI/HI currently. Pt is homeless. Pt signed a CV. Pt Positive for Cocaine, Heroin.Pt was covid -. Pt denies any current withdrawal symptoms. Past Psychiatric History: Last on M5 in March and May 2019. discharge with suboxone treatment and pt had been doing well until 11/24 when he relapsed on heroin IP: 5 Multiple EATS and IP programs hx past suicide attempt? Currently on Suboxone 12/25 bid Crisis Stabilization:4 admissions Several detox admissions. Medical Evaluation Reviewed: Yes ED note :? when patient attempted to hang himself there was no obvious signs of trauma to cervical spine or paracervical musculature.? There are no step-offs or deformities.? Patient is neuro intact bilaterally and distally on all 4 extremities.? Reflexes intact bilateral and this can all 4 extremities.? Airway is patent.? Patient is not coughing denies any shortness of breath.? Lungs clear to auscultation.? Therefore C-collar was cleared by physical exam and there is no need for imaging at this time.? Patient will be admitted to Psychiatric at this time.? He understands agrees with this plan. HOSPITAL COURSE On the unit, Pt reported feeling depressed hopeless, in context of problems with GF and ongoing substance use. He denied suicidal or homicidal ideation. There were no evidence of active psychosis and pt denied hx of. We discussed risks, benefits and alternative treatment option. Pt agreed to continue prozac for mood. he agreed to try Seroquel for anxiety, 25mg po TID with good effect. He also agreed to re-start suboxone. His affect gradually brighten. He denied suicidal and homicidal ideation. He reported feeling less depressed. He was sleeping and eating well. He was visible in the unit, social with select peers. There were no incidences of disruptive behaviors nor use of restraint. Time spent discussing smoking cessation with patient: 3 to 10 minutes Status at Discharge Cognitive/behavioral status at discharge: Pt denies SI/HI. No VH/AH. Pt is future oriented in that he is looking forward to return home, see family, continue OP tx. No signs of aggression towards self or others. Functional status at discharge: independent ambulation Overall status at discharge: patient is progressing back to baseline Time Spent with Patient Time attestation: Total time spent providing and/or coordinating discharge services: Time spent: Greater than 30 minutes Discharge Plan Discharge Patient Disposition: Home, Self-Care Discharge Diagnosis: MDD, recurrent, moderate Referrals: Suboxone: Kourtney Sifuentes ([facility] [Other] - 12/01/20 11:30 am DTA Worker: Wood Donald [Other] - 1 Week [facility] [Other] (walk in center) Physician,None [Primary Care Provider] - 1 Week Discharge Medications: New quetiapine 25 mg Tablet 25 mg PO TID Qty: 90 RF: 0 fluoxetine 20 mg Capsule 20 mg PO DAILY Qty: 30 RF: 0 Discontinued buprenorphine-naloxone [Suboxone] 8-2 mg film 2 film sublingual DAILY 14 Days Qty: 28 RF: 0 fluoxetine 10 mg Capsule 10 mg PO DAILY Qty: 30 RF: 0 quetiapine 50 mg tablet 1 tab PO TID RF: 0 No Action buprenorphine-naloxone [Suboxone] 8-2 mg film 2 film sublingual DAILY 7 Days Qty: 14 RF: 0 Discharge Orders: Discharge Order (Routine); Ordered 12/01/20 Ordered By: Emily Jose Diet: regular diet Activity on Discharge: As tolerated Stand Alone Forms: Patient Portal Discharge page, Community Support Care Plan Goals: 1. Maintain mood 2. No SI/HI Health Concerns: Follow up with PCP Plan of Treatment: 1. Take medications as prescribed 2. Go to nearest ED or call 911 in event of emergency 3. Follow up with referrals for CSS Assessment: No SI/HI. Less depressed but worried about quickly relapsing again. Discharge Date/Time: 12/01/20 11:43
[2020-12-01] MEDS: Naloxone HCl Nasal TAKE HOME 4 MG SPRAY NOSTRILALT (09:30)
[2020-12-01] MEDS: LORazepam 1 MG TABLET PO (09:58)
== END 2020-12-01 11:43 | disposition home or self-care (01) | DRG 751 ==
LOC: HO.ED 11-24 14:06 → HO.PM5 11-24 14:48
PROVIDERS: Physician Assistant; Admitting Provider Psychiatry & Neurology Psychiatry; Emergency Provider Emergency Medicine Emergency Medical Services; Visit Provider Social Worker
DX: F33.1 Major depressive disorder, recurrent, moderate (principal); R45.851 Suicidal ideations; Z91.5 Personal history of self-harm; F17.210 Nicotine dependence, cigarettes, uncomplicated; Z71.6 Tobacco abuse counseling; Z20.822 Contact with and (suspected) exposure to COVID-19; Z59.0 Homelessness
CPT/HCPCS: 36415; 80307; 87635; 93005; 99285; Q0163

== ENCOUNTER → 2020-12-01 11:42 | Outpatient (BNVA) | payer MEDICAID, SELFPAY | PROVIDERS: Visit Provider Internal Medicine | DX: Z51.81 Encounter for therapeutic drug level monitoring (principal) | CPT/HCPCS: 80305; 99211 ==

== ENCOUNTER → 2021-01-08 11:22 | Outpatient (BNVA) | payer MEDICAID, SELFPAY | PROVIDERS: Visit Provider Internal Medicine | DX: F11.99 Opioid use, unspecified with unspecified opioid-induced disorder (principal) | CPT/HCPCS: 99212 ==

== ENCOUNTER → 2021-01-24 09:59 | Outpatient (BNVA) | payer MEDICAID, SELFPAY | PROVIDERS: Visit Provider Internal Medicine | DX: F11.99 Opioid use, unspecified with unspecified opioid-induced disorder (principal); F10.20 Alcohol dependence, uncomplicated; B19.20 Unspecified viral hepatitis C without hepatic coma | CPT/HCPCS: 80305; 99212 ==

== ENCOUNTER → 2021-02-07 09:57 | Outpatient (BNVA) | payer MEDICAID, SELFPAY | PROVIDERS: Visit Provider Internal Medicine | DX: F11.90 Opioid use, unspecified, uncomplicated (principal); B19.20 Unspecified viral hepatitis C without hepatic coma | CPT/HCPCS: 80305; 99212 ==

== ENCOUNTER 2021-02-21 11:00 | Outpatient (REF) | payer MEDICAID, SELFPAY ==
[2021-02-21 12:24] LABS: Alanine Aminotransferase 55 U/L (0-40); Albumin Level 4.5 g/dL (3.5-5.0); Alkaline Phosphatase 64 U/L (39-117); Aspartate Amino Transferase 35 U/L (5-37); Bilirubin Direct 0.2 mg/dL (0.0-0.5); Bilirubin Total 0.5 mg/dL (0.0-1.0); Total Protein 7.1 g/dL (6.5-8.0)
[2021-02-22 08:17] LABS: HIV AB/AG Nonreactive (Nonreactive); HIV Num 1 0.08 S/CO (0.00-0.99)
[2021-02-23 22:16] LABS: HCV RNA PCR Qn 4.66 Log IU/mL (NOT DETECTED); HCV RNA PCR Qn 45500 IU/mL (NOT DETECTED)
[2021-03-01 18:37] LABS: FIB-ALT 45 U/L (9-46); FIB-Alpha-2-Macroglobulin 145 mg/dL (106-279); FIB-Apolipoprotein A1 134 mg/dL (94-176); FIB-GGT 16 U/L (3-90); FIB-Haptoglobin 38 mg/dL (43-212); FIB-Total Bilirubin 0.5 mg/dL (0.2-1.2); Liver Fibrosis Score 0.16; Liver Fibrosis Stage F0; Nec Inflam Act Grade A0-A1; Nec Inflam Act Score 0.22
== END 2021-02-21 11:01 | disposition home or self-care (01) ==
LOC: HO.LAB 11:00
PROVIDERS: Visit Provider Internal Medicine
DX: F11.99 Opioid use, unspecified with unspecified opioid-induced disorder (principal); B19.20 Unspecified viral hepatitis C without hepatic coma
CPT/HCPCS: 36415; 80076; 81596; 87389; 87902

== ENCOUNTER → 2021-02-22 09:26 | Outpatient (BNVA) | payer MEDICAID, SELFPAY | PROVIDERS: Visit Provider Nurse Practitioner Psychiatric/Mental Health | DX: Z51.81 Encounter for therapeutic drug level monitoring (principal); F11.90 Opioid use, unspecified, uncomplicated | CPT/HCPCS: 80305; 99212 ==

== ENCOUNTER → 2021-02-28 11:19 | Outpatient (BNVA) | payer MEDICAID, SELFPAY | PROVIDERS: Visit Provider Internal Medicine | DX: F11.90 Opioid use, unspecified, uncomplicated (principal); B19.20 Unspecified viral hepatitis C without hepatic coma | CPT/HCPCS: 99212 ==

== ENCOUNTER → 2021-03-07 10:19 | Outpatient (BNVA) | payer MEDICAID, SELFPAY | PROVIDERS: Visit Provider Internal Medicine | DX: F11.90 Opioid use, unspecified, uncomplicated (principal); B19.20 Unspecified viral hepatitis C without hepatic coma | CPT/HCPCS: 80305; 99212 ==

== ENCOUNTER 2021-03-20 14:07 | Outpatient (REF) | payer MEDICAID, SELFPAY ==
[2021-03-23 11:40] LABS: HCV RNA PCR Qn 133000 IU/mL (NOT DETECTED); HCV RNA PCR Qn 5.12 Log IU/mL (NOT DETECTED)
[2021-03-29 16:12] LABS: HCV Genotype LiPA 1a
== END 2021-03-20 14:08 | disposition home or self-care (01) ==
LOC: HO.LAB 14:07
PROVIDERS: Visit Provider Internal Medicine
DX: F11.99 Opioid use, unspecified with unspecified opioid-induced disorder (principal); F14.90 Cocaine use, unspecified, uncomplicated; B19.20 Unspecified viral hepatitis C without hepatic coma; F17.210 Nicotine dependence, cigarettes, uncomplicated; Z79.899 Other long term (current) drug therapy
CPT/HCPCS: 36415; 80305; 87902; 99212

== ENCOUNTER → 2021-04-03 13:11 | Outpatient (BNVA) | payer MEDICAID, SELFPAY | PROVIDERS: Visit Provider Internal Medicine | DX: F11.90 Opioid use, unspecified, uncomplicated (principal) | CPT/HCPCS: 99212 ==

== ENCOUNTER → 2021-04-17 13:34 | Outpatient (BNVA) | payer MEDICAID, SELFPAY | PROVIDERS: Visit Provider Internal Medicine | DX: F11.90 Opioid use, unspecified, uncomplicated (principal) | CPT/HCPCS: 80305; 99212 ==

== ENCOUNTER → 2021-05-01 10:44 | Outpatient (BNVA) | payer MEDICAID, SELFPAY | PROVIDERS: Visit Provider Internal Medicine | DX: F11.20 Opioid dependence, uncomplicated (principal); Z51.81 Encounter for therapeutic drug level monitoring; Z79.899 Other long term (current) drug therapy | CPT/HCPCS: 80305; 99212 ==

== ENCOUNTER 2021-06-08 14:19 | Outpatient (REF) | payer MEDICAID, SELFPAY ==
[2021-06-13 20:35] LABS: HCV RNA PCR Qn <1.18 log IU/mL; HCV RNA PCR Qn <15 IU/mL
== END 2021-06-08 14:20 | disposition home or self-care (01) ==
LOC: HO.LAB 14:19
PROVIDERS: Visit Provider Internal Medicine
DX: B19.20 Unspecified viral hepatitis C without hepatic coma (principal); F17.210 Nicotine dependence, cigarettes, uncomplicated; F14.20 Cocaine dependence, uncomplicated; F11.20 Opioid dependence, uncomplicated; Z88.8 Allergy status to other drugs, medicaments and biological substances; Z88.6 Allergy status to analgesic agent; Z91.013 Allergy to seafood; Z51.81 Encounter for therapeutic drug level monitoring; Z59.00 Homelessness unspecified
CPT/HCPCS: 36415; 80305; 87522; 87902; 99212

== ENCOUNTER 2021-06-16 05:10 | Emergency (ER) | payer MEDICAID, SELFPAY ==
[2021-06-16 05:13] VITALS: BP 142/89; PULSE 73; RESP 16; TEMP 36.6; O2SAT 99; BMI 25.1
[2021-06-16 05:58] LABS: Hematocrit 34.1 % (42.0-52.0); Hemoglobin 12.1 g/dl (14.0-18.0); Mean Corpuscular HGB Conc 35.5 g/dl (31.0-36.0); Mean Corpuscular Hemoglobin 30.3 pg (27.0-33.0); Mean Corpuscular Volume 85.5 fL (80.0-98.0); Mean Platelet Volume 8.1 fL (9.4-12.4); Platelet Count 189 X10*3/uL (160-400); Red Blood Count 3.99 X10*6/uL (4.60-5.80); Red Cell Distribution Width 12.6 % (11.0-16.0); White Blood Count 8.1 X10*3/uL (4.8-10.8)
[2021-06-16 05:59] LABS: Appearance Urine CLEAR; Color Urine YELLOW; Glucose Urine UA NEG (NEG); Leukocyte Esterase Urine NEG (NEG); Nitrite Urine NEG (NEG); PH 6.5 (5.0-8.0); Specific Gravity - Urine 1.025 (1.005-1.025); Urine Blood NEG (NEG); Urine Ketones NEG (NEG); Urine Protein NEG (NEG-TRACE)
[2021-06-16 06:13] LABS: Ethanol < 10 mg/dL
[2021-06-16 06:15] LABS: COVID-19 Test Negative (Negative); IDNOW Serial# 9DD0AD1C
[2021-06-16 06:16] LABS: Alanine Aminotransferase 16 U/L (0-40); Albumin Level 4.3 g/dL (3.5-5.0); Alkaline Phosphatase 82 U/L (39-117); Anion Gap 12 (12-20); Aspartate Amino Transferase 23 U/L (5-37); Bilirubin Total 0.2 mg/dL (0.0-1.0); Blood Urea Nitrogen 12 mg/dL (9-16); Calcium 9.7 mg/dL (8.4-10.2); Carbon Dioxide 30 mmol/L (22-29); Chloride 103 mmol/L (96-108); Creatinine Clr Calc Pharmacy 107.5; Estimated Glomerular Filt Rate > 60; Glucose Random 91 mg/dL (60-115); Potassium 4.1 mmol/L (3.3-5.1); Sodium 141 mmol/L (135-145)
[2021-06-16 06:24] LABS: Amphetamine Screen Urine Not Detected (Not Detect); Barbiturates, Urine Not Detected (Not Detect); Benzodiazepines Screen Urine Not Detected (Not Detect); Cannabinoid Screen Urine Not Detected (Not Detect); Cocaine Screen Urine POSITIVE (Not Detect); Fentanyl, urine POSITIVE (Not Detect); Opiate Screen Urine Not Detected (Not Detect); Phencyclidine Screen Urine Not Detected (Not Detect)
--- NOTE | 2021-06-16 09:41 | ED.GENADULT ---
HPI - General Adult General Chief complaint: General Medical Stated complaint: general medical? Time Seen by Provider: 06/16/21 08:31 Source: patient Mode of arrival: ambulatory History of Present Illness HPI narrative: 36-year-old male with a past medical history of IVDA, hepatitis-C, presenting to the ED requesting detox was sent in by Michelle Bustamante. Patient reports abusing benzos and heroin, admits last used heroin yesterday, and benzos 2 days ago. Denies being daily EtOH user. Denies fever, chills, cough, CP/SOB, abdominal pain Onset (ago): day(s) Related Data Previous Rx's Medication Instructions Recorded fluoxetine 20 mg capsule 20 mg PO DAILY #30 cap 12/01/20 quetiapine 25 mg tablet 25 mg PO TID #90 tab 12/01/20 sofosbuvir 400 mg-velpatasvir 100 1 tab PO DAILY 84 Days #84 tab 04/03/21 mg tablet (Epclusa) glecaprevir 100 mg-pibrentasvir 40 3 tab PO DAILY 56 Days #168 tab 04/11/21 mg tablet (Mavyret) buprenorphine 8 mg-naloxone 2 mg 2 film SUBLINGUAL DAILY 14 Days 06/08/21 sublingual film (Suboxone) #28 ea Allergies Allergy/AdvReac Type Severity Reaction Status Date / Time haloperidol [From HALDOL] Allergy Intermediate N/V/D Verified 05/01/21 10:53 acetaminophen [From TYLENOL] Allergy Mild GI UPSET Verified 05/01/21 10:53 SEAFOOD Allergy Severe ANAPHYLAXIS Uncoded 04/03/21 13:18 Review of Systems Review of Systems: Constitutional: No Fever, No Chills, No Fatigue, No Malaise ENT/Mouth: No Ear Pain, No sore throat, No Rhinorrhea, No Swallowing Difficulty Eyes: No Eye Pain, No Swelling, No Redness Cardiovascular: No Chest Pain, No SOB, No Edema, No Palpitations Respiratory: No Cough, No Dyspnea Gastrointestinal: No Nausea, No Vomiting, No Diarrhea, No Constipation, No Abdominal pain Genitourinary: No Dysuria, No Hematuria,No Flank Pain Musculoskeletal: No joint pain, No Myalgias, No Joint Swelling Skin: No Skin Lesions, No rash Neuro: No Weakness, No Numbness, No Paresthesias, No Headache Psych: No Anxiety/Panic, No Depression, No SI/HI/AH/VH Yes all other systems are reviewed and are negative [facility] Past Medical History Attestation statement: The following information was validated with the patient. Medical History Elevated LFTs Hepatitis C infection Intravenous drug abuse, continuous Scoliosis Family History Family History Other Patient denies medical problems Social History Social History Household Members: Family Housing: Homeless Do you presently have visiting nurse or other home services: No Unable to assess alcohol history related to: Unknown and Refusing to respond Alcohol intake: unknown Patient Tobacco Use Status: Current everyday Tobacco user Tobacco use type: Cigarette Cigarette Packs Per Day: 0.5 Cigarettes Per Day: 8 Years Smoked: unknown Second Hand Smoke Exposure: No Substance Use Type: Crack/Cocaine and Heroin Advance Directives: No Advance Directives Information Provided: Yes service: No Current occupational status: unemployed Sexual orientation: Straight/Heterosexual Physical Exam Vital Signs: Vital Signs: Last Vital Signs Temp 97.9 F 06/16/21 05:13 Pulse 76 06/16/21 11:43 Resp 16 06/16/21 05:13 BP 139/78 06/16/21 11:43 Pulse Ox 99 06/16/21 11:43 BMI result Body Mass Index 25.1 Const: Other: Appears under the influence General: cooperative, healthy appearing, no acute distress and well developed Orientation/consciousness: patient oriented x3 Limitations: no limitations HENMT: Head: Yes normal to inspection and Yes atraumatic Ears: hearing grossly normal bilaterally General nose exam: Normal external nose present Face and sinus: Yes normal facial exam Mouth: Normal oral and palatal mucosa present Throat: Yes posterior oropharynx normal and Yes uvula midline Eyes: General: appearance normal, both eyes and all related structures Pupils: Equal, round and reactive pupils present EOM: EOMs intact bilaterally Neck: Neck: Yes normal visual inspection and Yes no meningeal signs Resp: Effort & Inspection: normal respiratory effort Auscultation: clear to auscultation bilaterally, no rales, no rhonchi and no wheezes Cardio: Rate: regular rate Heart sounds: S1 normal heart sound present and S2 normal heart sound present GI: Inspection: Yes normal to inspection Palpation (GI): Soft to palpation, nontender, no guarding and not rigid Skin: Rashes: no rashes Wounds: no wounds Neuro: General: patient oriented x3 and no meningeal signs Cranial nerves: Yes Equal, round and reactive pupils present Gait exam (Neuro): Normal gait present Extrem: General: Yes normal to inspection Course Course Course Narrative: -no leukocytosis. H&H stable. Labs otherwise unremarkable. UA negative. Tox screen positive for fentanyl and cocaine -unable to find detox bed for patient. Patient reports he is homeless and has nowhere to go, afraid of dying on the street. Florentino secured bed at homeless senior living in [place], however patient refused secondary to being too far away and not knowing anybody there, then [facility] bed [facility], however, patient not interested in that bed either. -[id number]--patient found a place to go, Florentino will schedule Lyft for patient to be discharged Medical Decision Making MDM Narrative Medical decision making narrative: 36-year-old male with a past medical history of IVDA, hepatitis-C, presenting to the ED requesting detox was sent in by Michelle Bustamante. On exam vital signs stable, NAD/nontoxic, appears under the influence. 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 Lab Data Lab results reviewed: Yes I reviewed the patient's lab results. Result diagrams: 06/16/21 05:34 06/16/21 05:34 Labs: Lab Results 06/16/21 06/16/21 06/16/21 Range/Units 05:34 05:34 05:34 WBC 8.1 (4.8-10.8) X10*3/uL RBC 3.99 L (4.60-5.80) X10*6/uL Hgb 12.1 L (14.0-18.0) g/dl Hct 34.1 L (42.0-52.0) % MCV 85.5 (80.0-98.0) fL MCH 30.3 (27.0-33.0) pg MCHC 35.5 (31.0-36.0) g/dl RDW 12.6 (11.0-16.0) % Plt Count 189 (160-400) X10*3/uL MPV 8.1 L (9.4-12.4) fL Absolute Nucleated RBC 0.000 (0.0-0.012) X10*3/uL Nucleated RBC % (auto) 0.0 (0.0-0.2) /100WBC Sodium 141 (135-145) mmol/L Potassium 4.1 (3.3-5.1) mmol/L Chloride 103 (96-108) mmol/L Carbon Dioxide 30 H (22-29) mmol/L Anion Gap 12 (12-20) BUN 12 (9-16) mg/dL Creatinine 0.94 (0.5-1.4) mg/dL Estim Creat Clear Calc 107.5 Estimated GFR > 60 Random Glucose 91 (60-115) mg/dL Calcium 9.7 (8.4-10.2) mg/dL Total Bilirubin 0.2 (0.0-1.0) mg/dL AST 23 (5-37) U/L ALT 16 (0-40) U/L Alkaline Phosphatase 82 D (39-117) U/L Total Protein 7.0 (6.5-8.0) g/dL Albumin 4.3 (3.5-5.0) g/dL Urine Color Urine Appearance Urine pH (5.0-8.0) Ur Specific Brigantine (1.005-1.025) Urine Protein (NEG-TRACE) MG/DL Urine Glucose (UA) (NEG) MG/DL Urine Ketones (NEG) MG/DL Urine Blood (NEG) Urine Nitrite (NEG) Ur Leukocyte Esterase (NEG) Urine Opiates Screen (Not Detect) Urine Fentanyl Screen (Not Detect) Ur Barbiturates Screen (Not Detect) Ur Phencyclidine Scrn (Not Detect) Ur Amphetamines Screen (Not Detect) U Benzodiazepines Scrn (Not Detect) Urine Cocaine Screen (Not Detect) U Marijuana (THC) Screen (Not Detect) Ethyl Alcohol < 10 mg/dL COVID-19 (JACQUELIN) (Negative) COVID-19 Clin Com 06/16/21 06/16/21 06/16/21 Range/Units 05:34 05:34 05:34 WBC (4.8-10.8) X10*3/uL RBC (4.60-5.80) X10*6/uL Hgb (14.0-18.0) g/dl Hct (42.0-52.0) % MCV (80.0-98.0) fL MCH (27.0-33.0) pg MCHC (31.0-36.0) g/dl RDW (11.0-16.0) % Plt Count (160-400) X10*3/uL MPV (9.4-12.4) fL Absolute Nucleated RBC (0.0-0.012) X10*3/uL Nucleated RBC % (auto) (0.0-0.2) /100WBC Sodium (135-145) mmol/L Potassium (3.3-5.1) mmol/L Chloride (96-108) mmol/L Carbon Dioxide (22-29) mmol/L Anion Gap (12-20) BUN (9-16) mg/dL Creatinine (0.5-1.4) mg/dL Estim Creat Clear Calc Estimated GFR Random Glucose (60-115) mg/dL Calcium (8.4-10.2) mg/dL Total Bilirubin (0.0-1.0) mg/dL AST (5-37) U/L ALT (0-40) U/L Alkaline Phosphatase (39-117) U/L Total Protein (6.5-8.0) g/dL Albumin (3.5-5.0) g/dL Urine Color YELLOW Urine Appearance CLEAR Urine pH 6.5 (5.0-8.0) Ur Specific Brigantine 1.025 (1.005-1.025) Urine Protein NEG (NEG-TRACE) MG/DL Urine Glucose (UA) NEG (NEG) MG/DL Urine Ketones NEG (NEG) MG/DL Urine Blood NEG (NEG) Urine Nitrite NEG (NEG) Ur Leukocyte Esterase NEG (NEG) Urine Opiates Screen Not Detected (Not Detect) Urine Fentanyl Screen POSITIVE H (Not Detect) Ur Barbiturates Screen Not Detected (Not Detect) Ur Phencyclidine Scrn Not Detected (Not Detect) Ur Amphetamines Screen Not Detected (Not Detect) U Benzodiazepines Scrn Not Detected (Not Detect) Urine Cocaine Screen POSITIVE H (Not Detect) U Marijuana (THC) Screen Not Detected (Not Detect) Ethyl Alcohol mg/dL COVID-19 (JACQUELIN) Negative (Negative) COVID-19 Clin Com See Note ECG Data Attestation: I personally reviewed and interpreted this ECG as follows: Interpretation: EKG normal sinus rhythm at a rate of 74. Pr interval 170. QRS 94. QTC 461. Nonischemic/no STEMI Discharge Plan Discharge Clinical Impression: Polysubstance abuse Patient Disposition: Home, Self-Care Instructions: Polysubstance Abuse (ED) Additional Instructions: Follow-up for detox. You were supplied with many resources today in the emergency department Avoid alcohol and substance abuse it can kill you If you have thoughts of hurting herself or others please return to the emergency department Prescriptions: No Action Mavyret 100-40 mg tablet 3 tab PO DAILY 56 Days Qty: 168 RF: 0 quetiapine 25 mg Tablet 25 mg PO TID Qty: 90 RF: 0 fluoxetine 20 mg Capsule 20 mg PO DAILY Qty: 30 RF: 0 buprenorphine-naloxone [Suboxone] 8-2 mg film 2 film sublingual DAILY 14 Days Qty: 28 RF: 0 sofosbuvir-velpatasvir [Epclusa] 400-100 mg tablet 1 tab PO DAILY 84 Days Qty: 84 RF: 0 Referrals: [facility] [Physician] - 2 days
--- NOTE | 2021-06-16 09:46 | MHC.RECOVSUP ---
Recovery Support note: Patient is a 36 year old German speaking male who presented to [facility] seeking detox. Patient reports [facility] and they were unable to secure ATS placement. Patient reports using 1-2 bundles of heroin a day, IV. Patient also reports nasally using 6 benzodiazepines daily. Patient denies SI. Patient is willing to go anywhere for ATS treatment. This loan underwriter will assist patient is obtaining an ATS bed.
--- NOTE | 2021-06-16 09:47 | ECG_ITS ---
Test Reason : seeking detox Blood Pressure : / mmHG Vent. Rate : 074 BPM Atrial Rate : 074 BPM P-R Int : 170 ms QRS Dur : 094 ms QT Int : 416 ms P-R-T Axes : 069 061 048 degrees QTc Int : 461 ms Normal sinus rhythm Normal ECG When compared with ECG of 26-NOV-2020 16:56, No significant change was found Referred By: Madeline Barron Electronically Signed By:Edenilson Robbins
[2021-06-16 11:43] VITALS: BP 139/78; PULSE 76; O2SAT 99
--- NOTE | 2021-06-16 12:20 | MHC.RECOVSUP ---
Recovery Support note: Patient referred to [facility] and was declined due to low lab values. Informed [facility] that his values have been consistently low over the past four years. This appeals writer is awaiting follow up to see if they will reconsider patient for admission. No additional beds available at this time. Bedsearch exhausted.
--- NOTE | 2021-06-16 15:49 | MHC.RECOVSUP ---
Recovery Support note: No ATS bed available at this time. Patient expressed concern that he has no where to go. This grant writer located a jail bed in [place] however patient declined stating it was too far. This grant writer spoke with [facility] staff who stated that they would be able to continue to work with patient on securing an ATS bed. Discussed this with patient. Patient is not interested in going at this time. Encouraged patient to reach out to family and friends to find a bed. Patient making calls at this time. Discussed case with patient's ED provider.
--- NOTE | 2021-06-16 16:20 | PC.NURSE ---
PT HAS BEEN IN ED RESTING AND EATING APPROP. CARE TEAM HAS OFFERED SEVERAL OPPORTUNITIES FOR EXTENDED CARE AND PT CONTINUES TO DECLINE. PLAN WILL BE DISCHARGE
== END 2021-06-16 17:36 | disposition home or self-care (01) ==
PROVIDERS: Emergency Provider Internal Medicine
DX: F19.10 Other psychoactive substance abuse, uncomplicated (principal); F14.10 Cocaine abuse, uncomplicated; F11.20 Opioid dependence, uncomplicated; Z20.822 Contact with and (suspected) exposure to COVID-19; B19.20 Unspecified viral hepatitis C without hepatic coma; F17.200 Nicotine dependence, unspecified, uncomplicated
CPT/HCPCS: 36415; 80053; 80307; 81003; 82077; 85027; 87635; 93005; 99284

== ENCOUNTER → 2021-06-27 10:33 | Outpatient (BNVA) | payer MEDICAID, SELFPAY | PROVIDERS: Visit Provider Internal Medicine | DX: F11.20 Opioid dependence, uncomplicated (principal); B19.20 Unspecified viral hepatitis C without hepatic coma; Z51.81 Encounter for therapeutic drug level monitoring; Z79.899 Other long term (current) drug therapy | CPT/HCPCS: 80305; 99212 ==

== ENCOUNTER 2021-07-05 09:56 | Emergency (ER) | payer MEDICAID, SELFPAY ==
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
[2021-07-05 09:59] VITALS: BP 110/73; PULSE 82; RESP 18; TEMP 37; O2SAT 96; BMI 25.1
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
== END 2021-07-05 12:44 | disposition home or self-care (01) ==
PROVIDERS: Emergency Provider Emergency Medicine
DX: M79.10 Myalgia, unspecified site (principal); R51.9 Headache, unspecified; Z79.899 Other long term (current) drug therapy; F11.10 Opioid abuse, uncomplicated; F14.10 Cocaine abuse, uncomplicated
CPT/HCPCS: 70450; 99283; 99284

== ENCOUNTER 2021-07-07 00:03 | Emergency (ER) | payer MEDICAID, SELFPAY ==
[2021-07-07 00:49] VITALS: BP 118/81; PULSE 73; RESP 14; TEMP 36.6; O2SAT 95; BMI 24.3
--- NOTE | 2021-07-07 01:04 | ED_ITS ---
HPI - Psych General Chief Complaint: Psychiatric Symptoms Stated Complaint: Detox? Behavioral Health? Time Seen by Provider: 07/07/21 00:58 Source: patient and old records reviewed Mode of arrival: ambulatory Limitations: other (agitated, not cooperative) History of Present Illness HPI Narrative: has not taken is suboxone in 1 week MD complaint: suicidal ideation, feels depressed and substance abuse Onset (ago): week(s) Duration: getting worse History of same: Yes Relieving factors: none Exacerbating factors: drug use Context: recent drug abuse and significant life stressor (homeless) Associated psychiatric symptoms: depression and suicidal ideation Associated symptoms: other (states his feet hurt from walking for 6 days straight in terrible shoes) Treatments prior to arrival: none If self harm: admits thoughts of self harm Related Data Previous Rx's Medication Instructions Recorded fluoxetine 20 mg capsule 20 mg PO DAILY #30 cap 12/01/20 quetiapine 25 mg tablet 25 mg PO TID #90 tab 12/01/20 sofosbuvir 400 mg-velpatasvir 100 1 tab PO DAILY 84 Days #84 tab 04/03/21 mg tablet (Epclusa) glecaprevir 100 mg-pibrentasvir 40 3 tab PO DAILY 56 Days #168 tab 04/11/ mg tablet (Mavyret) buprenorphine 8 mg-naloxone 2 mg 2 film SUBLINGUAL DAILY 14 Days 06/27/21 sublingual film (Suboxone) #28 ea Allergies Allergy/AdvReac Type Severity Reaction Status Date / Time haloperidol [From HALDOL] Allergy Intermediate N/V/D Verified 07/07/21 00:54 acetaminophen [From TYLENOL] Allergy Mild GI UPSET Verified 07/07/21 00:54 SEAFOOD Allergy Severe ANAPHYLAXIS Uncoded 07/07/21 00:54 Review of Systems Review of Systems: Constitutional : No Fever, No Chills ENT/Mouth : No Ear Pain, No Nasal Congestion, No sore throat Eyes: No Eye Pain, No Swelling, No Redness Cardiovascular : No Chest Pain, No SOB Respiratory : No Cough, No Sputum, No Dyspnea Gastrointestinal : No Nausea, No Vomiting, No Diarrhea, No Hematochezia, No Melena Genitourinary : No Dysuria, No Urinary Frequency, No Hematuria Musculoskeletal : No Myalgias, pos bilateral foot pain Skin : No Skin Lesions, No rash Neuro : No Weakness, No Numbness, No Paresthesias, No Dizziness, No Headache Psych : positive Anxiety, positive Depression, positive SI no HI Heme/Lymph: No Lymphadenopathy Endocrine : No Polyuria, No Polydipsia All other systems reviewed and are negative [facility] Past Medical History Medical History Elevated LFTs Hepatitis C infection Intravenous drug abuse, continuous Scoliosis Family History Family History Other Patient denies medical problems Social History Social History Household Members: Family Housing: Homeless Do you presently have visiting nurse or other home services: No Unable to assess alcohol history related to: Unknown and Refusing to respond Alcohol intake: unknown Patient Tobacco Use Status: Current everyday Tobacco user Tobacco use type: Cigarette Cigarette Packs Per Day: 0.5 Cigarettes Per Day: 8 Years Smoked: unknown Second Hand Smoke Exposure: No Substance Use Type: Crack/Cocaine and Heroin Advance Directives: No Advance Directives Information Provided: Yes service: No Current occupational status: unemployed Sexual orientation: Straight/Heterosexual Physical Exam Vital Signs: Vital Signs: Last Vital Signs Temp 97.9 F 07/07/21 00:49 Pulse 73 07/07/21 00:49 Resp 14 07/07/21 00:49 BP 118/81 07/07/21 00:49 Pulse Ox 95 07/07/21 00:49 BMI result Body Mass Index 24.3 Appearance: Alert. Oriented X3. unkempt, disheveled, uncooperative Eyes: Pupils equal, round and reactive to light. ENT: Pharynx normal. Initially covering entire face with his mask Neck: Normal inspection. Neck supple. CVS: Normal heart rate and rhythm. Pulses normal. Respiratory: No respiratory distress. Breath sounds normal. Abdomen: Soft and non-tender. Skin: Skin warm and dry. Normal skin color. Normal skin turgor. Feet are warm to touch no cellulitis seen Extremities: No lower extremity edema. Feet warm to touch, shoes appear nice and clean, bounding pulses Neuro: Oriented X 3. No motor deficit. No sensory deficit. Will not participate in CN exam Course Course Course Narrative: Physician observation started at 308am Patient placed in physician observation because the patient needed more time for BHN to assess SI statements. At the time observation was started the patient's vitals were stable, patient is alert and oriented but slightly agitated, Neuro: nonfocal, CV RRR, Lungs clear MDM - Psych MDM Narrative Medical decision making narrative: 36 yo male with hx of substance abuse, hep C, here with substance abuse and SI - states he is going to kill himself also c/o foot pain from walking - I do not appreciate infection/frostbite/swelling/signs of infection or compartment syndrome - at this time will obtain basic labs, BHN consult - dispo per results and findings. Lab Data Result diagrams: 07/07/21 01:42 07/07/21 01:42 Labs: Lab Results 07/07/21 07/07/21 07/07/21 Range/Units 00:59 01:42 01:42 WBC 7.3 (4.8-10.8) X10*3/uL RBC 3.90 L (4.60-5.80) X10*6/uL Hgb 11.5 L (14.0-18.0) g/dl Hct 33.9 L (42.0-52.0) % MCV 86.9 (80.0-98.0) fL MCH 29.5 (27.0-33.0) pg MCHC 33.9 (31.0-36.0) g/dl RDW 13.8 (11.0-16.0) % Plt Count 194 (160-400) X10*3/uL MPV 8.3 L (9.4-12.4) fL Immature Gran % (Auto) 0.3 (0.0-0.4) % Neut % (Auto) 31.1 L (45-73) % Lymph % (Auto) 51.4 H (20-40) % [place] % (Auto) 9.8 (2-11) % Eos % (Auto) 6.7 H (0-4) % Baso % (Auto) 0.7 (0-2) % Lymph # (Auto) 3.8 (1.2-4.9) X10*3/uL [place] # (Auto) 0.7 (0.1-1.2) X10*3/uL Eos # (Auto) 0.5 H (0.0-0.4) X10*3/uL Baso # (Auto) 0.1 (0.0-0.2) X10*3/uL Abs Immat Gran (auto) 0.02 (0.00-0.03) X10*3/uL Absolute Neuts (auto) 2.3 (2.0-8.3) x10*3/uL Absolute Nucleated RBC 0.000 (0.0-0.012) X10*3/uL Nucleated RBC % (auto) 0.0 (0.0-0.2) /100WBC Sodium 142 (135-145) mmol/L Potassium 3.5 (3.3-5.1) mmol/L Chloride 108 (96-108) mmol/L Carbon Dioxide 27 (22-29) mmol/L Anion Gap 11 L (12-20) BUN 16 (9-16) mg/dL Creatinine 1.09 (0.5-1.4) mg/dL Estim Creat Clear Calc 92.7 Estimated GFR > 60 Random Glucose 115 (60-115) mg/dL Calcium 9.0 D (8.4-10.2) mg/dL Total Bilirubin 0.4 (0.0-1.0) mg/dL Direct Bilirubin 0.2 (0.0-0.5) mg/dL AST 32 (5-37) U/L ALT 16 (0-40) U/L Alkaline Phosphatase 58 D (39-117) U/L Total Creatine Kinase (38-174) U/L Total Protein 6.0 L (6.5-8.0) g/dL Albumin 3.8 (3.5-5.0) g/dL COVID-19 (JACQUELIN) Negative (Negative) COVID-19 Clin Com See Note 07/07/21 Range/Units 01:42 WBC (4.8-10.8) X10*3/uL RBC (4.60-5.80) X10*6/uL Hgb (14.0-18.0) g/dl Hct (42.0-52.0) % MCV (80.0-98.0) fL MCH (27.0-33.0) pg MCHC (31.0-36.0) g/dl RDW (11.0-16.0) % Plt Count (160-400) X10*3/uL MPV (9.4-12.4) fL Immature Gran % (Auto) (0.0-0.4) % Neut % (Auto) (45-73) % Lymph % (Auto) (20-40) % [place] % (Auto) (2-11) % Eos % (Auto) (0-4) % Baso % (Auto) (0-2) % Lymph # (Auto) (1.2-4.9) X10*3/uL [place] # (Auto) (0.1-1.2) X10*3/uL Eos # (Auto) (0.0-0.4) X10*3/uL Baso # (Auto) (0.0-0.2) X10*3/uL Abs Immat Gran (auto) (0.00-0.03) X10*3/uL Absolute Neuts (auto) (2.0-8.3) x10*3/uL Absolute Nucleated RBC (0.0-0.012) X10*3/uL Nucleated RBC % (auto) (0.0-0.2) /100WBC Sodium (135-145) mmol/L Potassium (3.3-5.1) mmol/L Chloride (96-108) mmol/L Carbon Dioxide (22-29) mmol/L Anion Gap (12-20) BUN (9-16) mg/dL Creatinine (0.5-1.4) mg/dL Estim Creat Clear Calc Estimated GFR Random Glucose (60-115) mg/dL Calcium (8.4-10.2) mg/dL Total Bilirubin (0.0-1.0) mg/dL Direct Bilirubin (0.0-0.5) mg/dL AST (5-37) U/L ALT (0-40) U/L Alkaline Phosphatase (39-117) U/L Total Creatine Kinase 750 H (38-174) U/L Total Protein (6.5-8.0) g/dL Albumin (3.5-5.0) g/dL COVID-19 (JACQUELIN) (Negative) COVID-19 Clin Com Discharge Plan Discharge Clinical Impression: Polysubstance (including opioids) dependence, daily use, Suicidal ideation Patient Disposition: Still a Patient Prescriptions: No Action Mavyret 100-40 mg tablet 3 tab PO DAILY 56 Days Qty: 168 0RF Rx Instructions: must administer with a meal/food quetiapine 25 mg Tablet 25 mg PO TID Qty: 90 0RF fluoxetine 20 mg Capsule 20 mg PO DAILY Qty: 30 0RF sofosbuvir-velpatasvir [Epclusa] 400-100 mg tablet 1 tab PO DAILY 84 Days Qty: 84 0RF buprenorphine-naloxone [Suboxone] 8-2 mg film 2 film sublingual DAILY 14 Days Qty: 28 0RF Rx Instructions: place 1 strip/tab under (each) side of tongue
[2021-07-07 01:20] LABS: COVID-19 Test Negative (Negative)
[2021-07-07 01:46] LABS: MANUAL DIFF FLAG NO
[2021-07-07 01:47] LABS: Basophils Absolute Auto 0.1 X10*3/uL (0.0-0.2); Basophils Percent Auto 0.7 % (0-2); Eosinophils Absolute Auto 0.5 X10*3/uL (0.0-0.4); Eosinophils Percent Auto 6.7 % (0-4); Hematocrit 33.9 % (42.0-52.0); Hemoglobin 11.5 g/dl (14.0-18.0); Imm Gran Abs Auto 0.02 X10*3/uL (0.00-0.03); Imm Gran Pct Auto 0.3 % (0.0-0.4); Lymphocytes Absolute Auto 3.8 X10*3/uL (1.2-4.9); Lymphocytes Percent Auto 51.4 % (20-40); Mean Corpuscular HGB Conc 33.9 g/dl (31.0-36.0); Mean Corpuscular Hemoglobin 29.5 pg (27.0-33.0); Mean Corpuscular Volume 86.9 fL (80.0-98.0); Mean Platelet Volume 8.3 fL (9.4-12.4); Monocytes Absolute Auto 0.7 X10*3/uL (0.1-1.2); Monocytes Percent Auto 9.8 % (2-11); Neutrophils Absolute Auto 2.3 x10*3/uL (2.0-8.3); Neutrophils Percent Auto 31.1 % (45-73); Platelet Count 194 X10*3/uL (160-400); Red Cell Distribution Width 13.8 % (11.0-16.0); White Blood Count 7.3 X10*3/uL (4.8-10.8)
[2021-07-07 02:04] LABS: Alanine Aminotransferase 16 U/L (0-40); Albumin Level 3.8 g/dL (3.5-5.0); Alkaline Phosphatase 58 U/L (39-117); Anion Gap 11 (12-20); Aspartate Amino Transferase 32 U/L (5-37); Bilirubin Direct 0.2 mg/dL (0.0-0.5); Bilirubin Total 0.4 mg/dL (0.0-1.0); Blood Urea Nitrogen 16 mg/dL (9-16); Carbon Dioxide 27 mmol/L (22-29); Chloride 108 mmol/L (96-108); Creatinine Clr Calc Pharmacy 92.7; Estimated Glomerular Filt Rate > 60; Glucose Random 115 mg/dL (60-115); Potassium 3.5 mmol/L (3.3-5.1); Sodium 142 mmol/L (135-145)
--- NOTE | 2021-07-07 06:55 | PC.NURSE ---
Patient slept through the night, no distress observed/reported, behavior appropriate, BHN referral completed/confirmed, pending evaluation in the morning, VSS, med rec completed/pending provider's approval, will continue to monitor.
--- NOTE | 2021-07-07 07:06 | PC.NURSE ---
patient appears to remain asleep at present respirations are even and unlabored, patient appears in no distress
[2021-07-08 01:22] VITALS: BP 152/93; PULSE 82; RESP 16; TEMP 36.8; O2SAT 100
[2021-07-08 02:48] LABS: Amphetamine Screen Urine Not Detected (Not Detect); Barbiturates, Urine Not Detected (Not Detect); Benzodiazepines Screen Urine Not Detected (Not Detect); Cannabinoid Screen Urine Not Detected (Not Detect); Cocaine Screen Urine POSITIVE (Not Detect); Fentanyl, urine POSITIVE (Not Detect); Opiate Screen Urine POSITIVE (Not Detect); Phencyclidine Screen Urine Not Detected (Not Detect)
--- NOTE | 2021-07-08 06:08 | PC.NURSE ---
Patient slept through the night, no distress observed/reported, behavior appropriate, disposition per N in Voluntary inpatient bed search, VSS, med rec completed/pending provider's approval, will continue to monitor
--- NOTE | 2021-07-08 07:07 | PC.NURSE ---
patient appears to remain asleep at present respirations are even and unlabored patient appears in no distress
[2021-07-08] MEDS: Buprenorphine/Naloxone 8/2 mg FILM 1 FILM SUBLINGUAL (12:30)
[2021-07-08 16:47] VITALS: BP 119/73; PULSE 84; RESP 16; TEMP 36.8; O2SAT 98
[2021-07-09 05:58] VITALS: RESP 20
--- NOTE | 2021-07-09 06:34 | PC.NURSE ---
Patient slept through the night, no distress observed/reported, behavior appropriate and non concerning, med rec completed/approved/MAR updated, disposition per [facility] inpatient bed search, VSS, will continue to monitor.
--- NOTE | 2021-07-09 07:00 | PC.NURSE ---
patient appears to remain asleep at present respirations are even and unlabored patient appears in no distress
[2021-07-09] MEDS: Buprenorphine/Naloxone 8/2 mg FILM 2 FILM SUBLINGUAL (08:30)
[2021-07-09] MEDS: Buprenorphine/Naloxone 8/2 mg FILM 1 FILM SUBLINGUAL (20:13)
[2021-07-10 03:36] VITALS: BP 128/91; PULSE 59; RESP 18; TEMP 36.3; O2SAT 98
--- NOTE | 2021-07-10 06:58 | PC.NURSE ---
Patient slept through the night, no distress observed/reported, medication compliant, behavior non concerning at this time, patient was accepted to [facility], paper work submitted to [employer] elementary secretary, yeimi, will continue to monitor.
--- NOTE | 2021-07-10 07:11 | PC.NURSE ---
patient appears to remain asleep at present respirations are even and unlabored patient appears in no distress
[2021-07-10] MEDS: Buprenorphine/Naloxone 8/2 mg FILM 1 FILM SUBLINGUAL (09:29)
[2021-07-10 09:58] LABS: COVID-19 Test Negative (Negative)
== END 2021-07-10 12:31 | disposition other institution (70) ==
PROVIDERS: Nurse Practitioner Family; Emergency Provider Emergency Medicine
DX: F19.20 Other psychoactive substance dependence, uncomplicated (principal); F11.20 Opioid dependence, uncomplicated; R45.851 Suicidal ideations; R45.1 Restlessness and agitation; Z20.822 Contact with and (suspected) exposure to COVID-19; F32.A Depression, unspecified; F41.9 Anxiety disorder, unspecified; B19.20 Unspecified viral hepatitis C without hepatic coma; F10.20 Alcohol dependence, uncomplicated; F17.200 Nicotine dependence, unspecified, uncomplicated; Z79.899 Other long term (current) drug therapy
CPT/HCPCS: 36415; 80048; 80076; 80307; 82550; 85025; 87635; 99284; 99285

== ENCOUNTER → 2021-07-18 13:45 | Outpatient (BNVA) | payer MEDICAID, SELFPAY | PROVIDERS: Visit Provider Internal Medicine | DX: R94.5 Abnormal results of liver function studies (principal); B19.20 Unspecified viral hepatitis C without hepatic coma; F17.210 Nicotine dependence, cigarettes, uncomplicated; F14.20 Cocaine dependence, uncomplicated; F11.20 Opioid dependence, uncomplicated; Z88.8 Allergy status to other drugs, medicaments and biological substances; Z88.6 Allergy status to analgesic agent; Z91.013 Allergy to seafood; Z51.81 Encounter for therapeutic drug level monitoring; Z59.00 Homelessness unspecified | CPT/HCPCS: 80305; 99212 ==

== ENCOUNTER → 2021-08-15 13:55 | Outpatient (BNVA) | payer MEDICAID, SELFPAY | PROVIDERS: Visit Provider Internal Medicine | DX: Z51.81 Encounter for therapeutic drug level monitoring (principal); F11.20 Opioid dependence, uncomplicated | CPT/HCPCS: 80305; 99212 ==

== ENCOUNTER 2022-02-11 11:25 | Outpatient (REF) | payer MEDICAID, SELFPAY ==
[2022-02-12 12:36] LABS: HCV RNA PCR Qn <1.18 NOT DETECTED Log IU/mL (NOT DETECTED); HCV RNA PCR Qn <15 NOT DETECTED IU/mL (NOT DETECTED)
== END 2022-02-11 11:26 | disposition home or self-care (01) ==
LOC: HO.LAB 11:25
PROVIDERS: Absent Provider Internal Medicine; Visit Provider Nurse Practitioner Psychiatric/Mental Health
DX: F11.20 Opioid dependence, uncomplicated (principal); Z51.81 Encounter for therapeutic drug level monitoring
CPT/HCPCS: 36415; 80305; 87522; 87902; 99212

== ENCOUNTER → 2022-02-18 11:19 | Outpatient (BNVA) | payer MEDICAID, SELFPAY | PROVIDERS: Visit Provider Nurse Practitioner Psychiatric/Mental Health | DX: F11.20 Opioid dependence, uncomplicated (principal); Z51.81 Encounter for therapeutic drug level monitoring; Z79.899 Other long term (current) drug therapy | CPT/HCPCS: 80305; 99212 ==

== ENCOUNTER → 2022-02-26 11:06 | Outpatient (BNVA) | payer MEDICAID, SELFPAY | PROVIDERS: Visit Provider Nurse Practitioner Psychiatric/Mental Health | DX: F11.20 Opioid dependence, uncomplicated (principal) | CPT/HCPCS: 80305; 96372; 99212 ==

== ENCOUNTER → 2022-03-26 10:53 | Outpatient (BNVA) | payer MEDICAID, SELFPAY | PROVIDERS: Visit Provider Nurse Practitioner Psychiatric/Mental Health | DX: Z51.81 Encounter for therapeutic drug level monitoring (principal); F11.99 Opioid use, unspecified with unspecified opioid-induced disorder | CPT/HCPCS: 80305; 99212 ==

== ENCOUNTER → 2022-04-16 11:03 | Outpatient (BNVA) | payer MEDICAID, SELFPAY | PROVIDERS: Visit Provider Nurse Practitioner Psychiatric/Mental Health | DX: F11.20 Opioid dependence, uncomplicated (principal) | CPT/HCPCS: 80305 ==

== ENCOUNTER 2022-05-22 11:16 | Outpatient (REF) | payer MEDICAID, SELFPAY ==
[2022-05-30 08:48] LABS: Buprenorphine 59; Norbuprenorphine 72
[2022-05-30 08:49] LABS: Naloxone NEGATIVE
== END 2022-05-22 11:17 | disposition home or self-care (01) ==
LOC: HO.LAB 11:16
PROVIDERS: Visit Provider Nurse Practitioner Psychiatric/Mental Health
DX: F11.20 Opioid dependence, uncomplicated (principal)
CPT/HCPCS: 80305; 80348; 80362; 99212